=== PATIENT | female | born 1990 | race Caucasian/White ===

== ENCOUNTER 2020-04-03 12:56 | Inpatient (IN) | payer SELFPAY ==
[~2020-04-03] VITALS: Ht 162.6 cm; Wt 68.4 kg
[2020-04-03 14:52] LABS: BASO % 0 % (0-3); EOS % 0 % (0-3); HEMATOCRIT 25.7 % (36.0-47.0); HEMOGLOBIN 8.6 g/dL (12.0-15.5); LYMPH # 0.6 x10^3/uL (1.0-4.8); LYMPH % 5 % (24-48); MEAN CORPUSCULAR HEMOGLOBIN 32 pg (25-35); MEAN CORPUSCULAR HGB CONC 33 g/dL (31-37); MEAN CORPUSCULAR VOLUME 96 fL (79-100); MONO # 0.4 x10^3/uL (0.0-1.1); MONO % 4 % (0-9); NEUT # 10.7 x10^3/uL (1.8-7.7); NEUT % 91 % (31-73); PLATELET COUNT 130 x10^3/uL (140-400); RED BLOOD COUNT 2.69 x10^6/uL (3.50-5.40); RED CELL DISTRIBUTION WIDTH 15.6 % (11.5-14.5); WHITE BLOOD COUNT 11.8 x10^3/uL (4.0-11.0)
[2020-04-03 15:01] LABS: BARBITURATES NEG (NEG); BENZODIAZEPINES NEG (NEG); CANNABINOIDS POS (NEG); COCAINE NEG (NEG); METHADONE NEG (NEG); OPIATES POS (NEG); PHENCYCLIDINE NEG (NEG)
[2020-04-03 15:03] LABS: PROTHROMBIN TIME PATIENT 12.3 SEC (11.7-14.0)
[2020-04-03 15:04] LABS: AMPHETAMINE/METHAMPHETAMINE NEG (NEG)
--- NOTE | 2020-04-03 15:07 | EKG ---
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
[2020-04-03 15:11] LABS: % BANDS 6 % (0-9); % LYMPHS 4 % (24-48); % METAS 1 % (0-0); % MONOS 2 % (0-10); % SEGS 87 % (35-66); PLT ESTIMATE ADEQUATE (ADEQUATE); TOXIC GRANULATION SLIGHT; TOXIC VACUOLATION SLIGHT
[2020-04-03 15:12] LABS: CALCIUM 7.9 mg/dL (8.5-10.1); GFR 18.4; POTASSIUM 5.2 mmol/L (3.5-5.1)
[2020-04-03 15:16] LABS: ACETAMIN 14.8 mcg/ml (10-30); ETHANOL < 10 mg/dL (0-10); SALIC < 2.8 mg/dL (2.8-20.0)
[2020-04-03 15:19] LABS: ALBUMIN 0.8 g/dL (3.4-5.0); ALBUMIN/GLOBULIN RATIO 0.2 (1.0-1.7); TOTAL BILIRUBIN 0.2 mg/dL (0.2-1.0); TOTAL PROTEIN 5.4 g/dL (6.4-8.2)
--- NOTE | 2020-04-03 15:21 | RAD ---
CT HEAD WO CONTRAST History: Reason: AMS / Spl. Instructions: / History: Comparison: None. Technique: Noncontrast CT imaging was performed of the head. Exposure: One or more of the following individualized dose reduction techniques were utilized for this examination: 1. Automated exposure control 2. Adjustment of the mA and/or kV according to patient size 3. Use of iterative reconstruction technique. Findings: No intracranial hemorrhage. No mass effect. No hydrocephalus. Extra-axial spaces are unremarkable. Imaged orbits are unremarkable. Imaged paranasal sinuses and mastoid air cells are clear. No acute calvarial fracture. Impression: 1. No acute intracranial abnormality. Electronically signed by: Charles Ryan DO (04/03/2020 3:18 PM) [facility]
--- NOTE | 2020-04-03 15:23 | RAD ---
PORTABLE CHEST 1V Clinical indications: Reason: Altered mental status, NAUSEA, VOMITING / COMPARISON: None available. Findings: No acute lung infiltrate or pleural effusion or pulmonary edema or lung mass or pneumothorax is seen. The heart size, pulmonary vasculature, mediastinum and both anthony are unremarkable. Impression: No acute radiographic abnormality is seen. Electronically signed by: Robert Teran MD (04/03/2020 3:21 PM) [id number]
[2020-04-03 15:26] LABS: CREATINE KINASE 27 U/L (26-192)
[2020-04-03 15:58] LABS: BILIRUBIN,URINE SMALL (NEG); CLARITY,URINE CLOUDY; COLOR,URINE AMBER; NITRITE,URINE NEGATIVE (NEG); PROTEIN,URINE >=300 mg/dL (NEG-TRACE); UROBILINOGEN,URINE 0.2 mg/dL (0.2 mg/dL)
[2020-04-03 16:09] LABS: RBC,URINE TNTC /HPF (0-2)
[2020-04-03 16:10] LABS: AMORPHOUS SEDIMENT,UR PRESENT /HPF; BACTERIA,URINE 0 /HPF (0-FEW); SQUAMOUS EPITHELIAL CELL,UR OCC /LPF
--- NOTE | 2020-04-03 16:17 | EKG ---
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
--- NOTE | 2020-04-03 17:06 | PHYS DOC ---
Past Medical History Past Medical History: Unknown Past Surgical History: No Surgical History Smoking Status: Never Smoker Alcohol Use: None Social History Narrative: PERSCRIBED NAPROXEN AND HYDROCODONE General Adult EDM: Chief Complaint: NAUSEA/VOMITING/DIARRHA HPI: HPI: Patient is a 29 year old female with hx of Lupus who presents to the ED today from home to be evaluated for nausea and vomiting as well as altered mental status. Patient herself is a very poor historian. Information on getting from her male friend who brought patient to the ED, he states patient ran out of hydrocodone that she takes for lupus and has been vomiting since this morning. Patient at some point was able to communicate, she states she is overwhelmed by her lupus and feels she is deteriorating. She was very tearful. Review of Systems: Review of Systems: Constitutional: Denies fever or chills. [] Eyes: Denies change in visual acuity. [] HENT: Denies nasal congestion or sore throat. [] Respiratory: Denies cough or shortness of breath. [] Cardiovascular: Denies chest pain or edema. [] GI: Reports nausea and vomiting. Denies abdominal pain, bloody stools or diarrhea. [] : Denies dysuria. [] Musculoskeletal: Denies back pain or joint pain. [] Integument: Denies rash. [] Neurologic: AMS. Denies headache, focal weakness or sensory changes. [] ] Psychiatric: Denies depression or anxiety. [] Heart Score: Risk Factors: Risk Factors: DM, Current or recent (<one month) smoker, HTN, HLP, family history of CAD, obesity. Risk Scores: Score 0 - 3: 2.5% MACE over next 6 weeks - Discharge Home Score 4 - 6: 20.3% MACE over next 6 weeks - Admit for Clinical Observation Score 7 - 10: 72.7% MACE over next 6 weeks - Early Invasive Strategies Allergies: Allergies: Allergies Coded Allergies Type Severity Reaction Last Updated Verified No Known Drug Allergies 04/03/20 No Physical Exam: PE: Constitutional: Lethargic.Well developed, well nourished, no acute distress, non-toxic appearance. [] HENT: Normocephalic, atraumatic, bilateral external ears normal, oropharynx moist, no oral exudates, nose normal. [] Eyes: PERRLA, EOMI, conjunctiva normal, no discharge. [] Neck: Normal range of motion, no tenderness, supple, no stridor. [] Cardiovascular:Heart rate regular rhythm, no murmur [] Lungs & Thorax: Bilateral breath sounds clear to auscultation [] Abdomen: Vomiting bowel sounds normal, soft, no tenderness, no masses, no pulsatile masses. [] Skin: Warm, dry, no erythema, no rash. [] Back: No tenderness, no CVA tenderness. [] Extremities: No tenderness, no cyanosis, no clubbing, ROM intact, +3 edema from her toes to her thighs Neurologic: Alert and oriented X 2, normal motor function, normal sensory function, no focal deficits noted. Cranial nerves II through XII intact Psychologic: Flat affect. Tearful Current Patient Data: Labs: Laboratory Tests Test 04/03/20 14:30 04/03/20 14:35 04/03/20 14:38 04/03/20 14:47 Urine Opiates Screen Pos (NEG) Urine Methadone Screen Neg (NEG) Urine Barbiturates Neg (NEG) Urine Phencyclidine Screen Neg (NEG) Urine Amphetamine/Methamphetamine Neg (NEG) Urine Benzodiazepines Screen Neg (NEG) Urine Cocaine Screen Neg (NEG) Urine Cannabinoids Screen Pos (NEG) Urine Ethyl Alcohol Neg (NEG) White Blood Count 11.8 x10^3/uL (4.0-11.0) H Red Blood Count 2.69 x10^6/uL (3.50-5.40) L Hemoglobin 8.6 g/dL (12.0-15.5) L Hematocrit 25.7 % (36.0-47.0) L Mean Corpuscular Volume 96 fL (79-100) Mean Corpuscular Hemoglobin 32 pg (25-35) Mean Corpuscular Hemoglobin Concent 33 g/dL (31-37) Red Cell Distribution Width 15.6 % (11.5-14.5) H Platelet Count 130 x10^3/uL (140-400) L Neutrophils (%) (Auto) 91 % (31-73) H Lymphocytes (%) (Auto) 5 % (24-48) L Monocytes (%) (Auto) 4 % (0-9) Eosinophils (%) (Auto) 0 % (0-3) Basophils (%) (Auto) 0 % (0-3) Neutrophils # (Auto) 10.7 x10^3/uL (1.8-7.7) H Lymphocytes # (Auto) 0.6 x10^3/uL (1.0-4.8) L Monocytes # (Auto) 0.4 x10^3/uL (0.0-1.1) Eosinophils # (Auto) 0.0 x10^3/uL (0.0-0.7) Basophils # (Auto) 0.0 x10^3/uL (0.0-0.2) Segmented Neutrophils % 87 % (35-66) H Band Neutrophils % 6 % (0-9) Lymphocytes % 4 % (24-48) L Monocytes % 2 % (0-10) Metamyelocytes % 1 % (0-0) H Toxic Granulation Slight Toxic Vacuolation Slight Platelet Estimate Adequate (ADEQUATE) Prothrombin Time 12.3 SEC (11.7-14.0) Prothrombin Time INR 1.0 (0.8-1.1) Activated Partial Thromboplast Time 29 SEC (24-38) Sodium Level 132 mmol/L (136-145) L Potassium Level 5.2 mmol/L (3.5-5.1) H Chloride Level 104 mmol/L (98-107) Carbon Dioxide Level 20 mmol/L (21-32) L Anion Gap 8 (6-14) Blood Urea Nitrogen 55 mg/dL (7-20) H Creatinine 3.0 mg/dL (0.6-1.0) H Estimated GFR (Cockcroft-Gault) 18.4 BUN/Creatinine Ratio 18 (6-20) Glucose Level 144 mg/dL (70-99) H Lactic Acid Level 1.2 mmol/L (0.4-2.0) Calcium Level 7.9 mg/dL (8.5-10.1) L Total Bilirubin 0.2 mg/dL (0.2-1.0) Aspartate Amino Transferase (AST) 17 U/L (15-37) Alanine Aminotransferase (ALT) 14 U/L (14-59) Alkaline Phosphatase 104 U/L (46-116) Creatine Kinase 27 U/L (26-192) Creatine Kinase MB (Mass) < 0.5 ng/mL (0.0-3.6) Creatine Kinase MB Relative Index % (0-4) Total Protein 5.4 g/dL (6.4-8.2) L Albumin 0.8 g/dL (3.4-5.0) L Albumin/Globulin Ratio 0.2 (1.0-1.7) L Amylase Level 67 U/L (25-115) Lipase 296 U/L (73-393) Procalcitonin 16.38 ng/mL (0.00-0.10) H Salicylates Level < 2.8 mg/dL (2.8-20.0) L Salicylate Last Dose Date Unknown Salicylate Last Dose Time Unknown Acetaminophen Level 14.8 mcg/ml (10-30) Acetaminophen Last Dose Date Unknown Acetaminophen Last Dose Time Unknown Ethyl Alcohol Level < 10 mg/dL (0-10) Urine Collection Type U cath Urine Color Renata Urine Clarity Cloudy Urine pH 5.0 (<5.0-8.0) Urine Specific [place] 1.025 (1.000-1.030) Urine Protein >=300 mg/dL (NEG-TRACE) Urine Glucose (UA) Negative mg/dL (NEG) Urine Ketones (Stick) Trace mg/dL (NEG) Urine Blood Large (NEG) Urine Nitrite Negative (NEG) Urine Bilirubin Small (NEG) Urine Urobilinogen Dipstick 0.2 mg/dL (0.2 mg/dL) Urine Leukocyte Esterase Trace (NEG) Urine RBC Tntc /HPF (0-2) Urine WBC 1-4 /HPF (0-4) Urine Squamous Epithelial Cells Occ /LPF Urine Amorphous Sediment Present /HPF Urine Bacteria 0 /HPF (0-FEW) POC Urine HCG, Qualitative Hcg negative (Negative) Test 04/03/20 15:25 Ammonia < 10 mcmol/L (11-34) L Laboratory Tests 04/03/20 14:35 Laboratory Tests 04/03/20 14:35 Vital Signs: Vital Signs Date Time Temp Pulse Resp B/P (MAP) Pulse Ox O2 Delivery O2 Flow Rate FiO2 04/03/20 13:59 98.5 107 118/83 (95) 98 98.5 04/03/20 13:53 22 Room Air EKG: EKG: [] Radiology/Procedures: Radiology/Procedures: []PROCEDURE: PORTABLE CHEST 1V PORTABLE CHEST 1V Clinical indications: Reason: Altered mental status, NAUSEA, VOMITING / COMPARISON: None available. Findings: No acute lung infiltrate or pleural effusion or pulmonary edema or lung mass or pneumothorax is seen. The heart size, pulmonary vasculature, mediastinum and both anthony are unremarkable. Impression: No acute radiographic abnormality is seen. Electronically signed by: Leobardo Teran MD (04/03/2020 3:21 PM) [id number] DICTATED and SIGNED BY: LEOBARDO TERAN MD DATE: 04/03/20 1521 PROCEDURE: CT HEAD WO CONTRAST CT HEAD WO CONTRAST History: Reason: AMS / Spl. Instructions: / History: Comparison: None. Technique: Noncontrast CT imaging was performed of the head. Exposure: One or more of the following individualized dose reduction techniques were utilized for this examination: 1. Automated exposure control 2. Adjustment of the mA and/or kV according to patient size 3. Use of iterative reconstruction technique. Findings: No intracranial hemorrhage. No mass effect. No hydrocephalus. Extra-axial spaces are unremarkable. Imaged orbits are unremarkable. Imaged paranasal sinuses and mastoid air cells are clear. No acute calvarial fracture. Impression: 1. No acute intracranial abnormality. Electronically signed by: Charles Ryan DO (04/03/2020 3:18 PM) [facility] DICTATED and SIGNED BY: CHARLES RYAN DO DATE: 04/03/20 1518 Course & Med Decision Making: Course & Med Decision Making Pertinent Labs and Imaging studies reviewed. (See chart for details) This is a 29-year-old female patient presenting to the ED today to be evaluated for nausea and vomiting as well as altered mental status. Patient was lethargic on arrival to the ED but able to wake up and talk. She was vomiting on arrival to the ED. Vitals on arrival to the ED temperature 98.5 heart rate 107, respiration 22 on room air, blood pressure 118/83, O2 sats 98% on room air. Ct of the head and chest xray are negative. WBC 11.8, hemoglobin 8.6, hematocrit 25.7, platelet count 130. Potassium 5.2, creatinine 3.0, BUN 55, most likely CRF pro calcitonin 16.38 questionable if this is from Lupus/inflammation, lactic is 1.2. Patient has +3 edema from her toes all the way to her thighs. BNP is 4940 she is on furosemide. Will be given a dose in the Ed.I spoke to Dr. Peña who accepted patient for admission with request for routine consult for infectious disease, nephrology and give patient cefepime and vancomycin cautiously until we figure out if this is elevated procalcitonin is from lupus or not. Spoke with Oneyda from PAT team who will f/u with patient tomorrow. Gaviota Disclaimer: Gaviota Disclaimer: This electronic medical record was generated, in whole or in part, using a voice recognition dictation system. Departure Departure Impression: Primary Impression: Altered mental status Qualified Codes: R41.82 - Altered mental status, unspecified Additional Impressions: Acute renal failure Qualified Codes: N17.9 - Acute kidney failure, unspecified Anemia Qualified Codes: D64.9 - Anemia, unspecified Disposition: 09 ADMITTED INPATIENT Condition: STABLE Referrals: NO PCP (PCP) Justicifation of Admission Dx: Justifications for Admission: Justification of Admission Dx: Yes Chronic Renal Failure: Renail Failure FAUSTO RICHARD STUDENT SUCCESS ADVISOR Apr 03, 2020 17:06
[2020-04-03] MEDS ORDERED: CEFEPIME HCL IV Push 1 GM VIAL. IVP ONE (18:00)
[2020-04-03] MEDS ORDERED: ONDANSETRON PF 4 MG/2 ML VIAL. IV PRN (19:15)
[2020-04-03] MEDS ORDERED: ACETAMINOPHEN 325 MG TABLET. PO PRN (19:15)
[2020-04-03] MEDS ORDERED: FUROSEMIDE 40 MG TABLET. PO ONE (19:30)
[2020-04-03] MEDS ORDERED: VANCOMYCIN PER PHARMACY MC PRN (19:30)
[2020-04-03] MEDS ORDERED: VANCOMYCIN 1.5 GM in IV NORMAL SALINE 500ML BAG 500 ML IV ONE (19:45)
--- NOTE | 2020-04-03 20:39 | PDOC1 ---
History and Physical Date of Admission Date of Admission DATE: 04/03/20 TIME: 20:38 Identification/Chief Complaint Chief Complaint Intractable pain, elevated procalcitonin, leukocytosis Source Source: Caregiver, Patient History of Present Illness History of Present Illness Patient is a 29 yo female with history of lupus, who presents with complaint of "pain all over". She is tearful at the time of evaluation, and does not provide me with an exact duration of time or answers to straight forward questions. She is able to localize her pain to her lower extremities and joints. She does tell me that she has been taking her home hydrocodone medications without improvement in her pain. Patient's friend notes worsening anxiety about her seemingly d eteriorating medical condition over the past 2 months. He states over the past day of two she has become more unresponsive, withdrawn, and tearful. There is mention in the ER note about vomiting, but this was not conveyed to me by the patient or friend. Patient denies any fever, sore throat, cough, SOB, or history of IV drug use. Past Medical History Rheumatologic: Other (Lupus) Renal/: Chronic renal insuff Past Surgical History Past Surgical History: No pertinent history Family History Family History: Cancer Social History Smoke: No ALCOHOL: none Drugs: Marijuana Current Problem List Problem List Problems Medical Problems: (1) Acute renal failure Status: Acute (2) Altered mental status Status: Acute (3) Anemia Status: Acute Current Medications Current Medications Current Medications Cefepime HCl (Maxipime) 1 gm 1X ONCE IVP Last administered on 04/03/20at 18:00; Start 04/03/20 at 18:00; Stop 04/03/20 at 18:01; Status DC Ondansetron HCl (Zofran) 4 mg PRN Q8HRS PRN IV NAUSEA/VOMITING; Start 04/03/20 at 19:15; Stop 04/04/20 at 19:14 Acetaminophen (Tylenol) 650 mg PRN Q4HRS PRN PO FEVER > 100.3'F; Start 04/03/20 at 19:15; Stop 04/04/20 at 19:14 Furosemide (Lasix) 40 mg 1X ONCE PO Last administered on 04/03/20at 20:12; Start 04/03/20 at 19:30; Stop 04/03/20 at 19:35; Status DC Vancomycin HCl (Vanco Per Pharmacy) 1 each PRN DAILY PRN MC SEE COMMENTS; Start 04/03/20 at 19:30; Status UNV Vancomycin HCl 1.5 gm/Sodium Chloride 500 ml @ 250 mls/hr 1X ONCE IV Last administered on 04/03/20at 20:17; Start 04/03/20 at 19:45; Stop 04/03/20 at 21:44 Allergies Allergies: Coded Allergies: No Known Drug Allergies (Unverified , 04/03/20) ROS Review of System Complete review of systems could not be obtained due to uncooperative patient Musculoskeletal: Yes Joint Pain, Yes Joint Swelling, Yes Muscle Pain, Yes Pain In: (Legs), Yes Swelling In: (Legs) Physical Exam General: moderate distress, Other (Lethargic) HEENT: Atraumatic, PERRLA Lungs: Clear to auscultation, Normal air movement Heart: RRR, no murmurs Cardiovascular: S1, S2 Abdomen: Normal bowel sounds, Soft Extremities: No clubbing, No cyanosis, Other (3+ pitting edema bilateral legs to above the knees) Skin: No rashes, No significant lesion Neuro: Sensation intact Psych/Mental Status: Other (Tearful) Vitals Vitals Vital Signs Date Time Temp Pulse Resp B/P (MAP) Pulse Ox O2 Delivery O2 Flow Rate FiO2 04/03/20 19:11 84 16 106/80 (89) 99 Room Air 04/03/20 13:59 98.5 98.5 Labs Labs Laboratory Tests Test 04/03/20 14:30 04/03/20 14:35 04/03/20 14:38 04/03/20 14:47 Urine Opiates Screen Pos (NEG) Urine Methadone Screen Neg (NEG) Urine Barbiturates Neg (NEG) Urine Phencyclidine Screen Neg (NEG) Urine Amphetamine/Methamphetamine Neg (NEG) Urine Benzodiazepines Screen Neg (NEG) Urine Cocaine Screen Neg (NEG) Urine Cannabinoids Screen Pos (NEG) Urine Ethyl Alcohol Neg (NEG) White Blood Count 11.8 x10^3/uL (4.0-11.0) Red Blood Count 2.69 x10^6/uL (3.50-5.40) Hemoglobin 8.6 g/dL (12.0-15.5) Hematocrit 25.7 % (36.0-47.0) Mean Corpuscular Volume 96 fL (79-100) Mean Corpuscular Hemoglobin 32 pg (25-35) Mean Corpuscular Hemoglobin Concent 33 g/dL (31-37) Red Cell Distribution Width 15.6 % (11.5-14.5) Platelet Count 130 x10^3/uL (140-400) Neutrophils (%) (Auto) 91 % (31-73) Lymphocytes (%) (Auto) 5 % (24-48) Monocytes (%) (Auto) 4 % (0-9) Eosinophils (%) (Auto) 0 % (0-3) Basophils (%) (Auto) 0 % (0-3) Neutrophils # (Auto) 10.7 x10^3/uL (1.8-7.7) Lymphocytes # (Auto) 0.6 x10^3/uL (1.0-4.8) Monocytes # (Auto) 0.4 x10^3/uL (0.0-1.1) Eosinophils # (Auto) 0.0 x10^3/uL (0.0-0.7) Basophils # (Auto) 0.0 x10^3/uL (0.0-0.2) Segmented Neutrophils % 87 % (35-66) Band Neutrophils % 6 % (0-9) Lymphocytes % 4 % (24-48) Monocytes % 2 % (0-10) Metamyelocytes % 1 % (0-0) Toxic Granulation Slight Toxic Vacuolation Slight Platelet Estimate Adequate (ADEQUATE) Prothrombin Time 12.3 SEC (11.7-14.0) Prothromb Time International Ratio 1.0 (0.8-1.1) Activated Partial Thromboplast Time 29 SEC (24-38) Sodium Level 132 mmol/L (136-145) Potassium Level 5.2 mmol/L (3.5-5.1) Chloride Level 104 mmol/L (98-107) Carbon Dioxide Level 20 mmol/L (21-32) Anion Gap 8 (6-14) Blood Urea Nitrogen 55 mg/dL (7-20) Creatinine 3.0 mg/dL (0.6-1.0) Estimated GFR (Cockcroft-Gault) 18.4 BUN/Creatinine Ratio 18 (6-20) Glucose Level 144 mg/dL (70-99) Lactic Acid Level 1.2 mmol/L (0.4-2.0) Calcium Level 7.9 mg/dL (8.5-10.1) Total Bilirubin 0.2 mg/dL (0.2-1.0) Aspartate Amino Transf (AST/SGOT) 17 U/L (15-37) Alanine Aminotransferase (ALT/SGPT) 14 U/L (14-59) Alkaline Phosphatase 104 U/L (46-116) Creatine Kinase 27 U/L (26-192) Creatine Kinase MB (Mass) < 0.5 ng/mL (0.0-3.6) Creatine Kinase MB Relative Index % (0-4) EO-Qjt-T-Type Natriuretic Peptide 4940 pg/mL (0-124) Total Protein 5.4 g/dL (6.4-8.2) Albumin 0.8 g/dL (3.4-5.0) Albumin/Globulin Ratio 0.2 (1.0-1.7) Amylase Level 67 U/L (25-115) Lipase 296 U/L (73-393) Procalcitonin 16.38 ng/mL (0.00-0.10) Salicylates Level < 2.8 mg/dL (2.8-20.0) Salicylate Last Dose Date Unknown Salicylate Last Dose Time Unknown Acetaminophen Level 14.8 mcg/ml (10-30) Acetaminophen Last Dose Date Unknown Acetaminophen Last Dose Time Unknown Ethyl Alcohol Level < 10 mg/dL (0-10) Urine Collection Type U cath Urine Color Renata Urine Clarity Cloudy Urine pH 5.0 (<5.0-8.0) Urine Specific [place] 1.025 (1.000-1.030) Urine Protein >=300 mg/dL (NEG-TRACE) Urine Glucose (UA) Negative mg/dL (NEG) Urine Ketones (Stick) Trace mg/dL (NEG) Urine Blood Large (NEG) Urine Nitrite Negative (NEG) Urine Bilirubin Small (NEG) Urine Urobilinogen Dipstick 0.2 mg/dL (0.2 mg/dL) Urine Leukocyte Esterase Trace (NEG) Urine RBC Tntc /HPF (0-2) Urine WBC 1-4 /HPF (0-4) Urine Squamous Epithelial Cells Occ /LPF Urine Amorphous Sediment Present /HPF Urine Bacteria 0 /HPF (0-FEW) Bedside Urine HCG, Qualitative Hcg negative (Negative) Test 04/03/20 15:25 Ammonia < 10 mcmol/L (11-34) Laboratory Tests Test 04/03/20 14:30 04/03/20 14:35 04/03/20 14:38 04/03/20 14:47 Urine Opiates Screen Pos (NEG) Urine Methadone Screen Neg (NEG) Urine Barbiturates Neg (NEG) Urine Phencyclidine Screen Neg (NEG) Urine Amphetamine/Methamphetamine Neg (NEG) Urine Benzodiazepines Screen Neg (NEG) Urine Cocaine Screen Neg (NEG) Urine Cannabinoids Screen Pos (NEG) Urine Ethyl Alcohol Neg (NEG) White Blood Count 11.8 x10^3/uL (4.0-11.0) Red Blood Count 2.69 x10^6/uL (3.50-5.40) Hemoglobin 8.6 g/dL (12.0-15.5) Hematocrit 25.7 % (36.0-47.0) Mean Corpuscular Volume 96 fL (79-100) Mean Corpuscular Hemoglobin 32 pg (25-35) Mean Corpuscular Hemoglobin Concent 33 g/dL (31-37) Red Cell Distribution Width 15.6 % (11.5-14.5) Platelet Count 130 x10^3/uL (140-400) Neutrophils (%) (Auto) 91 % (31-73) Lymphocytes (%) (Auto) 5 % (24-48) Monocytes (%) (Auto) 4 % (0-9) Eosinophils (%) (Auto) 0 % (0-3) Basophils (%) (Auto) 0 % (0-3) Neutrophils # (Auto) 10.7 x10^3/uL (1.8-7.7) Lymphocytes # (Auto) 0.6 x10^3/uL (1.0-4.8) Monocytes # (Auto) 0.4 x10^3/uL (0.0-1.1) Eosinophils # (Auto) 0.0 x10^3/uL (0.0-0.7) Basophils # (Auto) 0.0 x10^3/uL (0.0-0.2) Segmented Neutrophils % 87 % (35-66) Band Neutrophils % 6 % (0-9) Lymphocytes % 4 % (24-48) Monocytes % 2 % (0-10) Metamyelocytes % 1 % (0-0) Toxic Granulation Slight Toxic Vacuolation Slight Platelet Estimate Adequate (ADEQUATE) Prothrombin Time 12.3 SEC (11.7-14.0) Prothromb Time International Ratio 1.0 (0.8-1.1) Activated Partial Thromboplast Time 29 SEC (24-38) Sodium Level 132 mmol/L (136-145) Potassium Level 5.2 mmol/L (3.5-5.1) Chloride Level 104 mmol/L (98-107) Carbon Dioxide Level 20 mmol/L (21-32) Anion Gap 8 (6-14) Blood Urea Nitrogen 55 mg/dL (7-20) Creatinine 3.0 mg/dL (0.6-1.0) Estimated GFR (Cockcroft-Gault) 18.4 BUN/Creatinine Ratio 18 (6-20) Glucose Level 144 mg/dL (70-99) Lactic Acid Level 1.2 mmol/L (0.4-2.0) Calcium Level 7.9 mg/dL (8.5-10.1) Total Bilirubin 0.2 mg/dL (0.2-1.0) Aspartate Amino Transf (AST/SGOT) 17 U/L (15-37) Alanine Aminotransferase (ALT/SGPT) 14 U/L (14-59) Alkaline Phosphatase 104 U/L (46-116) Creatine Kinase 27 U/L (26-192) Creatine Kinase MB (Mass) < 0.5 ng/mL (0.0-3.6) Creatine Kinase MB Relative Index % (0-4) NU-Fbr-L-Type Natriuretic Peptide 4940 pg/mL (0-124) Total Protein 5.4 g/dL (6.4-8.2) Albumin 0.8 g/dL (3.4-5.0) Albumin/Globulin Ratio 0.2 (1.0-1.7) Amylase Level 67 U/L (25-115) Lipase 296 U/L (73-393) Procalcitonin 16.38 ng/mL (0.00-0.10) Salicylates Level < 2.8 mg/dL (2.8-20.0) Salicylate Last Dose Date Unknown Salicylate Last Dose Time Unknown Acetaminophen Level 14.8 mcg/ml (10-30) Acetaminophen Last Dose Date Unknown Acetaminophen Last Dose Time Unknown Ethyl Alcohol Level < 10 mg/dL (0-10) Urine Collection Type U cath Urine Color Renata Urine Clarity Cloudy Urine pH 5.0 (<5.0-8.0) Urine Specific [place] 1.025 (1.000-1.030) Urine Protein >=300 mg/dL (NEG-TRACE) Urine Glucose (UA) Negative mg/dL (NEG) Urine Ketones (Stick) Trace mg/dL (NEG) Urine Blood Large (NEG) Urine Nitrite Negative (NEG) Urine Bilirubin Small (NEG) Urine Urobilinogen Dipstick 0.2 mg/dL (0.2 mg/dL) Urine Leukocyte Esterase Trace (NEG) Urine RBC Tntc /HPF (0-2) Urine WBC 1-4 /HPF (0-4) Urine Squamous Epithelial Cells Occ /LPF Urine Amorphous Sediment Present /HPF Urine Bacteria 0 /HPF (0-FEW) Bedside Urine HCG, Qualitative Hcg negative (Negative) Test 04/03/20 15:25 Ammonia < 10 mcmol/L (11-34) VTE Prophylaxis Ordered VTE Prophylaxis Devices: No VTE Pharmacological Prophylaxi: Yes Assessment/Plan Assessment/Plan Elevated Procalcitonin Leukocytosis Renal Failure Hyperkalemia Malnutrition Plan: Patient does not appear toxic, with normal vitals, but her labs are concerning for underlying infectious process. Procalcitonin 16.38, WBC 11.8. Consult to Nephrology and ID. As patient does not currently appear toxic, hold further antibiotics until input from ID, as this could be the result of systemic autoimmune disease. Elevated procalcitonin may be secondary to Lupus as underlying autoimmune disease. Consult to PAT. Even in the absence of underlying infectious process, patient lives alone and is currently not mentally stable enough to return home by herself. Blood cultures pending. Pain management. VTE prophylaxis. Full Code. Justifications for Admission Other Justification KYRA MALDONADO MD Apr 03, 2020 20:39
[2020-04-03] MEDS ORDERED: SODIUM POLYSTYRENE SULFON/SORB 15 GM/60 ML ORAL.SUSP. PO ONE (20:45)
[2020-04-03] MEDS ORDERED: HYDROcodone/APAP 5/325MG 1 TAB TABLET PO PRN (20:45)
[2020-04-03] MEDS ORDERED: BISACODYL 10 MG SUPP.RECT. PR PRN (20:45)
[2020-04-03 21:20] VITALS: BP 106/68
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
[2020-04-03] MEDS: DOCUSATE SODIUM 100 MG CAPSULE. PO SCH (22:23)
[2020-04-03] MEDS: HEPARIN for SUB-Q USE 5,000 UNIT/ML VIAL. SQ SCH (22:32)
[2020-04-03 23:00] VITALS: BP 116/73
[2020-04-04 03:00] VITALS: BP 98/64
[2020-04-04] MEDS: HEPARIN for SUB-Q USE 5,000 UNIT/ML VIAL. SQ SCH ×3 (06:43→20:57)
[2020-04-04 07:00] VITALS: BP 98/68
--- NOTE | 2020-04-04 07:48 | NUR ---
Consult called to Dr. Karley Copeland and spoke with Dr. Copeland. Consult called to Dr. Stokes's service and spoke with Surendra at [phone] and she stated she would notify Dr. Stokes with consult.
[2020-04-04 08:14] LABS: BASO % 0 % (0-3); EOS % 0 % (0-3); HEMATOCRIT 29.7 % (36.0-47.0); HEMOGLOBIN 9.6 g/dL (12.0-15.5); LYMPH # 1.6 x10^3/uL (1.0-4.8); LYMPH % 9 % (24-48); MEAN CORPUSCULAR HEMOGLOBIN 31 pg (25-35); MEAN CORPUSCULAR HGB CONC 32 g/dL (31-37); MEAN CORPUSCULAR VOLUME 95 fL (79-100); MONO # 0.9 x10^3/uL (0.0-1.1); MONO % 5 % (0-9); NEUT # 15.8 x10^3/uL (1.8-7.7); NEUT % 86 % (31-73); PLATELET COUNT 158 x10^3/uL (140-400); RED BLOOD COUNT 3.13 x10^6/uL (3.50-5.40); RED CELL DISTRIBUTION WIDTH 16.2 % (11.5-14.5); WHITE BLOOD COUNT 18.4 x10^3/uL (4.0-11.0)
[2020-04-04 08:40] LABS: ALBUMIN 0.6 g/dL (3.4-5.0); ALBUMIN/GLOBULIN RATIO 0.1 (1.0-1.7); CALCIUM 7.7 mg/dL (8.5-10.1); CREATININE 3.5 mg/dL (0.6-1.0); GFR 15.4; TOTAL BILIRUBIN 0.1 mg/dL (0.2-1.0); TOTAL PROTEIN 4.9 g/dL (6.4-8.2)
[2020-04-04] MEDS: DOCUSATE SODIUM 100 MG CAPSULE. PO SCH ×2 (08:53→20:56)
[2020-04-04 08:59] LABS: POTASSIUM 6.1 mmol/L (3.5-5.1)
--- NOTE | 2020-04-04 10:50 | PDOC ---
PROGRESS NOTES Date of Service: DATE: 04/04/20 TIME: 10:47 Chief Complaint Chief Complaint VTE Prophylaxis Ordered VTE Prophylaxis Devices: No VTE Pharmacological Prophylaxi: Yes Assessment/Plan Assessment/Plan Elevated Procalcitonin Leukocytosis Renal Failure Hyperkalemia Malnutrition metabolic encephalopathy sepsis Plan: does not appear toxic, with normal vitals, labs are concerning for underlying infectious process. Procalcitonin 16.38, WBC 11.8. Consult to Nephrology and ID., neurology further antibiotics until input from ID, as this could be the result of systemic autoimmune disease. Elevated procalcitonin may be secondary to Lupus as underlying autoimmune disease. Consult to PAT. Even in the absence of underlying infectious process, patient lives alone and is currently not mentally stable enough to return home by herself. Blood cultures POS G POS COCCI . 04/04 ct abd pelvis ADMIT CONSULT id Pain management. VTE prophylaxis. Full Code. KAYEXYLATE PO consult nephrology iv vancomycin cefepime iv bmp at 2300 tonight covid-19 ag lactic acid fibrinogen 38 min pt exam, chart review, > 50% of time spent with exam, chart review, pt care coordination History of Present Illness History of Present Illness History of Present Illness History of Present Illness Patient is a 29 yo female with history of lupus, who presents with complaint of "pain all over". She is tearful at the time of evaluation, and does not provide me with an exact duration of time or answers to straight forward questions. She is able to localize her pain to her lower extremities and joints. She does tell me that she has been taking her home hydrocodone medications without improvement in her pain. Patient's friend notes worsening anxiety about her seemingly deteriorating medical condition over the past 2 months. He states over the past day of two she has become more unresponsive, withdrawn, and tearful. mention in the ER note about vomiting, but this was not conveyed to me by the patient or friend. denies any fever, sore throat, cough, SOB, or history of IV drug use. Past Medical History Rheumatologic: Other (Lupus) Renal/: Chronic renal insuff Past Surgical History Past Surgical History: No pertinent history Family History Family History: Cancer Social History Smoke: No ALCOHOL: none Drugs: Marijuana Vitals Vitals Vital Signs Date Time Temp Pulse Resp B/P (MAP) Pulse Ox O2 Delivery O2 Flow Rate FiO2 04/04/20 08:55 100 Room Air 04/04/20 07:00 98.4 88 20 98/68 78) 98.4 Physical Exam General: Alert, Cooperative, No acute distress, Other (Lethargic) Heart: Regular rate, No murmurs Lungs: Clear Abdomen: Normal bowel sounds, Soft, No tenderness Extremities: No clubbing, No cyanosis, No edema, Other (3+ pitting edema bilateral legs to above the knees) Skin: No rashes, No significant lesion Labs LABS PORTABLE CHEST 1V Clinical indications: Reason: Altered mental status, NAUSEA, VOMITING / COMPARISON: None available. Findings: No acute lung infiltrate or pleural effusion or pulmonary edema or lung mass or pneumothorax is seen. The heart size, pulmonary vasculature, mediastinum and both anthony are unremarkable. Impression: No acute radiographic abnormality is seen. Electronically signed by: Leobardo Teran MD (04/03/2020 3:21 PM) [id number] DICTATED and SIGNED BY: LEOBARDO TERAN MD DATE: 04/03/[address] HEAD WO CONTRAST History: Reason: AMS / Spl. Instructions: / History: Comparison: None. Technique: Noncontrast CT imaging was performed of the head. Exposure: One or more of the following individualized dose reduction techniques were utilized for this examination: 1. Automated exposure control 2. Adjustment of the mA and/or kV according to patient size 3. Use of iterative reconstruction technique. Findings: No intracranial hemorrhage. No mass effect. No hydrocephalus. Extra-axial spaces are unremarkable. Imaged orbits are unremarkable. Imaged paranasal sinuses and mastoid air cells are clear. No acute calvarial fracture. Impression: 1. No acute intracranial abnormality. Electronically signed by: Charles Jones DO (04/03/2020 3:18 PM) [facility] DICTATED and SIGNED BY: CHARLES JONES DO DATE: 04/03/20 1518 Laboratory Tests Test 04/03/20 14:30 04/03/20 14:35 04/03/20 14:38 04/03/20 14:47 Urine Opiates Screen Pos (NEG) Urine Methadone Screen Neg (NEG) Urine Barbiturates Neg (NEG) Urine Phencyclidine Screen Neg (NEG) Urine Amphetamine/Methamphetamine Neg (NEG) Urine Benzodiazepines Screen Neg (NEG) Urine Cocaine Screen Neg (NEG) Urine Cannabinoids Screen Pos (NEG) Urine Ethyl Alcohol Neg (NEG) White Blood Count 11.8 x10^3/uL (4.0-11.0) Red Blood Count 2.69 x10^6/uL (3.50-5.40) Hemoglobin 8.6 g/dL (12.0-15.5) Hematocrit 25.7 % (36.0-47.0) Mean Corpuscular Volume 96 fL (79-100) Mean Corpuscular Hemoglobin 32 pg (25-35) Mean Corpuscular Hemoglobin Concent 33 g/dL (31-37) Red Cell Distribution Width 15.6 % (11.5-14.5) Platelet Count 130 x10^3/uL (140-400) Neutrophils (%) (Auto) 91 % (31-73) Lymphocytes (%) (Auto) 5 % (24-48) Monocytes (%) (Auto) 4 % (0-9) Eosinophils (%) (Auto) 0 % (0-3) Basophils (%) (Auto) 0 % (0-3) Neutrophils # (Auto) 10.7 x10^3/uL (1.8-7.7) Lymphocytes # (Auto) 0.6 x10^3/uL (1.0-4.8) Monocytes # (Auto) 0.4 x10^3/uL (0.0-1.1) Eosinophils # (Auto) 0.0 x10^3/uL (0.0-0.7) Basophils # (Auto) 0.0 x10^3/uL (0.0-0.2) Segmented Neutrophils % 87 % (35-66) Band Neutrophils % 6 % (0-9) Lymphocytes % 4 % (24-48) Monocytes % 2 % (0-10) Metamyelocytes % 1 % (0-0) Toxic Granulation Slight Toxic Vacuolation Slight Platelet Estimate Adequate (ADEQUATE) Prothrombin Time 12.3 SEC (11.7-14.0) Prothromb Time International Ratio 1.0 (0.8-1.1) Activated Partial Thromboplast Time 29 SEC (24-38) Sodium Level 132 mmol/L (136-145) Potassium Level 5.2 mmol/L (3.5-5.1) Chloride Level 104 mmol/L (98-107) Carbon Dioxide Level 20 mmol/L (21-32) Anion Gap 8 (6-14) Blood Urea Nitrogen 55 mg/dL (7-20) Creatinine 3.0 mg/dL (0.6-1.0) Estimated GFR (Cockcroft-Gault) 18.4 BUN/Creatinine Ratio 18 (6-20) Glucose Level 144 mg/dL (70-99) Lactic Acid Level 1.2 mmol/L (0.4-2.0) Calcium Level 7.9 mg/dL (8.5-10.1) Total Bilirubin 0.2 mg/dL (0.2-1.0) Aspartate Amino Transf (AST/SGOT) 17 U/L (15-37) Alanine Aminotransferase (ALT/SGPT) 14 U/L (14-59) Alkaline Phosphatase 104 U/L (46-116) Creatine Kinase 27 U/L (26-192) Creatine Kinase MB (Mass) < 0.5 ng/mL (0.0-3.6) Creatine Kinase MB Relative Index % (0-4) FO-Ydf-[id number]-Type Natriuretic Peptide 4940 pg/mL (0-124) Total Protein 5.4 g/dL (6.4-8.2) Albumin 0.8 g/dL (3.4-5.0) Albumin/Globulin Ratio 0.2 (1.0-1.7) Amylase Level 67 U/L (25-115) Lipase 296 U/L (73-393) Procalcitonin 16.38 ng/mL (0.00-0.10) Salicylates Level < 2.8 mg/dL (2.8-20.0) Salicylate Last Dose Date Unknown Salicylate Last Dose Time Unknown Acetaminophen Level 14.8 mcg/ml (10-30) Acetaminophen Last Dose Date Unknown Acetaminophen Last Dose Time Unknown Ethyl Alcohol Level < 10 mg/dL (0-10) Urine Collection Type U cath Urine Color Renata Urine Clarity Cloudy Urine pH 5.0 (<5.0-8.0) Urine Specific Serafina 1.025 (1.000-1.030) Urine Protein >=300 mg/dL (NEG-TRACE) Urine Glucose (UA) Negative mg/dL (NEG) Urine Ketones (Stick) Trace mg/dL (NEG) Urine Blood Large (NEG) Urine Nitrite Negative (NEG) Urine Bilirubin Small (NEG) Urine Urobilinogen Dipstick 0.2 mg/dL (0.2 mg/dL) Urine Leukocyte Esterase Trace (NEG) Urine RBC Tntc /HPF (0-2) Urine WBC 1-4 /HPF (0-4) Urine Squamous Epithelial Cells Occ /LPF Urine Amorphous Sediment Present /HPF Urine Bacteria 0 /HPF (0-FEW) Bedside Urine HCG, Qualitative Hcg negative (Negative) Test 04/03/20 15:25 04/04/20 07:25 Ammonia < 10 mcmol/L (11-34) White Blood Count 18.4 x10^3/uL (4.0-11.0) Red Blood Count 3.13 x10^6/uL (3.50-5.40) Hemoglobin 9.6 g/dL (12.0-15.5) Hematocrit 29.7 % (36.0-47.0) Mean Corpuscular Volume 95 fL (79-100) Mean Corpuscular Hemoglobin 31 pg (25-35) Mean Corpuscular Hemoglobin Concent 32 g/dL (31-37) Red Cell Distribution Width 16.2 % (11.5-14.5) Platelet Count 158 x10^3/uL (140-400) Neutrophils (%) (Auto) 86 % (31-73) Lymphocytes (%) (Auto) 9 % (24-48) Monocytes (%) (Auto) 5 % (0-9) Eosinophils (%) (Auto) 0 % (0-3) Basophils (%) (Auto) 0 % (0-3) Neutrophils # (Auto) 15.8 x10^3/uL (1.8-7.7) Lymphocytes # (Auto) 1.6 x10^3/uL (1.0-4.8) Monocytes # (Auto) 0.9 x10^3/uL (0.0-1.1) Eosinophils # (Auto) 0.0 x10^3/uL (0.0-0.7) Basophils # (Auto) 0.0 x10^3/uL (0.0-0.2) Sodium Level 133 mmol/L (136-145) Potassium Level 6.1 mmol/L (3.5-5.1) Chloride Level 104 mmol/L (98-107) Carbon Dioxide Level 19 mmol/L (21-32) Anion Gap 10 (6-14) Blood Urea Nitrogen 65 mg/dL (7-20) Creatinine 3.5 mg/dL (0.6-1.0) Estimated GFR (Cockcroft-Gault) 15.4 BUN/Creatinine Ratio 19 (6-20) Glucose Level 88 mg/dL (70-99) Calcium Level 7.7 mg/dL (8.5-10.1) Total Bilirubin 0.1 mg/dL (0.2-1.0) Aspartate Amino Transf (AST/SGOT) 12 U/L (15-37) Alanine Aminotransferase (ALT/SGPT) 8 U/L (14-59) Alkaline Phosphatase 85 U/L (46-116) C-Reactive Protein, Quantitative 171.4 mg/L (0-3.3) Total Protein 4.9 g/dL (6.4-8.2) Albumin 0.6 g/dL (3.4-5.0) Albumin/Globulin Ratio 0.1 (1.0-1.7) Procalcitonin 21.56 ng/mL (0.00-0.10) Assessment and Plan Assessmemt and Plan Problems Medical Problems: (1) Acute renal failure Status: Acute (2) Altered mental status Status: Acute (3) Anemia Status: Acute Comment Review of Relevant I have reviewed the following items jennifer (where applicable) has been applied. Labs Laboratory Tests Test 04/03/20 14:30 04/03/20 14:35 04/03/20 14:38 04/03/20 14:47 Urine Opiates Screen Pos (NEG) Urine Methadone Screen Neg (NEG) Urine Barbiturates Neg (NEG) Urine Phencyclidine Screen Neg (NEG) Urine Amphetamine/Methamphetamine Neg (NEG) Urine Benzodiazepines Screen Neg (NEG) Urine Cocaine Screen Neg (NEG) Urine Cannabinoids Screen Pos (NEG) Urine Ethyl Alcohol Neg (NEG) White Blood Count 11.8 x10^3/uL (4.0-11.0) Red Blood Count 2.69 x10^6/uL (3.50-5.40) Hemoglobin 8.6 g/dL (12.0-15.5) Hematocrit 25.7 % (36.0-47.0) Mean Corpuscular Volume 96 fL (79-100) Mean Corpuscular Hemoglobin 32 pg (25-35) Mean Corpuscular Hemoglobin Concent 33 g/dL (31-37) Red Cell Distribution Width 15.6 % (11.5-14.5) Platelet Count 130 x10^3/uL (140-400) Neutrophils (%) (Auto) 91 % (31-73) Lymphocytes (%) (Auto) 5 % (24-48) Monocytes (%) (Auto) 4 % (0-9) Eosinophils (%) (Auto) 0 % (0-3) Basophils (%) (Auto) 0 % (0-3) Neutrophils # (Auto) 10.7 x10^3/uL (1.8-7.7) Lymphocytes # (Auto) 0.6 x10^3/uL (1.0-4.8) Monocytes # (Auto) 0.4 x10^3/uL (0.0-1.1) Eosinophils # (Auto) 0.0 x10^3/uL (0.0-0.7) Basophils # (Auto) 0.0 x10^3/uL (0.0-0.2) Segmented Neutrophils % 87 % (35-66) Band Neutrophils % 6 % (0-9) Lymphocytes % 4 % (24-48) Monocytes % 2 % (0-10) Metamyelocytes % 1 % (0-0) Toxic Granulation Slight Toxic Vacuolation Slight Platelet Estimate Adequate (ADEQUATE) Prothrombin Time 12.3 SEC (11.7-14.0) Prothromb Time International Ratio 1.0 (0.8-1.1) Activated Partial Thromboplast Time 29 SEC (24-38) Sodium Level 132 mmol/L (136-145) Potassium Level 5.2 mmol/L (3.5-5.1) Chloride Level 104 mmol/L (98-107) Carbon Dioxide Level 20 mmol/L (21-32) Anion Gap 8 (6-14) Blood Urea Nitrogen 55 mg/dL (7-20) Creatinine 3.0 mg/dL (0.6-1.0) Estimated GFR (Cockcroft-Gault) 18.4 BUN/Creatinine Ratio 18 (6-20) Glucose Level 144 mg/dL (70-99) Lactic Acid Level 1.2 mmol/L (0.4-2.0) Calcium Level 7.9 mg/dL (8.5-10.1) Total Bilirubin 0.2 mg/dL (0.2-1.0) Aspartate Amino Transf (AST/SGOT) 17 U/L (15-37) Alanine Aminotransferase (ALT/SGPT) 14 U/L (14-59) Alkaline Phosphatase 104 U/L (46-116) Creatine Kinase 27 U/L (26-192) Creatine Kinase MB (Mass) < 0.5 ng/mL (0.0-3.6) Creatine Kinase MB Relative Index % (0-4) MR-Igc-Z-Type Natriuretic Peptide 4940 pg/mL (0-124) Total Protein 5.4 g/dL (6.4-8.2) Albumin 0.8 g/dL (3.4-5.0) Albumin/Globulin Ratio 0.2 (1.0-1.7) Amylase Level 67 U/L (25-115) Lipase 296 U/L (73-393) Procalcitonin 16.38 ng/mL (0.00-0.10) Salicylates Level < 2.8 mg/dL (2.8-20.0) Salicylate Last Dose Date Unknown Salicylate Last Dose Time Unknown Acetaminophen Level 14.8 mcg/ml (10-30) Acetaminophen Last Dose Date Unknown Acetaminophen Last Dose Time Unknown Ethyl Alcohol Level < 10 mg/dL (0-10) Urine Collection Type U cath Urine Color Renata Urine Clarity Cloudy Urine pH 5.0 (<5.0-8.0) Urine Specific Serafina 1.025 (1.000-1.030) Urine Protein >=300 mg/dL (NEG-TRACE) Urine Glucose (UA) Negative mg/dL (NEG) Urine Ketones (Stick) Trace mg/dL (NEG) Urine Blood Large (NEG) Urine Nitrite Negative (NEG) Urine Bilirubin Small (NEG) Urine Urobilinogen Dipstick 0.2 mg/dL (0.2 mg/dL) Urine Leukocyte Esterase Trace (NEG) Urine RBC Tntc /HPF (0-2) Urine WBC 1-4 /HPF (0-4) Urine Squamous Epithelial Cells Occ /LPF Urine Amorphous Sediment Present /HPF Urine Bacteria 0 /HPF (0-FEW) Bedside Urine HCG, Qualitative Hcg negative (Negative) Test 04/03/20 15:25 04/04/20 07:25 Ammonia < 10 mcmol/L (11-34) White Blood Count 18.4 x10^3/uL (4.0-11.0) Red Blood Count 3.13 x10^6/uL (3.50-5.40) Hemoglobin 9.6 g/dL (12.0-15.5) Hematocrit 29.7 % (36.0-47.0) Mean Corpuscular Volume 95 fL (79-100) Mean Corpuscular Hemoglobin 31 pg (25-35) Mean Corpuscular Hemoglobin Concent 32 g/dL (31-37) Red Cell Distribution Width 16.2 % (11.5-14.5) Platelet Count 158 x10^3/uL (140-400) Neutrophils (%) (Auto) 86 % (31-73) Lymphocytes (%) (Auto) 9 % (24-48) Monocytes (%) (Auto) 5 % (0-9) Eosinophils (%) (Auto) 0 % (0-3) Basophils (%) (Auto) 0 % (0-3) Neutrophils # (Auto) 15.8 x10^3/uL (1.8-7.7) Lymphocytes # (Auto) 1.6 x10^3/uL (1.0-4.8) Monocytes # (Auto) 0.9 x10^3/uL (0.0-1.1) Eosinophils # (Auto) 0.0 x10^3/uL (0.0-0.7) Basophils # (Auto) 0.0 x10^3/uL (0.0-0.2) Sodium Level 133 mmol/L (136-145) Potassium Level 6.1 mmol/L (3.5-5.1) Chloride Level 104 mmol/L (98-107) Carbon Dioxide Level 19 mmol/L (21-32) Anion Gap 10 (6-14) Blood Urea Nitrogen 65 mg/dL (7-20) Creatinine 3.5 mg/dL (0.6-1.0) Estimated GFR (Cockcroft-Gault) 15.4 BUN/Creatinine Ratio 19 (6-20) Glucose Level 88 mg/dL (70-99) Calcium Level 7.7 mg/dL (8.5-10.1) Total Bilirubin 0.1 mg/dL (0.2-1.0) Aspartate Amino Transf (AST/SGOT) 12 U/L (15-37) Alanine Aminotransferase (ALT/SGPT) 8 U/L (14-59) Alkaline Phosphatase 85 U/L (46-116) C-Reactive Protein, Quantitative 171.4 mg/L (0-3.3) Total Protein 4.9 g/dL (6.4-8.2) Albumin 0.6 g/dL (3.4-5.0) Albumin/Globulin Ratio 0.1 (1.0-1.7) Procalcitonin 21.56 ng/mL (0.00-0.10) Laboratory Tests Test 04/03/20 14:30 04/03/20 14:35 04/03/20 14:38 04/03/20 14:47 Urine Opiates Screen Pos (NEG) Urine Methadone Screen Neg (NEG) Urine Barbiturates Neg (NEG) Urine Phencyclidine Screen Neg (NEG) Urine Amphetamine/Methamphetamine Neg (NEG) Urine Benzodiazepines Screen Neg (NEG) Urine Cocaine Screen Neg (NEG) Urine Cannabinoids Screen Pos (NEG) Urine Ethyl Alcohol Neg (NEG) White Blood Count 11.8 x10^3/uL (4.0-11.0) Red Blood Count 2.69 x10^6/uL (3.50-5.40) Hemoglobin 8.6 g/dL (12.0-15.5) Hematocrit 25.7 % (36.0-47.0) Mean Corpuscular Volume 96 fL (79-100) Mean Corpuscular Hemoglobin 32 pg (25-35) Mean Corpuscular Hemoglobin Concent 33 g/dL (31-37) Red Cell Distribution Width 15.6 % (11.5-14.5) Platelet Count 130 x10^3/uL (140-400) Neutrophils (%) (Auto) 91 % (31-73) Lymphocytes (%) (Auto) 5 % (24-48) Monocytes (%) (Auto) 4 % (0-9) Eosinophils (%) (Auto) 0 % (0-3) Basophils (%) (Auto) 0 % (0-3) Neutrophils # (Auto) 10.7 x10^3/uL (1.8-7.7) Lymphocytes # (Auto) 0.6 x10^3/uL (1.0-4.8) Monocytes # (Auto) 0.4 x10^3/uL (0.0-1.1) Eosinophils # (Auto) 0.0 x10^3/uL (0.0-0.7) Basophils # (Auto) 0.0 x10^3/uL (0.0-0.2) Segmented Neutrophils % 87 % (35-66) Band Neutrophils % 6 % (0-9) Lymphocytes % 4 % (24-48) Monocytes % 2 % (0-10) Metamyelocytes % 1 % (0-0) Toxic Granulation Slight Toxic Vacuolation Slight Platelet Estimate Adequate (ADEQUATE) Prothrombin Time 12.3 SEC (11.7-14.0) Prothromb Time International Ratio 1.0 (0.8-1.1) Activated Partial Thromboplast Time 29 SEC (24-38) Sodium Level 132 mmol/L (136-145) Potassium Level 5.2 mmol/L (3.5-5.1) Chloride Level 104 mmol/L (98-107) Carbon Dioxide Level 20 mmol/L (21-32) Anion Gap 8 (6-14) Blood Urea Nitrogen 55 mg/dL (7-20) Creatinine 3.0 mg/dL (0.6-1.0) Estimated GFR (Cockcroft-Gault) 18.4 BUN/Creatinine Ratio 18 (6-20) Glucose Level 144 mg/dL (70-99) Lactic Acid Level 1.2 mmol/L (0.4-2.0) Calcium Level 7.9 mg/dL (8.5-10.1) Total Bilirubin 0.2 mg/dL (0.2-1.0) Aspartate Amino Transf (AST/SGOT) 17 U/L (15-37) Alanine Aminotransferase (ALT/SGPT) 14 U/L (14-59) Alkaline Phosphatase 104 U/L (46-116) Creatine Kinase 27 U/L (26-192) Creatine Kinase MB (Mass) < 0.5 ng/mL (0.0-3.6) Creatine Kinase MB Relative Index % (0-4) RD-Azn-E-Type Natriuretic Peptide 4940 pg/mL (0-124) Total Protein 5.4 g/dL (6.4-8.2) Albumin 0.8 g/dL (3.4-5.0) Albumin/Globulin Ratio 0.2 (1.0-1.7) Amylase Level 67 U/L (25-115) Lipase 296 U/L (73-393) Procalcitonin 16.38 ng/mL (0.00-0.10) Salicylates Level < 2.8 mg/dL (2.8-20.0) Salicylate Last Dose Date Unknown Salicylate Last Dose Time Unknown Acetaminophen Level 14.8 mcg/ml (10-30) Acetaminophen Last Dose Date Unknown Acetaminophen Last Dose Time Unknown Ethyl Alcohol Level < 10 mg/dL (0-10) Urine Collection Type U cath Urine Color Renata Urine Clarity Cloudy Urine pH 5.0 (<5.0-8.0) Urine Specific Serafina 1.025 (1.000-1.030) Urine Protein >=300 mg/dL (NEG-TRACE) Urine Glucose (UA) Negative mg/dL (NEG) Urine Ketones (Stick) Trace mg/dL (NEG) Urine Blood Large (NEG) Urine Nitrite Negative (NEG) Urine Bilirubin Small (NEG) Urine Urobilinogen Dipstick 0.2 mg/dL (0.2 mg/dL) Urine Leukocyte Esterase Trace (NEG) Urine RBC Tntc /HPF (0-2) Urine WBC 1-4 /HPF (0-4) Urine Squamous Epithelial Cells Occ /LPF Urine Amorphous Sediment Present /HPF Urine Bacteria 0 /HPF (0-FEW) Bedside Urine HCG, Qualitative Hcg negative (Negative) Test 04/03/20 15:25 04/04/20 07:25 Ammonia < 10 mcmol/L (11-34) White Blood Count 18.4 x10^3/uL (4.0-11.0) Red Blood Count 3.13 x10^6/uL (3.50-5.40) Hemoglobin 9.6 g/dL (12.0-15.5) Hematocrit 29.7 % (36.0-47.0) Mean Corpuscular Volume 95 fL (79-100) Mean Corpuscular Hemoglobin 31 pg (25-35) Mean Corpuscular Hemoglobin Concent 32 g/dL (31-37) Red Cell Distribution Width 16.2 % (11.5-14.5) Platelet Count 158 x10^3/uL (140-400) Neutrophils (%) (Auto) 86 % (31-73) Lymphocytes (%) (Auto) 9 % (24-48) Monocytes (%) (Auto) 5 % (0-9) Eosinophils (%) (Auto) 0 % (0-3) Basophils (%) (Auto) 0 % (0-3) Neutrophils # (Auto) 15.8 x10^3/uL (1.8-7.7) Lymphocytes # (Auto) 1.6 x10^3/uL (1.0-4.8) Monocytes # (Auto) 0.9 x10^3/uL (0.0-1.1) Eosinophils # (Auto) 0.0 x10^3/uL (0.0-0.7) Basophils # (Auto) 0.0 x10^3/uL (0.0-0.2) Sodium Level 133 mmol/L (136-145) Potassium Level 6.1 mmol/L (3.5-5.1) Chloride Level 104 mmol/L (98-107) Carbon Dioxide Level 19 mmol/L (21-32) Anion Gap 10 (6-14) Blood Urea Nitrogen 65 mg/dL (7-20) Creatinine 3.5 mg/dL (0.6-1.0) Estimated GFR (Cockcroft-Gault) 15.4 BUN/Creatinine Ratio 19 (6-20) Glucose Level 88 mg/dL (70-99) Calcium Level 7.7 mg/dL (8.5-10.1) Total Bilirubin 0.1 mg/dL (0.2-1.0) Aspartate Amino Transf (AST/SGOT) 12 U/L (15-37) Alanine Aminotransferase (ALT/SGPT) 8 U/L (14-59) Alkaline Phosphatase 85 U/L (46-116) C-Reactive Protein, Quantitative 171.4 mg/L (0-3.3) Total Protein 4.9 g/dL (6.4-8.2) Albumin 0.6 g/dL (3.4-5.0) Albumin/Globulin Ratio 0.1 (1.0-1.7) Procalcitonin 21.56 ng/mL (0.00-0.10) Microbiology 04/04/20 Blood Culture - Final, Complete Medications Current Medications Cefepime HCl (Maxipime) 1 gm 1X ONCE IVP Last administered on 04/03/20at 18:00; Start 04/03/20 at 18:00; Stop 04/03/20 at 18:01; Status DC Ondansetron HCl (Zofran) 4 mg PRN Q8HRS PRN IV NAUSEA/VOMITING; Start 04/03/20 at 19:15; Stop 04/04/20 at 19:14 Acetaminophen (Tylenol) 650 mg PRN Q4HRS PRN PO FEVER > 100.3'F; Start 04/03/20 at 19:15; Stop 04/04/20 at 19:14 Furosemide (Lasix) 40 mg 1X ONCE PO Last administered on 04/03/20at 20:12; Start 04/03/20 at 19:30; Stop 04/03/20 at 19:35; Status DC Vancomycin HCl (Vanco Per Pharmacy) 1 each PRN DAILY PRN MC SEE COMMENTS; Start 04/03/20 at 19:30; Stop 04/03/20 at 20:45; Status DC Vancomycin HCl 1.5 gm/Sodium Chloride 500 ml @ 250 mls/hr 1X ONCE IV Last administered on 04/03/20at 20:17; Start 04/03/20 at 19:45; Stop 04/03/20 at 21:44; Status DC Sodium Polystyrene Sulfonate (Kayexalate) 15 gm 1X ONCE PO Last administered on 04/03/20at 21:14; Start 04/03/20 at 20:45; Stop 04/03/20 at 20:46; Status DC Acetaminophen/ Hydrocodone Bitart (Lortab 5/325) 1 tab PRN Q4HRS PRN PO MILD PAIN, 2ND CHOICE Last administered on 04/04/20at 06:45; Start 04/03/20 at 20:45 Acetaminophen/ Hydrocodone Bitart (Lortab 5/325) 2 tab PRN Q4HRS PRN PO MODERATE PAIN, SEVERE PAIN; Start 04/03/20 at 20:45 Docusate Sodium (Colace) 100 mg BID PO Last administered on 04/04/20at 08:53; Start 04/03/20 at 21:00 Bisacodyl (Dulcolax Supp) 10 mg PRN DAILY PRN NM CONSTIPATION; Start 04/03/20 at 20:45 Heparin Sodium (Porcine) (Heparin Sodium) 5,000 unit Q8HRS SQ Last administered on 04/04/20at 06:43; Start 04/03/20 at 22:00 Vitals/I & O Vital Sign - Last 24 Hours 04/03/20 04/03/20 04/03/20 04/03/20 13:53 13:59 14:15 14:45 Temp 98.5 98.5 98.5 98.5 Pulse 107 107 90 79 Resp 22 22 22 B/P (MAP) 118/83 (95) 118/83 (95) 112/71 (85) 113/77 (89) Pulse Ox 98 98 99 99 O2 Delivery Room Air Room Air Room Air 04/03/20 04/03/20 04/03/20 04/03/20 15:11 15:41 16:11 16:41 Pulse 76 85 86 86 Resp 20 20 20 20 B/P (MAP) 125/79 (94) 121/86 (98) 116/86 (96) 110/84 (93) Pulse Ox 99 98 98 99 O2 Delivery Room Air Room Air Room Air Room Air 04/03/20 04/03/20 04/03/20 04/03/20 17:11 18:01 18:11 18:41 Pulse 83 86 84 88 Resp 20 16 15 16 B/P (MAP) 114/82 (93) 113/87 (96) 111/84 (93) 111/70 (84) Pulse Ox 99 96 100 100 O2 Delivery Room Air Room Air Room Air Room Air 04/03/20 04/03/20 04/03/20 04/03/20 19:11 19:41 20:11 20:41 Pulse 84 86 88 88 Resp 16 17 17 18 B/P (MAP) 106/80 (89) 113/73 (86) 112/81 (91) 112/92 (99) Pulse Ox 99 99 99 99 O2 Delivery Room Air Room Air Room Air Room Air 04/03/20 04/03/20 04/03/20 04/04/20 21:20 21:45 23:00 03:00 Temp 98.1 98.0 98.7 98.1 98.0 98.7 Pulse 79 80 92 Resp 16 16 18 B/P (MAP) 106/68 (81) 116/73 (87) 98/64 (75) Pulse Ox 95 100 100 O2 Delivery Room Air Room Air Room Air Room Air 04/04/20 04/04/20 04/04/20 06:45 07:00 08:55 Temp 98.4 98.4 Pulse 88 Resp 18 20 B/P (MAP) 98/68 (78) Pulse Ox 100 100 100 O2 Delivery Room Air Room Air Room Air Intake and Output 04/03/20 04/03/20 04/04/20 15:00 23:00 07:00 Intake Total 240 ml Balance 240 ml Justicifation of Admission Dx: Justifications for Admission: Justification of Admission Dx: Yes Chronic Renal Failure: Renail Failure MANISH LANZA MD Apr 04, 2020 10:50
[2020-04-04 11:00] VITALS: BP 98/66
[2020-04-04] MEDS ORDERED: SODIUM POLYSTYRENE SULFON/SORB 15 GM/60 ML ORAL.SUSP. PO ONE (11:00)
--- NOTE | 2020-04-04 11:51 | CONS ---
DATE OF CONSULTATION: 04/04/2020 REQUESTING PHYSICIAN: Dr. Peña. REASON FOR CONSULTATION: Leukocytosis and elevated procalcitonin. HISTORY OF PRESENT ILLNESS: This is a 29-year-old female with history of lupus, who was admitted with pain all over the body. The patient is not cooperative in communicating, had been tearful, withdrawn. The patient has also had some nausea, vomiting. The patient's workup showed she had leukocytosis, renal insufficiency, no fever, and the patient is admitted for further management. Her potassium is high. BUN and creatinine is abnormal, we do not know the baseline. Her urine showed actually more hematuria rather than infection only, 1-4 wbc's. Chest x-ray was unremarkable and CT of the head was unremarkable for any acute changes. The patient was given one dose of vancomycin, one dose of cefepime and now consult has been requested. Again, the patient is not cooperative to be able to communicate to provide any meaningful information. PAST MEDICAL HISTORY: Positive for lupus, positive for renal insufficiency. SOCIAL HISTORY: Negative for smoking. No alcohol use, occasional marijuana use. REVIEW OF SYSTEMS: As per HPI, all other systems reviewed and are negative through the patient's nurse and some to the patient, although again not cooperative. CURRENT MEDICATIONS: Reviewed. PHYSICAL EXAMINATION: GENERAL: Awake female who is tearful, annoyed with talking, not in distress. VITAL SIGNS: Stable, afebrile. HEENT: NAD. NECK: Supple, no JVP, no lymphadenopathy. LUNGS: Clear. HEART: S1, S2 regular. No gallop or murmur. ABDOMEN: Soft, nontender, no organomegaly. EXTREMITIES: No edema, cyanosis. SKIN: Unremarkable. NEUROLOGIC: The patient is alert, awake, noncooperative, but no focal deficit. LABORATORY DATA: White count is 18,000. BUN and creatinine is 65 and 3.5. Urinalysis showed more hematuria rather than infection and chest x-ray is unremarkable. Apparently, the blood culture is just turned positive. They have not done Gram stain yet. IMPRESSION: 1. Increased procalcitonin in a patient with renal insufficiency, has no diagnostic value. 2. Pain all over the body "lupus flare". 3. Systemic lupus erythematosus. 4. Leukocytosis. 5. Blood culture positive, it is unclear right now what is positive. They have not done Gram stain yet. 6. Personality disorder. RECOMMEND: We will wait for the Gram stain on the blood culture, possible, there is gram-positive cocci and may be contaminant, but we will check on that, protect her until more information is available, supportive care and we will continue to follow. Thank you very much, Dr. Peña for giving me the opportunity to participate in this patient's care. JASWANT TRIPLETT MD DR: DEREK/pushpa JOB#: [id number] / [id number]
[2020-04-04] MEDS ORDERED: FUROSEMIDE 40 MG/4 ML VIAL. IVP ONE ×2 (13:30→21:00)
[2020-04-04] MEDS: HYDROcodone/APAP 5/325MG 1 TAB TABLET PO PRN (14:06)
[2020-04-04 15:00] VITALS: BP 101/66
[2020-04-04] MEDS ORDERED: CEFEPIME HCL IV Push 1 GM VIAL. IVP SCH (18:00)
[2020-04-04] MEDS ORDERED: IV NORMAL SALINE 500ML BAG 500 ML IV PRN (18:15)
[2020-04-04] MEDS: IV NORMAL SALINE 1000ML BAG 1,000 ML IV SCH ×2 (18:39→20:54)
[2020-04-04 18:57] LABS: FIBRINOGEN 615 mg/dL (200-440); PROTHROMBIN TIME PATIENT 12.7 SEC (11.7-14.0)
[2020-04-04 18:58] LABS: CALCIUM 8.2 mg/dL (8.5-10.1); CREATININE 3.7 mg/dL (0.6-1.0); GFR 14.5
[2020-04-04 19:00] VITALS: BP 110/74
[2020-04-04 19:03] LABS: POTASSIUM 6.4 mmol/L (3.5-5.1)
[2020-04-04 19:35] LABS: D-DIMER > 20.00 ug/mlFEU (0.00-0.50)
--- NOTE | 2020-04-04 19:36 | NUR ---
Was notified by Lab at 1934 hours of critical D-Dimer greater than 20. Notified DANIEL Rodriguez who was assigned to patient. DANIEL Rodriguez was giving report to transfer nurse on the 6th floor, as patient was in progress to be transferred up to the 6th floor. DANIEL Rodriguez said she notified DANIEL Ashley during report and DANIEL Ashley would notify the doctor of the critical result. Nothing further at this time.
--- NOTE | 2020-04-04 19:40 | NUR ---
RN gave report to Gabi SANCHEZ and patient was then transported to room 675.
[2020-04-04] MEDS ORDERED: DEXTROSE 50% 25 GM / 50ML DISP.SYRIN. IV ONE (20:15)
[2020-04-04] MEDS: IV 1/2 NORMAL SALINE 1,000 ML IV SCH (20:55)
[2020-04-04] MEDS ORDERED: CALCIUM GLUCONATE 1,000 MG in IV NORMAL SALINE 100ML 100 ML IV ONE (21:00)
[2020-04-04] MEDS ORDERED: INSULIN REGULAR 100 UNIT/ML 3ML VIAL. IV ONE (21:00)
[2020-04-04 23:00] VITALS: BP 110/88
--- NOTE | 2020-04-04 23:57 | RAD ---
INDICATION: Reason: ARF, LUPUS / Spl. Instructions: / History: COMPARISON: None. TECHNIQUE: Grayscale and color ultrasound images obtained through the abdomen. FINDINGS: Aorta/IVC: Visualized portion unremarkable. Pancreas: Enlarged appearance. Hypoechoic. Liver: Echogenic Gallbladder: Distended at time of exam with wall measuring up to 4-5 mm. Common Bile Duct: Not dilated. Right Kidney: 92 mm without hydronephrosis. Small adjacent free fluid Left Kidney: 110 mm without hydronephrosis. Spleen: Unremarkable. IMPRESSION: * Distended gallbladder with prominent wall. The mild wall thickening is nonspecific in nature and can be from primary gallbladder inflammation, reactive to adjacent hepatic disease or a systemic process such as hypoproteinemia. * Hypoechoic pancreas which appears prominent in size. Would correlate with symptoms and lab markers to ensure this is not from pancreatitis. * Liver is echogenic. Nonspecific but can be seen with fatty infiltration. * Trace free fluid Electronically signed by: Kareem Ferguson MD (04/04/2020 11:54 PM) [id number]
[2020-04-05 00:25] LABS: CALCIUM 7.9 mg/dL (8.5-10.1); CREATININE 3.1 mg/dL (0.6-1.0); GFR 17.8; POTASSIUM 5.4 mmol/L (3.5-5.1)
[2020-04-05 03:00] VITALS: BP 123/84
[2020-04-05] MEDS: IV 1/2 NORMAL SALINE 1,000 ML IV SCH ×2 (04:15→14:15)
[2020-04-05] MEDS: HYDROcodone/APAP 5/325MG 1 TAB TABLET PO PRN (05:31)
[2020-04-05] MEDS: HEPARIN for SUB-Q USE 5,000 UNIT/ML VIAL. SQ SCH ×3 (05:32→21:22)
--- NOTE | 2020-04-05 06:30 | PDOC ---
Infectious Disease Note Subjective Subjective She is feeling little better ROS ROS No nausea vomiting diarrhea chest pain shortness of breath Vital Sign Vital Signs Vital Signs Date Time Temp Pulse Resp B/P (MAP) Pulse Ox O2 Delivery O2 Flow Rate FiO2 04/05/20 05:31 22 100 Room Air 04/05/20 03:00 100.2 96 123/84 (97) 100.2 Physical Exam PHYSICAL EXAM GENERAL: Awake female who is tearful, annoyed with talking, not in distress. VITAL SIGNS: Stable, afebrile. HEENT: NAD. NECK: Supple, no JVP, no lymphadenopathy. LUNGS: Clear. HEART: S1, S2 regular. No gallop or murmur. ABDOMEN: Soft, nontender, no organomegaly. EXTREMITIES: No edema, cyanosis. SKIN: Unremarkable. NEUROLOGIC: The patient is alert, awake, noncooperative, but no focal deficit. Labs Lab Laboratory Tests Test 04/04/20 07:25 04/04/20 18:20 04/05/20 00:01 White Blood Count 18.4 x10^3/uL (4.0-11.0) Red Blood Count 3.13 x10^6/uL (3.50-5.40) Hemoglobin 9.6 g/dL (12.0-15.5) Hematocrit 29.7 % (36.0-47.0) Mean Corpuscular Volume 95 fL (79-100) Mean Corpuscular Hemoglobin 31 pg (25-35) Mean Corpuscular Hemoglobin Concent 32 g/dL (31-37) Red Cell Distribution Width 16.2 % (11.5-14.5) Platelet Count 158 x10^3/uL (140-400) Neutrophils (%) (Auto) 86 % (31-73) Lymphocytes (%) (Auto) 9 % (24-48) Monocytes (%) (Auto) 5 % (0-9) Eosinophils (%) (Auto) 0 % (0-3) Basophils (%) (Auto) 0 % (0-3) Neutrophils # (Auto) 15.8 x10^3/uL (1.8-7.7) Lymphocytes # (Auto) 1.6 x10^3/uL (1.0-4.8) Monocytes # (Auto) 0.9 x10^3/uL (0.0-1.1) Eosinophils # (Auto) 0.0 x10^3/uL (0.0-0.7) Basophils # (Auto) 0.0 x10^3/uL (0.0-0.2) Sodium Level 133 mmol/L (136-145) 133 mmol/L (136-145) 132 mmol/L (136-145) Potassium Level 6.1 mmol/L (3.5-5.1) 6.4 mmol/L (3.5-5.1) 5.4 mmol/L (3.5-5.1) Chloride Level 104 mmol/L (98-107) 103 mmol/L (98-107) 105 mmol/L (98-107) Carbon Dioxide Level 19 mmol/L (21-32) 17 mmol/L (21-32) 18 mmol/L (21-32) Anion Gap 10 (6-14) 13 (6-14) 9 (6-14) Blood Urea Nitrogen 65 mg/dL (7-20) 71 mg/dL (7-20) 69 mg/dL (7-20) Creatinine 3.5 mg/dL (0.6-1.0) 3.7 mg/dL (0.6-1.0) 3.1 mg/dL (0.6-1.0) Estimated GFR (Cockcroft-Gault) 15.4 14.5 17.8 BUN/Creatinine Ratio 19 (6-20) Glucose Level 88 mg/dL (70-99) 77 mg/dL (70-99) 71 mg/dL (70-99) Calcium Level 7.7 mg/dL (8.5-10.1) 8.2 mg/dL (8.5-10.1) 7.9 mg/dL (8.5-10.1) Total Bilirubin 0.1 mg/dL (0.2-1.0) Aspartate Amino Transf (AST/SGOT) 12 U/L (15-37) Alanine Aminotransferase (ALT/SGPT) 8 U/L (14-59) Alkaline Phosphatase 85 U/L (46-116) C-Reactive Protein, Quantitative 171.4 mg/L (0-3.3) Total Protein 4.9 g/dL (6.4-8.2) Albumin 0.6 g/dL (3.4-5.0) Albumin/Globulin Ratio 0.1 (1.0-1.7) Procalcitonin 21.56 ng/mL (0.00-0.10) 19.08 ng/mL (0.00-0.10) Prothrombin Time 12.7 SEC (11.7-14.0) Prothromb Time International Ratio 1.0 (0.8-1.1) Activated Partial Thromboplast Time 28 SEC (24-38) Fibrinogen 615 mg/dL (200-440) D-Dimer (Smiley) > 20.00 ug/mlFEU Micro BLOOD CULTURE Final GRAM POSITIVE COCCI IN CHAINS 2 SETS DRAWN, 4 OF 4 POSITIVE CALLED TO MADDISON SANDERS RN IN 4N BY LLUVIA,04/04/20,10.30 SPECIMEN SENDING TO [facility] FOR FURTHER WORK UP Objective Assessment IMPRESSION: 1. Increased procalcitonin in a patient with renal insufficiency, has no diagnostic value. 2. Pain all over the body "lupus flare". 3. Systemic lupus erythematosus. 4. Leukocytosis. 5. Blood culture positive, strep or enterococcus 6. Personality disorder. Plan Plan of Care IV Zosyn Supportive care Follow the cultures and adjust JASWANT TRIPLETT MD Apr 05, 2020 06:30
[2020-04-05 07:27] LABS: BASO % 0 % (0-3); EOS % 0 % (0-3); HEMATOCRIT 27.4 % (36.0-47.0); HEMOGLOBIN 8.9 g/dL (12.0-15.5); LYMPH # 1.4 x10^3/uL (1.0-4.8); LYMPH % 8 % (24-48); MEAN CORPUSCULAR HEMOGLOBIN 31 pg (25-35); MEAN CORPUSCULAR HGB CONC 32 g/dL (31-37); MEAN CORPUSCULAR VOLUME 95 fL (79-100); MONO # 0.6 x10^3/uL (0.0-1.1); MONO % 4 % (0-9); NEUT # 14.7 x10^3/uL (1.8-7.7); NEUT % 88 % (31-73); PLATELET COUNT 212 x10^3/uL (140-400); RED BLOOD COUNT 2.88 x10^6/uL (3.50-5.40); RED CELL DISTRIBUTION WIDTH 15.8 % (11.5-14.5); WHITE BLOOD COUNT 16.8 x10^3/uL (4.0-11.0)
[2020-04-05 07:36] LABS: CALCIUM 7.7 mg/dL (8.5-10.1); CREATININE 2.6 mg/dL (0.6-1.0); GFR 21.8; MAGNESIUM 1.8 mg/dL (1.8-2.4); PHOSPHORUS 8.6 mg/dL (2.6-4.7); POTASSIUM 5.1 mmol/L (3.5-5.1)
[2020-04-05 07:58] VITALS: BP 107/74
[2020-04-05] MEDS: DOCUSATE SODIUM 100 MG CAPSULE. PO SCH ×2 (08:01→21:21)
[2020-04-05] MEDS: PIPERACILLIN/TAZOBACTAM 2.25 GM in IV NORMAL SALINE 50ML 50 ML IV SCH ×3 (08:01→18:37)
--- NOTE | 2020-04-05 08:22 | RAD ---
Examination: CT of the abdomen pelvis without contrast HISTORY: History of sepsis COMPARISON: None available Technique: Axial CT images of the abdomen pelvis were performed without contrast. Coronal and sagittal reformats are performed. Exposure: One or more of the following individualized dose reduction techniques were utilized for this examination: 1. Automated exposure control 2. Adjustment of the mA and/or kV according to patient size 3. Use of iterative reconstruction technique FINDINGS: Focal airspace opacity identified in the left lower lobe likely atelectasis or infiltrate. No evidence of free air identified in the abdomen. The evaluation of the solid organs is limited due to lack of IV contrast. The evaluation of bowel is limited due to lack of oral contrast. The visualized noncontrasted liver, spleen, adrenals grossly appears unremarkable. Examination limited due to motion artifact. The gallbladder is mildly distended. The stomach is mildly distended. The evaluation of pancreas is limited due to motion artifact. The small bowel is nondilated. Feces and gas noted in the colon. Horseshoe kidney identified. There is questionable mild fat stranding identified about the bilateral kidneys. The appendix is normal. Urinary bladder is mildly distended. Diffuse fat stranding identified in the soft tissue of the abdominal wall and the pelvis. Tiny focus of air identified in the right anterior abdominal wall. No evidence of lytic bony destructive lesion. Mild degenerative changes identified at L4-L5 vertebral level. IMPRESSION: 1. Very limited examination due to significant motion artifact. 2. Diffuse fat stranding identified in the soft tissue of the abdominal wall and the pelvis could be cellulitis or anasarca/edema. 3. 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 Correlate for urinary tract infection. 4. Focal airspace opacity identified left lower lobe lung likely pneumonia or atelectasis. Electronically signed by: Catalino Choudhury MD (04/05/2020 8:20 AM) [id number]
[2020-04-05 11:23] VITALS: BP 96/57
--- NOTE | 2020-04-05 14:26 | PDOC2 ---
CONSULT Date of Consult Date of Consult DATE: 04/05/20 TIME: 14:14 Reason for Consult Reason for Consult: RENAL FAILURE Referring Physician Referring Physician: JOEL Identification/Chief Complaint Chief Complaint SWELLING Source Source: Chart review, Patient History of Present Illness Reason for Visit: THIS IS A 29 YR OLD ADMITTED WITH PAIN ALL OVER HER BODY. ALSO SOME N/V AND SWELLING. SHE HAS LEUCOCYTOSIS AND UNDERGOING ID EVALUATION. CR OF 3.7 ON ADMIT. ALSO HAD HYPERKALEMIA. CR WNL LAST MONTH. HX NOTABLE FOR SLE AND RELATED LUPUS NEPHRITIS. HAS HX OF RENAL BX IN LATE DECEMBER AND FINDINGS WERE C.W STAGE IV NEPHRITIS AND SHE HAD IGG IGA IGM C1Q AND COMPLEMENT DEPOSITS ON IF. SHE WAS NOTED TO HAVE NEARLY 10 GM OF PROTEIN IN HER URINE AND NL CR. HER SEROLOGY WAS C.W ACUTE LUPUS IN JANUARY AND FEBRUARY. SHE WAS PLACED ON CELLCEPT AND STEROIDS BUT DOES NOT TOLERATE HIGH DOSE OF STEROIDS WELL. STATES SHE HAS BEEN TAKING HER CELLCEPT BUT NO PREDNISONE. CURRENT UA NOTABLE FOR HEMATURIA AND PROTEINURIA Past Medical History Past Medical History PROTEINURIA GI: Constipation, Other (NAUSEA) Rheumatologic: Other (Lupus) Renal/: Hematuria Past Surgical History Past Surgical History KIDNEY BX Family History Family History: Cancer Social History No ALCOHOL: none Drugs: Marijuana Lives: with Family Current Problem List Problem List Problems Medical Problems: (1) Acute renal failure Status: Acute (2) Altered mental status Status: Acute (3) Anemia Status: Acute Current Medications Current Medications Current Medications Cefepime HCl (Maxipime) 1 gm 1X ONCE IVP Last administered on 04/03/20at 18:00; Start 04/03/20 at 18:00; Stop 04/03/20 at 18:01; Status DC Ondansetron HCl (Zofran) 4 mg PRN Q8HRS PRN IV NAUSEA/VOMITING; Start 04/03/20 at 19:15; Stop 04/04/20 at 19:14; Status DC Acetaminophen (Tylenol) 650 mg PRN Q4HRS PRN PO FEVER > 100.3'F; Start 04/03/20 at 19:15; Stop 04/04/20 at 19:14; Status DC Furosemide (Lasix) 40 mg 1X ONCE PO Last administered on 04/03/20at 20:12; Start 04/03/20 at 19:30; Stop 04/03/20 at 19:35; Status DC Vancomycin HCl (Vanco Per Pharmacy) 1 each PRN DAILY PRN MC SEE COMMENTS; Start 04/03/20 at 19:30; Stop 04/03/20 at 20:45; Status DC Vancomycin HCl 1.5 gm/Sodium Chloride 500 ml @ 250 mls/hr 1X ONCE IV Last administered on 04/03/20at 20:17; Start 04/03/20 at 19:45; Stop 04/03/20 at 21:44; Status DC Sodium Polystyrene Sulfonate (Kayexalate) 15 gm 1X ONCE PO Last administered on 04/03/20at 21:14; Start 04/03/20 at 20:45; Stop 04/03/20 at 20:46; Status DC Acetaminophen/ Hydrocodone Bitart (Lortab 5/325) 1 tab PRN Q4HRS PRN PO MILD PAIN, 2ND CHOICE Last administered on 04/04/20at 06:45; Start 04/03/20 at 20:45 Acetaminophen/ Hydrocodone Bitart (Lortab 5/325) 2 tab PRN Q4HRS PRN PO MODERATE PAIN, SEVERE PAIN Last administered on 04/05/20at 05:31; Start 04/03/20 at 20:45 Docusate Sodium (Colace) 100 mg BID PO Last administered on 04/05/20at 08:01; Start 04/03/20 at 21:00 Bisacodyl (Dulcolax Supp) 10 mg PRN DAILY PRN [place] CONSTIPATION; Start 04/03/20 at 20:45 Heparin Sodium (Porcine) (Heparin Sodium) 5,000 unit Q8HRS SQ Last administered on 04/05/20at 05:32; Start 04/03/20 at 22:00 Sodium Polystyrene Sulfonate (Kayexalate) 30 gm 1X ONCE PO Last administered on 04/04/20at 12:12; Start 04/04/20 at 11:00; Stop 04/04/20 at 11:01; Status DC Furosemide (Lasix) 60 mg 1X ONCE IVP Last administered on 04/04/20at 13:47; Start 04/04/20 at 13:30; Stop 04/04/20 at 13:31; Status DC Cefepime HCl (Maxipime) 1 gm Q12HR IVP Last administered on 04/04/20at 20:58; Start 04/04/20 at 18:00; Stop 04/05/20 at 06:30; Status DC Sodium Chloride 1,000 ml @ 1,650 mls/hr Q37M IV Last administered on 04/04/20at 18:39; Start 04/04/20 at 18:02; Stop 04/04/20 at 19:02; Status DC Sodium Chloride 500 ml @ 1,000 mls/hr PRN Q30MIN PRN IV SEE COMMENTS; Start 04/04/20 at 18:15 Sodium Chloride 1,000 ml @ 100 mls/hr Q10H IV Last administered on 04/04/20at 20:55; Start 04/04/20 at 18:15 Calcium Gluconate 1000 mg/Sodium Chloride 110 ml @ 220 mls/hr 1X ONCE IV Last administered on 04/04/20at 20:56; Start 04/04/20 at 21:00; Stop 04/04/20 at 21:29; Status DC Dextrose (Dextrose 50%-Water Syringe) 25 gm 1X ONCE IV Last administered on 04/04/20at 20:56; Start 04/04/20 at 20:15; Stop 04/04/20 at 20:16; Status DC Furosemide (Lasix) 40 mg 1X ONCE IVP Last administered on 04/04/20at 20:57; Start 04/04/20 at 21:00; Stop 04/04/20 at 21:01; Status DC Insulin Human Regular (HumuLIN R VIAL) 10 unit 1X ONCE IV Last administered on 04/04/20at 20:55; Start 04/04/20 at 21:00; Stop 04/04/20 at 21:01; Status DC Piperacillin Sod/ Tazobactam Sod 2.25 gm/Sodium Chloride 50 ml @ 100 mls/hr Q6HRS IV Last administered on 04/05/20at 12:18; Start 04/05/20 at 07:00 Allergies Allergies: Coded Allergies: No Known Drug Allergies (Unverified , 04/03/20) ROS General: YES: Fatigue, Malaise, Appetite PSYCHOLOGICAL ROS: YES: Anxiety, Depression Eyes: Yes Decreased vision HEENT: YES: Heacaches Respiratory: YES: Cough Cardiovascular: yes Edema Gastrointestinal: Yes Nausea, Yes Constipation Genitourinary: YES Other (NOCTURIA) Musculoskeletal: Yes Joint Pain, Yes Joint Stiffness, Yes Muscular Weakness Neurological: Yes Weakness Skin: Yes Dry Skin Physical Exam General: Alert, Oriented X3, Cooperative, No acute distress HEENT: Atraumatic, PERRLA Lungs: Clear to auscultation Heart: Regular rate, Normal S1, Normal S2 Abdomen: Normal bowel sounds, Soft Extremities: No clubbing Skin: No rashes Neuro: Normal speech, Sensation intact Psych/Mental Status: Mental status NL, Mood NL MUSCULOSKELETAL: Other (3+ EDEMA) Vitals VITALS Vital Signs Date Time Temp Pulse Resp B/P (MAP) Pulse Ox O2 Delivery O2 Flow Rate FiO2 04/05/20 11:23 98.7 99 20 96/57 (70) 97 Room Air 98.7 Labs Labs Laboratory Tests Test 04/03/20 14:30 04/03/20 14:35 04/03/20 14:38 04/03/20 14:47 Urine Opiates Screen Pos (NEG) Urine Methadone Screen Neg (NEG) Urine Barbiturates Neg (NEG) Urine Phencyclidine Screen Neg (NEG) Urine Amphetamine/Methamphetamine Neg (NEG) Urine Benzodiazepines Screen Neg (NEG) Urine Cocaine Screen Neg (NEG) Urine Cannabinoids Screen Pos (NEG) Urine Ethyl Alcohol Neg (NEG) White Blood Count 11.8 x10^3/uL (4.0-11.0) Red Blood Count 2.69 x10^6/uL (3.50-5.40) Hemoglobin 8.6 g/dL (12.0-15.5) Hematocrit 25.7 % (36.0-47.0) Mean Corpuscular Volume 96 fL (79-100) Mean Corpuscular Hemoglobin 32 pg (25-35) Mean Corpuscular Hemoglobin Concent 33 g/dL (31-37) Red Cell Distribution Width 15.6 % (11.5-14.5) Platelet Count 130 x10^3/uL (140-400) Neutrophils (%) (Auto) 91 % (31-73) Lymphocytes (%) (Auto) 5 % (24-48) Monocytes (%) (Auto) 4 % (0-9) Eosinophils (%) (Auto) 0 % (0-3) Basophils (%) (Auto) 0 % (0-3) Neutrophils # (Auto) 10.7 x10^3/uL (1.8-7.7) Lymphocytes # (Auto) 0.6 x10^3/uL (1.0-4.8) Monocytes # (Auto) 0.4 x10^3/uL (0.0-1.1) Eosinophils # (Auto) 0.0 x10^3/uL (0.0-0.7) Basophils # (Auto) 0.0 x10^3/uL (0.0-0.2) Segmented Neutrophils % 87 % (35-66) Band Neutrophils % 6 % (0-9) Lymphocytes % 4 % (24-48) Monocytes % 2 % (0-10) Metamyelocytes % 1 % (0-0) Toxic Granulation Slight Toxic Vacuolation Slight Platelet Estimate Adequate (ADEQUATE) Prothrombin Time 12.3 SEC (11.7-14.0) Prothromb Time International Ratio 1.0 (0.8-1.1) Activated Partial Thromboplast Time 29 SEC (24-38) Sodium Level 132 mmol/L (136-145) Potassium Level 5.2 mmol/L (3.5-5.1) Chloride Level 104 mmol/L (98-107) Carbon Dioxide Level 20 mmol/L (21-32) Anion Gap 8 (6-14) Blood Urea Nitrogen 55 mg/dL (7-20) Creatinine 3.0 mg/dL (0.6-1.0) Estimated GFR (Cockcroft-Gault) 18.4 BUN/Creatinine Ratio 18 (6-20) Glucose Level 144 mg/dL (70-99) Lactic Acid Level 1.2 mmol/L (0.4-2.0) Calcium Level 7.9 mg/dL (8.5-10.1) Total Bilirubin 0.2 mg/dL (0.2-1.0) Aspartate Amino Transf (AST/SGOT) 17 U/L (15-37) Alanine Aminotransferase (ALT/SGPT) 14 U/L (14-59) Alkaline Phosphatase 104 U/L (46-116) Creatine Kinase 27 U/L (26-192) Creatine Kinase MB (Mass) < 0.5 ng/mL (0.0-3.6) Creatine Kinase MB Relative Index % (0-4) IU-[id number]-Type Natriuretic Peptide 4940 pg/mL (0-124) Total Protein 5.4 g/dL (6.4-8.2) Albumin 0.8 g/dL (3.4-5.0) Albumin/Globulin Ratio 0.2 (1.0-1.7) Amylase Level 67 U/L (25-115) Lipase 296 U/L (73-393) Procalcitonin 16.38 ng/mL (0.00-0.10) Salicylates Level < 2.8 mg/dL (2.8-20.0) Salicylate Last Dose Date Unknown Salicylate Last Dose Time Unknown Acetaminophen Level 14.8 mcg/ml (10-30) Acetaminophen Last Dose Date Unknown Acetaminophen Last Dose Time Unknown Ethyl Alcohol Level < 10 mg/dL (0-10) Urine Collection Type U cath Urine Color Renata Urine Clarity Cloudy Urine pH 5.0 (<5.0-8.0) Urine Specific [place] 1.025 (1.000-1.030) Urine Protein >=300 mg/dL (NEG-TRACE) Urine Glucose (UA) Negative mg/dL (NEG) Urine Ketones (Stick) Trace mg/dL (NEG) Urine Blood Large (NEG) Urine Nitrite Negative (NEG) Urine Bilirubin Small (NEG) Urine Urobilinogen Dipstick 0.2 mg/dL (0.2 mg/dL) Urine Leukocyte Esterase Trace (NEG) Urine RBC Tntc /HPF (0-2) Urine WBC 1-4 /HPF (0-4) Urine Squamous Epithelial Cells Occ /LPF Urine Amorphous Sediment Present /HPF Urine Bacteria 0 /HPF (0-FEW) Bedside Urine HCG, Qualitative Hcg negative (Negative) Test 04/03/20 15:25 04/04/20 07:25 04/04/20 18:20 04/05/20 00:01 Ammonia < 10 mcmol/L (11-34) White Blood Count 18.4 x10^3/uL (4.0-11.0) Red Blood Count 3.13 x10^6/uL (3.50-5.40) Hemoglobin 9.6 g/dL (12.0-15.5) Hematocrit 29.7 % (36.0-47.0) Mean Corpuscular Volume 95 fL (79-100) Mean Corpuscular Hemoglobin 31 pg (25-35) Mean Corpuscular Hemoglobin Concent 32 g/dL (31-37) Red Cell Distribution Width 16.2 % (11.5-14.5) Platelet Count 158 x10^3/uL (140-400) Neutrophils (%) (Auto) 86 % (31-73) Lymphocytes (%) (Auto) 9 % (24-48) Monocytes (%) (Auto) 5 % (0-9) Eosinophils (%) (Auto) 0 % (0-3) Basophils (%) (Auto) 0 % (0-3) Neutrophils # (Auto) 15.8 x10^3/uL (1.8-7.7) Lymphocytes # (Auto) 1.6 x10^3/uL (1.0-4.8) Monocytes # (Auto) 0.9 x10^3/uL (0.0-1.1) Eosinophils # (Auto) 0.0 x10^3/uL (0.0-0.7) Basophils # (Auto) 0.0 x10^3/uL (0.0-0.2) Sodium Level 133 mmol/L (136-145) 133 mmol/L (136-145) 132 mmol/L (136-145) Potassium Level 6.1 mmol/L (3.5-5.1) 6.4 mmol/L (3.5-5.1) 5.4 mmol/L (3.5-5.1) Chloride Level 104 mmol/L (98-107) 103 mmol/L (98-107) 105 mmol/L (98-107) Carbon Dioxide Level 19 mmol/L (21-32) 17 mmol/L (21-32) 18 mmol/L (21-32) Anion Gap 10 (6-14) 13 (6-14) 9 (6-14) Blood Urea Nitrogen 65 mg/dL (7-20) 71 mg/dL (7-20) 69 mg/dL (7-20) Creatinine 3.5 mg/dL (0.6-1.0) 3.7 mg/dL (0.6-1.0) 3.1 mg/dL (0.6-1.0) Estimated GFR (Cockcroft-Gault) 15.4 14.5 17.8 BUN/Creatinine Ratio 19 (6-20) Glucose Level 88 mg/dL (70-99) 77 mg/dL (70-99) 71 mg/dL (70-99) Calcium Level 7.7 mg/dL (8.5-10.1) 8.2 mg/dL (8.5-10.1) 7.9 mg/dL (8.5-10.1) Total Bilirubin 0.1 mg/dL (0.2-1.0) Aspartate Amino Transf (AST/SGOT) 12 U/L (15-37) Alanine Aminotransferase (ALT/SGPT) 8 U/L (14-59) Alkaline Phosphatase 85 U/L (46-116) C-Reactive Protein, Quantitative 171.4 mg/L (0-3.3) Total Protein 4.9 g/dL (6.4-8.2) Albumin 0.6 g/dL (3.4-5.0) Albumin/Globulin Ratio 0.1 (1.0-1.7) Procalcitonin 21.56 ng/mL (0.00-0.10) 19.08 ng/mL (0.00-0.10) Prothrombin Time 12.7 SEC (11.7-14.0) Prothromb Time International Ratio 1.0 (0.8-1.1) Activated Partial Thromboplast Time 28 SEC (24-38) Fibrinogen 615 mg/dL (200-440) D-Dimer (Smiley) > 20.00 ug/mlFEU Test 04/05/20 06:45 White Blood Count 16.8 x10^3/uL (4.0-11.0) Red Blood Count 2.88 x10^6/uL (3.50-5.40) Hemoglobin 8.9 g/dL (12.0-15.5) Hematocrit 27.4 % (36.0-47.0) Mean Corpuscular Volume 95 fL (79-100) Mean Corpuscular Hemoglobin 31 pg (25-35) Mean Corpuscular Hemoglobin Concent 32 g/dL (31-37) Red Cell Distribution Width 15.8 % (11.5-14.5) Platelet Count 212 x10^3/uL (140-400) Neutrophils (%) (Auto) 88 % (31-73) Lymphocytes (%) (Auto) 8 % (24-48) Monocytes (%) (Auto) 4 % (0-9) Eosinophils (%) (Auto) 0 % (0-3) Basophils (%) (Auto) 0 % (0-3) Neutrophils # (Auto) 14.7 x10^3/uL (1.8-7.7) Lymphocytes # (Auto) 1.4 x10^3/uL (1.0-4.8) Monocytes # (Auto) 0.6 x10^3/uL (0.0-1.1) Eosinophils # (Auto) 0.0 x10^3/uL (0.0-0.7) Basophils # (Auto) 0.0 x10^3/uL (0.0-0.2) Sodium Level 132 mmol/L (136-145) Potassium Level 5.1 mmol/L (3.5-5.1) Chloride Level 103 mmol/L (98-107) Carbon Dioxide Level 16 mmol/L (21-32) Anion Gap 13 (6-14) Blood Urea Nitrogen 67 mg/dL (7-20) Creatinine 2.6 mg/dL (0.6-1.0) Estimated GFR (Cockcroft-Gault) 21.8 Glucose Level 85 mg/dL (70-99) Calcium Level 7.7 mg/dL (8.5-10.1) Phosphorus Level 8.6 mg/dL (2.6-4.7) Magnesium Level 1.8 mg/dL (1.8-2.4) Laboratory Tests Test 04/04/20 18:20 04/05/20 00:01 04/05/20 06:45 Prothrombin Time 12.7 SEC (11.7-14.0) Prothromb Time International Ratio 1.0 (0.8-1.1) Activated Partial Thromboplast Time 28 SEC (24-38) Fibrinogen 615 mg/dL (200-440) D-Dimer (Smiley) > 20.00 ug/mlFEU Sodium Level 133 mmol/L (136-145) 132 mmol/L (136-145) 132 mmol/L (136-145) Potassium Level 6.4 mmol/L (3.5-5.1) 5.4 mmol/L (3.5-5.1) 5.1 mmol/L (3.5-5.1) Chloride Level 103 mmol/L (98-107) 105 mmol/L (98-107) 103 mmol/L (98-107) Carbon Dioxide Level 17 mmol/L (21-32) 18 mmol/L (21-32) 16 mmol/L (21-32) Anion Gap 13 (6-14) 9 (6-14) 13 (6-14) Blood Urea Nitrogen 71 mg/dL (7-20) 69 mg/dL (7-20) 67 mg/dL (7-20) Creatinine 3.7 mg/dL (0.6-1.0) 3.1 mg/dL (0.6-1.0) 2.6 mg/dL (0.6-1.0) Estimated GFR (Cockcroft-Gault) 14.5 17.8 21.8 Glucose Level 77 mg/dL (70-99) 71 mg/dL (70-99) 85 mg/dL (70-99) Calcium Level 8.2 mg/dL (8.5-10.1) 7.9 mg/dL (8.5-10.1) 7.7 mg/dL (8.5-10.1) Procalcitonin 19.08 ng/mL (0.00-0.10) White Blood Count 16.8 x10^3/uL (4.0-11.0) Red Blood Count 2.88 x10^6/uL (3.50-5.40) Hemoglobin 8.9 g/dL (12.0-15.5) Hematocrit 27.4 % (36.0-47.0) Mean Corpuscular Volume 95 fL (79-100) Mean Corpuscular Hemoglobin 31 pg (25-35) Mean Corpuscular Hemoglobin Concent 32 g/dL (31-37) Red Cell Distribution Width 15.8 % (11.5-14.5) Platelet Count 212 x10^3/uL (140-400) Neutrophils (%) (Auto) 88 % (31-73) Lymphocytes (%) (Auto) 8 % (24-48) Monocytes (%) (Auto) 4 % (0-9) Eosinophils (%) (Auto) 0 % (0-3) Basophils (%) (Auto) 0 % (0-3) Neutrophils # (Auto) 14.7 x10^3/uL (1.8-7.7) Lymphocytes # (Auto) 1.4 x10^3/uL (1.0-4.8) Monocytes # (Auto) 0.6 x10^3/uL (0.0-1.1) Eosinophils # (Auto) 0.0 x10^3/uL (0.0-0.7) Basophils # (Auto) 0.0 x10^3/uL (0.0-0.2) Phosphorus Level 8.6 mg/dL (2.6-4.7) Magnesium Level 1.8 mg/dL (1.8-2.4) Assessment/Plan Assessment/Plan 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
[2020-04-05 15:22] VITALS: BP 108/74
[2020-04-05] MEDS: predniSONE 20 MG TABLET PO SCH (16:14)
[2020-04-05] MEDS: FUROSEMIDE 40 MG TABLET. PO SCH (16:14)
[2020-04-05] MEDS: MYCOPHENOLATE MOFETIL 250 MG CAPSULE. PO SCH ×2 (16:14→21:21)
[2020-04-05] MEDS: LISINOPRIL 5 MG TABLET. PO SCH (16:15)
--- NOTE | 2020-04-05 16:35 | PDOC ---
[facility] PROGRESS NOTE Date of Service DOS: DATE: 04/05/20 TIME: 16:32 Chief Complaint Chief Complaint VTE Prophylaxis Ordered VTE Prophylaxis Devices: No VTE Pharmacological Prophylaxi: Yes Assessment/Plan Assessment/Plan Elevated Procalcitonin Leukocytosis Renal Failure Hyperkalemia Malnutrition metabolic encephalopathy sepsis Plan: labs are concerning for underlying infectious process. Procalcitonin 16.38, WBC 11.8. Consult to Nephrology and ID., neurology further antibiotics until input from ID, as this could be the result of systemic autoimmune disease. Elevated procalcitonin may be secondary to Lupus as underlying autoimmune disease. Consult to PAT. Even in the absence of underlying infectious process, patient lives alone and is currently not mentally stable enough to return home by herself. Blood cultures POS G POS COCCI . 04/04 ct abd pelvis Appreciate ID recommendations Pain management. VTE prophylaxis. Full Code. KAYEXYLATE PO consult nephrology iv vancomycin cefepime iv bmp at 2300 tonight covid-19 ag lactic acid fibrinogen Continue low-dose prednisone although she will need higher doses but she has not tolerated this time. Continue MMF Start lisinopril 2.5 mg daily Continue diuretics Once renal function is more stable consider Bactrim prophylaxis Appreciate nephrology recommendations History of Present Illness History of Present Illness 04/05/2020 No acute events overnight. Patient's potassium and creatinine has stabilized and improved. No changes in her pain at this time. Patient's chart, labs, images were reviewed and discussed with RN History of Present Illness History of Present Illness Patient is a 29 yo female with history of lupus, who presents with complaint of "pain all over". She is tearful at the time of evaluation, and does not provide me with an exact duration of time or answers to straight forward questions. She is able to localize her pain to her lower extremities and joints. She does tell me that she has been taking her home hydrocodone medications without improvement in her pain. Patient's friend notes worsening anxiety about her seemingly deteriorating medical condition over the past 2 months. He states over the past day of two she has become more unresponsive, withdrawn, and tearful. mention in the ER note about vomiting, but this was not conveyed to me by the patient or friend. denies any fever, sore throat, cough, SOB, or history of IV drug use. Past Medical History Rheumatologic: Other (Lupus) Renal/: Chronic renal insuff Past Surgical History Past Surgical History: No pertinent history Family History Family History: Cancer Social History Smoke: No ALCOHOL: none Drugs: Marijuana Vitals/I&O Vitals/I&O: Vital Signs Date Time Temp Pulse Resp B/P (MAP) Pulse Ox O2 Delivery O2 Flow Rate FiO2 04/05/20 16:15 98 108/74 04/05/20 15:22 98.4 18 98 Room Air 98.4 I & O 04/04/20 04/04/20 04/05/20 15:00 23:00 07:00 Intake Total 0 ml Balance 0 ml Physical Exam Physical Exam: GENERAL: Awake female who is tearful, annoyed with talking, not in distress. VITAL SIGNS: Stable, afebrile. HEENT: NAD. NECK: Supple, no JVP, no lymphadenopathy. LUNGS: Clear. HEART: S1, S2 regular. No gallop or murmur. ABDOMEN: Soft, nontender, no organomegaly. EXTREMITIES: No edema, cyanosis. SKIN: Unremarkable. NEUROLOGIC: The patient is alert, awake, noncooperative, but no focal deficit. General: Alert, Oriented X3, Cooperative, No acute distress Heart: Regular rate, Normal S1, Normal S2 Lungs: Clear Abdomen: Normal bowel sounds, Soft Extremities: No clubbing Skin: No rashes Labs Labs: Laboratory Tests Test 04/04/20 18:20 04/05/20 00:01 04/05/20 06:45 Prothrombin Time 12.7 SEC (11.7-14.0) Prothromb Time International Ratio 1.0 (0.8-1.1) Activated Partial Thromboplast Time 28 SEC (24-38) Fibrinogen 615 mg/dL (200-440) D-Dimer (Smiley) > 20.00 ug/mlFEU Sodium Level 133 mmol/L (136-145) 132 mmol/L (136-145) 132 mmol/L (136-145) Potassium Level 6.4 mmol/L (3.5-5.1) 5.4 mmol/L (3.5-5.1) 5.1 mmol/L (3.5-5.1) Chloride Level 103 mmol/L (98-107) 105 mmol/L (98-107) 103 mmol/L (98-107) Carbon Dioxide Level 17 mmol/L (21-32) 18 mmol/L (21-32) 16 mmol/L (21-32) Anion Gap 13 (6-14) 9 (6-14) 13 (6-14) Blood Urea Nitrogen 71 mg/dL (7-20) 69 mg/dL (7-20) 67 mg/dL (7-20) Creatinine 3.7 mg/dL (0.6-1.0) 3.1 mg/dL (0.6-1.0) 2.6 mg/dL (0.6-1.0) Estimated GFR (Cockcroft-Gault) 14.5 17.8 21.8 Glucose Level 77 mg/dL (70-99) 71 mg/dL (70-99) 85 mg/dL (70-99) Calcium Level 8.2 mg/dL (8.5-10.1) 7.9 mg/dL (8.5-10.1) 7.7 mg/dL (8.5-10.1) Procalcitonin 19.08 ng/mL (0.00-0.10) White Blood Count 16.8 x10^3/uL (4.0-11.0) Red Blood Count 2.88 x10^6/uL (3.50-5.40) Hemoglobin 8.9 g/dL (12.0-15.5) Hematocrit 27.4 % (36.0-47.0) Mean Corpuscular Volume 95 fL (79-100) Mean Corpuscular Hemoglobin 31 pg (25-35) Mean Corpuscular Hemoglobin Concent 32 g/dL (31-37) Red Cell Distribution Width 15.8 % (11.5-14.5) Platelet Count 212 x10^3/uL (140-400) Neutrophils (%) (Auto) 88 % (31-73) Lymphocytes (%) (Auto) 8 % (24-48) Monocytes (%) (Auto) 4 % (0-9) Eosinophils (%) (Auto) 0 % (0-3) Basophils (%) (Auto) 0 % (0-3) Neutrophils # (Auto) 14.7 x10^3/uL (1.8-7.7) Lymphocytes # (Auto) 1.4 x10^3/uL (1.0-4.8) Monocytes # (Auto) 0.6 x10^3/uL (0.0-1.1) Eosinophils # (Auto) 0.0 x10^3/uL (0.0-0.7) Basophils # (Auto) 0.0 x10^3/uL (0.0-0.2) Phosphorus Level 8.6 mg/dL (2.6-4.7) Magnesium Level 1.8 mg/dL (1.8-2.4) Assessment and Plan Assessmemt and Plan Problems Medical Problems: (1) Acute renal failure Status: Acute (2) Altered mental status Status: Acute (3) Anemia Status: Acute Comment Review of Relevant I have reviewed the following items jennifer (where applicable) has been applied. Medications: Current Medications Medications (Trade) Dose Ordered Sig/Kwesi Route PRN Reason Start Time Stop Time Status Last Admin Dose Admin Cefepime HCl (Maxipime) 1 gm Q12HR IVP 04/04/20 18:00 04/05/20 06:30 DC 04/04/20 20:58 Sodium Chloride 1,000 ml @ 1,650 mls/hr Q37M IV 04/04/20 18:02 04/04/20 19:02 DC 04/04/20 18:39 Sodium Chloride 1,000 ml @ 100 mls/hr Q10H IV 04/04/20 18:15 04/04/20 20:55 Calcium Gluconate 1000 mg/Sodium Chloride 110 ml @ 220 mls/hr 1X ONCE IV 04/04/20 21:00 04/04/20 21:29 DC 04/04/20 20:56 Dextrose (Dextrose 50%-Water Syringe) 25 gm 1X ONCE IV 04/04/20 20:15 04/04/20 20:16 DC 04/04/20 20:56 Furosemide (Lasix) 40 mg 1X ONCE IVP 04/04/20 21:00 04/04/20 21:01 DC 04/04/20 20:57 Insulin Human Regular (HumuLIN R VIAL) 10 unit 1X ONCE IV 04/04/20 21:00 04/04/20 21:01 DC 04/04/20 20:55 Piperacillin Sod/ Tazobactam Sod 2.25 gm/Sodium Chloride 50 ml @ 100 mls/hr Q6HRS IV 04/05/20 07:00 04/05/20 12:18 Prednisone (Prednisone) 40 mg DAILY PO 04/05/20 15:00 04/05/20 16:14 Mycophenolate Mofetil (Cellcept) 500 mg BID PO 04/05/20 15:00 04/05/20 16:14 Lisinopril (Prinivil) 2.5 mg DAILY PO 04/05/20 15:00 04/05/20 16:15 Furosemide (Lasix) 40 mg DAILY PO 04/05/20 15:00 04/05/20 16:14 Justifications for Admission Other Justification JOVANI DRUMMOND MD Apr 05, 2020 16:35
[2020-04-05 19:00] VITALS: BP 117/77
[2020-04-05 23:00] VITALS: BP 119/75
[2020-04-06] MEDS ORDERED: ACETAMINOPHEN 325 MG TABLET. PO PRN (00:30)
[2020-04-06] MEDS: PIPERACILLIN/TAZOBACTAM 2.25 GM in IV NORMAL SALINE 50ML 50 ML IV SCH ×3 (00:32→12:22)
[2020-04-06] MEDS: IV 1/2 NORMAL SALINE 1,000 ML IV SCH ×3 (00:33→20:04)
--- NOTE | 2020-04-06 00:52 | CONS ---
DATE OF CONSULTATION: 04/05/2020 REFERRING PHYSICIAN: Moy Peña MD or Efraín Martinez MD REASON FOR CONSULTATION: Encephalopathy. HISTORY OF PRESENT ILLNESS: The patient is a 29-year-old woman with a history of lupus and lupus nephritis. She presented in a tearful, withdrawn fashion. She had some nausea and vomiting. I was asked to evaluate because she has been somewhat lethargic. In the Emergency Room, she was noted to have leukocytosis and renal insufficiency and there was concern of underlying infection. PAST MEDICAL HISTORY: 1. Systemic lupus erythematosus. 2. 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 PAST SURGICAL HISTORY: No surgeries are noted other than renal biopsy. ALLERGIES: No known allergies to drugs. MEDICATIONS PRIOR TO ADMISSION: None are listed in the chart. 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 She did not tolerate steroids. FAMILY HISTORY: Cancer. SOCIAL HISTORY: She smokes marijuana. She does not drink alcohol or smoke tobacco. REVIEW OF SYSTEMS: She does not complain of any headache. She has been lethargic. She has not had a change of vision or hearing. She has been able to swallow, but her appetite is poor. She does not have shortness of breath. She has had a slight cough. There is no chest or abdominal pain. She does complain of diffuse bone, joint and muscle pain. She does not complain of numbness. She has chronic swelling of her right leg. She has diffuse edema. She has had some fever. She does have anxiety and depression. She has renal insufficiency. She does not have a history of diabetes. She does not complain of excessive bruising or bleeding. PHYSICAL EXAMINATION: VITAL SIGNS: The blood pressure was 108/74, pulse 98, respirations 18, temperature 98.4 degrees axillary. T-max was 100.2 at 3:00 a.m. Oximetry was 98% on room air. Her weight was 63.5 kilograms, height 64 inches with a calculated body mass index of 24. GENERAL: She was initially very sleepy and lethargic. As I continued to stimulate her, she did wake up enough to cooperate for the examination. Most action seem to cause her to yell out in pain and get weepy. She was oriented to place, month and year. She appeared to have a good fund of recent and remote knowledge. Attention and concentration were impaired. NEUROLOGIC: Examination of the cranial nerves revealed visual bruner were full to confrontation. Extraocular movements were intact. The eyes were conjugate. Pursuit movements were smooth and saccadic eye movements were without dysmetria. Pupils were 4 mm and reacted. Facial sensation was intact. The muscles of mastication and facial expression were powerful symmetrically. Hearing was intact to finger rub. The palate arched symmetrically and the tongue was midline with full motion. Sternocleidomastoid and trapezius were powerful. Muscle bulk and tone was normal. There was no arm or leg drift. She was reluctant to straighten out her right leg because it felt stiff to her. Power was fairly full in the upper extremities. She gave a very limited effort in the legs. Reflexes were 2/4 and symmetric in the upper and lower extremities. Toes were not upgoing. Coordination testing with [id number], fine motor and rapid alternating movements was only fair. She put out very little effort. She did try to do [id number] slightly, it was limited, but there was no obvious ataxia. Sensory exam was intact to pain, light touch, proprioception, graphesthesia, cold thermal and vibration. There was no distal sensory shading in the legs. Gait was not testable. NECK: Auscultation of the carotid arteries did not reveal a bruit. HEART: Rhythm was regular without a murmur. EXTREMITIES: Peripheral pulses were symmetric in the hands and feet. There was edema throughout in the arms as well as the legs, but much more so on the right leg. LABORATORY RESULTS: CBC was performed on 04/05/2020 revealing an elevated white blood cell count at 16.8, low hemoglobin of 8.9, hematocrit 27.4 and platelet count at 212. Chemistries were performed on 04/05/2020. Sodium was low at 132. Potassium is normalized to 5.1. CO2 was low at 16. Chloride was normal. BUN was elevated to 67 and creatinine was 2.6. These are trending downward. The GFR calculated at 21.8. Glucose was 85. Calcium was low at 7.7 and phosphorus elevated at 8.6. Magnesium was normal. Procalcitonin was measured on 04/04, on 2 occasions, initially 21.56 and followup at 19.08. Toxicology is performed on 04/03/2020 revealed a positive cannabinoids in the urine and positive for opiates, but was otherwise negative. Alcohol was not detected. Salicylate was not detected. Acetaminophen was 14.8. Urinalysis was performed on 04/03/2020. This revealed greater than 300 mg/dL of protein. There was trace ketones and a large amount of blood. Small amount of bilirubin and trace leukocyte esterase. There were too many to count red blood cells and 1-4 white cells. There was occasional squamous epithelial cells. Urine test is negative. Coagulation was performed on 04/04/2020 with PT/INR of 1 and PTT 28. Fibrinogen was elevated to 615 and D-dimer was elevated at greater than 20. DIAGNOSTIC RESULTS: CT scan of the brain was performed on 04/03/2020. This revealed no acute intracranial abnormality. Chest x-ray was performed on 04/03/2020 revealing no acute radiologic abnormality. Abdominal and pelvic CAT scan was performed on 04/05/2020 and revealed limited exam due to motion artifact. There was diffuse fat stranding in the soft tissues of the abdomen wall and pelvis, could be cellulitis or edema with anasarca. 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 There was focal airspace opacity identified in left lower lobe, likely pneumonia or atelectasis. Ultrasound was performed of the abdomen on 04/04/2020 revealing distended gallbladder with prominent wall. There was mild wall thickening, nonspecific. There was a hypoechoic pancreas, which was prominent in size. Liver was echogenic and there was trace free fluid. IMPRESSION: The patient is a 29-year-old woman who appears encephalopathic. She does not have any focal findings. She is generally weak and lethargic. The encephalopathy may be from underlying infection or process in her abdomen. She has acute renal failure. She has metabolic disturbances. She may have pulmonary infection. All of these likely contributes to the encephalopathic process. She is able to alert fully and answer questions appropriately. I do not think she has an encephalitis. I do not find anything focal that suggest stroke. RECOMMENDATIONS: I would continue treating underlying infectious process as well as renal failure. I would anticipate as she has improved so well her level of alertness. JUANA OWENS MD DR: ALEX/pushpa JOB#: [id number] / [id number]
[2020-04-06 03:00] VITALS: BP 128/82
[2020-04-06 05:36] LABS: CALCIUM 7.6 mg/dL (8.5-10.1); CREATININE 2.5 mg/dL (0.6-1.0); GFR 22.8; MAGNESIUM 1.9 mg/dL (1.8-2.4); PHOSPHORUS 8.6 mg/dL (2.6-4.7); POTASSIUM 5.2 mmol/L (3.5-5.1)
[2020-04-06] MEDS: HEPARIN for SUB-Q USE 5,000 UNIT/ML VIAL. SQ SCH ×3 (05:53→21:32)
[2020-04-06 07:00] VITALS: BP 119/77
[2020-04-06] MEDS: predniSONE 20 MG TABLET PO SCH (09:11)
[2020-04-06] MEDS: FUROSEMIDE 40 MG TABLET. PO SCH (09:11)
[2020-04-06] MEDS: DOCUSATE SODIUM 100 MG CAPSULE. PO SCH ×2 (09:11→20:04)
[2020-04-06] MEDS: MYCOPHENOLATE MOFETIL 250 MG CAPSULE. PO SCH ×2 (09:11→20:04)
[2020-04-06] MEDS: LISINOPRIL 5 MG TABLET. PO SCH (09:11)
--- NOTE | 2020-04-06 09:14 | PDOC ---
Infectious Disease Note Subjective: Subjective She is feeling better today Vital Signs: Vital Signs Vital Signs Date Time Temp Pulse Resp B/P (MAP) Pulse Ox O2 Delivery O2 Flow Rate FiO2 04/06/20 09:11 79 119/77 04/06/20 07:00 98.9 100 98.9 04/06/20 03:00 18 Room Air Physical Exam: PHYSICAL EXAM GENERAL: Awake female who is tearful, annoyed with talking, not in distress. VITAL SIGNS: Stable, afebrile. HEENT: NAD. NECK: Supple, no JVP, no lymphadenopathy. LUNGS: Clear. HEART: S1, S2 regular. No gallop or murmur. ABDOMEN: Soft, nontender, no organomegaly. EXTREMITIES: No edema, cyanosis. SKIN: Unremarkable. NEUROLOGIC: The patient is alert, awake, noncooperative, but no focal deficit. Medications: Inpatient Meds: Current Medications Medications (Trade) Dose Ordered Sig/Kwesi Start Time Stop Time Status Last Admin Dose Admin Acetaminophen (Tylenol) 650 mg PRN Q6HRS PRN 04/06/20 00:30 Acetaminophen/ Hydrocodone Bitart (Lortab 5/325) 2 tab PRN Q4HRS PRN 04/03/20 20:45 04/05/20 05:31 2 TAB Bisacodyl (Dulcolax Supp) 10 mg PRN DAILY PRN 04/03/20 20:45 Calcium Gluconate 1000 mg/Sodium Chloride 110 ml @ 220 mls/hr 1X ONCE 04/04/20 21:00 04/04/20 21:29 DC 04/04/20 20:56 220 MLS/HR Cefepime HCl (Maxipime) 1 gm Q12HR 04/04/20 18:00 04/05/20 06:30 DC 04/04/20 20:58 1 GM Dextrose (Dextrose 50%-Water Syringe) 25 gm 1X ONCE 04/04/20 20:15 04/04/20 20:16 DC 04/04/20 20:56 25 GM Docusate Sodium (Colace) 100 mg BID 04/03/20 21:00 04/06/20 09:11 100 MG Furosemide (Lasix) 40 mg DAILY 04/05/20 15:00 04/06/20 09:11 40 MG Heparin Sodium (Porcine) (Heparin Sodium) 5,000 unit Q8HRS 04/03/20 22:00 04/06/20 05:53 5,000 UNIT Insulin Human Regular (HumuLIN R VIAL) 10 unit 1X ONCE 04/04/20 21:00 04/04/20 21:01 DC 04/04/20 20:55 10 UNIT Lisinopril (Prinivil) 2.5 mg DAILY 04/05/20 15:00 04/06/20 09:11 2.5 MG Mycophenolate Mofetil (Cellcept) 500 mg BID 04/05/20 15:00 04/06/20 09:11 500 MG Ondansetron HCl (Zofran) 4 mg PRN Q8HRS PRN 04/03/20 19:15 04/04/20 19:14 DC Piperacillin Sod/ Tazobactam Sod 2.25 gm/Sodium Chloride 50 ml @ 100 mls/hr Q6HRS 04/05/20 07:00 04/06/20 05:52 100 MLS/HR Prednisone (Prednisone) 40 mg DAILY 04/05/20 15:00 04/06/20 09:11 40 MG Sodium Polystyrene Sulfonate (Kayexalate) 30 gm 1X ONCE 04/04/20 11:00 04/04/20 11:01 DC 04/04/20 12:12 30 GM Sodium Chloride 1,000 ml @ 100 mls/hr Q10H 04/04/20 18:15 04/06/20 00:33 100 MLS/HR Vancomycin HCl (Vanco Per Pharmacy) 1 each PRN DAILY PRN 04/03/20 19:30 04/03/20 20:45 DC Vancomycin HCl 1.5 gm/Sodium Chloride 500 ml @ 250 mls/hr 1X ONCE 04/03/20 19:45 04/03/20 21:44 DC 04/03/20 20:17 250 MLS/HR Labs: Lab Laboratory Tests Test 04/06/20 04:26 Sodium Level 130 mmol/L (136-145) Potassium Level 5.2 mmol/L (3.5-5.1) Chloride Level 102 mmol/L (98-107) Carbon Dioxide Level 17 mmol/L (21-32) Anion Gap 11 (6-14) Blood Urea Nitrogen 70 mg/dL (7-20) Creatinine 2.5 mg/dL (0.6-1.0) Estimated GFR (Cockcroft-Gault) 22.8 Glucose Level 100 mg/dL (70-99) Calcium Level 7.6 mg/dL (8.5-10.1) Phosphorus Level 8.6 mg/dL (2.6-4.7) Magnesium Level 1.9 mg/dL (1.8-2.4) Micro BLOOD CULTURE Final GRAM POSITIVE COCCI IN CHAINS 2 SETS DRAWN, 4 OF 4 POSITIVE CALLED TO MADDISON SANDERS RN IN 4N BY LLUVIA,04/04/20,10.[address] [facility] FOR FURTHER WORK UP Objective: Assessment: Group B strep bacteremia on admission Leukocytosis History of SLE Generalized pain Lupus nephritis with renal insufficiency Plan: Plan of Care Rocephin was on zosyn Repeat blood cultures Supportive care Follow the cultures RAJESH TRIPLETT MD Apr 06, 2020 09:14
--- NOTE | 2020-04-06 10:19 | PDOC ---
DATE OF SERVICE DATE: 04/06/20 TIME: 10:18 SUBJECTIVE ROS stable, More alert OBJECTIVE Vital Signs Vital Signs Date Time Temp Pulse Resp B/P (MAP) Pulse Ox O2 Delivery O2 Flow Rate FiO2 04/06/20 09:11 79 119/77 04/06/20 08:25 Room Air 04/06/20 07:00 98.9 100 98.9 04/06/20 03:00 18 I & 0 Intake and Output 04/06/20 06:59 Intake Total 680 ml Balance 680 ml Intake Oral 680 ml # Voids 3 PHYSICAL EXAM Physical Exam General: No acute distress HEENT: Atraumatic, PERRLA Lungs: Clear to auscultation Heart: Regular rate, Normal S1, Normal S2 Abdomen: Normal bowel sounds, Soft Extremities: edema ++ Skin: No rashes Neuro: Normal speech, Sensation intact DIAGNOSIS/ASSESSMENT Assessment & Plan LATONIA-LUPUS NEPHRITIS-ACTIVE FLARE-NO CKD CR PEAKED AT 3.7-->2.5 RENAL US UNREMARKABLE BX PROVEN STAGE IV LUPUS NEPHRITIS CONTINUE MYCOPHENALATE LOWER THAN IDEAL DOSE PREDNISONE SINCE SHE WONT TOLERATE HIGH DOSES ONCE RENAL FXN MORE STABLE CONSIDER BACTRIM PROPHYLAXIS SLE- MYALGIAS AND ARTHRALGIAS NEPHROTIC SYNDROME-ON LOW DOSE ISAI-I 10 GMS PRIOR TO BX HYPERKALEMIA- MILD HYPONATREMIA- MILD LEUCOCYTOSIS/ Group B strep bacteremia on admission COMMENT/RELEVANT DATA Meds Current Medications Medications (Trade) Dose Ordered Sig/Kwesi Start Time Stop Time Status Last Admin Dose Admin Acetaminophen (Tylenol) 650 mg PRN Q6HRS PRN 04/06/20 00:30 Acetaminophen/ Hydrocodone Bitart (Lortab 5/325) 2 tab PRN Q4HRS PRN 04/03/20 20:45 04/05/20 05:31 2 TAB Bisacodyl (Dulcolax Supp) 10 mg PRN DAILY PRN 04/03/20 20:45 Calcium Gluconate 1000 mg/Sodium Chloride 110 ml @ 220 mls/hr 1X ONCE 04/04/20 21:00 04/04/20 21:29 DC 04/04/20 20:56 220 MLS/HR Cefepime HCl (Maxipime) 1 gm Q12HR 04/04/20 18:00 04/05/20 06:30 DC 04/04/20 20:58 1 GM Dextrose (Dextrose 50%-Water Syringe) 25 gm 1X ONCE 04/04/20 20:15 04/04/20 20:16 DC 04/04/20 20:56 25 GM Docusate Sodium (Colace) 100 mg BID 04/03/20 21:00 04/06/20 09:11 100 MG Furosemide (Lasix) 40 mg DAILY 04/05/20 15:00 04/06/20 09:11 40 MG Heparin Sodium (Porcine) (Heparin Sodium) 5,000 unit Q8HRS 04/03/20 22:00 04/06/20 05:53 5,000 UNIT Insulin Human Regular (HumuLIN R VIAL) 10 unit 1X ONCE 04/04/20 21:00 04/04/20 21:01 DC 04/04/20 20:55 10 UNIT Lisinopril (Prinivil) 2.5 mg DAILY 04/05/20 15:00 04/06/20 09:11 2.5 MG Mycophenolate Mofetil (Cellcept) 500 mg BID 04/05/20 15:00 04/06/20 09:11 500 MG Ondansetron HCl (Zofran) 4 mg PRN Q8HRS PRN 04/03/20 19:15 04/04/20 19:14 DC Piperacillin Sod/ Tazobactam Sod 2.25 gm/Sodium Chloride 50 ml @ 100 mls/hr Q6HRS 04/05/20 07:00 04/06/20 05:52 100 MLS/HR Prednisone (Prednisone) 40 mg DAILY 04/05/20 15:00 04/06/20 09:11 40 MG Sodium Polystyrene Sulfonate (Kayexalate) 30 gm 1X ONCE 04/04/20 11:00 04/04/20 11:01 DC 04/04/20 12:12 30 GM Sodium Chloride 1,000 ml @ 100 mls/hr Q10H 04/04/20 18:15 04/06/20 00:33 100 MLS/HR Vancomycin HCl (Vanco Per Pharmacy) 1 each PRN DAILY PRN 04/03/20 19:30 04/03/20 20:45 DC Vancomycin HCl 1.5 gm/Sodium Chloride 500 ml @ 250 mls/hr 1X ONCE 04/03/20 19:45 04/03/20 21:44 DC 04/03/20 20:17 250 MLS/HR Lab Laboratory Tests Test 04/06/20 04:26 Sodium Level 130 mmol/L (136-145) Potassium Level 5.2 mmol/L (3.5-5.1) Chloride Level 102 mmol/L (98-107) Carbon Dioxide Level 17 mmol/L (21-32) Anion Gap 11 (6-14) Blood Urea Nitrogen 70 mg/dL (7-20) Creatinine 2.5 mg/dL (0.6-1.0) Estimated GFR (Cockcroft-Gault) 22.8 Glucose Level 100 mg/dL (70-99) Calcium Level 7.6 mg/dL (8.5-10.1) Phosphorus Level 8.6 mg/dL (2.6-4.7) Magnesium Level 1.9 mg/dL (1.8-2.4) Results All relevant outside records, renal labs, imaging studies, telemetry/EKG's were reviewed. Justicifation of Admission Dx: Justifications for Admission: Justification of Admission Dx: Yes Chronic Renal Failure: Renail Failure LIBBY HALL MD Apr 06, 2020 10:19
[2020-04-06 11:00] VITALS: BP 119/78
--- NOTE | 2020-04-06 11:43 | PDOC ---
PROGRESS NOTES Date of Service DATE: 04/06/20 TIME: 11:39 Assessment Problems Medical Problems: (1) Acute renal failure Status: Acute (2) Altered mental status Status: Acute (3) Anemia Status: Acute Encephalopathy, better Acute renal failure, possible pneumonia, under investigation for COVID, leukocytosis.on steroids, positive blood culture Lupus, whole body painupus erythematosus. Personality disorder. Plan Treat medical issues No additional neurological studies needed Subjective Complains of general malaise Objective Vital Signs Date Time Temp Pulse Resp B/P (MAP) Pulse Ox O2 Delivery O2 Flow Rate FiO2 04/06/20 09:11 79 119/77 04/06/20 08:25 Room Air 04/06/20 07:00 98.9 100 98.9 04/06/20 03:00 18 Intake and Output 04/06/20 06:59 Intake Total 680 ml Balance 680 ml Intake Oral 680 ml # Voids 3 PHYSICAL EXAM Alert. Oriented to time, place and person. PERRL. EOMI. CN: no focal findings. Muscle tone: normal. Muscle strength: 5/5 DTR: 2+ Plantar reflex: flexor Gait: not examined in bed. Sensory exam: no abnormal findings. No cerebellar signs elicited. Review of Relevant I have reviewed the following items jennifer (where applicable) has been applied. Labs Laboratory Tests Test 04/04/20 18:20 04/05/20 00:01 04/05/20 06:45 04/06/20 04:26 Prothrombin Time 12.7 SEC (11.7-14.0) Prothromb Time International Ratio 1.0 (0.8-1.1) Activated Partial Thromboplast Time 28 SEC (24-38) Fibrinogen 615 mg/dL (200-440) D-Dimer (Smiley) > 20.00 ug/mlFEU Sodium Level 133 mmol/L (136-145) 132 mmol/L (136-145) 132 mmol/L (136-145) 130 mmol/L (136-145) Potassium Level 6.4 mmol/L (3.5-5.1) 5.4 mmol/L (3.5-5.1) 5.1 mmol/L (3.5-5.1) 5.2 mmol/L (3.5-5.1) Chloride Level 103 mmol/L (98-107) 105 mmol/L (98-107) 103 mmol/L (98-107) 102 mmol/L (98-107) Carbon Dioxide Level 17 mmol/L (21-32) 18 mmol/L (21-32) 16 mmol/L (21-32) 17 mmol/L (21-32) Anion Gap 13 (6-14) 9 (6-14) 13 (6-14) 11 (6-14) Blood Urea Nitrogen 71 mg/dL (7-20) 69 mg/dL (7-20) 67 mg/dL (7-20) 70 mg/dL (7-20) Creatinine 3.7 mg/dL (0.6-1.0) 3.1 mg/dL (0.6-1.0) 2.6 mg/dL (0.6-1.0) 2.5 mg/dL (0.6-1.0) Estimated GFR (Cockcroft-Gault) 14.5 17.8 21.8 22.8 Glucose Level 77 mg/dL (70-99) 71 mg/dL (70-99) 85 mg/dL (70-99) 100 mg/dL (70-99) Calcium Level 8.2 mg/dL (8.5-10.1) 7.9 mg/dL (8.5-10.1) 7.7 mg/dL (8.5-10.1) 7.6 mg/dL (8.5-10.1) Procalcitonin 19.08 ng/mL (0.00-0.10) White Blood Count 16.8 x10^3/uL (4.0-11.0) Red Blood Count 2.88 x10^6/uL (3.50-5.40) Hemoglobin 8.9 g/dL (12.0-15.5) Hematocrit 27.4 % (36.0-47.0) Mean Corpuscular Volume 95 fL (79-100) Mean Corpuscular Hemoglobin 31 pg (25-35) Mean Corpuscular Hemoglobin Concent 32 g/dL (31-37) Red Cell Distribution Width 15.8 % (11.5-14.5) Platelet Count 212 x10^3/uL (140-400) Neutrophils (%) (Auto) 88 % (31-73) Lymphocytes (%) (Auto) 8 % (24-48) Monocytes (%) (Auto) 4 % (0-9) Eosinophils (%) (Auto) 0 % (0-3) Basophils (%) (Auto) 0 % (0-3) Neutrophils # (Auto) 14.7 x10^3/uL (1.8-7.7) Lymphocytes # (Auto) 1.4 x10^3/uL (1.0-4.8) Monocytes # (Auto) 0.6 x10^3/uL (0.0-1.1) Eosinophils # (Auto) 0.0 x10^3/uL (0.0-0.7) Basophils # (Auto) 0.0 x10^3/uL (0.0-0.2) Phosphorus Level 8.6 mg/dL (2.6-4.7) 8.6 mg/dL (2.6-4.7) Magnesium Level 1.8 mg/dL (1.8-2.4) 1.9 mg/dL (1.8-2.4) Laboratory Tests Test 04/06/20 04:26 Sodium Level 130 mmol/L (136-145) Potassium Level 5.2 mmol/L (3.5-5.1) Chloride Level 102 mmol/L (98-107) Carbon Dioxide Level 17 mmol/L (21-32) Anion Gap 11 (6-14) Blood Urea Nitrogen 70 mg/dL (7-20) Creatinine 2.5 mg/dL (0.6-1.0) Estimated GFR (Cockcroft-Gault) 22.8 Glucose Level 100 mg/dL (70-99) Calcium Level 7.6 mg/dL (8.5-10.1) Phosphorus Level 8.6 mg/dL (2.6-4.7) Magnesium Level 1.9 mg/dL (1.8-2.4) Microbiology 04/04/20 Blood Culture - Preliminary, Resulted Medications Current Medications Cefepime HCl (Maxipime) 1 gm 1X ONCE IVP Last administered on 04/03/20at 18:00; Start 04/03/20 at 18:00; Stop 04/03/20 at 18:01; Status DC Ondansetron HCl (Zofran) 4 mg PRN Q8HRS PRN IV NAUSEA/VOMITING; Start 04/03/20 at 19:15; Stop 04/04/20 at 19:14; Status DC Acetaminophen (Tylenol) 650 mg PRN Q4HRS PRN PO FEVER > 100.3'F; Start 04/03/20 at 19:15; Stop 04/04/20 at 19:14; Status DC Furosemide (Lasix) 40 mg 1X ONCE PO Last administered on 04/03/20at 20:12; Start 04/03/20 at 19:30; Stop 04/03/20 at 19:35; Status DC Vancomycin HCl (Vanco Per Pharmacy) 1 each PRN DAILY PRN MC SEE COMMENTS; Start 04/03/20 at 19:30; Stop 04/03/20 at 20:45; Status DC Vancomycin HCl 1.5 gm/Sodium Chloride 500 ml @ 250 mls/hr 1X ONCE IV Last administered on 04/03/20at 20:17; Start 04/03/20 at 19:45; Stop 04/03/20 at 21:44; Status DC Sodium Polystyrene Sulfonate (Kayexalate) 15 gm 1X ONCE PO Last administered on 04/03/20at 21:14; Start 04/03/20 at 20:45; Stop 04/03/20 at 20:46; Status DC Acetaminophen/ Hydrocodone Bitart (Lortab 5/325) 1 tab PRN Q4HRS PRN PO MILD PAIN, 2ND CHOICE Last administered on 04/04/20at 06:45; Start 04/03/20 at 20:45 Acetaminophen/ Hydrocodone Bitart (Lortab 5/325) 2 tab PRN Q4HRS PRN PO MODERATE PAIN, SEVERE PAIN Last administered on 04/05/20at 05:31; Start 04/03/20 at 20:45 Docusate Sodium (Colace) 100 mg BID PO Last administered on 04/06/20at 09:11; Start 04/03/20 at 21:00 Bisacodyl (Dulcolax Supp) 10 mg PRN DAILY PRN [place] CONSTIPATION; Start 04/03/20 at 20:45 Heparin Sodium (Porcine) (Heparin Sodium) 5,000 unit Q8HRS SQ Last administered on 04/06/20at 05:53; Start 04/03/20 at 22:00 Sodium Polystyrene Sulfonate (Kayexalate) 30 gm 1X ONCE PO Last administered on 04/04/20at 12:12; Start 04/04/20 at 11:00; Stop 04/04/20 at 11:01; Status DC Furosemide (Lasix) 60 mg 1X ONCE IVP Last administered on 04/04/20at 13:47; Start 04/04/20 at 13:30; Stop 04/04/20 at 13:31; Status DC Cefepime HCl (Maxipime) 1 gm Q12HR IVP Last administered on 04/04/20at 20:58; Start 04/04/20 at 18:00; Stop 04/05/20 at 06:30; Status DC Sodium Chloride 1,000 ml @ 1,650 mls/hr Q37M IV Last administered on 04/04/20at 18:39; Start 04/04/20 at 18:02; Stop 04/04/20 at 19:02; Status DC Sodium Chloride 500 ml @ 1,000 mls/hr PRN Q30MIN PRN IV SEE COMMENTS; Start 04/04/20 at 18:15 Sodium Chloride 1,000 ml @ 100 mls/hr Q10H IV Last administered on 04/06/20at 11:17; Start 04/04/20 at 18:15 Calcium Gluconate 1000 mg/Sodium Chloride 110 ml @ 220 mls/hr 1X ONCE IV Last administered on 04/04/20at 20:56; Start 04/04/20 at 21:00; Stop 04/04/20 at 21:29; Status DC Dextrose (Dextrose 50%-Water Syringe) 25 gm 1X ONCE IV Last administered on 04/04/20at 20:56; Start 04/04/20 at 20:15; Stop 04/04/20 at 20:16; Status DC Furosemide (Lasix) 40 mg 1X ONCE IVP Last administered on 04/04/20at 20:57; Start 04/04/20 at 21:00; Stop 04/04/20 at 21:01; Status DC Insulin Human Regular (HumuLIN R VIAL) 10 unit 1X ONCE IV Last administered on 04/04/20at 20:55; Start 04/04/20 at 21:00; Stop 04/04/20 at 21:01; Status DC Piperacillin Sod/ Tazobactam Sod 2.25 gm/Sodium Chloride 50 ml @ 100 mls/hr Q6HRS IV Last administered on 04/06/20at 05:52; Start 04/05/20 at 07:00 Prednisone (Prednisone) 40 mg DAILY PO Last administered on 04/06/20at 09:11; Start 04/05/20 at 15:00 Mycophenolate Mofetil (Cellcept) 500 mg BID PO Last administered on 04/06/20at 09:11; Start 04/05/20 at 15:00 Lisinopril (Prinivil) 2.5 mg DAILY PO Last administered on 04/06/20at 09:11; Start 04/05/20 at 15:00 Furosemide (Lasix) 40 mg DAILY PO Last administered on 04/06/20at 09:11; Start 04/05/20 at 15:00 Acetaminophen (Tylenol) 650 mg PRN Q6HRS PRN PO FEVER > 101.5'F; Start 04/06/20 at 00:30 Vitals/I & O Vital Sign - Last 24 Hours 04/05/20 04/05/20 04/05/20 04/05/20 15:22 16:15 19:00 20:00 Temp 98.4 98.6 98.4 98.6 Pulse 98 98 92 Resp 18 18 B/P (MAP) 108/74 (85) 108/74 117/77 (90) Pulse Ox 98 98 O2 Delivery Room Air Room Air Room Air 04/05/20 04/06/20 04/06/20 04/06/20 23:00 03:00 07:00 08:25 Temp 100.5 99.4 98.9 100.5 99.4 98.9 Pulse 88 99 79 Resp 19 18 B/P (MAP) 119/75 (90) 128/82 (97) 119/77 (91) Pulse Ox 96 96 100 O2 Delivery Room Air Room Air Room Air 04/06/20 09:11 Pulse 79 B/P (MAP) 119/77 Intake and Output 04/05/20 04/05/20 04/06/20 14:59 22:59 06:59 Intake Total 380 ml 300 ml 0 ml Balance 380 ml 300 ml 0 ml Justicifation of Admission Dx: Justifications for Admission: Justification of Admission Dx: Yes Chronic Renal Failure: Renail Failure HOLLIE SNOW MD Apr 06, 2020 11:43
--- NOTE | 2020-04-06 13:21 | PDOC ---
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 Procalcitonin 16.38, WBC 11.8. Consult to Nephrology and ID., neurology further antibiotics until input from ID, as this could be the result of systemic autoimmune disease. Elevated procalcitonin may be secondary to Lupus as underlying autoimmune disease. Consult to PAT. Even in the absence of underlying infectious process, patient lives alone and is currently not mentally stable enough to return home by herself. Blood cultures POS G POS COCCI . 04/04 ct abd pelvis Appreciate ID recommendations Pain management. VTE prophylaxis. Full Code. KAYEXYLATE PO consult nephrology iv vancomycin cefepime iv bmp at 2300 tonight covid-19 ag lactic acid fibrinogen Continue low-dose prednisone although she will need higher doses but she has not tolerated this time. Continue MMF Start lisinopril 2.5 mg daily Continue diuretics Once renal function is more stable consider Bactrim prophylaxis Appreciate nephrology recommendations History of Present Illness History of Present Illness Ms Lopez is a 29 yo female with history of lupus on treatment for lupus nephritis, who presents with complaint of "pain all over". She is tearful at the time of evaluation, and does not provide me with an exact duration of time or answers to straight forward questions. She is able to localize her pain to her lower extremities and joints. She does tell me that she has been taking her home hydrocodone medications without improvement in her pain. Patient's friend notes worsening anxiety about her seemingly deteriorating medical condition over the past 2 months. He states over the past day of two she has become more unresponsive, withdrawn, and tearful. mention in the ER note about vomiting, but this was not conveyed to me by the patient or friend. denies any fever, sore throat, cough, SOB, or history of IV drug use. 04/05: No acute events overnight. Patient's potassium and creatinine has stabilized and improved. No changes in her pain at this time. Patient's chart, labs, images were reviewed and discussed with RN Febrile to 100.5 F overnight. Blood cultures are to be positive for group B strep. She has lost IV access. Overall she feels improved especially with her mental status. Vitals/I&O Vitals/I&O: Vital Signs Date Time Temp Pulse Resp B/P (MAP) Pulse Ox O2 Delivery O2 Flow Rate FiO2 04/06/20 11:00 98.1 76 18 119/78 (92) 98 Room Air 98.1 I & O 04/05/20 04/05/20 04/06/20 15:00 23:00 07:00 Intake Total 380 ml 300 ml 0 ml Balance 380 ml 300 ml 0 ml Physical Exam Physical Exam: GENERAL: Awake female who is tearful, annoyed with talking, not in distress. VITAL SIGNS: Stable, afebrile. HEENT: NAD. NECK: Supple, no JVP, no lymphadenopathy. LUNGS: Clear. HEART: S1, S2 regular. No gallop or murmur. ABDOMEN: Soft, nontender, no organomegaly. EXTREMITIES: No edema, cyanosis. SKIN: Unremarkable. NEUROLOGIC: The patient is alert, awake, noncooperative, but no focal deficit. General: Alert, Oriented X3, Cooperative, No acute distress Heart: Regular rate, Normal S1, Normal S2 Lungs: Clear Abdomen: Normal bowel sounds, Soft Extremities: No clubbing Skin: No rashes Labs Labs: Laboratory Tests Test 04/06/20 04:26 Sodium Level 130 mmol/L (136-145) Potassium Level 5.2 mmol/L (3.5-5.1) Chloride Level 102 mmol/L (98-107) Carbon Dioxide Level 17 mmol/L (21-32) Anion Gap 11 (6-14) Blood Urea Nitrogen 70 mg/dL (7-20) Creatinine 2.5 mg/dL (0.6-1.0) Estimated GFR (Cockcroft-Gault) 22.8 Glucose Level 100 mg/dL (70-99) Calcium Level 7.6 mg/dL (8.5-10.1) Phosphorus Level 8.6 mg/dL (2.6-4.7) Magnesium Level 1.9 mg/dL (1.8-2.4) Assessment and Plan Assessmemt and Plan Problems Medical Problems: (1) Acute renal failure Status: Acute (2) Altered mental status Status: Acute (3) Anemia Status: Acute Comment Review of Relevant I have reviewed the following items jennifer (where applicable) has been applied. Medications: Current Medications Medications (Trade) Dose Ordered Sig/Kwesi Route PRN Reason Start Time Stop Time Status Last Admin Dose Admin Prednisone (Prednisone) 40 mg DAILY PO 04/05/20 15:00 04/06/20 09:11 Mycophenolate Mofetil (Cellcept) 500 mg BID PO 04/05/20 15:00 04/06/20 09:11 Lisinopril (Prinivil) 2.5 mg DAILY PO 04/05/20 15:00 04/06/20 09:11 Furosemide (Lasix) 40 mg DAILY PO 04/05/20 15:00 04/06/20 09:11 Justifications for Admission Other Justification RUBY CAT MD Apr 06, 2020 13:21
[2020-04-06] MEDS: cefTRIAXone IV Push 2 GM VIAL. IVP SCH (14:55)
[2020-04-06 15:00] VITALS: BP 117/83
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
--- NOTE | 2020-04-06 17:49 | RAD ---
EXAM: CHEST AP ONLY INDICATION: Reason: post central line placement rule out pneumothorax. / Spl. Instructions: / History: . TECHNIQUE: Single view COMPARISON: Chest x-ray 04/03/2020 FINDINGS: Right jugular approach central venous catheter has since been placed, tip near the distal SVC. The heart size is normal. The great vessels appear unremarkable. There is no hilar or mediastinal mass. The lungs are clear. There is no pleural effusion or pneumothorax. There are no significant osseous abnormalities. IMPRESSION: Uncomplicated interval placement of a right jugular approach central venous catheter with the tip near the distal SVC. No superimposed active cardiopulmonary disease. In particular, no evidence of a pneumothorax. Electronically signed by: Warner Rivera MD (04/06/2020 5:46 PM) [id number]
--- NOTE | 2020-04-06 18:24 | PDOC ---
Provider Note Date of Service: DATE: 04/06/20 TIME: 18:19 Provider Note Anesthesiology Asked to place a Central Line in pt. requiring IV access. R/B/O discussed and consent obtained. RIJ TLC placed in usual sterile fashion with US Guidance. Cath sutured in place and sterile dressing applied. Pt. elena. well. VSS. CXR pending. Broderick Armstrong MD Justifications for Admission Other Justification LOREN ARMSTRONG MD Apr 06, 2020 18:23
[2020-04-06 19:00] VITALS: BP 130/95
[2020-04-06] MEDS: LACTOBACILLUS RHAMNOSUS GG 1 CAPSULE. PO SCH (20:04)
[2020-04-06 23:00] VITALS: BP 137/93
[2020-04-07 03:00] VITALS: BP 112/79
[2020-04-07 04:43] LABS: CALCIUM 7.5 mg/dL (8.5-10.1); CREATININE 1.9 mg/dL (0.6-1.0); GFR 31.3; POTASSIUM 4.8 mmol/L (3.5-5.1)
[2020-04-07] MEDS: HEPARIN for SUB-Q USE 5,000 UNIT/ML VIAL. SQ SCH ×3 (05:52→22:00)
[2020-04-07] MEDS: IV 1/2 NORMAL SALINE 1,000 ML IV SCH (05:53)
[2020-04-07 07:00] VITALS: BP 108/75
--- NOTE | 2020-04-07 08:13 | PDOC ---
[facility] PROGRESS NOTE Date of Service DOS: DATE: 04/07/20 TIME: 08:12 Chief Complaint Chief Complaint A/P: Gram positive bacteremia Elevated Procalcitonin Sepsis - 2/2 bacteremia SLE Renal Failure - 2/2 lupus nephritis Hyperkalemia Malnutrition metabolic encephalopathy Plan: labs are concerning for underlying infectious process. Procalcitonin 16.38, WBC 11.8. Consult to Nephrology and ID., neurology further antibiotics until input from ID, as this could be the result of systemic autoimmune disease. Elevated procalcitonin may be secondary to Lupus as underlying autoimmune disease. Consult to PAT. Even in the absence of underlying infectious process, patient lives alone and is currently not mentally stable enough to return home by herself. Blood cultures POS G POS COCCI . 04/04 ct abd pelvis Appreciate ID recommendations Pain management. VTE prophylaxis. Full Code. KAYEXYLATE PO consult nephrology iv vancomycin cefepime iv bmp at 2300 tonight covid-19 ag lactic acid fibrinogen Continue low-dose prednisone although she will need higher doses but she has not tolerated this time. Continue MMF Start lisinopril 2.5 mg daily Continue diuretics Once renal function is more stable consider Bactrim prophylaxis Appreciate nephrology recommendations History of Present Illness History of Present Illness Ms Lopez is a 29 yo female with history of lupus on treatment for lupus nephritis, who presents with complaint of "pain all over". She is tearful at the time of evaluation, and does not provide me with an exact duration of time or answers to straight forward questions. She is able to localize her pain to her lower extremities and joints. She does tell me that she has been taking her home hydrocodone medications without improvement in her pain. Patient's friend notes worsening anxiety about her seemingly deteriorating medical condition over the past 2 months. He states over the past day of two she has become more unresponsive, withdrawn, and tearful. mention in the ER note about vomiting, but this was not conveyed to me by the patient or friend. denies any fever, sore throat, cough, SOB, or history of IV drug use. 04/05: No acute events overnight. Patient's potassium and creatinine has stabilized and improved. No changes in her pain at this time. Patient's chart, labs, images were reviewed and discussed with RN 04/06: Febrile to 100.5 F. Blood cultures are to be positive for group B strep. She has lost IV access - RIJ placed. Overall she feels improved especially with her mental status. Afebrile. WBC 16.9, Hb 8.9, platelets 212, NA 129, BUN 74, CR 1.9. COVID 19 negative. Still with lower extremity edema. Sensitivities to group B strep available, changed to Rocephin. She is asking to speak with psychiatrist today some depression. Vitals/I&O Vitals/I&O: Vital Signs Date Time Temp Pulse Resp B/P (MAP) Pulse Ox O2 Delivery O2 Flow Rate FiO2 04/07/20 03:00 98.8 66 18 112/79 (90) 98 Room Air 98.8 I & O 04/06/20 04/06/20 04/07/20 15:00 23:00 07:00 Intake Total 1170 ml Balance 1170 ml Physical Exam Physical Exam: GENERAL: Awake female who is tearful, annoyed with talking, not in distress. VITAL SIGNS: Stable, afebrile. HEENT: NAD. NECK: Supple, no JVP, no lymphadenopathy. LUNGS: Clear. HEART: S1, S2 regular. No gallop or murmur. ABDOMEN: Soft, nontender, no organomegaly. EXTREMITIES: No edema, cyanosis. SKIN: Unremarkable. NEUROLOGIC: The patient is alert, awake, noncooperative, but no focal deficit. General: Alert, Oriented X3, Cooperative, No acute distress Heart: Regular rate, Normal S1, Normal S2 Lungs: Clear Abdomen: Normal bowel sounds, Soft Extremities: No clubbing Skin: No rashes Labs Labs: Laboratory Tests Test 04/07/20 03:45 Sodium Level 129 mmol/L (136-145) Potassium Level 4.8 mmol/L (3.5-5.1) Chloride Level 102 mmol/L (98-107) Carbon Dioxide Level 17 mmol/L (21-32) Anion Gap 10 (6-14) Blood Urea Nitrogen 74 mg/dL (7-20) Creatinine 1.9 mg/dL (0.6-1.0) Estimated GFR (Cockcroft-Gault) 31.3 Glucose Level 113 mg/dL (70-99) Calcium Level 7.5 mg/dL (8.5-10.1) Assessment and Plan Assessmemt and Plan Problems Medical Problems: (1) Acute renal failure Status: Acute (2) Altered mental status Status: Acute (3) Anemia Status: Acute Comment Review of Relevant I have reviewed the following items jennifer (where applicable) has been applied. Medications: Current Medications Medications (Trade) Dose Ordered Sig/Kwesi Route PRN Reason Start Time Stop Time Status Last Admin Dose Admin Ceftriaxone Sodium (Rocephin) 2 gm Q24H IVP 04/06/20 14:00 04/06/20 14:55 Lactobacillus Rhamnosus (Culturelle) 1 cap BID PO 04/06/20 21:00 04/06/20 20:04 Justifications for Admission Other Justification RUBY CAT MD Apr 07, 2020 08:13
[2020-04-07] MEDS: MYCOPHENOLATE MOFETIL 250 MG CAPSULE. PO SCH ×2 (08:44→20:59)
[2020-04-07] MEDS: LACTOBACILLUS RHAMNOSUS GG 1 CAPSULE. PO SCH ×2 (08:44→20:59)
[2020-04-07] MEDS: LISINOPRIL 5 MG TABLET. PO SCH (08:44)
[2020-04-07] MEDS: FUROSEMIDE 40 MG TABLET. PO SCH (08:44)
[2020-04-07] MEDS: predniSONE 20 MG TABLET PO SCH (08:44)
[2020-04-07] MEDS: DOCUSATE SODIUM 100 MG CAPSULE. PO SCH ×2 (08:44→20:59)
--- NOTE | 2020-04-07 09:35 | PDOC ---
DATE OF SERVICE DATE: 04/07/20 TIME: 09:35 SUBJECTIVE ROS States she is feeling much better today Finished her breakfast and drinking coffee OBJECTIVE Vital Signs Vital Signs Date Time Temp Pulse Resp B/P (MAP) Pulse Ox O2 Delivery O2 Flow Rate FiO2 04/07/20 08:44 64 108/75 04/07/20 07:00 98.1 18 100 Room Air 98.1 I & 0 Intake and Output 04/07/20 07:00 Intake Total 1170 ml Balance 1170 ml Intake Oral 120 ml IV Total 1050 ml # Voids 4 # Bowel Movements 1 PHYSICAL EXAM Physical Exam General: No acute distress HEENT: Atraumatic, PERRLA Lungs: Clear to auscultation Heart: Regular rate, Normal S1, Normal S2 Abdomen: Normal bowel sounds, Soft Extremities: edema ++ Skin: No rashes Neuro: Normal speech, Sensation intact DIAGNOSIS/ASSESSMENT Assessment & Plan [place]ONIA- ATN/ ?Acute flare Cr peaked at 3.7--> improved to 1.9 today, BUN elevated- likely 2/2 steroids Baseline eGFR per Pt was cw stage 1 /2 Renal US unremarkable , supportive care, close monitoring 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 Bowens Continue Mycophenolate and is also on lower than ideal dose of Prednisone as she disnt tolerate High doses Consider bactrim Prophylaxis once renal function Improves SLE- Myalgias and arthrlagias Recommend Rheumatology follow up (Pt is not sure if she has a Socket Puller Nephrotic Syndrome On Low dose ISAI-I , titrate up once Kidney Function improves and BP stable 10 gms at initial presentation leading to Renal Bx Severe HypoAlbuminemia- 2/2 Proteinuria + Malnutrition LE edema- 2/2 severe Hypoalbuminemia/Nephrotic syndrome Hyperkalemia - Normal K today HypoNatremia - will add NaHoc3 as Bicarb Low as well, Close Monitoring for any worsening LE edema and daily standing weight Group B strep bacteremia - source Unclear . ID following Pt requesting Psych consult- states she feels she needs antidepressant Cautious with meds 2/2 Hyponatremia , Dw RN COMMENT/RELEVANT DATA Meds Current Medications Medications (Trade) Dose Ordered Sig/Kwesi Start Time Stop Time Status Last Admin Dose Admin Acetaminophen (Tylenol) 650 mg PRN Q6HRS PRN 04/06/20 00:30 Acetaminophen/ Hydrocodone Bitart (Lortab 5/325) 2 tab PRN Q4HRS PRN 04/03/20 20:45 04/05/20 05:31 2 TAB Bisacodyl (Dulcolax Supp) 10 mg PRN DAILY PRN 04/03/20 20:45 Calcium Gluconate 1000 mg/Sodium Chloride 110 ml @ 220 mls/hr 1X ONCE 04/04/20 21:00 04/04/20 21:29 DC 04/04/20 20:56 220 MLS/HR Cefepime HCl (Maxipime) 1 gm Q12HR 04/04/20 18:00 04/05/20 06:30 DC 04/04/20 20:58 1 GM Ceftriaxone Sodium (Rocephin) 2 gm Q24H 04/06/20 14:00 04/06/20 14:55 2 GM Dextrose (Dextrose 50%-Water Syringe) 25 gm 1X ONCE 04/04/20 20:15 04/04/20 20:16 DC 04/04/20 20:56 25 GM Docusate Sodium (Colace) 100 mg BID 04/03/20 21:00 04/07/20 08:44 100 MG Furosemide (Lasix) 40 mg DAILY 04/05/20 15:00 04/07/20 08:44 40 MG Heparin Sodium (Porcine) (Heparin Sodium) 5,000 unit Q8HRS 04/03/20 22:00 04/07/20 05:52 5,000 UNIT Insulin Human Regular (HumuLIN R VIAL) 10 unit 1X ONCE 04/04/20 21:00 04/04/20 21:01 DC 04/04/20 20:55 10 UNIT Lactobacillus Rhamnosus (Culturelle) 1 cap BID 04/06/20 21:00 04/07/20 08:44 1 CAP Lisinopril (Prinivil) 2.5 mg DAILY 04/05/20 15:00 04/07/20 08:44 2.5 MG Mycophenolate Mofetil (Cellcept) 500 mg BID 04/05/20 15:00 04/07/20 08:44 500 MG Ondansetron HCl (Zofran) 4 mg PRN Q8HRS PRN 04/03/20 19:15 04/04/20 19:14 DC Piperacillin Sod/ Tazobactam Sod 2.25 gm/Sodium Chloride 50 ml @ 100 mls/hr Q6HRS 04/05/20 07:00 04/06/20 13:14 DC 04/06/20 12:22 100 MLS/HR Prednisone (Prednisone) 40 mg DAILY 04/05/20 15:00 04/07/20 08:44 40 MG Sodium Polystyrene Sulfonate (Kayexalate) 30 gm 1X ONCE 04/04/20 11:00 04/04/20 11:01 DC 04/04/20 12:12 30 GM Sodium Chloride 1,000 ml @ 100 mls/hr Q10H 04/04/20 18:15 04/06/20 20:04 100 MLS/HR Vancomycin HCl (Vanco Per Pharmacy) 1 each PRN DAILY PRN 04/03/20 19:30 04/03/20 20:45 DC Vancomycin HCl 1.5 gm/Sodium Chloride 500 ml @ 250 mls/hr 1X ONCE 04/03/20 19:45 04/03/20 21:44 DC 04/03/20 20:17 250 MLS/HR Lab Laboratory Tests Test 04/07/20 03:45 Sodium Level 129 mmol/L (136-145) Potassium Level 4.8 mmol/L (3.5-5.1) Chloride Level 102 mmol/L (98-107) Carbon Dioxide Level 17 mmol/L (21-32) Anion Gap 10 (6-14) Blood Urea Nitrogen 74 mg/dL (7-20) Creatinine 1.9 mg/dL (0.6-1.0) Estimated GFR (Cockcroft-Gault) 31.3 Glucose Level 113 mg/dL (70-99) Calcium Level 7.5 mg/dL (8.5-10.1) Results All relevant outside records, renal labs, imaging studies, telemetry/EKG's were reviewed. Justicifation of Admission Dx: Justifications for Admission: Justification of Admission Dx: Yes Chronic Renal Failure: Renail Failure LIBBY HALL MD Apr 07, 2020 09:35
--- NOTE | 2020-04-07 10:34 | PDOC ---
Infectious Disease Note Subjective: Subjective She is feeling better today Denies fever, nausea, vomiting, shortness of breath, diarrhea, abdominal pain, rash or symptoms Otherwise as above Vital Signs: Vital Signs Vital Signs Date Time Temp Pulse Resp B/P (MAP) Pulse Ox O2 Delivery O2 Flow Rate FiO2 04/07/20 08:44 64 108/75 04/07/20 07:00 98.1 18 100 Room Air 98.1 Physical Exam: PHYSICAL EXAM GENERAL: Alert oriented x3 female sitting upright in chair in no acute distress looks better today HEENT: Anicteric no thrush, malar rash NECK: Supple, no JVP, no lymphadenopathy. Right IJ in place LUNGS: Clear. HEART: S1, S2 regular. No gallop or murmur. ABDOMEN: Soft, nontender, no organomegaly. No rebound or guarding EXTREMITIES: No edema, cyanosis. SKIN: No generalized rash multiple tattoos MSK no joint effusion or decrease in range of motion noted NEUROLOGIC: alert, awake, noncooperative, grossly nonfocal Medications: Inpatient Meds: Current Medications Medications (Trade) Dose Ordered Sig/Kwesi Start Time Stop Time Status Last Admin Dose Admin Acetaminophen (Tylenol) 650 mg PRN Q6HRS PRN 04/06/20 00:30 Acetaminophen/ Hydrocodone Bitart (Lortab 5/325) 2 tab PRN Q4HRS PRN 04/03/20 20:45 04/05/20 05:31 2 TAB Bisacodyl (Dulcolax Supp) 10 mg PRN DAILY PRN 04/03/20 20:45 Calcium Gluconate 1000 mg/Sodium Chloride 110 ml @ 220 mls/hr 1X ONCE 04/04/20 21:00 04/04/20 21:29 DC 04/04/20 20:56 220 MLS/HR Cefepime HCl (Maxipime) 1 gm Q12HR 04/04/20 18:00 04/05/20 06:30 DC 04/04/20 20:58 1 GM Ceftriaxone Sodium (Rocephin) 2 gm Q24H 04/06/20 14:00 04/06/20 14:55 2 GM Dextrose (Dextrose 50%-Water Syringe) 25 gm 1X ONCE 04/04/20 20:15 04/04/20 20:16 DC 04/04/20 20:56 25 GM Docusate Sodium (Colace) 100 mg BID 04/03/20 21:00 04/07/20 08:44 100 MG Furosemide (Lasix) 40 mg DAILY 04/05/20 15:00 04/07/20 08:44 40 MG Heparin Sodium (Porcine) (Heparin Sodium) 5,000 unit Q8HRS 04/03/20 22:00 04/07/20 05:52 5,000 UNIT Insulin Human Regular (HumuLIN R VIAL) 10 unit 1X ONCE 04/04/20 21:00 04/04/20 21:01 DC 04/04/20 20:55 10 UNIT Lactobacillus Rhamnosus (Culturelle) 1 cap BID 04/06/20 21:00 04/07/20 08:44 1 CAP Lisinopril (Prinivil) 2.5 mg DAILY 04/05/20 15:00 04/07/20 08:44 2.5 MG Mycophenolate Mofetil (Cellcept) 500 mg BID 04/05/20 15:00 04/07/20 08:44 500 MG Ondansetron HCl (Zofran) 4 mg PRN Q8HRS PRN 04/03/20 19:15 04/04/20 19:14 DC Piperacillin Sod/ Tazobactam Sod 2.25 gm/Sodium Chloride 50 ml @ 100 mls/hr Q6HRS 04/05/20 07:00 04/06/20 13:14 DC 04/06/20 12:22 100 MLS/HR Prednisone (Prednisone) 40 mg DAILY 04/05/20 15:00 04/07/20 08:44 40 MG Sodium Polystyrene Sulfonate (Kayexalate) 30 gm 1X ONCE 04/04/20 11:00 04/04/20 11:01 DC 04/04/20 12:12 30 GM Sodium Chloride 1,000 ml @ 100 mls/hr Q10H 04/04/20 18:15 04/06/20 20:04 100 MLS/HR Vancomycin HCl (Vanco Per Pharmacy) 1 each PRN DAILY PRN 04/03/20 19:30 04/03/20 20:45 DC Vancomycin HCl 1.5 gm/Sodium Chloride 500 ml @ 250 mls/hr 1X ONCE 04/03/20 19:45 04/03/20 21:44 DC 04/03/20 20:17 250 MLS/HR Labs: Lab Laboratory Tests Test 04/07/20 03:45 Sodium Level 129 mmol/L (136-145) Potassium Level 4.8 mmol/L (3.5-5.1) Chloride Level 102 mmol/L (98-107) Carbon Dioxide Level 17 mmol/L (21-32) Anion Gap 10 (6-14) Blood Urea Nitrogen 74 mg/dL (7-20) Creatinine 1.9 mg/dL (0.6-1.0) Estimated GFR (Cockcroft-Gault) 31.3 Glucose Level 113 mg/dL (70-99) Calcium Level 7.5 mg/dL (8.5-10.1) Micro CT abdomen and pelvis IMPRESSION: 1. Very limited examination due to significant motion artifact. 2. Diffuse fat stranding identified in the soft tissue of the abdominal wall and the pelvis could be cellulitis or anasarca/edema. 3. 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 Correlate for urinary tract infection. 4. Focal airspace opacity identified left lower lobe lung likely pneumonia or atelectasis. Objective: Assessment: Group B Streptococcus bacteremia present on admission source unclear Could be cellulitis anterior abdomen, though no clinical findings Leukocytosis Systemic lupus erythematosus Personality disorder Lupus nephritis with renal insufficiency Plan: Plan of Care Continue Rocephin was on zosyn Follow-up repeat blood cultures Supportive care Patient is requesting psychiatry evaluation Discussed with nursing staff RAJESH TRIPLETT MD Apr 07, 2020 10:34
[2020-04-07 11:00] VITALS: BP 116/79
--- NOTE | 2020-04-07 12:29 | PDOC ---
PROGRESS NOTES Date of Service DATE: 04/07/20 TIME: 12:26 Assessment Problems Medical Problems: (1) Acute renal failure Status: Acute (2) Altered mental status Status: Acute (3) Anemia Status: Acute Encephalopathy, better Acute renal failure, possible pneumonia, COVID negative, leukocytosis on steroids, positive blood culture, Systemic lupus erythematosus, nephritis and renal insufficiency Personality disorder Whole body pain Plan Treat medical issues No additional neurological studies needed Neurology signs off Subjective Feels much better, wants to go home Objective Vital Signs Date Time Temp Pulse Resp B/P (MAP) Pulse Ox O2 Delivery O2 Flow Rate FiO2 04/07/20 11:00 98.3 80 18 116/79 (91) 100 Room Air 98.3 Intake and Output 04/07/20 07:00 Intake Total 1170 ml Balance 1170 ml Intake Oral 120 ml IV Total 1050 ml # Voids 4 # Bowel Movements 1 PHYSICAL EXAM Alert. Oriented to time, place and person. PERRL. EOMI. CN: no focal findings. Muscle tone: normal. Muscle strength: 5/5 DTR: 2+ Plantar reflex: flexor Gait: not examined in bed. Sensory exam: no abnormal findings. No cerebellar signs elicited. Review of Relevant I have reviewed the following items jennifer (where applicable) has been applied. Labs Laboratory Tests Test 04/06/20 04:26 04/07/20 03:45 Sodium Level 130 mmol/L (136-145) 129 mmol/L (136-145) Potassium Level 5.2 mmol/L (3.5-5.1) 4.8 mmol/L (3.5-5.1) Chloride Level 102 mmol/L (98-107) 102 mmol/L (98-107) Carbon Dioxide Level 17 mmol/L (21-32) 17 mmol/L (21-32) Anion Gap 11 (6-14) 10 (6-14) Blood Urea Nitrogen 70 mg/dL (7-20) 74 mg/dL (7-20) Creatinine 2.5 mg/dL (0.6-1.0) 1.9 mg/dL (0.6-1.0) Estimated GFR (Cockcroft-Gault) 22.8 31.3 Glucose Level 100 mg/dL (70-99) 113 mg/dL (70-99) Calcium Level 7.6 mg/dL (8.5-10.1) 7.5 mg/dL (8.5-10.1) Phosphorus Level 8.6 mg/dL (2.6-4.7) Magnesium Level 1.9 mg/dL (1.8-2.4) Laboratory Tests Test 04/07/20 03:45 Sodium Level 129 mmol/L (136-145) Potassium Level 4.8 mmol/L (3.5-5.1) Chloride Level 102 mmol/L (98-107) Carbon Dioxide Level 17 mmol/L (21-32) Anion Gap 10 (6-14) Blood Urea Nitrogen 74 mg/dL (7-20) Creatinine 1.9 mg/dL (0.6-1.0) Estimated GFR (Cockcroft-Gault) 31.3 Glucose Level 113 mg/dL (70-99) Calcium Level 7.5 mg/dL (8.5-10.1) Microbiology 04/06/20 Blood Culture - Preliminary, Resulted NO GROWTH AFTER 1 DAY Medications Current Medications Cefepime HCl (Maxipime) 1 gm 1X ONCE IVP Last administered on 04/03/20at 18:00; Start 04/03/20 at 18:00; Stop 04/03/20 at 18:01; Status DC Ondansetron HCl (Zofran) 4 mg PRN Q8HRS PRN IV NAUSEA/VOMITING; Start 04/03/20 at 19:15; Stop 04/04/20 at 19:14; Status DC Acetaminophen (Tylenol) 650 mg PRN Q4HRS PRN PO FEVER > 100.3'F; Start 04/03/20 at 19:15; Stop 04/04/20 at 19:14; Status DC Furosemide (Lasix) 40 mg 1X ONCE PO Last administered on 04/03/20at 20:12; Start 04/03/20 at 19:30; Stop 04/03/20 at 19:35; Status DC Vancomycin HCl (Vanco Per Pharmacy) 1 each PRN DAILY PRN MC SEE COMMENTS; Start 04/03/20 at 19:30; Stop 04/03/20 at 20:45; Status DC Vancomycin HCl 1.5 gm/Sodium Chloride 500 ml @ 250 mls/hr 1X ONCE IV Last administered on 04/03/20at 20:17; Start 04/03/20 at 19:45; Stop 04/03/20 at 21:44; Status DC Sodium Polystyrene Sulfonate (Kayexalate) 15 gm 1X ONCE PO Last administered on 04/03/20at 21:14; Start 04/03/20 at 20:45; Stop 04/03/20 at 20:46; Status DC Acetaminophen/ Hydrocodone Bitart (Lortab 5/325) 1 tab PRN Q4HRS PRN PO MILD PAIN, 2ND CHOICE Last administered on 04/04/20at 06:45; Start 04/03/20 at 20:45 Acetaminophen/ Hydrocodone Bitart (Lortab 5/325) 2 tab PRN Q4HRS PRN PO MODERATE PAIN, SEVERE PAIN Last administered on 04/05/20at 05:31; Start 04/03/20 at 20:45 Docusate Sodium (Colace) 100 mg BID PO Last administered on 04/07/20at 08:44; Start 04/03/20 at 21:00 Bisacodyl (Dulcolax Supp) 10 mg PRN DAILY PRN [place] CONSTIPATION; Start 04/03/20 at 20:45 Heparin Sodium (Porcine) (Heparin Sodium) 5,000 unit Q8HRS SQ Last administered on 04/07/20at 05:52; Start 04/03/20 at 22:00 Sodium Polystyrene Sulfonate (Kayexalate) 30 gm 1X ONCE PO Last administered on 04/04/20at 12:12; Start 04/04/20 at 11:00; Stop 04/04/20 at 11:01; Status DC Furosemide (Lasix) 60 mg 1X ONCE IVP Last administered on 04/04/20at 13:47; Start 04/04/20 at 13:30; Stop 04/04/20 at 13:31; Status DC Cefepime HCl (Maxipime) 1 gm Q12HR IVP Last administered on 04/04/20at 20:58; Start 04/04/20 at 18:00; Stop 04/05/20 at 06:30; Status DC Sodium Chloride 1,000 ml @ 1,650 mls/hr Q37M IV Last administered on 04/04/20at 18:39; Start 04/04/20 at 18:02; Stop 04/04/20 at 19:02; Status DC Sodium Chloride 500 ml @ 1,000 mls/hr PRN Q30MIN PRN IV SEE COMMENTS; Start 04/04/20 at 18:15 Sodium Chloride 1,000 ml @ 100 mls/hr Q10H IV Last administered on 04/06/20at 20:04; Start 04/04/20 at 18:15; Stop 04/07/20 at 12:23; Status DC Calcium Gluconate 1000 mg/Sodium Chloride 110 ml @ 220 mls/hr 1X ONCE IV Last administered on 04/04/20at 20:56; Start 04/04/20 at 21:00; Stop 04/04/20 at 21:29; Status DC Dextrose (Dextrose 50%-Water Syringe) 25 gm 1X ONCE IV Last administered on 04/04/20at 20:56; Start 04/04/20 at 20:15; Stop 04/04/20 at 20:16; Status DC Furosemide (Lasix) 40 mg 1X ONCE IVP Last administered on 04/04/20at 20:57; Start 04/04/20 at 21:00; Stop 04/04/20 at 21:01; Status DC Insulin Human Regular (HumuLIN R VIAL) 10 unit 1X ONCE IV Last administered on 04/04/20at 20:55; Start 04/04/20 at 21:00; Stop 04/04/20 at 21:01; Status DC Piperacillin Sod/ Tazobactam Sod 2.25 gm/Sodium Chloride 50 ml @ 100 mls/hr Q6HRS IV Last administered on 04/06/20at 12:22; Start 04/05/20 at 07:00; Stop 04/06/20 at 13:14; Status DC Prednisone (Prednisone) 40 mg DAILY PO Last administered on 04/07/20at 08:44; Start 04/05/20 at 15:00 Mycophenolate Mofetil (Cellcept) 500 mg BID PO Last administered on 04/07/20at 08:44; Start 04/05/20 at 15:00 Lisinopril (Prinivil) 2.5 mg DAILY PO Last administered on 04/07/20at 08:44; Start 04/05/20 at 15:00 Furosemide (Lasix) 40 mg DAILY PO Last administered on 04/07/20at 08:44; Start 04/05/20 at 15:00 Acetaminophen (Tylenol) 650 mg PRN Q6HRS PRN PO FEVER > 101.5'F; Start 04/06/20 at 00:30 Ceftriaxone Sodium (Rocephin) 2 gm Q24H IVP Last administered on 04/06/20at 14:55; Start 04/06/20 at 14:00 Lactobacillus Rhamnosus (Culturelle) 1 cap BID PO Last administered on 04/07/20at 08:44; Start 04/06/20 at 21:00 Albumin Human 500 ml @ 125 mls/hr 1X ONCE IV ; Start 04/07/20 at 12:30; Stop 04/07/20 at 16:29 Vitals/I & O Vital Sign - Last 24 Hours 04/06/20 04/06/20 04/06/20 04/06/20 15:00 19:00 20:00 23:00 Temp 97.9 98.1 98.3 97.9 98.1 98.3 Pulse 64 64 65 Resp 18 20 18 B/P (MAP) 117/83 (94) 130/95 (107) 137/93 (108) Pulse Ox 100 100 100 O2 Delivery Room Air Room Air Room Air Room Air 04/07/20 04/07/20 04/07/20 04/07/20 03:00 07:00 08:00 08:44 Temp 98.8 98.1 98.8 98.1 Pulse 66 64 64 Resp 18 18 B/P (MAP) 112/79 (90) 108/75 (86) 108/75 Pulse Ox 98 100 O2 Delivery Room Air Room Air Room Air 04/07/20 11:00 Temp 98.3 98.3 Pulse 80 Resp 18 B/P (MAP) 116/79 (91) Pulse Ox 100 O2 Delivery Room Air Intake and Output 04/06/20 04/06/20 04/07/20 15:00 23:00 07:00 Intake Total 1170 ml Balance 1170 ml Justicifation of Admission Dx: Justifications for Admission: Justification of Admission Dx: Yes Chronic Renal Failure: Renail Failure HOLLIE SNOW MD Apr 07, 2020 12:29
[2020-04-07] MEDS ORDERED: ALBUMIN HUMAN 5% 500 ML IV ONE (12:30)
[2020-04-07] MEDS: cefTRIAXone IV Push 2 GM VIAL. IVP SCH (14:49)
[2020-04-07 15:00] VITALS: BP 119/89
[2020-04-07 16:53] LABS: CREATININE,RANDOM URINE 37.1 mg/dL (Not Establ.)
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
[2020-04-07 18:52] VITALS: BP 136/96
--- NOTE | 2020-04-07 19:21 | PDOC1 ---
History & Psych Evaluation Date of Service: DOS: DATE: 04/07/20 TIME: 19:05 Source: Source: Caregiver, Chart review, Patient Identification: Identification She is a 29-year-old female with history of systemic lupus erythematosus with lupus nephritis. Chief Complaint: Chief Complaint Depression and anxiety History of Present Illness: HPI: She is a 29-year-old female with history of SLE and lupus nephritis seen for initial psychiatric assessment. Upon interview she appears cooperative and interactive. At times she appears miserable and tearful. States, few mon ths ago she was diagnosed with SLE and going through the treatment of lupus nephritis. States, this came all of a sudden and in addition to that her left her in the hospital. She is reporting depression due to ongoing medical issues and psychosocial circumstances. At that point when she was diagnosed, reporting suicidal ideation. However presently she is denying suicidal ideation. Depression is characterized as hopelessness, decreased motivation, psychomotor retardation, concentration deficit, and previously suicidal ideation. Anxiety is reportedly high with panic attacks. States, anxiety is related to her medical condition and the prognosis. Panic attacks are with typical symptomatology and at least once a week. Aside from that, she denies any history of bipolar mood disorder, psychotic break, auditory or visual hallucinations. She denies history of PTSD. Except for marijuana, she denies history of illicit substance use. Ms Lopez is a 29 yo female with history of lupus on treatment for lupus nephritis, who presents with complaint of "pain all over". She is tearful at the time of evaluation, and does not provide me with an exact duration of time or answers to straight forward questions. She is able to localize her pain to her lower extremities and joints. She does tell me that she has been taking her home hydrocodone medications without improvement in her pain. Patient's friend notes worsening anxiety about her seemingly deteriorating medical condition over the past 2 months. He states over the past day of two she has become more unresponsive, withdrawn, and tearful. mention in the ER note about vomiting, but this was not conveyed to me by the patient or friend. denies any fever, sore throat, cough, SOB, or history of IV drug use. 04/05: No acute events overnight. Patient's potassium and creatinine has stabilized and improved. No changes in her pain at this time. Patient's chart, labs, images were reviewed and discussed with RN 04/06: Febrile to 100.5 F. Blood cultures are to be positive for group B strep. She has lost IV access - RIJ placed. Overall she feels improved especially with her mental status. Past Psychiatric History: She has previous history of suicidal thoughts but never been treated for any depression and anxiety. She denies history of psychiatric hospital admissions. She denies history of suicidal attempt Past Medical History: Please see medical chart for details. Family History: Family history is positive for psychiatric illness on mother's side of the family. Mother has schizophrenia. Social History: Social History: She lives by herself, on disability income. She has 3 children. She is smokes marijuana. Denies other illicit substance use or alcohol abuse. Current Medications: Current Medications Current Medications Medications (Trade) Dose Ordered Sig/Kwesi Start Time Stop Time Status Last Admin Dose Admin Acetaminophen (Tylenol) 650 mg PRN Q6HRS PRN 04/06/20 00:30 Acetaminophen/ Hydrocodone Bitart (Lortab 5/325) 2 tab PRN Q4HRS PRN 04/03/20 20:45 04/05/20 05:31 2 TAB Albumin Human 500 ml @ 125 mls/hr 1X ONCE 04/07/20 12:30 04/07/20 16:29 DC 04/07/20 12:48 125 MLS/HR Bisacodyl (Dulcolax Supp) 10 mg PRN DAILY PRN 04/03/20 20:45 Calcium Gluconate 1000 mg/Sodium Chloride 110 ml @ 220 mls/hr 1X ONCE 04/04/20 21:00 04/04/20 21:29 DC 04/04/20 20:56 220 MLS/HR Cefepime HCl (Maxipime) 1 gm Q12HR 04/04/20 18:00 04/05/20 06:30 DC 04/04/20 20:58 1 GM Ceftriaxone Sodium (Rocephin) 2 gm Q24H 04/06/20 14:00 04/07/20 14:49 2 GM Dextrose (Dextrose 50%-Water Syringe) 25 gm 1X ONCE 04/04/20 20:15 04/04/20 20:16 DC 04/04/20 20:56 25 GM Docusate Sodium (Colace) 100 mg BID 04/03/20 21:00 04/07/20 08:44 100 MG Furosemide (Lasix) 40 mg DAILY 04/05/20 15:00 04/07/20 08:44 40 MG Heparin Sodium (Porcine) (Heparin Sodium) 5,000 unit Q8HRS 04/03/20 22:00 04/07/20 15:30 5,000 UNIT Insulin Human Regular (HumuLIN R VIAL) 10 unit 1X ONCE 04/04/20 21:00 04/04/20 21:01 DC 04/04/20 20:55 10 UNIT Lactobacillus Rhamnosus (Culturelle) 1 cap BID 04/06/20 21:00 04/07/20 08:44 1 CAP Lisinopril (Prinivil) 2.5 mg DAILY 04/05/20 15:00 04/07/20 08:44 2.5 MG Mycophenolate Mofetil (Cellcept) 500 mg BID 04/05/20 15:00 04/07/20 08:44 500 MG Ondansetron HCl (Zofran) 4 mg PRN Q8HRS PRN 04/03/20 19:15 04/04/20 19:14 DC Piperacillin Sod/ Tazobactam Sod 2.25 gm/Sodium Chloride 50 ml @ 100 mls/hr Q6HRS 04/05/20 07:00 04/06/20 13:14 DC 04/06/20 12:22 100 MLS/HR Prednisone (Prednisone) 40 mg DAILY 04/05/20 15:00 04/07/20 08:44 40 MG Sodium Polystyrene Sulfonate (Kayexalate) 30 gm 1X ONCE 04/04/20 11:00 04/04/20 11:01 DC 04/04/20 12:12 30 GM Sodium Chloride 1,000 ml @ 100 mls/hr Q10H 04/04/20 18:15 04/07/20 12:23 DC 04/06/20 20:04 100 MLS/HR Vancomycin HCl (Vanco Per Pharmacy) 1 each PRN DAILY PRN 04/03/20 19:30 04/03/20 20:45 DC Vancomycin HCl 1.5 gm/Sodium Chloride 500 ml @ 250 mls/hr 1X ONCE 04/03/20 19:45 04/03/20 21:44 DC 04/03/20 20:17 250 MLS/HR Allergies: Allergies: Coded Allergies: No Known Drug Allergies (Unverified , 04/03/20) Mental Status Examination: Mental Status Examination Young female, appears her stated age Cooperative and interactive Fully alert and oriented Thought processes goal-directed Denies suicidal or homicidal thoughts. Denies auditory or visual hallucinations. No abnormal perception noted. Mood is depressed Affect is dysthymic Insight is fair Impulse control is fair Judgment is fair Recent and remote memory intact Attention span and concentration fair ROS: 14 point review of system is otherwise negative except for as stated above. Physical Exam: Refer to Physician's note. PHOTOGRAPHIC PLATEMAKER: No focal deficit MSK: No EPS, TDK, or abnormal involuntary movements Vitals: Vitals Vital Signs Date Time Temp Pulse Resp B/P (MAP) Pulse Ox O2 Delivery O2 Flow Rate FiO2 04/07/20 18:52 98.4 60 18 136/96 (109) 99 Room Air 98.4 Labs: Labs Laboratory Tests Test 04/06/20 04:26 04/07/20 03:45 04/07/20 16:30 Sodium Level 130 mmol/L (136-145) 129 mmol/L (136-145) Potassium Level 5.2 mmol/L (3.5-5.1) 4.8 mmol/L (3.5-5.1) Chloride Level 102 mmol/L (98-107) 102 mmol/L (98-107) Carbon Dioxide Level 17 mmol/L (21-32) 17 mmol/L (21-32) Anion Gap 11 (6-14) 10 (6-14) Blood Urea Nitrogen 70 mg/dL (7-20) 74 mg/dL (7-20) Creatinine 2.5 mg/dL (0.6-1.0) 1.9 mg/dL (0.6-1.0) Estimated GFR (Cockcroft-Gault) 22.8 31.3 Glucose Level 100 mg/dL (70-99) 113 mg/dL (70-99) Calcium Level 7.6 mg/dL (8.5-10.1) 7.5 mg/dL (8.5-10.1) Phosphorus Level 8.6 mg/dL (2.6-4.7) Magnesium Level 1.9 mg/dL (1.8-2.4) Urine Random Creatinine 37.1 mg/dL (Not Establ.) Urine Random Total Protein 411.7 mg/dL (Not Establ.) Urine Protein/Creatinine Ratio 45109 mg/g (0-200) Laboratory Tests Test 04/07/20 03:45 04/07/20 16:30 Sodium Level 129 mmol/L (136-145) Potassium Level 4.8 mmol/L (3.5-5.1) Chloride Level 102 mmol/L (98-107) Carbon Dioxide Level 17 mmol/L (21-32) Anion Gap 10 (6-14) Blood Urea Nitrogen 74 mg/dL (7-20) Creatinine 1.9 mg/dL (0.6-1.0) Estimated GFR (Cockcroft-Gault) 31.3 Glucose Level 113 mg/dL (70-99) Calcium Level 7.5 mg/dL (8.5-10.1) Urine Random Creatinine 37.1 mg/dL (Not Establ.) Urine Random Total Protein 411.7 mg/dL (Not Establ.) Urine Protein/Creatinine Ratio 76767 mg/g (0-200) Diagnosis: Diagnosis: Major depressive disorder, first episode, moderate Rule out depression due to general medical condition. Generalized anxiety disorder Rule out generalized anxiety disorder due to general medical condition Assessment: She is a young female with SLE and lupus nephritis struggling with depression in context of major depressive disorder. This episode appears to be her first major depressive episode requiring treatment. She is in agreement to start SSRI likely Zoloft for depression and anxiety. Given history of SLE, depression could be the part of her lupus syndrome. She is not at risk of imminent harm to self or others. Plan: Start Zoloft 50 mg once daily for depression and anxiety. Risk, benefits, alternatives of the treatment are discussed. She is in agreement with plan and voiced understanding. Adverse drug reaction of the medications are also discussed including black box warning. Monitor for symptomatology, safety, and adverse drug reaction. Will adjust medications accordingly. Psychoeducation provided. Supportive psychotherapy provided. Thank you for involving inpatient care. THOM BETANCOURT MD Apr 07, 2020 19:21
[2020-04-08 00:34] VITALS: BP 129/91
--- NOTE | 2020-04-08 01:00 | NUR ---
Patient incontinent of urine, bedding and clothing changed, patient cleaned her rocky area with wipes.
[2020-04-08 03:50] VITALS: BP 113/81
[2020-04-08 06:04] LABS: ALBUMIN 0.9 g/dL (3.4-5.0); ALBUMIN/GLOBULIN RATIO 0.3 (1.0-1.7); CALCIUM 7.2 mg/dL (8.5-10.1); CREATININE 1.4 mg/dL (0.6-1.0); GFR 44.5; POTASSIUM 3.9 mmol/L (3.5-5.1); TOTAL BILIRUBIN 0.1 mg/dL (0.2-1.0); TOTAL PROTEIN 4.3 g/dL (6.4-8.2)
[2020-04-08 06:05] LABS: BASO % 0 % (0-3); EOS % 0 % (0-3); HEMATOCRIT 23.3 % (36.0-47.0); HEMOGLOBIN 7.7 g/dL (12.0-15.5); LYMPH # 2.1 x10^3/uL (1.0-4.8); LYMPH % 20 % (24-48); MEAN CORPUSCULAR HEMOGLOBIN 31 pg (25-35); MEAN CORPUSCULAR HGB CONC 33 g/dL (31-37); MEAN CORPUSCULAR VOLUME 94 fL (79-100); MONO # 0.5 x10^3/uL (0.0-1.1); MONO % 5 % (0-9); NEUT # 7.7 x10^3/uL (1.8-7.7); NEUT % 74 % (31-73); PLATELET COUNT 252 x10^3/uL (140-400); RED BLOOD COUNT 2.47 x10^6/uL (3.50-5.40); RED CELL DISTRIBUTION WIDTH 15.5 % (11.5-14.5); WHITE BLOOD COUNT 10.4 x10^3/uL (4.0-11.0)
[2020-04-08] MEDS: HEPARIN for SUB-Q USE 5,000 UNIT/ML VIAL. SQ SCH ×2 (06:15→14:00)
[2020-04-08 07:00] VITALS: BP 110/69
[2020-04-08] MEDS: predniSONE 20 MG TABLET PO SCH (08:52)
[2020-04-08] MEDS: MYCOPHENOLATE MOFETIL 250 MG CAPSULE. PO SCH (08:52)
[2020-04-08] MEDS: DOCUSATE SODIUM 100 MG CAPSULE. PO SCH (08:52)
[2020-04-08] MEDS: LACTOBACILLUS RHAMNOSUS GG 1 CAPSULE. PO SCH (08:52)
[2020-04-08] MEDS: FUROSEMIDE 40 MG TABLET. PO SCH (08:53)
[2020-04-08] MEDS: LISINOPRIL 5 MG TABLET. PO SCH (08:53)
[2020-04-08] MEDS ORDERED: SERTRALINE 25 MG TABLET. PO SCH (09:00)
--- NOTE | 2020-04-08 09:16 | PDOC ---
DATE OF SERVICE DATE: 04/08/20 TIME: 09:16 SUBJECTIVE ROS States she is feeling much better today She has been started on Zoloft by Psychiatry OBJECTIVE Vital Signs Vital Signs Date Time Temp Pulse Resp B/P (MAP) Pulse Ox O2 Delivery O2 Flow Rate FiO2 04/08/20 08:53 78 110/69 04/08/20 07:00 98.5 100 Room Air 98.5 04/08/20 03:50 18 I & 0 Intake and Output 04/08/20 06:59 Intake Total 740 ml Balance 740 ml Intake Oral 740 ml # Voids 4 # Bowel Movements 1 PHYSICAL EXAM Physical Exam General: No acute distress HEENT: Atraumatic, PERRLA Lungs: Clear to auscultation Heart: Regular rate, Normal S1, Normal S2 Abdomen: Normal bowel sounds, Soft Extremities: edema ++ Skin: No rashes Neuro: Normal speech, Sensation intact DIAGNOSIS/ASSESSMENT Assessment & Plan LATONIA- ATN/ ?Acute flare Cr peaked at 3.7--> improved to 1.4 today, I reviewed her records from our office - baseline Cr 0.6, follows with Dr. 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 Bowens Continue Mycophenolate and is also on lower than ideal dose of Prednisone - she developed steroid Psychosis in the past Consider bactrim Prophylaxis once renal function Improves SLE- Myalgias and arthrlagias She was seen by Dr. Sal Salas as inpatient per her records - She reports she has not been able to make OP appt, Encouraged her to make appt after dc Nephrotic Syndrome On Low dose ISAI-I , titrate up once Kidney Function improves and BP stable 10 gms at initial presentation leading to Renal Bx Severe HypoAlbuminemia- 2/2 Proteinuria + Malnutrition LE edema- 2/2 severe Hypoalbuminemia/Nephrotic syndrome Hyperkalemia - Normal K today HypoNatremia - Resolved Group B strep bacteremia - source Unclear . ID following Major depressive disorder- On Zoloft per Psychiatry Monitor for Hyponatremia COMMENT/RELEVANT DATA Meds Current Medications Medications (Trade) Dose Ordered Sig/Kwesi Start Time Stop Time Status Last Admin Dose Admin Acetaminophen (Tylenol) 650 mg PRN Q6HRS PRN 04/06/20 00:30 Acetaminophen/ Hydrocodone Bitart (Lortab 5/325) 2 tab PRN Q4HRS PRN 04/03/20 20:45 04/05/20 05:31 2 TAB Albumin Human 500 ml @ 125 mls/hr 1X ONCE 04/07/20 12:30 04/07/20 16:29 DC 04/07/20 12:48 125 MLS/HR Bisacodyl (Dulcolax Supp) 10 mg PRN DAILY PRN 04/03/20 20:45 Calcium Gluconate 1000 mg/Sodium Chloride 110 ml @ 220 mls/hr 1X ONCE 04/04/20 21:00 04/04/20 21:29 DC 04/04/20 20:56 220 MLS/HR Cefepime HCl (Maxipime) 1 gm Q12HR 04/04/20 18:00 04/05/20 06:30 DC 04/04/20 20:58 1 GM Ceftriaxone Sodium (Rocephin) 2 gm Q24H 04/06/20 14:00 04/07/20 14:49 2 GM Dextrose (Dextrose 50%-Water Syringe) 25 gm 1X ONCE 04/04/20 20:15 04/04/20 20:16 DC 04/04/20 20:56 25 GM Docusate Sodium (Colace) 100 mg BID 04/03/20 21:00 04/08/20 08:52 100 MG Furosemide (Lasix) 40 mg DAILY 04/05/20 15:00 04/08/20 08:53 40 MG Heparin Sodium (Porcine) (Heparin Sodium) 5,000 unit Q8HRS 04/03/20 22:00 04/08/20 06:15 5,000 UNIT Insulin Human Regular (HumuLIN R VIAL) 10 unit 1X ONCE 04/04/20 21:00 04/04/20 21:01 DC 04/04/20 20:55 10 UNIT Lactobacillus Rhamnosus (Culturelle) 1 cap BID 04/06/20 21:00 04/08/20 08:52 1 CAP Lisinopril (Prinivil) 2.5 mg DAILY 04/05/20 15:00 04/08/20 08:53 2.5 MG Mycophenolate Mofetil (Cellcept) 500 mg BID 04/05/20 15:00 04/08/20 08:52 500 MG Ondansetron HCl (Zofran) 4 mg PRN Q8HRS PRN 04/03/20 19:15 04/04/20 19:14 DC Piperacillin Sod/ Tazobactam Sod 2.25 gm/Sodium Chloride 50 ml @ 100 mls/hr Q6HRS 04/05/20 07:00 04/06/20 13:14 DC 04/06/20 12:22 100 MLS/HR Prednisone (Prednisone) 40 mg DAILY 04/05/20 15:00 04/08/20 08:52 40 MG Sertraline HCl (Zoloft) 50 mg DAILY 04/08/20 09:00 04/08/20 08:52 50 MG Sodium Polystyrene Sulfonate (Kayexalate) 30 gm 1X ONCE 04/04/20 11:00 04/04/20 11:01 DC 04/04/20 12:12 30 GM Sodium Chloride 1,000 ml @ 100 mls/hr Q10H 04/04/20 18:15 04/07/20 12:23 DC 04/06/20 20:04 100 MLS/HR Vancomycin HCl (Vanco Per Pharmacy) 1 each PRN DAILY PRN 04/03/20 19:30 04/03/20 20:45 DC Vancomycin HCl 1.5 gm/Sodium Chloride 500 ml @ 250 mls/hr 1X ONCE 04/03/20 19:45 04/03/20 21:44 DC 04/03/20 20:17 250 MLS/HR Lab Laboratory Tests Test 04/07/20 16:30 04/08/20 04:25 Urine Random Creatinine 37.1 mg/dL (Not Establ.) Urine Random Total Protein 411.7 mg/dL (Not Establ.) Urine Protein/Creatinine Ratio 27385 mg/g (0-200) White Blood Count 10.4 x10^3/uL (4.0-11.0) Red Blood Count 2.47 x10^6/uL (3.50-5.40) Hemoglobin 7.7 g/dL (12.0-15.5) Hematocrit 23.3 % (36.0-47.0) Mean Corpuscular Volume 94 fL (79-100) Mean Corpuscular Hemoglobin 31 pg (25-35) Mean Corpuscular Hemoglobin Concent 33 g/dL (31-37) Red Cell Distribution Width 15.5 % (11.5-14.5) Platelet Count 252 x10^3/uL (140-400) Neutrophils (%) (Auto) 74 % (31-73) Lymphocytes (%) (Auto) 20 % (24-48) Monocytes (%) (Auto) 5 % (0-9) Eosinophils (%) (Auto) 0 % (0-3) Basophils (%) (Auto) 0 % (0-3) Neutrophils # (Auto) 7.7 x10^3/uL (1.8-7.7) Lymphocytes # (Auto) 2.1 x10^3/uL (1.0-4.8) Monocytes # (Auto) 0.5 x10^3/uL (0.0-1.1) Eosinophils # (Auto) 0.0 x10^3/uL (0.0-0.7) Basophils # (Auto) 0.0 x10^3/uL (0.0-0.2) Sodium Level 135 mmol/L (136-145) Potassium Level 3.9 mmol/L (3.5-5.1) Chloride Level 105 mmol/L (98-107) Carbon Dioxide Level 17 mmol/L (21-32) Anion Gap 13 (6-14) Blood Urea Nitrogen 66 mg/dL (7-20) Creatinine 1.4 mg/dL (0.6-1.0) Estimated GFR (Cockcroft-Gault) 44.5 BUN/Creatinine Ratio 47 (6-20) Glucose Level 104 mg/dL (70-99) Calcium Level 7.2 mg/dL (8.5-10.1) Total Bilirubin 0.1 mg/dL (0.2-1.0) Aspartate Amino Transf (AST/SGOT) 9 U/L (15-37) Alanine Aminotransferase (ALT/SGPT) 6 U/L (14-59) Alkaline Phosphatase 69 U/L (46-116) Total Protein 4.3 g/dL (6.4-8.2) Albumin 0.9 g/dL (3.4-5.0) Albumin/Globulin Ratio 0.3 (1.0-1.7) Results All relevant outside records, renal labs, imaging studies, telemetry/EKG's were reviewed. Justicifation of Admission Dx: Justifications for Admission: Justification of Admission Dx: Yes Chronic Renal Failure: Renail Failure LIBBY HALL MD Apr 08, 2020 09:16
--- NOTE | 2020-04-08 10:14 | PDOC ---
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 Procalcitonin 16.38, WBC 11.8. Consult to Nephrology and ID., neurology further antibiotics until input from ID, as this could be the result of systemic autoimmune disease. Elevated procalcitonin may be secondary to Lupus as underlying autoimmune disease. Consult to PAT. Even in the absence of underlying infectious process, patient lives alone and is currently not mentally stable enough to return home by herself. Blood cultures POS G POS COCCI . 04/04 ct abd pelvis Appreciate ID recommendations Pain management. VTE prophylaxis. Full Code. KAYEXYLATE PO consult nephrology iv vancomycin cefepime iv bmp at 2300 tonight covid-19 ag lactic acid fibrinogen Continue low-dose prednisone although she will need higher doses but she has not tolerated this time. Continue MMF Start lisinopril 2.5 mg daily Continue diuretics Once renal function is more stable consider Bactrim prophylaxis Appreciate nephrology recommendations History of Present Illness History of Present Illness Ms Lopez is a 29 yo female with history of lupus on treatment for lupus nephritis, who presents with complaint of "pain all over". She is tearful at the time of evaluation, and does not provide me with an exact duration of time or answers to straight forward questions. She is able to localize her pain to her lower extremities and joints. She does tell me that she has been taking her home hydrocodone medications without improvement in her pain. Patient's friend notes worsening anxiety about her seemingly deteriorating medical condition over the past 2 months. He states over the past day of two she has become more unresponsive, withdrawn, and tearful. mention in the ER note about vomiting, but this was not conveyed to me by the patient or friend. denies any fever, sore throat, cough, SOB, or history of IV drug use. 04/05: No acute events overnight. Patient's potassium and creatinine has stabilized and improved. No changes in her pain at this time. Patient's chart, labs, images were reviewed and discussed with RN 04/06: Febrile to 100.5 F. Blood cultures are to be positive for group B strep. She has lost IV access - RIJ placed. Overall she feels improved especially with her mental status. 04/07: Afebrile. WBC 16.9, Hb 8.9, platelets 212, NA 129, BUN 74, CR 1.9. COVID 19 negative. Still with lower extremity edema. Sensitivities to group B strep available, changed to Rocephin. She is asking to speak with psychiatrist today some depression. Febrile. In better spirits. WBC 10.4, Hb 7.7, platelets 252 NA 135, K3.9, BUN 16, CR 1.4, albumin 0.9. Planning on discharge to [facility] for safety. Vitals/I&O Vitals/I&O: Vital Signs Date Time Temp Pulse Resp B/P (MAP) Pulse Ox O2 Delivery O2 Flow Rate FiO2 04/08/20 08:53 78 110/69 04/08/20 07:00 98.5 100 Room Air 98.5 04/08/20 03:50 18 I & O 04/07/20 04/07/20 04/08/20 15:00 23:00 07:00 Intake Total 150 ml 490 ml 100 ml Balance 150 ml 490 ml 100 ml Physical Exam Physical Exam: GENERAL: Alert oriented x3 female sitting upright in chair in no acute distress looks better today HEENT: Anicteric no thrush, malar rash NECK: Supple, no JVP, no lymphadenopathy. Right IJ in place LUNGS: Clear. HEART: S1, S2 regular. No gallop or murmur. ABDOMEN: Soft, nontender, no organomegaly. No rebound or guarding EXTREMITIES: No edema, cyanosis. SKIN: No generalized rash multiple tattoos MSK no joint effusion or decrease in range of motion noted NEUROLOGIC: alert, awake, noncooperative, grossly nonfocal General: Alert, Oriented X3, Cooperative, No acute distress Heart: Regular rate, Normal S1, Normal S2 Lungs: Clear Abdomen: Normal bowel sounds, Soft Extremities: No clubbing Skin: No rashes Labs Labs: Laboratory Tests Test 04/07/20 16:30 04/08/20 04:25 Urine Random Creatinine 37.1 mg/dL (Not Establ.) Urine Random Total Protein 411.7 mg/dL (Not Establ.) Urine Protein/Creatinine Ratio 71634 mg/g (0-200) White Blood Count 10.4 x10^3/uL (4.0-11.0) Red Blood Count 2.47 x10^6/uL (3.50-5.40) Hemoglobin 7.7 g/dL (12.0-15.5) Hematocrit 23.3 % (36.0-47.0) Mean Corpuscular Volume 94 fL (79-100) Mean Corpuscular Hemoglobin 31 pg (25-35) Mean Corpuscular Hemoglobin Concent 33 g/dL (31-37) Red Cell Distribution Width 15.5 % (11.5-14.5) Platelet Count 252 x10^3/uL (140-400) Neutrophils (%) (Auto) 74 % (31-73) Lymphocytes (%) (Auto) 20 % (24-48) Monocytes (%) (Auto) 5 % (0-9) Eosinophils (%) (Auto) 0 % (0-3) Basophils (%) (Auto) 0 % (0-3) Neutrophils # (Auto) 7.7 x10^3/uL (1.8-7.7) Lymphocytes # (Auto) 2.1 x10^3/uL (1.0-4.8) Monocytes # (Auto) 0.5 x10^3/uL (0.0-1.1) Eosinophils # (Auto) 0.0 x10^3/uL (0.0-0.7) Basophils # (Auto) 0.0 x10^3/uL (0.0-0.2) Sodium Level 135 mmol/L (136-145) Potassium Level 3.9 mmol/L (3.5-5.1) Chloride Level 105 mmol/L (98-107) Carbon Dioxide Level 17 mmol/L (21-32) Anion Gap 13 (6-14) Blood Urea Nitrogen 66 mg/dL (7-20) Creatinine 1.4 mg/dL (0.6-1.0) Estimated GFR (Cockcroft-Gault) 44.5 BUN/Creatinine Ratio 47 (6-20) Glucose Level 104 mg/dL (70-99) Calcium Level 7.2 mg/dL (8.5-10.1) Total Bilirubin 0.1 mg/dL (0.2-1.0) Aspartate Amino Transf (AST/SGOT) 9 U/L (15-37) Alanine Aminotransferase (ALT/SGPT) 6 U/L (14-59) Alkaline Phosphatase 69 U/L (46-116) Total Protein 4.3 g/dL (6.4-8.2) Albumin 0.9 g/dL (3.4-5.0) Albumin/Globulin Ratio 0.3 (1.0-1.7) Assessment and Plan Assessmemt and Plan Problems Medical Problems: (1) Acute renal failure Status: Acute (2) Altered mental status Status: Acute (3) Anemia Status: Acute Comment Review of Relevant I have reviewed the following items jennifer (where applicable) has been applied. Medications: Current Medications Medications (Trade) Dose Ordered Sig/Kwesi Route PRN Reason Start Time Stop Time Status Last Admin Dose Admin Albumin Human 500 ml @ 125 mls/hr 1X ONCE IV 04/07/20 12:30 04/07/20 16:29 DC 04/07/20 12:48 Sertraline HCl (Zoloft) 50 mg DAILY PO 04/08/20 09:00 04/08/20 08:52 Justifications for Admission Other Justification RUBY CAT MD Apr 08, 2020 10:14
--- NOTE | 2020-04-08 10:29 | PDOC ---
Infectious Disease Note Subjective: Subjective Patient has no complaints Denies fever, nausea, vomiting, shortness of breath, diarrhea, abdominal pain, rash or symptoms Otherwise as above Eager for discharge home today Vital Signs: Vital Signs Vital Signs Date Time Temp Pulse Resp B/P (MAP) Pulse Ox O2 Delivery O2 Flow Rate FiO2 04/08/20 08:53 78 110/69 04/08/20 08:00 Room Air 04/08/20 07:00 98.5 100 98.5 04/08/20 03:50 18 Physical Exam: PHYSICAL EXAM GENERAL: Alert oriented x3 female sitting upright in chair in no acute distress looks better today HEENT: Anicteric no thrush, malar rash NECK: Supple, no JVP, no lymphadenopathy. Right IJ in place LUNGS: Clear. HEART: S1, S2 regular. No gallop or murmur. ABDOMEN: Soft, nontender, no organomegaly. No rebound or guarding EXTREMITIES: No edema, cyanosis. SKIN: No generalized rash multiple tattoos MSK no joint effusion or decrease in range of motion noted NEUROLOGIC: alert, awake, noncooperative, grossly nonfocal Medications: Inpatient Meds: Current Medications Medications (Trade) Dose Ordered Sig/Kwesi Start Time Stop Time Status Last Admin Dose Admin Acetaminophen (Tylenol) 650 mg PRN Q6HRS PRN 04/06/20 00:30 Acetaminophen/ Hydrocodone Bitart (Lortab 5/325) 2 tab PRN Q4HRS PRN 04/03/20 20:45 04/05/20 05:31 2 TAB Albumin Human 500 ml @ 125 mls/hr 1X ONCE 04/07/20 12:30 04/07/20 16:29 DC 04/07/20 12:48 125 MLS/HR Bisacodyl (Dulcolax Supp) 10 mg PRN DAILY PRN 04/03/20 20:45 Calcium Gluconate 1000 mg/Sodium Chloride 110 ml @ 220 mls/hr 1X ONCE 04/04/20 21:00 04/04/20 21:29 DC 04/04/20 20:56 220 MLS/HR Cefepime HCl (Maxipime) 1 gm Q12HR 04/04/20 18:00 04/05/20 06:30 DC 04/04/20 20:58 1 GM Ceftriaxone Sodium (Rocephin) 2 gm Q24H 04/06/20 14:00 04/07/20 14:49 2 GM Dextrose (Dextrose 50%-Water Syringe) 25 gm 1X ONCE 04/04/20 20:15 04/04/20 20:16 DC 04/04/20 20:56 25 GM Docusate Sodium (Colace) 100 mg BID 04/03/20 21:00 04/08/20 08:52 100 MG Furosemide (Lasix) 40 mg DAILY 04/05/20 15:00 04/08/20 08:53 40 MG Heparin Sodium (Porcine) (Heparin Sodium) 5,000 unit Q8HRS 04/03/20 22:00 04/08/20 06:15 5,000 UNIT Insulin Human Regular (HumuLIN R VIAL) 10 unit 1X ONCE 04/04/20 21:00 04/04/20 21:01 DC 04/04/20 20:55 10 UNIT Lactobacillus Rhamnosus (Culturelle) 1 cap BID 04/06/20 21:00 04/08/20 08:52 1 CAP Lisinopril (Prinivil) 2.5 mg DAILY 04/05/20 15:00 04/08/20 08:53 2.5 MG Mycophenolate Mofetil (Cellcept) 500 mg BID 04/05/20 15:00 04/08/20 08:52 500 MG Ondansetron HCl (Zofran) 4 mg PRN Q8HRS PRN 04/03/20 19:15 04/04/20 19:14 DC Piperacillin Sod/ Tazobactam Sod 2.25 gm/Sodium Chloride 50 ml @ 100 mls/hr Q6HRS 04/05/20 07:00 04/06/20 13:14 DC 04/06/20 12:22 100 MLS/HR Prednisone (Prednisone) 40 mg DAILY 04/05/20 15:00 04/08/20 08:52 40 MG Sertraline HCl (Zoloft) 50 mg DAILY 04/08/20 09:00 04/08/20 08:52 50 MG Sodium Polystyrene Sulfonate (Kayexalate) 30 gm 1X ONCE 04/04/20 11:00 04/04/20 11:01 DC 04/04/20 12:12 30 GM Sodium Chloride 1,000 ml @ 100 mls/hr Q10H 04/04/20 18:15 04/07/20 12:23 DC 04/06/20 20:04 100 MLS/HR Vancomycin HCl (Vanco Per Pharmacy) 1 each PRN DAILY PRN 04/03/20 19:30 04/03/20 20:45 DC Vancomycin HCl 1.5 gm/Sodium Chloride 500 ml @ 250 mls/hr 1X ONCE 04/03/20 19:45 04/03/20 21:44 DC 04/03/20 20:17 250 MLS/HR Labs: Lab Laboratory Tests Test 04/07/20 16:30 04/08/20 04:25 Urine Random Creatinine 37.1 mg/dL (Not Establ.) Urine Random Total Protein 411.7 mg/dL (Not Establ.) Urine Protein/Creatinine Ratio 46254 mg/g (0-200) White Blood Count 10.4 x10^3/uL (4.0-11.0) Red Blood Count 2.47 x10^6/uL (3.50-5.40) Hemoglobin 7.7 g/dL (12.0-15.5) Hematocrit 23.3 % (36.0-47.0) Mean Corpuscular Volume 94 fL (79-100) Mean Corpuscular Hemoglobin 31 pg (25-35) Mean Corpuscular Hemoglobin Concent 33 g/dL (31-37) Red Cell Distribution Width 15.5 % (11.5-14.5) Platelet Count 252 x10^3/uL (140-400) Neutrophils (%) (Auto) 74 % (31-73) Lymphocytes (%) (Auto) 20 % (24-48) Monocytes (%) (Auto) 5 % (0-9) Eosinophils (%) (Auto) 0 % (0-3) Basophils (%) (Auto) 0 % (0-3) Neutrophils # (Auto) 7.7 x10^3/uL (1.8-7.7) Lymphocytes # (Auto) 2.1 x10^3/uL (1.0-4.8) Monocytes # (Auto) 0.5 x10^3/uL (0.0-1.1) Eosinophils # (Auto) 0.0 x10^3/uL (0.0-0.7) Basophils # (Auto) 0.0 x10^3/uL (0.0-0.2) Sodium Level 135 mmol/L (136-145) Potassium Level 3.9 mmol/L (3.5-5.1) Chloride Level 105 mmol/L (98-107) Carbon Dioxide Level 17 mmol/L (21-32) Anion Gap 13 (6-14) Blood Urea Nitrogen 66 mg/dL (7-20) Creatinine 1.4 mg/dL (0.6-1.0) Estimated GFR (Cockcroft-Gault) 44.5 BUN/Creatinine Ratio 47 (6-20) Glucose Level 104 mg/dL (70-99) Calcium Level 7.2 mg/dL (8.5-10.1) Total Bilirubin 0.1 mg/dL (0.2-1.0) Aspartate Amino Transf (AST/SGOT) 9 U/L (15-37) Alanine Aminotransferase (ALT/SGPT) 6 U/L (14-59) Alkaline Phosphatase 69 U/L (46-116) Total Protein 4.3 g/dL (6.4-8.2) Albumin 0.9 g/dL (3.4-5.0) Albumin/Globulin Ratio 0.3 (1.0-1.7) Micro CT abdomen and pelvis IMPRESSION: 1. Very limited examination due to significant motion artifact. 2. Diffuse fat stranding identified in the soft tissue of the abdominal wall and the pelvis could be cellulitis or anasarca/edema. 3. 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 Correlate for urinary tract infection. 4. Focal airspace opacity identified left lower lobe lung likely pneumonia or atelectasis. Objective: Assessment: Group B Streptococcus bacteremia present on admission source unclears Leukocytosis resolving Systemic lupus erythematosus Personality disorder Lupus nephritis with renal insufficiency Immunosuppression on mycophenolate and steroids Nephrotic syndrome Plan: Plan of Care Dose Rocephin today before discharge Keflex 500 mg po QID for 10 days starting tomorrow Follow-up with primary and nephrology Discussed with Dr. Gonzales Discussed with nursing staff RAJESH TRIPLETT MD Apr 08, 2020 10:29
[2020-04-08 11:00] VITALS: BP 154/76
--- NOTE | 2020-04-08 11:54 | NUR ---
JOLEEN following. Spoke with RN and reviewed chart. Pt ready for discharge today to [facility]. JOLEEN notified Nargis with PAT who will work on transfer today. RN notified. JOLEEN following. Addendum: 04/08/20 at 1401 by CAROLYN GOODRICH Pt discharging to [facility] per Nargis with PAT. No further SW needs.
[2020-04-08] MEDS ORDERED: LISI-338 PO (13:19)
[2020-04-08] MEDS ORDERED: SERT25TA4 PO (13:19)
[2020-04-08] MEDS ORDERED: FURO40TA4 PO (13:19)
[2020-04-08] MEDS ORDERED: MYCO250C PO (13:19)
[2020-04-08] MEDS ORDERED: CEPH-264 PO (13:19)
[2020-04-08] MEDS ORDERED: PRED20TA PO (13:19)
--- NOTE | 2020-04-08 13:27 | PDOC3 ---
Discharge Summary Visit Information Date of Admission: Apr 03, 2020 Date of Discharge: Apr 08, 2020 Admitting Diagnosis: Altered mental status Final Diagnosis Problems Medical Problems: (1) Acute renal failure Status: Acute (2) Altered mental status Status: Acute (3) Anemia Status: Acute Brief Hospital Course Allergies Allergies Coded Allergies Type Severity Reaction Last Updated Verified No Known Drug Allergies 04/03/20 No Vital Signs Vital Signs Date Time Temp Pulse Resp B/P (MAP) Pulse Ox O2 Delivery O2 Flow Rate FiO2 04/08/20 11:00 98.0 79 154/76 (102) 100 Room Air 98.0 04/08/20 03:50 18 Lab Results Laboratory Tests Test 04/07/20 03:45 04/07/20 16:30 04/08/20 04:25 Sodium Level 129 mmol/L (136-145) 135 mmol/L (136-145) Potassium Level 4.8 mmol/L (3.5-5.1) 3.9 mmol/L (3.5-5.1) Chloride Level 102 mmol/L (98-107) 105 mmol/L (98-107) Carbon Dioxide Level 17 mmol/L (21-32) 17 mmol/L (21-32) Anion Gap 10 (6-14) 13 (6-14) Blood Urea Nitrogen 74 mg/dL (7-20) 66 mg/dL (7-20) Creatinine 1.9 mg/dL (0.6-1.0) 1.4 mg/dL (0.6-1.0) Estimated GFR (Cockcroft-Gault) 31.3 44.5 Glucose Level 113 mg/dL (70-99) 104 mg/dL (70-99) Calcium Level 7.5 mg/dL (8.5-10.1) 7.2 mg/dL (8.5-10.1) Urine Random Creatinine 37.1 mg/dL (Not Establ.) Urine Random Total Protein 411.7 mg/dL (Not Establ.) Urine Protein/Creatinine Ratio 82000 mg/g (0-200) White Blood Count 10.4 x10^3/uL (4.0-11.0) Red Blood Count 2.47 x10^6/uL (3.50-5.40) Hemoglobin 7.7 g/dL (12.0-15.5) Hematocrit 23.3 % (36.0-47.0) Mean Corpuscular Volume 94 fL (79-100) Mean Corpuscular Hemoglobin 31 pg (25-35) Mean Corpuscular Hemoglobin Concent 33 g/dL (31-37) Red Cell Distribution Width 15.5 % (11.5-14.5) Platelet Count 252 x10^3/uL (140-400) Neutrophils (%) (Auto) 74 % (31-73) Lymphocytes (%) (Auto) 20 % (24-48) Monocytes (%) (Auto) 5 % (0-9) Eosinophils (%) (Auto) 0 % (0-3) Basophils (%) (Auto) 0 % (0-3) Neutrophils # (Auto) 7.7 x10^3/uL (1.8-7.7) Lymphocytes # (Auto) 2.1 x10^3/uL (1.0-4.8) Monocytes # (Auto) 0.5 x10^3/uL (0.0-1.1) Eosinophils # (Auto) 0.0 x10^3/uL (0.0-0.7) Basophils # (Auto) 0.0 x10^3/uL (0.0-0.2) BUN/Creatinine Ratio 47 (6-20) Total Bilirubin 0.1 mg/dL (0.2-1.0) Aspartate Amino Transf (AST/SGOT) 9 U/L (15-37) Alanine Aminotransferase (ALT/SGPT) 6 U/L (14-59) Alkaline Phosphatase 69 U/L (46-116) Total Protein 4.3 g/dL (6.4-8.2) Albumin 0.9 g/dL (3.4-5.0) Albumin/Globulin Ratio 0.3 (1.0-1.7) Laboratory Tests Test 04/07/20 16:30 04/08/20 04:25 Urine Random Creatinine 37.1 mg/dL (Not Establ.) Urine Random Total Protein 411.7 mg/dL (Not Establ.) Urine Protein/Creatinine Ratio 08844 mg/g (0-200) White Blood Count 10.4 x10^3/uL (4.0-11.0) Red Blood Count 2.47 x10^6/uL (3.50-5.40) Hemoglobin 7.7 g/dL (12.0-15.5) Hematocrit 23.3 % (36.0-47.0) Mean Corpuscular Volume 94 fL (79-100) Mean Corpuscular Hemoglobin 31 pg (25-35) Mean Corpuscular Hemoglobin Concent 33 g/dL (31-37) Red Cell Distribution Width 15.5 % (11.5-14.5) Platelet Count 252 x10^3/uL (140-400) Neutrophils (%) (Auto) 74 % (31-73) Lymphocytes (%) (Auto) 20 % (24-48) Monocytes (%) (Auto) 5 % (0-9) Eosinophils (%) (Auto) 0 % (0-3) Basophils (%) (Auto) 0 % (0-3) Neutrophils # (Auto) 7.7 x10^3/uL (1.8-7.7) Lymphocytes # (Auto) 2.1 x10^3/uL (1.0-4.8) Monocytes # (Auto) 0.5 x10^3/uL (0.0-1.1) Eosinophils # (Auto) 0.0 x10^3/uL (0.0-0.7) Basophils # (Auto) 0.0 x10^3/uL (0.0-0.2) Sodium Level 135 mmol/L (136-145) Potassium Level 3.9 mmol/L (3.5-5.1) Chloride Level 105 mmol/L (98-107) Carbon Dioxide Level 17 mmol/L (21-32) Anion Gap 13 (6-14) Blood Urea Nitrogen 66 mg/dL (7-20) Creatinine 1.4 mg/dL (0.6-1.0) Estimated GFR (Cockcroft-Gault) 44.5 BUN/Creatinine Ratio 47 (6-20) Glucose Level 104 mg/dL (70-99) Calcium Level 7.2 mg/dL (8.5-10.1) Total Bilirubin 0.1 mg/dL (0.2-1.0) Aspartate Amino Transf (AST/SGOT) 9 U/L (15-37) Alanine Aminotransferase (ALT/SGPT) 6 U/L (14-59) Alkaline Phosphatase 69 U/L (46-116) Total Protein 4.3 g/dL (6.4-8.2) Albumin 0.9 g/dL (3.4-5.0) Albumin/Globulin Ratio 0.3 (1.0-1.7) Brief Hospital Course Ms Lopez is a 29 yo female with history of lupus on treatment for lupus nephritis, who presents with complaint of "pain all over". She is tearful at the time of evaluation, and does not provide me with an exact duration of time or answers to straight forward questions. She is able to localize her pain to her lower extremities and joints. She does tell me that she has been taking her home hydrocodone medications without improvement in her pain. Patient's friend notes worsening anxiety about her seemingly deteriorating medical condition over the past 2 months. He states over the past day of two she has become more unresp onsive, withdrawn, and tearful. mention in the ER note about vomiting, but this was not conveyed to me by the patient or friend. denies any fever, sore throat, cough, SOB, or history of IV drug use. 04/05: No acute events overnight. Patient's potassium and creatinine has stabilized and improved. No changes in her pain at this time. Patient's chart, labs, images were reviewed and discussed with RN 04/06: Febrile to 100.5 F. Blood cultures are to be positive for group B strep. She has lost IV access - RIJ placed. Overall she feels improved especially with her mental status. 04/07: Afebrile. WBC 16.9, Hb 8.9, platelets 212, NA 129, BUN 74, CR 1.9. COVID 19 negative. Still with lower extremity edema. Sensitivities to group B strep available, changed to Rocephin. She is asking to speak with psychiatrist today some depression. Febrile. In better spirits. WBC 10.4, Hb 7.7, platelets 252 NA 135, K3.9, BUN 16, CR 1.4, albumin 0.9. Planning on discharge to [facility] for safety. Back in December she was diagnosed with stage IV lupus nephritis and started on mycophenolate mofetil, prednisone, but cannot tolerate high doses, Lasix as well and lisinopril. 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 She will have 10 days of 500 mg 4 times daily Keflex for her group B strep bacteremia. A/P: Gram positive bacteremia - group b strep Elevated Procalcitonin Sepsis - 2/2 bacteremia SLE Renal Failure - 2/2 lupus nephritis Hyperkalemia Malnutrition metabolic encephalopathy Reactive depression Greater than 30 minutes spent on d/c Discharge Information Condition at Discharge: Improved Follow Up: Weeks (1) Disposition/Orders: D/C to a Group Home Scheduled Cephalexin (Keflex) 500 Mg Capsule, 500 MG PO QID for Group B Strep Bacteremia for 10 Days, #40 Prescribed by: RUBY CAT MD on 04/08/20 1319 Furosemide (Furosemide) 40 Mg Tablet, 40 MG PO DAILY for Lupus nephritis for 30 Days, #30 Prescribed by: RUBY CAT MD on 04/08/20 1319 Lisinopril (Lisinopril) 5 Mg Tablet, 2.5 MG PO DAILY for Lupus for 30 Days, #15 Prescribed by: RUBY CAT MD on 04/08/20 1319 Mycophenolate Mofetil (Cellcept) 250 Mg Capsule, 500 MG PO BID for Lupus for 30 Days, #120 Prescribed by: RUBY CAT MD on 04/08/20 1319 Prednisone (Prednisone) 20 Mg Tablet, 40 MG PO DAILY for Lupus for 30 Days, #60 Prescribed by: RUBY CAT MD on 04/08/20 1319 Sertraline Hcl (Sertraline Hcl) 25 Mg Tablet, 50 MG PO DAILY for Mood for 30 Days, #60 Prescribed by: RUBY CAT MD on 04/08/20 1319 Justicifation of Admission Dx: Justifications for Admission: Justification of Admission Dx: Yes Chronic Renal Failure: Renail Failure RUBY CAT MD Apr 08, 2020 13:27
[2020-04-08] MEDS: cefTRIAXone IV Push 2 GM VIAL. IVP SCH (14:08)
[2020-04-08 15:00] VITALS: BP 136/44
--- NOTE | 2020-04-08 16:00 | NUR ---
Discharge Note: MICHELLE ROJO Discharge instructions and discharge home medications reviewed with Patient and a copy given. All questions have been answered and understanding verbalized. The following instructions and handouts were given: f/u with pcp within one week. f/u with Sheet Metal Production Worker within one month. Discontinued lines and drains: Peripheral IV intact. Patient discharged to Home or Self Care with friend via wheelchair.
== END 2020-04-08 16:00 | disposition home or self-care (01) | DRG 871 ==
LOC: ER 12:56 → ED HOLD 17:59 → 6 SOUTH 19:16 → 4 NORTH 21:39 → 6 SOUTH 04-04 19:40
PROVIDERS: ADMIT Family Medicine; ATTEND Family Medicine
PROC: 02HV33Z Insertion of Infusion Device into Superior Vena Cava, Percutaneous Approach (ICD-10-PCS; principal; 2020-04-06)
PROC: B548ZZA Ultrasonography of Superior Vena Cava, Guidance (ICD-10-PCS; 2020-04-06)
DX: A41.89 Other specified sepsis (principal); G93.41 Metabolic encephalopathy; E46 Unspecified protein-calorie malnutrition; N04.9 Nephrotic syndrome with unspecified morphologic changes; N17.9 Acute kidney failure, unspecified; B95.1 Streptococcus, group B, as the cause of diseases classified elsewhere; B96.89 Other specified bacterial agents as the cause of diseases classified elsewhere; D64.9 Anemia, unspecified; E87.5 Hyperkalemia; R41.843 Psychomotor deficit; F12.90 Cannabis use, unspecified, uncomplicated; F32.9 Major depressive disorder, single episode, unspecified; F41.0 Panic disorder [episodic paroxysmal anxiety]; F60.9 Personality disorder, unspecified; K81.9 Cholecystitis, unspecified; K82.8 Other specified diseases of gallbladder; M32.14 Glomerular disease in systemic lupus erythematosus; N18.9 Chronic kidney disease, unspecified; Z20.828 Contact with and (suspected) exposure to other viral communicable diseases; Z81.8 Family history of other mental and behavioral disorders; Z60.2 Problems related to living alone
CPT/HCPCS: 36415; 70450; 71045; 74176; 76700; 80048; 80053; 80307; 80329; 81001; 81025; 82140; 82150; 82553; 82570; 83605; 83690; 83735; 83880; 84100; 84145; 84156; 85007; 85025; 85379; 85384; 85610; 85730; 86140; 87040; 87077; 87186; 87205; 93005; 96365; 96375; 99285; G0480; J0610; J0692; J0696; J1644; J1815; J1940; J2543; J3370; J3490; J7030; J7040; J7512; J7517; P9045; 97110-GP; 97116-GP; 97530-GO; 97530-GP; 97535-GO; G0378; U0003-CS

== ENCOUNTER 2020-09-06 15:51 | Inpatient (IN) | payer SELFPAY ==
[~2020-09-06] VITALS: Ht 162.6 cm; Wt 74.9 kg
[~2020-09-06 15:51] MED LIST: CEPH-264 PO; FURO40TA4 PO; LISI-517 PO; MORPHINE SULFATE 4 MG/ML VIAL. IV PRN; MYCO250C PO; PRED20TA PO; SERT-266 PO
[2020-09-06] MEDS ORDERED: ONDANSETRON PF 4 MG/2 ML VIAL. IVP ONE (16:15)
[2020-09-06] MEDS ORDERED: fentaNYL PF VIAL 100 MCG/2 ML VIAL IVP ONE (16:15)
--- NOTE | 2020-09-06 16:29 | PHYS DOC ---
Past Medical History Past Medical History: Unknown Past Surgical History: No Surgical History Smoking Status: Never Smoker Alcohol Use: None General Adult EDM: Chief Complaint: ABDOMINAL PAIN HPI: HPI: Patient is a 30 year old female who presents with who states that she has as of today increased abdominal bloating, tightness and pain causing her to have shortness of breath. She rates her pain. Patient states she is spitting up blood clots and that has been going on for a while. Patient denies nausea, vomiting, diarrhea, fever, constipation, diarrhea, dizziness, headache, vision changes, numbness or tingling, chest pain. Patient states that she thought maybe she was constipated and took some laxatives. She states she had a bowel movement. She states she is been taking all of her medications as she is supposed to. Patient has a history of lupus, hypertension, hyperkalemia, lupus nephritis, anemia, acute renal failure. Review of Systems: Review of Systems: Constitutional: Denies fever or chills. [] Eyes: Denies change in visual acuity. [] HENT: Denies nasal congestion or sore throat. [] Respiratory: Denies cough. +shortness of breath. [] Cardiovascular: Denies chest pain or edema. [] GI: + Abdominal bloating and + abdominal pain, +, normal tightness, denies nausea, vomiting, bloody stools or diarrhea. [] : Denies dysuria. [] Musculoskeletal: Denies back pain or joint pain. [] Integument: Denies rash. [] Neurologic: Denies headache, focal weakness or sensory changes. [] Endocrine: Denies polyuria or polydipsia. [] Lymphatic: Denies swollen glands. [] Psychiatric: Denies depression or anxiety. [] Heart Score: Risk Factors: Risk Factors: DM, Current or recent (<one month) smoker, HTN, HLP, family history of CAD, obesity. Risk Scores: Score 0 - 3: 2.5% MACE over next 6 weeks - Discharge Home Score 4 - 6: 20.3% MACE over next 6 weeks - Admit for Clinical Observation Score 7 - 10: 72.7% MACE over next 6 weeks - Early Invasive Strategies Current Medications: Current Medications Medications (Trade) Dose Ordered Sig/Kwesi Start Time Stop Time Status Last Admin Dose Admin Fentanyl Citrate (Fentanyl 2ml Vial) 50 mcg 1X ONCE 09/06/20 16:15 09/06/20 16:22 DC Ondansetron HCl (Zofran) 4 mg 1X ONCE 09/06/20 16:15 09/06/20 16:22 DC Allergies: Allergies: Allergies Coded Allergies Type Severity Reaction Last Updated Verified No Known Drug Allergies 04/03/20 No Physical Exam: PE: Constitutional: Well developed, well nourished, no acute distress, non-toxic appearance. [] HENT: Normocephalic, atraumatic, bilateral external ears normal, oropharynx moist, no oral exudates, nose normal. [] Eyes: PERRLA, EOMI, conjunctiva normal, no discharge. [] Neck: Normal range of motion, no tenderness, supple, no stridor. [] Cardiovascular:Heart rate regular rhythm, no murmur [] Lungs & Thorax: Bilateral upper breath sounds clear lower diminished to auscultation [] Abdomen: Bowel sounds normal, tight, distended, no tenderness, no masses, no pulsatile masses. [] Skin: Warm, dry, no erythema, no rash. [] Back: No tenderness, no CVA tenderness. [] Extremities: No tenderness, no cyanosis, no clubbing, ROM intact, no edema. [] Neurologic: Alert and oriented X 3, normal motor function, normal sensory function, no focal deficits noted. [] Psychologic: Affect normal, judgement normal, mood normal. [] Current Patient Data: Labs: Laboratory Tests Test 09/06/20 16:17 POC Urine HCG, Qualitative Hcg negative (Negative) EKG: EK and read by Dr. Stern as sinus rhythm and no STEMI [] Radiology/Procedures: Radiology/Procedures: [] Impression: [facility] [address] [place] [address] IMAGING REPORT Signed PATIENT: MENDY ROJO ACCOUNT: [id number] : 1990 LOCATION: ER AGE: 30 SEX: F EXAM STATUS: PRE ER ORD. PHYSICIAN: MARTHA SHARP APRN REASON: spitting up blood clots PROCEDURE: PORTABLE CHEST 1V EXAM: Chest, single view. HISTORY: Hemoptysis. COMPARISON: 04/06/2020 FINDINGS: A frontal view of the chest is obtained. There are small right and m oderate left pleural effusions. There is left lower lobe infiltrate or atelectasis. The heart is prominent in size. There is no pneumothorax. IMPRESSION: 1. Small right and moderate left pleural effusions and left lower lobe atelectasis or infiltrate. 2. Prominent cardiac silhouette. Electronically signed by: Radha Burnette MD (09/06/2020 4:45 PM) [facility] DICTATED and SIGNED BY: RADHA BURNETTE MD DATE: 09/06/20 [id number] [facility] [address] [place] [address] IMAGING REPORT Signed PATIENT: MENDY ROJO ACCOUNT: [id number] : 1990 LOCATION: ER AGE: 30 SEX: F EXAM STATUS: REG ER ORD. PHYSICIAN: MARTHA SHARP APRN REASON: spitting up blood clots, pain, distention PROCEDURE: CT ABDOMEN PELVIS WO CONTRAST EXAM: Abdomen and pelvis CT without intravenous contrast. HISTORY: Hemoptysis. Distention. TECHNIQUE: Computed tomographic images of the abdomen and pelvis were obtained without contrast. Multiplanar reformatting was performed. *One or more of the following individualized dose reduction techniques were utilized for this examination: 1. Automated exposure control. 2. Adjustment of the mA and/or kV according to patient size. 3. Use of iterative reconstruction technique. COMPARISON: 04/04/2020. FINDINGS: Evaluation of the lower thorax demonstrates a large pericardial effusion. There are small bilateral pleural effusions. There is left lower lobe infiltrate. There is right basilar atelectasis. No convincing hepatic lesion is seen on this noncontrast exam. The gallbladder is unremarkable. The pancreas is prominent in size. No convincing pancreatic lesion is seen on this noncontrast exam. The spleen is normal in size. The adrenal glands and stomach are unremarkable. There is a horseshoe. There is no evidence of nephrolithiasis or hydronephrosis. There is no appendicitis. There is no bowel obstruction. There is a large amount of abdominal ascites. This is associated stranding within the root of mesentery. The bladder, uterus and adnexal regions are unremarkable. There is diffuse body wall edema. There is degenerative change at the lumbosacral junction. IMPRESSION: 1. Large abdominal ascites. This is significantly increased compared to the prior study. 2. Large pericardial effusion. There is significantly increased compared to the prior study. 3. Small bilateral pleural effusions and left lower lobe infiltrate. 4. Horseshoe kidney. 5. Body wall edema. Electronically signed by: Radha Burnette MD (09/06/2020 5:45 PM) [facility] DICTATED and SIGNED BY: RADHA BURNETTE MD DATE: 09/06/20 [id number] Course & Med Decision Making: Course & Med Decision Making Pertinent Labs and Imaging studies reviewed. (See chart for details) See HPI. Abdomen is distended and tight. There is no tenderness. Speaks in full clear sentences. Alert and oriented x4. Ambulatory with a steady gait. Patient appears very malnourished. Skin is pale warm and dry. No extremity edema. Blood work shows acute renal failure. Elevated liver enzymes. Hemoglobin of 7.8. Patient admitted to Dr. Martinez. I spoke with cardiology and starting the patient findings. He states they will see her in the morning. I have spoken to Dr. Stokes concerning this patient he states to go ahead and give her 60mg of Lasix IV x1. He states that they will see her in the morning. X-ray shows: IMPRESSION: 1. Small right and moderate left pleural effusions and left lower lobe atelectasis or infiltrate. 2. Prominent cardiac silhouette. CT ABD PELV: IMPRESSION: 1. Large abdominal ascites. This is significantly increased compared to the prior study. 2. Large pericardial effusion. There is significantly increased compared to the prior study. 3. Small bilateral pleural effusions and left lower lobe infiltrate. 4. Horseshoe kidney. 5. Body wall edema. [] Dragon Disclaimer: [place]aviota Disclaimer: This electronic medical record was generated, in whole or in part, using a voice recognition dictation system. Departure Departure Impression: Primary Impression: Acute renal failure Qualified Codes: N17.9 - Acute kidney failure, unspecified Additional Impressions: Pericardial effusion Pleural effusion Ascites Qualified Codes: R18.8 - Other ascites Disposition: 09 ADMITTED INPT THIS HOSP Admitting Physician: HIMS Condition: STABLE Referrals: NO PCP (PCP) MARTHA SHARP [employer] Sep 06, 2020 16:29
[2020-09-06 16:32] LABS: BILIRUBIN,URINE NEGATIVE (NEG); CLARITY,URINE CLEAR; COLOR,URINE YELLOW; NITRITE,URINE NEGATIVE (NEG); PROTEIN,URINE >=300 mg/dL (NEG-TRACE); UROBILINOGEN,URINE 0.2 mg/dL (0.2 mg/dL)
[2020-09-06 16:37] LABS: BARBITURATES NEG (NEG); BENZODIAZEPINES NEG (NEG); CANNABINOIDS NEG (NEG); COCAINE NEG (NEG); METHADONE NEG (NEG); OPIATES NEG (NEG); PHENCYCLIDINE NEG (NEG)
[2020-09-06 16:43] LABS: AMPHETAMINE/METHAMPHETAMINE NEG (NEG)
[2020-09-06] MEDS ORDERED: CONTRAST GIVEN. MC PRN (16:45)
[2020-09-06] MEDS ORDERED: IOHEXOL 300 MG/ML 100ML VIAL. IV ONE (16:45)
--- NOTE | 2020-09-06 16:48 | RAD ---
EXAM: Chest, single view. HISTORY: Hemoptysis. COMPARISON: 04/06/2020 FINDINGS: A frontal view of the chest is obtained. There are small right and moderate left pleural ef fusions. There is left lower lobe infiltrate or atelectasis. The heart is prominent in size. There is no pneumothorax. IMPRESSION: 1. Small right and moderate left pleural effusions and left lower lobe atelectasis or infiltrate. 2. Prominent cardiac silhouette. Electronically signed by: Radha Sullivan MD (09/06/2020 4:45 PM) [facility]
[2020-09-06 16:49] LABS: GRANULAR CASTS,URINE OCCASIONAL /HPF; HYALINE CASTS, URINE MANY /HPF; WAXY CASTS,URINE FEW /HPF
[2020-09-06 16:51] LABS: BACTERIA,URINE 0 /HPF (0-FEW); RBC,URINE 20-40 /HPF (0-2); WBC,URINE >40 /HPF (0-4)
[2020-09-06 16:52] LABS: BASO # 0.1 x10^3/uL (0.0-0.2); BASO % 1 % (0-3); EOS # 0.3 x10^3/uL (0.0-0.7); EOS % 4 % (0-3); HEMATOCRIT 23.1 % (36.0-47.0); HEMOGLOBIN 7.8 g/dL (12.0-15.5); LYMPH # 1.6 x10^3/uL (1.0-4.8); LYMPH % 21 % (24-48); MEAN CORPUSCULAR HEMOGLOBIN 32 pg (25-35); MEAN CORPUSCULAR HGB CONC 34 g/dL (31-37); MEAN CORPUSCULAR VOLUME 96 fL (79-100); MONO # 0.5 x10^3/uL (0.0-1.1); MONO % 6 % (0-9); NEUT # 5.1 x10^3/uL (1.8-7.7); NEUT % 68 % (31-73); PLATELET COUNT 201 x10^3/uL (140-400); RED BLOOD COUNT 2.42 x10^6/uL (3.50-5.40); RED CELL DISTRIBUTION WIDTH 15.2 % (11.5-14.5); WHITE BLOOD COUNT 7.5 x10^3/uL (4.0-11.0)
[2020-09-06 17:02] LABS: CALCIUM 7.7 mg/dL (8.5-10.1); CREATININE 3.6 mg/dL (0.6-1.0); GFR 14.8; POTASSIUM 5.1 mmol/L (3.5-5.1)
[2020-09-06 17:03] LABS: PROTHROMBIN TIME PATIENT 11.9 SEC (11.7-14.0)
[2020-09-06 17:10] LABS: ALBUMIN/GLOBULIN RATIO 0.3 (1.0-1.7); TOTAL BILIRUBIN 0.2 mg/dL (0.2-1.0); TOTAL PROTEIN 4.4 g/dL (6.4-8.2)
--- NOTE | 2020-09-06 17:52 | RAD ---
EXAM: Abdomen and pelvis CT without intravenous contrast. HISTORY: Hemoptysis. Distention. TECHNIQUE: Computed tomographic images of the abdomen and pelvis were obtained without contrast. Mult iplanar reformatting was performed. *One or more of the following individualized dose reduction techniques were utilized for this examina tion: 1. Automated exposure control. 2. Adjustment of the mA and/or kV according to patient size. 3. Use of iterative reconstruction technique. COMPARISON: 04/04/2020. FINDINGS: Evaluation of the lower thorax demonstrates a large pericardial effusion. There are small b ilateral pleural effusions. There is left lower lobe infiltrate. There is right basilar atelectasis. No convincing hepatic lesion is seen on this noncontrast exam. The gallbladder is unremarkable. The p ancreas is prominent in size. No convincing pancreatic lesion is seen on this noncontrast exam. The s pleen is normal in size. The adrenal glands and stomach are unremarkable. There is a horseshoe. There is no evidence of nephrolithiasis or hydronephrosis. There is no appendicitis. There is no bowel obstruction. There is a large amount of abdominal ascites . This is associated stranding within the root of mesentery. The bladder, uterus and adnexal regions are unremarkable. There is diffuse body wall edema. There is degenerative change at the lumbosacral j unction. IMPRESSION: 1. Large abdominal ascites. This is significantly increased compared to the prior study. 2. Large pericardial effusion. There is significantly increased compared to the prior study. 3. Small bilateral pleural effusions and left lower lobe infiltrate. 4. Horseshoe kidney. 5. Body wall edema. Electronically signed by: Radha Sullivan MD (09/06/2020 5:45 PM) [facility]
[2020-09-06] MEDS ORDERED: FUROSEMIDE 40 MG/4 ML VIAL. IVP ONE (19:00)
[2020-09-06 21:00] VITALS: BP 131/104
[2020-09-06] MEDS ORDERED: SENNOSIDES 8.6 MG TABLET PO PRN (21:30)
[2020-09-06] MEDS ORDERED: DOCUSATE SODIUM 100 MG CAPSULE. PO PRN (21:30)
[2020-09-06] MEDS ORDERED: DEXTROSE 50% 25 GM / 50ML DISP.SYRIN. IV PRN (21:30)
--- NOTE | 2020-09-06 21:59 | PDOC1 ---
History and Physical Date of Service: DOS: DATE: 09/06/20 TIME: 21:18 Chief Complaint: Chief Complain: Abdominal distention History of Present Illness: HPI: Patient is a 30-year-old female with history of lupus that was diagnosed 1 year ago, hypertension, depression who presents today with increased abdominal bloating tightness and pain which also contributes to her shortness of breath. Also endorses some hemoptysis as well. Patient that she was constipated so she took some laxatives. Patient was also placed on Lasix 40 mg twice daily, however she does not feel this is helping her. This originally was to help her lower extremity edema which originally was doing okay but has gotten worse in the past few weeks. Patient is currently not taking any steroids. She states she is only taking Plaquenil. Denies fevers, rashes, hematuria, diarrhea, nausea vomiting, headaches or vision changes, chest pain. Past Medical/Surgical History: PMH/PSH: Past Medical History: History of lupus diagnosed December 2019 Past Surgical History: No Surgical History Allergies: Allergies: Coded Allergies: No Known Drug Allergies (Unverified , 04/03/20) Family History: Family History: Reviewed with no relevant findings Social History: Social History: Smoking Status: Never Smoker Alcohol Use: None Current Medications: Current Medications Current Medications Fentanyl Citrate (Fentanyl 2ml Vial) 50 mcg 1X ONCE IVP Last administered on 09/06/20at 16:59; Start 09/06/20 at 16:15; Stop 09/06/20 at 16:22; Status DC Ondansetron HCl (Zofran) 4 mg 1X ONCE IVP Last administered on 09/06/20at 16:59; Start 09/06/20 at 16:15; Stop 09/06/20 at 16:22; Status DC Iohexol (Omnipaque 300 Mg/ml) 75 ml 1X ONCE IV ; Start 09/06/20 at 16:45; Stop 09/06/20 at 16:46; Status DC Info (CONTRAST GIVEN -- Rx MONITORING) 1 each PRN DAILY PRN MC SEE COMMENTS; Start 09/06/20 at 16:45; Stop 09/08/20 at 16:44 Furosemide (Lasix) 60 mg 1X ONCE IVP Last administered on 09/06/20at 20:30; Start 09/06/20 at 19:00; Stop 09/06/20 at 19:01; Status DC Active Scripts Active Keflex (Cephalexin) 500 Mg Capsule 500 Mg PO QID 10 Days Lisinopril 5 Mg Tablet 2.5 Mg PO DAILY 30 Days Sertraline Hcl 25 Mg Tablet 50 Mg PO DAILY 30 Days Furosemide 40 Mg Tablet 40 Mg PO DAILY 30 Days Cellcept (Mycophenolate Mofetil) 250 Mg Capsule 500 Mg PO BID 30 Days Prednisone 20 Mg Tablet 40 Mg PO DAILY 30 Days ROS: Review of Systems Review of System REVIEW OF SYSTEMS: GENERAL: Denies weakness SKIN: No bruising, hair changes or rashes. EYES: No blurred, double or loss of vision. NOSE AND THROAT: No history of nosebleeds, hoarseness or sore throat. HEART: No history of palpitations, chest pain or shortness of breath on exertion. LUNGS: Denies cough, hemoptysis, wheezing or shortness of breath. GASTROINTESTINAL: Denies changes in appetite, nausea, vomiting, diarrhea or constipation. GENITOURINARY: No history of frequency, urgency, hesitancy or nocturia. NEUROLOGIC: Denies history of numbness, tingling, or tremor. PSYCHIATRIC: No history of panic, anxiety or depression. ENDOCRINE: No history of heat or cold intolerance, polyuria or polydipsia. EXTREMITIES: Denies joint pain, pain on walking or stiffness. Physical Exam: Vital Signs: Vital Signs Date Time Temp Pulse Resp B/P (MAP) Pulse Ox O2 Delivery O2 Flow Rate FiO2 09/06/20 18:41 99 15 146/107 (120) 96 Room Air 09/06/20 16:20 98.9 98.9 Physcial Exam: GEN: No apparent distress. Alert and oriented HEENT: Normal cephalic, atraumatic, external auditory canals are patent EYES: Extraocular muscles are intact, pupil are equally round and reactive to light and accommodation MUSCULOSKELETAL: Well developed , well nourished, good range of motion ENDOCRINE: No thyromegaly was palpated LYMPHATICS: No cervical chain or axillary nodes were noted HEMATOPOIETIC: No bruising NECK: Supple, no JVD, no thyromegaly was noted LUNGS: Clear to auscultation in all lung bruner without rhonchi or wheezing HEART: RRR, S!, S2 present. Peripheral pulses intact, no obvious murmurs noted ABDOMEN: Soft, nontender. Positive bowel sounds, no organomegaly, normal bowel sounds EXTREMITIES: Without clubbing, cyanosis, or edema. Pedal pulses intact. Negative Homans sign NEUROLOGIC: Normal speech and tone. A&O x 3, moves all extremities, no obvious focal deficits PSYCHIATRIC: Normal affect, normal mood. Stable SKIN: No ulcerations or rashes, good skin turgor, no jaundice VASCULAR: Good capillary refill, neurovascular bundle appears to be intact Labs: Labs: Laboratory Tests Test 09/06/20 16:10 09/06/20 16:17 09/06/20 16:40 Urine Collection Type Unknown Urine Color Yellow Urine Clarity Clear Urine pH 6.0 (<5.0-8.0) Urine Specific [place] 1.020 (1.000-1.030) Urine Protein >=300 mg/dL (NEG-TRACE) Urine Glucose (UA) Negative mg/dL (NEG) Urine Ketones (Stick) Negative mg/dL (NEG) Urine Blood Moderate (NEG) Urine Nitrite Negative (NEG) Urine Bilirubin Negative (NEG) Urine Urobilinogen Dipstick 0.2 mg/dL (0.2 mg/dL) Urine Leukocyte Esterase Small (NEG) Urine RBC 20-40 /HPF (0-2) Urine WBC >40 /HPF (0-4) Urine Bacteria 0 /HPF (0-FEW) Urine Hyaline Casts Many /HPF Urine Granular Casts Occasional /HPF Urine Waxy Casts Few /HPF Urine Mucus Slight /LPF Urine Opiates Screen Neg (NEG) Urine Methadone Screen Neg (NEG) Urine Barbiturates Neg (NEG) Urine Phencyclidine Screen Neg (NEG) Urine Amphetamine/Methamphetamine Neg (NEG) Urine Benzodiazepines Screen Neg (NEG) Urine Cocaine Screen Neg (NEG) Urine Cannabinoids Screen Neg (NEG) Urine Ethyl Alcohol Neg (NEG) Bedside Urine HCG, Qualitative Hcg negative (Negative) White Blood Count 7.5 x10^3/uL (4.0-11.0) Red Blood Count 2.42 x10^6/uL (3.50-5.40) Hemoglobin 7.8 g/dL (12.0-15.5) Hematocrit 23.1 % (36.0-47.0) Mean Corpuscular Volume 96 fL (79-100) Mean Corpuscular Hemoglobin 32 pg (25-35) Mean Corpuscular Hemoglobin Concent 34 g/dL (31-37) Red Cell Distribution Width 15.2 % (11.5-14.5) Platelet Count 201 x10^3/uL (140-400) Neutrophils (%) (Auto) 68 % (31-73) Lymphocytes (%) (Auto) 21 % (24-48) Monocytes (%) (Auto) 6 % (0-9) Eosinophils (%) (Auto) 4 % (0-3) Basophils (%) (Auto) 1 % (0-3) Neutrophils # (Auto) 5.1 x10^3/uL (1.8-7.7) Lymphocytes # (Auto) 1.6 x10^3/uL (1.0-4.8) Monocytes # (Auto) 0.5 x10^3/uL (0.0-1.1) Eosinophils # (Auto) 0.3 x10^3/uL (0.0-0.7) Basophils # (Auto) 0.1 x10^3/uL (0.0-0.2) Prothrombin Time 11.9 SEC (11.7-14.0) Prothromb Time International Ratio 0.9 (0.8-1.1) Sodium Level 143 mmol/L (136-145) Potassium Level 5.1 mmol/L (3.5-5.1) Chloride Level 113 mmol/L (98-107) Carbon Dioxide Level 17 mmol/L (21-32) Anion Gap 13 (6-14) Blood Urea Nitrogen 83 mg/dL (7-20) Creatinine 3.6 mg/dL (0.6-1.0) Estimated GFR (Cockcroft-Gault) 14.8 BUN/Creatinine Ratio 23 (6-20) Glucose Level 88 mg/dL (70-99) Calcium Level 7.7 mg/dL (8.5-10.1) Total Bilirubin 0.2 mg/dL (0.2-1.0) Aspartate Amino Transf (AST/SGOT) 37 U/L (15-37) Alanine Aminotransferase (ALT/SGPT) 34 U/L (14-59) Alkaline Phosphatase 136 U/L (46-116) Troponin I Quantitative < 0.017 ng/mL (0.000-0.055) Total Protein 4.4 g/dL (6.4-8.2) Albumin 1.0 g/dL (3.4-5.0) Albumin/Globulin Ratio 0.3 (1.0-1.7) Lipase 485 U/L (73-393) Laboratory Tests Test 09/06/20 16:10 09/06/20 16:17 09/06/20 16:40 Urine Collection Type Unknown Urine Color Yellow Urine Clarity Clear Urine pH 6.0 (<5.0-8.0) Urine Specific [place] 1.020 (1.000-1.030) Urine Protein >=300 mg/dL (NEG-TRACE) Urine Glucose (UA) Negative mg/dL (NEG) Urine Ketones (Stick) Negative mg/dL (NEG) Urine Blood Moderate (NEG) Urine Nitrite Negative (NEG) Urine Bilirubin Negative (NEG) Urine Urobilinogen Dipstick 0.2 mg/dL (0.2 mg/dL) Urine Leukocyte Esterase Small (NEG) Urine RBC 20-40 /HPF (0-2) Urine WBC >40 /HPF (0-4) Urine Bacteria 0 /HPF (0-FEW) Urine Hyaline Casts Many /HPF Urine Granular Casts Occasional /HPF Urine Waxy Casts Few /HPF Urine Mucus Slight /LPF Urine Opiates Screen Neg (NEG) Urine Methadone Screen Neg (NEG) Urine Barbiturates Neg (NEG) Urine Phencyclidine Screen Neg (NEG) Urine Amphetamine/Methamphetamine Neg (NEG) Urine Benzodiazepines Screen Neg (NEG) Urine Cocaine Screen Neg (NEG) Urine Cannabinoids Screen Neg (NEG) Urine Ethyl Alcohol Neg (NEG) Bedside Urine HCG, Qualitative Hcg negative (Negative) White Blood Count 7.5 x10^3/uL (4.0-11.0) Red Blood Count 2.42 x10^6/uL (3.50-5.40) Hemoglobin 7.8 g/dL (12.0-15.5) Hematocrit 23.1 % (36.0-47.0) Mean Corpuscular Volume 96 fL (79-100) Mean Corpuscular Hemoglobin 32 pg (25-35) Mean Corpuscular Hemoglobin Concent 34 g/dL (31-37) Red Cell Distribution Width 15.2 % (11.5-14.5) Platelet Count 201 x10^3/uL (140-400) Neutrophils (%) (Auto) 68 % (31-73) Lymphocytes (%) (Auto) 21 % (24-48) Monocytes (%) (Auto) 6 % (0-9) Eosinophils (%) (Auto) 4 % (0-3) Basophils (%) (Auto) 1 % (0-3) Neutrophils # (Auto) 5.1 x10^3/uL (1.8-7.7) Lymphocytes # (Auto) 1.6 x10^3/uL (1.0-4.8) Monocytes # (Auto) 0.5 x10^3/uL (0.0-1.1) Eosinophils # (Auto) 0.3 x10^3/uL (0.0-0.7) Basophils # (Auto) 0.1 x10^3/uL (0.0-0.2) Prothrombin Time 11.9 SEC (11.7-14.0) Prothromb Time International Ratio 0.9 (0.8-1.1) Sodium Level 143 mmol/L (136-145) Potassium Level 5.1 mmol/L (3.5-5.1) Chloride Level 113 mmol/L (98-107) Carbon Dioxide Level 17 mmol/L (21-32) Anion Gap 13 (6-14) Blood Urea Nitrogen 83 mg/dL (7-20) Creatinine 3.6 mg/dL (0.6-1.0) Estimated GFR (Cockcroft-Gault) 14.8 BUN/Creatinine Ratio 23 (6-20) Glucose Level 88 mg/dL (70-99) Calcium Level 7.7 mg/dL (8.5-10.1) Total Bilirubin 0.2 mg/dL (0.2-1.0) Aspartate Amino Transf (AST/SGOT) 37 U/L (15-37) Alanine Aminotransferase (ALT/SGPT) 34 U/L (14-59) Alkaline Phosphatase 136 U/L (46-116) Troponin I Quantitative < 0.017 ng/mL (0.000-0.055) Total Protein 4.4 g/dL (6.4-8.2) Albumin 1.0 g/dL (3.4-5.0) Albumin/Globulin Ratio 0.3 (1.0-1.7) Lipase 485 U/L (73-393) Images: Images CT ABD/PELVIS IMPRESSION: 1. Large abdominal ascites. This is significantly increased compared to the prior study. 2. Large pericardial effusion. There is significantly increased compared to the prior study. 3. Small bilateral pleural effusions and left lower lobe infiltrate. 4. Horseshoe kidney. 5. Body wall edema. Assessment/Plan Assessment/Plan Acute abdominal distention Large pericardial effusion likely chronic Large volume abdominal ascites Anasarca Bilateral pleural effusions Acute on chronic kidney injury concerning for lupus nephritis Severe protein malnutrition Normocytic anemia due to chronic disease Admit to medicine for further management, concerning for lupus flare We will start high-dose IV steroids for 3 days then transition to p.o. prednisone Continue Plaquenil Nephrology consult for concern for lupus nephritis Cardiology consult for pericardial effusion Pending TTE Interventional radiology for possible pericardiocentesis and paracentesis Pending CRP, protein/creatinine urine ratio, antidsDNA, C3 and C4 levels Heparin for DVT prophylaxis Protonix GI prophylaxis Clear liquid diet Full code Discussed with RN and SW Disposition pending cardiology, nephrology, interventional radiology evaluation Surrogate decision maker is Yehuda Gomez Justifications for Admission Other Justification JOVANI DRUMMOND MD Sep 06, 2020 21:59
[2020-09-06 23:00] VITALS: BP 125/96
[2020-09-06] MEDS: methylPREDNISolone SOD SUCC PF 125 MG/2 ML VIAL. IV SCH (23:37)
[2020-09-07] VITALS (14 sets, daily range): BP systolic 109–152; BP diastolic 85–102
[2020-09-07] MEDS: methylPREDNISolone SOD SUCC PF 125 MG/2 ML VIAL. IV SCH ×4 (05:50→23:07)
[2020-09-07 06:35] LABS: CALCIUM 7.9 mg/dL (8.5-10.1); CREATININE 3.7 mg/dL (0.6-1.0); GFR 14.4; MAGNESIUM 2.4 mg/dL (1.8-2.4); PHOSPHORUS 8.3 mg/dL (2.6-4.7); POTASSIUM 5.5 mmol/L (3.5-5.1)
[2020-09-07 06:58] LABS: BASO % 0 % (0-3); EOS % 0 % (0-3); HEMATOCRIT 24.1 % (36.0-47.0); HEMOGLOBIN 7.9 g/dL (12.0-15.5); LYMPH # 0.7 x10^3/uL (1.0-4.8); LYMPH % 9 % (24-48); MEAN CORPUSCULAR HEMOGLOBIN 32 pg (25-35); MEAN CORPUSCULAR HGB CONC 33 g/dL (31-37); MEAN CORPUSCULAR VOLUME 97 fL (79-100); MONO # 0.1 x10^3/uL (0.0-1.1); MONO % 2 % (0-9); NEUT # 7.9 x10^3/uL (1.8-7.7); NEUT % 90 % (31-73); PLATELET COUNT 204 x10^3/uL (140-400); RED CELL DISTRIBUTION WIDTH 15.4 % (11.5-14.5); WHITE BLOOD COUNT 8.8 x10^3/uL (4.0-11.0)
--- NOTE | 2020-09-07 07:29 | PDOC ---
[employer] PROGRESS NOTE Date of Service DOS: DATE: 09/07/20 TIME: 07:18 Chief Complaint Chief Complaint Assessment/Plan Acute abdominal distention Large pericardial effusion likely chronic Large volume abdominal ascites Anasarca Bilateral pleural effusions Acute on chronic kidney injury concerning for lupus nephritis Severe protein malnutrition Normocytic anemia due to chronic disease Admit to medicine for further management, concerning for lupus flare We will start high-dose IV steroids for 3 days then transition to p.o. prednisone Continue Plaquenil Nephrology consult for concern for lupus nephritis Cardiology consult for pericardial effusion Pending TTE Interventional radiology for possible pericardiocentesis and paracentesis Pending CRP, protein/creatinine urine ratio, antidsDNA, C3 and C4 levels Heparin for DVT prophylaxis Protonix GI prophylaxis Clear liquid diet Full code Discussed with RN and SW Disposition pending cardiology, nephrology, interventional radiology evaluation Surrogate decision maker is Yehuda Gomez History of Present Illness History of Present Illness Patient is a 30-year-old female with history of lupus that was diagnosed 1 year ago, hypertension, depression who presents today with increased abdominal bloating tightness and pain which also contributes to her shortness of breath. Also endorses some hemoptysis as well. Patient that she was constipated so she took some laxatives. Patient was also placed on Lasix 40 mg twice daily, however she does not feel this is helping her. This originally was to help her lower extremity edema which originally was doing okay but has gotten worse in the past few weeks. Patient is currently not taking any steroids. She states she is only taking Plaquenil. Denies fevers, rashes, hematuria, diarrhea, nausea vomiting, headaches or vision changes, chest pain. 09/07: Patient seen and evaluated. Slightly tachycardic, afebrile. Patient's breathing on room air, still with some complaints of shortness of breath. Echocardiogram pending. Plan for paracentesis today and possible pericardiocentesis following. Chart and labs reviewed. Vitals/I&O Vitals/I&O: Vital Signs Date Time Temp Pulse Resp B/P (MAP) Pulse Ox O2 Delivery O2 Flow Rate FiO2 09/07/20 03:08 98.1 109 18 152/102 (119) 99 Room Air 98.1 Physical Exam General: Alert, No acute distress Heart: Other (Tachycardic) Lungs: Crackles Abdomen: Soft, No tenderness Extremities: No clubbing, No cyanosis, Other (3+ pitting edema bilateral) Skin: No rashes, No breakdown Labs Labs: Laboratory Tests Test 09/06/20 16:10 09/06/20 16:17 09/06/20 16:40 09/07/20 05:09 Urine Collection Type Unknown Urine Color Yellow Urine Clarity Clear Urine pH 6.0 (<5.0-8.0) Urine Specific [place] 1.020 (1.000-1.030) Urine Protein >=300 mg/dL (NEG-TRACE) Urine Glucose (UA) Negative mg/dL (NEG) Urine Ketones (Stick) Negative mg/dL (NEG) Urine Blood Moderate (NEG) Urine Nitrite Negative (NEG) Urine Bilirubin Negative (NEG) Urine Urobilinogen Dipstick 0.2 mg/dL (0.2 mg/dL) Urine Leukocyte Esterase Small (NEG) Urine RBC 20-40 /HPF (0-2) Urine WBC >40 /HPF (0-4) Urine Bacteria 0 /HPF (0-FEW) Urine Hyaline Casts Many /HPF Urine Granular Casts Occasional /HPF Urine Waxy Casts Few /HPF Urine Mucus Slight /LPF Urine Opiates Screen Neg (NEG) Urine Methadone Screen Neg (NEG) Urine Barbiturates Neg (NEG) Urine Phencyclidine Screen Neg (NEG) Urine Amphetamine/Methamphetamine Neg (NEG) Urine Benzodiazepines Screen Neg (NEG) Urine Cocaine Screen Neg (NEG) Urine Cannabinoids Screen Neg (NEG) Urine Ethyl Alcohol Neg (NEG) Bedside Urine HCG, Qualitative Hcg negative (Negative) White Blood Count 7.5 x10^3/uL (4.0-11.0) 8.8 x10^3/uL (4.0-11.0) Red Blood Count 2.42 x10^6/uL (3.50-5.40) 2.50 x10^6/uL (3.50-5.40) Hemoglobin 7.8 g/dL (12.0-15.5) 7.9 g/dL (12.0-15.5) Hematocrit 23.1 % (36.0-47.0) 24.1 % (36.0-47.0) Mean Corpuscular Volume 96 fL (79-100) 97 fL (79-100) Mean Corpuscular Hemoglobin 32 pg (25-35) 32 pg (25-35) Mean Corpuscular Hemoglobin Concent 34 g/dL (31-37) 33 g/dL (31-37) Red Cell Distribution Width 15.2 % (11.5-14.5) 15.4 % (11.5-14.5) Platelet Count 201 x10^3/uL (140-400) 204 x10^3/uL (140-400) Neutrophils (%) (Auto) 68 % (31-73) 90 % (31-73) Lymphocytes (%) (Auto) 21 % (24-48) 9 % (24-48) Monocytes (%) (Auto) 6 % (0-9) 2 % (0-9) Eosinophils (%) (Auto) 4 % (0-3) 0 % (0-3) Basophils (%) (Auto) 1 % (0-3) 0 % (0-3) Neutrophils # (Auto) 5.1 x10^3/uL (1.8-7.7) 7.9 x10^3/uL (1.8-7.7) Lymphocytes # (Auto) 1.6 x10^3/uL (1.0-4.8) 0.7 x10^3/uL (1.0-4.8) Monocytes # (Auto) 0.5 x10^3/uL (0.0-1.1) 0.1 x10^3/uL (0.0-1.1) Eosinophils # (Auto) 0.3 x10^3/uL (0.0-0.7) 0.0 x10^3/uL (0.0-0.7) Basophils # (Auto) 0.1 x10^3/uL (0.0-0.2) 0.0 x10^3/uL (0.0-0.2) Prothrombin Time 11.9 SEC (11.7-14.0) Prothromb Time International Ratio 0.9 (0.8-1.1) Sodium Level 143 mmol/L (136-145) 140 mmol/L (136-145) Potassium Level 5.1 mmol/L (3.5-5.1) 5.5 mmol/L (3.5-5.1) Chloride Level 113 mmol/L (98-107) 111 mmol/L (98-107) Carbon Dioxide Level 17 mmol/L (21-32) 17 mmol/L (21-32) Anion Gap 13 (6-14) 12 (6-14) Blood Urea Nitrogen 83 mg/dL (7-20) 85 mg/dL (7-20) Creatinine 3.6 mg/dL (0.6-1.0) 3.7 mg/dL (0.6-1.0) Estimated GFR (Cockcroft-Gault) 14.8 14.4 BUN/Creatinine Ratio 23 (6-20) Glucose Level 88 mg/dL (70-99) 122 mg/dL (70-99) Calcium Level 7.7 mg/dL (8.5-10.1) 7.9 mg/dL (8.5-10.1) Total Bilirubin 0.2 mg/dL (0.2-1.0) Aspartate Amino Transf (AST/SGOT) 37 U/L (15-37) Alanine Aminotransferase (ALT/SGPT) 34 U/L (14-59) Alkaline Phosphatase 136 U/L (46-116) Troponin I Quantitative < 0.017 ng/mL (0.000-0.055) C-Reactive Protein, Quantitative 20.9 mg/L (0-3.3) Total Protein 4.4 g/dL (6.4-8.2) Albumin 1.0 g/dL (3.4-5.0) Albumin/Globulin Ratio 0.3 (1.0-1.7) Lipase 485 U/L (73-393) Phosphorus Level 8.3 mg/dL (2.6-4.7) Magnesium Level 2.4 mg/dL (1.8-2.4) Assessment and Plan Assessmemt and Plan Problems Medical Problems: (1) Acute renal failure Status: Acute (2) Ascites Status: Acute (3) Pericardial effusion Status: Acute (4) Pleural effusion Status: Acute Comment Review of Relevant I have reviewed the following items jennifer (where applicable) has been applied. Medications: Current Medications Medications (Trade) Dose Ordered Sig/Kwesi Route PRN Reason Start Time Stop Time Status Last Admin Dose Admin Fentanyl Citrate (Fentanyl 2ml Vial) 50 mcg 1X ONCE IVP 09/06/20 16:15 09/06/20 16:22 DC 09/06/20 16:59 Ondansetron HCl (Zofran) 4 mg 1X ONCE IVP 09/06/20 16:15 09/06/20 16:22 DC 09/06/20 16:59 Furosemide (Lasix) 60 mg 1X ONCE IVP 09/06/20 19:00 09/06/20 19:01 DC 09/06/20 20:30 Methylprednisolone Sodium Succinate (SOLU-Medrol 125MG VIAL) 100 mg Q6HRS IV 09/07/20 00:00 09/07/20 05:50 Justifications for Admission Abdominal Pain Indications Is NPO status required?: Yes Justification for admission: Patient may require to be NPO for greater 24hours making it medically necessary to manage patient as inpatient. Other Justification KYRA MALDONADO MD Sep 07, 2020 07:29
[2020-09-07] MEDS ORDERED: HYDR200T71 PO (07:35)
[2020-09-07] MEDS ORDERED: MYCO250C PO (07:35)
[2020-09-07] MEDS: FAMOTIDINE 20 MG TABLET. PO SCH (08:29)
--- NOTE | 2020-09-07 08:56 | PDOC2 ---
JERRY OVIEDO ATHLETIC COACH 09/07/20 0856: CARDIAC CONSULT DATE OF CONSULT Date of Consult DATE: 09/07/20 TIME: 08:44 REASON FOR CONSULT Reason for Consult: pericardial effusion REFERRING PHYSICIAN Referring Physician: Dr. Martinez SOURCE Source: Chart review, Patient HISTORY OF PRESENT ILLNESS HISTORY OF PRESENT ILLNESS This is a 30 yo female, with a history of Lupus and renal disease, who presented secondary to abdominal bloating and shortness of breath. Also reports she has been spitting up blood clots for while. CT abdomen/pelvis noted with large amount of abdominal ascites, small bilateral pleural effusion, and large pericardial effusion, which prompted this consult. She is mildly tachycardiac, but hemodynamically stable. She denies any chest pain, dizziness, diaphoresis, or nausea/vomiting. PAST MEDICAL HISTORY Past Medical History SLE Cardiovascular: HTN Heme/Onc: Anemia NOS Psych: Depression Renal/: Chronic renal insuff PAST SURGICAL HISTORY Past Surgical History: No pertinent history FAMILY HISTORY Family History: Other (noncontributory to CV) SOCIAL HISTORY Smoke: No ALCOHOL: none Drugs: None Lives: with Family CURRENT MEDICATIONS CURRENT MEDICATIONS Current Medications Medications (Trade) Dose Ordered Sig/Kwesi Route PRN Reason Start Time Stop Time Status Last Admin Dose Admin Fentanyl Citrate (Fentanyl 2ml Vial) 50 mcg 1X ONCE IVP 09/06/20 16:15 09/06/20 16:22 DC 09/06/20 16:59 Ondansetron HCl (Zofran) 4 mg 1X ONCE IVP 09/06/20 16:15 09/06/20 16:22 DC 09/06/20 16:59 Furosemide (Lasix) 60 mg 1X ONCE IVP 09/06/20 19:00 09/06/20 19:01 DC 09/06/20 20:30 Methylprednisolone Sodium Succinate (SOLU-Medrol 125MG VIAL) 100 mg Q6HRS IV 09/07/20 00:00 09/07/20 05:50 Famotidine (Pepcid) 20 mg DAILY PO 09/07/20 09:00 09/07/20 08:29 ALLERGIES ALLERGIES: Coded Allergies: No Known Drug Allergies (Unverified , 04/03/20) ROS Review of System 14 point ROS conducted with pertinent positives noted above in HPI PHYSICAL EXAM General: Alert, Oriented X3, Cooperative, No acute distress HEENT: Atraumatic, Mucous membr. moist/pink Lungs: Other (diminished ) Heart: Regular rate (SR/ST), Other (+ JVD) Abdomen: Soft, Other (ascites) Extremities: Other (trace LE edea ) Skin: No significant lesion Neuro: Sensation intact Psych/Mental Status: Mental status NL, Mood NL MUSCULOSKELETAL: No deformity VITALS/I&O VITALS/I&O: Vital Signs Date Time Temp Pulse Resp B/P (MAP) Pulse Ox O2 Delivery O2 Flow Rate FiO2 09/07/20 03:08 98.1 109 18 152/102 (119) 99 Room Air 98.1 LABS Lab: Laboratory Tests Test 09/06/20 16:10 09/06/20 16:17 09/06/20 16:40 09/07/20 05:09 Urine Collection Type Unknown Urine Color Yellow Urine Clarity Clear Urine pH 6.0 (<5.0-8.0) Urine Specific [place] 1.020 (1.000-1.030) Urine Protein >=300 mg/dL (NEG-TRACE) Urine Glucose (UA) Negative mg/dL (NEG) Urine Ketones (Stick) Negative mg/dL (NEG) Urine Blood Moderate (NEG) Urine Nitrite Negative (NEG) Urine Bilirubin Negative (NEG) Urine Urobilinogen Dipstick 0.2 mg/dL (0.2 mg/dL) Urine Leukocyte Esterase Small (NEG) Urine RBC 20-40 /HPF (0-2) Urine WBC >40 /HPF (0-4) Urine Bacteria 0 /HPF (0-FEW) Urine Hyaline Casts Many /HPF Urine Granular Casts Occasional /HPF Urine Waxy Casts Few /HPF Urine Mucus Slight /LPF Urine Opiates Screen Neg (NEG) Urine Methadone Screen Neg (NEG) Urine Barbiturates Neg (NEG) Urine Phencyclidine Screen Neg (NEG) Urine Amphetamine/Methamphetamine Neg (NEG) Urine Benzodiazepines Screen Neg (NEG) Urine Cocaine Screen Neg (NEG) Urine Cannabinoids Screen Neg (NEG) Urine Ethyl Alcohol Neg (NEG) POC Urine HCG, Qualitative Hcg negative (Negative) White Blood Count 7.5 x10^3/uL (4.0-11.0) 8.8 x10^3/uL (4.0-11.0) Red Blood Count 2.42 x10^6/uL (3.50-5.40) L 2.50 x10^6/uL (3.50-5.40) L Hemoglobin 7.8 g/dL (12.0-15.5) L 7.9 g/dL (12.0-15.5) L Hematocrit 23.1 % (36.0-47.0) L 24.1 % (36.0-47.0) L Mean Corpuscular Volume 96 fL (79-100) 97 fL (79-100) Mean Corpuscular Hemoglobin 32 pg (25-35) 32 pg (25-35) Mean Corpuscular Hemoglobin Concent 34 g/dL (31-37) 33 g/dL (31-37) Red Cell Distribution Width 15.2 % (11.5-14.5) H 15.4 % (11.5-14.5) H Platelet Count 201 x10^3/uL (140-400) 204 x10^3/uL (140-400) Neutrophils (%) (Auto) 68 % (31-73) 90 % (31-73) H Lymphocytes (%) (Auto) 21 % (24-48) L 9 % (24-48) L Monocytes (%) (Auto) 6 % (0-9) 2 % (0-9) Eosinophils (%) (Auto) 4 % (0-3) H 0 % (0-3) Basophils (%) (Auto) 1 % (0-3) 0 % (0-3) Neutrophils # (Auto) 5.1 x10^3/uL (1.8-7.7) 7.9 x10^3/uL (1.8-7.7) H Lymphocytes # (Auto) 1.6 x10^3/uL (1.0-4.8) 0.7 x10^3/uL (1.0-4.8) L Monocytes # (Auto) 0.5 x10^3/uL (0.0-1.1) 0.1 x10^3/uL (0.0-1.1) Eosinophils # (Auto) 0.3 x10^3/uL (0.0-0.7) 0.0 x10^3/uL (0.0-0.7) Basophils # (Auto) 0.1 x10^3/uL (0.0-0.2) 0.0 x10^3/uL (0.0-0.2) Prothrombin Time 11.9 SEC (11.7-14.0) Prothrombin Time INR 0.9 (0.8-1.1) Sodium Level 143 mmol/L (136-145) 140 mmol/L (136-145) Potassium Level 5.1 mmol/L (3.5-5.1) 5.5 mmol/L (3.5-5.1) H Chloride Level 113 mmol/L (98-107) H 111 mmol/L (98-107) H Carbon Dioxide Level 17 mmol/L (21-32) L 17 mmol/L (21-32) L Anion Gap 13 (6-14) 12 (6-14) Blood Urea Nitrogen 83 mg/dL (7-20) H 85 mg/dL (7-20) H Creatinine 3.6 mg/dL (0.6-1.0) H 3.7 mg/dL (0.6-1.0) H Estimated GFR (Cockcroft-Gault) 14.8 14.4 BUN/Creatinine Ratio 23 (6-20) H Glucose Level 88 mg/dL (70-99) 122 mg/dL (70-99) H Calcium Level 7.7 mg/dL (8.5-10.1) L 7.9 mg/dL (8.5-10.1) L Total Bilirubin 0.2 mg/dL (0.2-1.0) Aspartate Amino Transferase (AST) 37 U/L (15-37) Alanine Aminotransferase (ALT) 34 U/L (14-59) Alkaline Phosphatase 136 U/L (46-116) H Troponin I Quantitative < 0.017 ng/mL (0.000-0.055) C-Reactive Protein, Quantitative 20.9 mg/L (0-3.3) H Total Protein 4.4 g/dL (6.4-8.2) L Albumin 1.0 g/dL (3.4-5.0) L Albumin/Globulin Ratio 0.3 (1.0-1.7) L Lipase 485 U/L (73-393) H Platelet Estimate Pending Phosphorus Level 8.3 mg/dL (2.6-4.7) H Magnesium Level 2.4 mg/dL (1.8-2.4) Laboratory Tests 09/06/20 16:40 09/07/20 05:09 Laboratory Tests 09/06/20 16:40 09/07/20 05:09 ASSESSMENT/PLAN ASSESSMENT/PLAN 1. Dyspnea, abdominal distention with large volume ascites and pleural effusion. paracentesis planned 2. Pericardial effusion; large per CT abdomen/pelvis. + pulsus paradoxus. Prel iminary echo with evidence of tamponade. 3. SLE; on Cellcept and Plaquenil 4. [place] on CKD, nephritis 5. Hyperkalemia 6. Anemia of chronic disease 7. Protein calorie malnutrition, anasarca Recommendations Stat echocardiogram complete. Keep NPO Will need pericardiocentesis. Risks and benefits were discussed and she is agreeable to proceed Transfer to ICU for monitoring post Hold Lasix, avoid nephrotoxins Follow renal recs Supportive care JUANJO DE SANTIAGO MD 09/07/20 1417: CARDIAC CONSULT ASSESSMENT/PLAN ASSESSMENT/PLAN Patient seen and examined. Agree with STOPPERER ASSEMBLER's assessment and plan. Edema, pericardial effusion, pleural effusion and ascites consistent with third spacing secondary to hypoalbuminemia. Stat echocardiogram showed large pericardial effusion with tamponade physiology. We will proceed with emergent pericardiocentesis. Risks and benefits were explained and she is agreeable. Nephrology consulted for acute on chronic renal insufficiency. Continue current treatment for SLE. Thanks for your consultation JERRY OVIEDO APRN Sep 07, 2020 08:56 JUANJO DE SANTIAGO MD Sep 07, 2020 14:17
[2020-09-07] MEDS ORDERED: HEPARIN for SUB-Q USE 5,000 UNIT/ML VIAL. SQ SCH (09:00)
--- NOTE | 2020-09-07 09:40 | PDOC2 ---
CONSULT Date of Consult Date of Consult DATE: 09/07/20 TIME: 09:32 Reason for Consult Reason for Consult: ALI/Dx of SLE and Lupus Nephritis Source Source: Chart review, Patient History of Present Illness Reason for Visit: Patient is a 30-year-old female with history of HTN, SLE , underwent renal Bx in December 2019 who presented with increased abdominal bloating tightness and pain with shortness of breath. She also reports some hemoptysis as well. She reports she was constipated so took some laxatives. She was also placed on Lasix 40 mg twice daily as OP to help her lower extremity edema , however she did not feel this is helping her. Denies rashes. No blurred, double or loss of vision. Renal Bx in December 2019 - findings cw Stage 4 Nephritis and IGG IGA IGM C1Q and complement deposits on IF . Serologies were CW Active Lupus in February 2020 , she was started on Cellcept and Steroids . She did not tolerate high doses of steroids She was admitted in Mar 2020 with LATONIA - Cr 3.7 Patient is currently not taking any steroids at home, only on Plaquenil. Per RN she is say self pay , not sure if she has been following with Rheumatology . She was seen in our office in January [address] Bowens with recommendations to follow in 3 months - she did not keep the appt . She states she has not followed up with Rheum as well Past Medical History Cardiovascular: HTN GI: Constipation, Other Heme/Onc: Anemia NOS Psych: Depression Rheumatologic: Other Renal/: Chronic renal insuff Past Surgical History Past Surgical History: No pertinent history Family History Family History: Other (noncontributory to CV) Social History No ALCOHOL: none Drugs: None Lives: with Family Current Problem List Problem List Problems Medical Problems: (1) Acute renal failure Status: Acute (2) Ascites Status: Acute (3) Pericardial effusion Status: Acute (4) Pleural effusion Status: Acute Current Medications Current Medications Current Medications Fentanyl Citrate (Fentanyl 2ml Vial) 50 mcg 1X ONCE IVP Last administered on 09/06/20at 16:59; Start 09/06/20 at 16:15; Stop 09/06/20 at 16:22; Status DC Ondansetron HCl (Zofran) 4 mg 1X ONCE IVP Last administered on 09/06/20at 16:59; Start 09/06/20 at 16:15; Stop 09/06/20 at 16:22; Status DC Iohexol (Omnipaque 300 Mg/ml) 75 ml 1X ONCE IV ; Start 09/06/20 at 16:45; Stop 09/06/20 at 16:46; Status DC Info (CONTRAST GIVEN -- Rx MONITORING) 1 each PRN DAILY PRN MC SEE COMMENTS; Start 09/06/20 at 16:45; Stop 09/08/20 at 16:44 Furosemide (Lasix) 60 mg 1X ONCE IVP Last administered on 09/06/20at 20:30; Start 09/06/20 at 19:00; Stop 09/06/20 at 19:01; Status DC Sennosides (Senna) 17.2 mg PRN BID PRN PO CONSTIPATION 1ST CHOICE; Start 09/06/20 at 21:30 Docusate Sodium (Colace) 100 mg PRN DAILY PRN PO HARD STOOLS; Start 09/06/20 at 21:30 Ondansetron HCl (Zofran) 4 mg PRN Q6HRS PRN IVP NAUSEA/VOMITING 1ST CHOICE; Start 09/06/20 at 21:30 Methylprednisolone Sodium Succinate (SOLU-Medrol 125MG VIAL) 100 mg Q6HRS IV Last administered on 09/07/20at 05:50; Start 09/07/20 at 00:00 Dextrose (Dextrose 50%-Water Syringe) 12.5 gm PRN Q15MIN PRN IV SEE COMMENTS; Start 09/06/20 at 21:30 Acetaminophen (Tylenol) 650 mg PRN Q4HRS PRN PO TEMP OVER 100.4F OR MILD PAIN; Start 09/06/20 at 21:30 Heparin Sodium (Porcine) (Heparin Sodium) 5,000 unit Q12HR SQ ; Start 09/07/20 at 09:00 Famotidine (Pepcid) 20 mg DAILY PO Last administered on 09/07/20at 08:29; Start 09/07/20 at 09:00 Morphine Sulfate (Morphine Sulfate) 1 mg PRN Q1HR PRN IV MODERATE PAIN 4-6; Start 09/06/20 at 21:30 Morphine Sulfate (Morphine Sulfate) 2 mg PRN Q2HR PRN IV SEVERE PAIN 7-10; Start 09/06/20 at 04:00; Stop 09/07/20 at 03:59; Status DC Active Scripts Active Furosemide 40 Mg Tablet 40 Mg PO DAILY 30 Days Reported Cellcept (Mycophenolate Mofetil) 250 Mg Capsule 2 Cap PO BID Plaquenil (Hydroxychloroquine Sulfate) 200 Mg Tablet 200 Mg PO DAILY Allergies Allergies: Coded Allergies: No Known Drug Allergies (Unverified , 04/03/20) ROS Review of System As per HPI, rest of the ROS is negative Physical Exam Physical Exam GEN: Mild distress HEENT: OM moist NECK: Supple LUNGS: HEART: ABDOMEN: Soft, Positive bowel sounds, EXTREMITIES:No clubbing, cyanosis, or edema. NEUROLOGIC: Grossly normal PSYCHIATRIC: Normal affect, SKIN: No ulcerations or rashes, No Florez, No CVA or SP tenderness Vital Signs Vital Signs Date Time Temp Pulse Resp B/P (MAP) Pulse Ox O2 Delivery O2 Flow Rate FiO2 09/07/20 07:00 98.2 116 18 151/92 (111) 99 Room Air 98.2 Assessment & Plan LATONIA- ATN vs ?Acute flare Hold Lasix , On Mycophenolate 500 BID per Home med list , Increase to 1000 mg BID , close monitoring of CBC continue Loading dose of IV steroids Strict I/O, Place florez , avoid nephrotoxins HyperKalemia- monitor Hx of LATONIA Was hospitalized with LATONIA in Mar 2020 with Cr peaked at 3.7 , down to 1.4 at dc Stage IV Lupus Nephritis - Bx Proven in december [address] Bowens , last seen in January 2020 with Cr 0.6 with fu recommnedations in 3 months. Pt was hospitalized , jerri not keep fu appt Post dc Acute abdominal distention- Large volume abdominal ascites- scheduled for Paracentesis Large pericardial effusion- getting Pericardiocentesis SLE-She was seen by Dr. Sal Salas in the past Nephrotic Syndrome 10 gms in the past, leading to Renal bx Anasarca Bilateral pleural effusions Severe protein malnutrition Normocytic anemia due to chronic disease Labs Labs Laboratory Tests Test 09/06/20 16:10 09/06/20 16:17 09/06/20 16:40 09/07/20 05:09 Urine Collection Type Unknown Urine Color Yellow Urine Clarity Clear Urine pH 6.0 (<5.0-8.0) Urine Specific [place] 1.020 (1.000-1.030) Urine Protein >=300 mg/dL (NEG-TRACE) Urine Glucose (UA) Negative mg/dL (NEG) Urine Ketones (Stick) Negative mg/dL (NEG) Urine Blood Moderate (NEG) Urine Nitrite Negative (NEG) Urine Bilirubin Negative (NEG) Urine Urobilinogen Dipstick 0.2 mg/dL (0.2 mg/dL) Urine Leukocyte Esterase Small (NEG) Urine RBC 20-40 /HPF (0-2) Urine WBC >40 /HPF (0-4) Urine Bacteria 0 /HPF (0-FEW) Urine Hyaline Casts Many /HPF Urine Granular Casts Occasional /HPF Urine Waxy Casts Few /HPF Urine Mucus Slight /LPF Urine Opiates Screen Neg (NEG) Urine Methadone Screen Neg (NEG) Urine Barbiturates Neg (NEG) Urine Phencyclidine Screen Neg (NEG) Urine Amphetamine/Methamphetamine Neg (NEG) Urine Benzodiazepines Screen Neg (NEG) Urine Cocaine Screen Neg (NEG) Urine Cannabinoids Screen Neg (NEG) Urine Ethyl Alcohol Neg (NEG) Bedside Urine HCG, Qualitative Hcg negative (Negative) White Blood Count 7.5 x10^3/uL (4.0-11.0) 8.8 x10^3/uL (4.0-11.0) Red Blood Count 2.42 x10^6/uL (3.50-5.40) 2.50 x10^6/uL (3.50-5.40) Hemoglobin 7.8 g/dL (12.0-15.5) 7.9 g/dL (12.0-15.5) Hematocrit 23.1 % (36.0-47.0) 24.1 % (36.0-47.0) Mean Corpuscular Volume 96 fL (79-100) 97 fL (79-100) Mean Corpuscular Hemoglobin 32 pg (25-35) 32 pg (25-35) Mean Corpuscular Hemoglobin Concent 34 g/dL (31-37) 33 g/dL (31-37) Red Cell Distribution Width 15.2 % (11.5-14.5) 15.4 % (11.5-14.5) Platelet Count 201 x10^3/uL (140-400) 204 x10^3/uL (140-400) Neutrophils (%) (Auto) 68 % (31-73) 90 % (31-73) Lymphocytes (%) (Auto) 21 % (24-48) 9 % (24-48) Monocytes (%) (Auto) 6 % (0-9) 2 % (0-9) Eosinophils (%) (Auto) 4 % (0-3) 0 % (0-3) Basophils (%) (Auto) 1 % (0-3) 0 % (0-3) Neutrophils # (Auto) 5.1 x10^3/uL (1.8-7.7) 7.9 x10^3/uL (1.8-7.7) Lymphocytes # (Auto) 1.6 x10^3/uL (1.0-4.8) 0.7 x10^3/uL (1.0-4.8) Monocytes # (Auto) 0.5 x10^3/uL (0.0-1.1) 0.1 x10^3/uL (0.0-1.1) Eosinophils # (Auto) 0.3 x10^3/uL (0.0-0.7) 0.0 x10^3/uL (0.0-0.7) Basophils # (Auto) 0.1 x10^3/uL (0.0-0.2) 0.0 x10^3/uL (0.0-0.2) Prothrombin Time 11.9 SEC (11.7-14.0) Prothromb Time International Ratio 0.9 (0.8-1.1) Sodium Level 143 mmol/L (136-145) 140 mmol/L (136-145) Potassium Level 5.1 mmol/L (3.5-5.1) 5.5 mmol/L (3.5-5.1) Chloride Level 113 mmol/L (98-107) 111 mmol/L (98-107) Carbon Dioxide Level 17 mmol/L (21-32) 17 mmol/L (21-32) Anion Gap 13 (6-14) 12 (6-14) Blood Urea Nitrogen 83 mg/dL (7-20) 85 mg/dL (7-20) Creatinine 3.6 mg/dL (0.6-1.0) 3.7 mg/dL (0.6-1.0) Estimated GFR (Cockcroft-Gault) 14.8 14.4 BUN/Creatinine Ratio 23 (6-20) Glucose Level 88 mg/dL (70-99) 122 mg/dL (70-99) Calcium Level 7.7 mg/dL (8.5-10.1) 7.9 mg/dL (8.5-10.1) Total Bilirubin 0.2 mg/dL (0.2-1.0) Aspartate Amino Transf (AST/SGOT) 37 U/L (15-37) Alanine Aminotransferase (ALT/SGPT) 34 U/L (14-59) Alkaline Phosphatase 136 U/L (46-116) Troponin I Quantitative < 0.017 ng/mL (0.000-0.055) C-Reactive Protein, Quantitative 20.9 mg/L (0-3.3) Total Protein 4.4 g/dL (6.4-8.2) Albumin 1.0 g/dL (3.4-5.0) Albumin/Globulin Ratio 0.3 (1.0-1.7) Lipase 485 U/L (73-393) Phosphorus Level 8.3 mg/dL (2.6-4.7) Magnesium Level 2.4 mg/dL (1.8-2.4) Test 09/07/20 08:20 SARS-CoV-2 Antigen (Rapid) Negative (NEGATIVE) Laboratory Tests Test 09/06/20 16:10 09/06/20 16:17 09/06/20 16:40 09/07/20 05:09 Urine Collection Type Unknown Urine Color Yellow Urine Clarity Clear Urine pH 6.0 (<5.0-8.0) Urine Specific [place] 1.020 (1.000-1.030) Urine Protein >=300 mg/dL (NEG-TRACE) Urine Glucose (UA) Negative mg/dL (NEG) Urine Ketones (Stick) Negative mg/dL (NEG) Urine Blood Moderate (NEG) Urine Nitrite Negative (NEG) Urine Bilirubin Negative (NEG) Urine Urobilinogen Dipstick 0.2 mg/dL (0.2 mg/dL) Urine Leukocyte Esterase Small (NEG) Urine RBC 20-40 /HPF (0-2) Urine WBC >40 /HPF (0-4) Urine Bacteria 0 /HPF (0-FEW) Urine Hyaline Casts Many /HPF Urine Granular Casts Occasional /HPF Urine Waxy Casts Few /HPF Urine Mucus Slight /LPF Urine Opiates Screen Neg (NEG) Urine Methadone Screen Neg (NEG) Urine Barbiturates Neg (NEG) Urine Phencyclidine Screen Neg (NEG) Urine Amphetamine/Methamphetamine Neg (NEG) Urine Benzodiazepines Screen Neg (NEG) Urine Cocaine Screen Neg (NEG) Urine Cannabinoids Screen Neg (NEG) Urine Ethyl Alcohol Neg (NEG) Bedside Urine HCG, Qualitative Hcg negative (Negative) White Blood Count 7.5 x10^3/uL (4.0-11.0) 8.8 x10^3/uL (4.0-11.0) Red Blood Count 2.42 x10^6/uL (3.50-5.40) 2.50 x10^6/uL (3.50-5.40) Hemoglobin 7.8 g/dL (12.0-15.5) 7.9 g/dL (12.0-15.5) Hematocrit 23.1 % (36.0-47.0) 24.1 % (36.0-47.0) Mean Corpuscular Volume 96 fL (79-100) 97 fL (79-100) Mean Corpuscular Hemoglobin 32 pg (25-35) 32 pg (25-35) Mean Corpuscular Hemoglobin Concent 34 g/dL (31-37) 33 g/dL (31-37) Red Cell Distribution Width 15.2 % (11.5-14.5) 15.4 % (11.5-14.5) Platelet Count 201 x10^3/uL (140-400) 204 x10^3/uL (140-400) Neutrophils (%) (Auto) 68 % (31-73) 90 % (31-73) Lymphocytes (%) (Auto) 21 % (24-48) 9 % (24-48) Monocytes (%) (Auto) 6 % (0-9) 2 % (0-9) Eosinophils (%) (Auto) 4 % (0-3) 0 % (0-3) Basophils (%) (Auto) 1 % (0-3) 0 % (0-3) Neutrophils # (Auto) 5.1 x10^3/uL (1.8-7.7) 7.9 x10^3/uL (1.8-7.7) Lymphocytes # (Auto) 1.6 x10^3/uL (1.0-4.8) 0.7 x10^3/uL (1.0-4.8) Monocytes # (Auto) 0.5 x10^3/uL (0.0-1.1) 0.1 x10^3/uL (0.0-1.1) Eosinophils # (Auto) 0.3 x10^3/uL (0.0-0.7) 0.0 x10^3/uL (0.0-0.7) Basophils # (Auto) 0.1 x10^3/uL (0.0-0.2) 0.0 x10^3/uL (0.0-0.2) Prothrombin Time 11.9 SEC (11.7-14.0) Prothromb Time International Ratio 0.9 (0.8-1.1) Sodium Level 143 mmol/L (136-145) 140 mmol/L (136-145) Potassium Level 5.1 mmol/L (3.5-5.1) 5.5 mmol/L (3.5-5.1) Chloride Level 113 mmol/L (98-107) 111 mmol/L (98-107) Carbon Dioxide Level 17 mmol/L (21-32) 17 mmol/L (21-32) Anion Gap 13 (6-14) 12 (6-14) Blood Urea Nitrogen 83 mg/dL (7-20) 85 mg/dL (7-20) Creatinine 3.6 mg/dL (0.6-1.0) 3.7 mg/dL (0.6-1.0) Estimated GFR (Cockcroft-Gault) 14.8 14.4 BUN/Creatinine Ratio 23 (6-20) Glucose Level 88 mg/dL (70-99) 122 mg/dL (70-99) Calcium Level 7.7 mg/dL (8.5-10.1) 7.9 mg/dL (8.5-10.1) Total Bilirubin 0.2 mg/dL (0.2-1.0) Aspartate Amino Transf (AST/SGOT) 37 U/L (15-37) Alanine Aminotransferase (ALT/SGPT) 34 U/L (14-59) Alkaline Phosphatase 136 U/L (46-116) Troponin I Quantitative < 0.017 ng/mL (0.000-0.055) C-Reactive Protein, Quantitative 20.9 mg/L (0-3.3) Total Protein 4.4 g/dL (6.4-8.2) Albumin 1.0 g/dL (3.4-5.0) Albumin/Globulin Ratio 0.3 (1.0-1.7) Lipase 485 U/L (73-393) Phosphorus Level 8.3 mg/dL (2.6-4.7) Magnesium Level 2.4 mg/dL (1.8-2.4) Test 09/07/20 08:20 SARS-CoV-2 Antigen (Rapid) Negative (NEGATIVE) Review All relevant outside records, renal labs, imaging studies, telemetry/EKG's were reviewed. Images Images CT scan abdomen No convincing hepatic lesion is seen on this noncontrast exam. The gallbladder is unremarkable. The pancreas is prominent in size. No convincing pancreatic lesion is seen on this noncontrast exam. The spleen is normal in size. The adrenal glands and stomach are unremarkable. There is a horseshoe. There is no evidence of nephrolithiasis or hydronephrosis. There is no appendicitis. There is no bowel obstruction. There is a large amount of abdominal ascites. This is associated stranding within the root of mesentery. The bladder, uterus and adnexal regions are unremarkable. There is diffuse body wall edema. There is degenerative change at the lumbosacral junction. IMPRESSION: 1. Large abdominal ascites. This is significantly increased compared to the prio r study. 2. Large pericardial effusion. There is significantly increased compared to the prior study. 3. Small bilateral pleural effusions and left lower lobe infiltrate. 4. Horseshoe kidney. 5. Body wall edema. US * Distended gallbladder with prominent wall. The mild wall thickening is nonspecific in nature and can be from primary gallbladder inflammation, reactive to adjacent hepatic disease or a systemic process such as hypoproteinemia. * Hypoechoic pancreas which appears prominent in size. Would correlate with symptoms and lab markers to ensure this is not from pancreatitis. * Liver is echogenic. Nonspecific but can be seen with fatty infiltration. * Trace free fluid LIBBY HALL MD Sep 07, 2020 09:40
[2020-09-07] MEDS ORDERED: LIDOCAINE 2%/EPI 1:100,000 20 ML VIAL. ONE ×2 (09:43→11:36)
[2020-09-07] MEDS ORDERED: fentaNYL PF VIAL 100 MCG/2 ML VIAL ONE (10:23)
[2020-09-07] MEDS ORDERED: MIDAZOLAM HCL/PF 2 MG/2 ML VIAL. ONE (10:23)
[2020-09-07] MEDS ORDERED: diphenhydrAMINE 50 MG/ML VIAL ONE (11:05)
[2020-09-07] MEDS ORDERED: fentaNYL PF VIAL 100 MCG/2 ML VIAL IV ONE (11:15)
[2020-09-07] MEDS ORDERED: LIDOCAINE 2%/EPI 1:100,000 20 ML VIAL. IJ ONE (11:15)
[2020-09-07] MEDS ORDERED: MIDAZOLAM HCL/PF 2 MG/2 ML VIAL. IV ONE (11:15)
[2020-09-07] MEDS ORDERED: diphenhydrAMINE 50 MG/ML VIAL IVP ONE (11:15)
--- NOTE | 2020-09-07 11:32 | NUR ---
Pericardial drain placed; L lateral chest. Order received from Dr. Guzman to drain Q4 and to irrigate if drain becomes clogged. Report given to Mitul RN in ICU. VS stable at time of transfer. No bleeding.
[2020-09-07 12:14] LABS: % BANDS 5 % (0-9); % LYMPHS 5 % (24-48); % MONOS 1 % (0-10); % SEGS 89 % (35-66); PLT ESTIMATE ADEQUATE (ADEQUATE)
--- NOTE | 2020-09-07 12:29 | CARD ---
MR#: [id number] Date of Study: 09/07/2020 Ordering Physician: EMIGDIO DE SANTIAGO, Referring Physician: EMIGDIO DE SANTIAGO Tech: Vero Harp APPROVED REPORT Technologist: Vero Harp Nurse: Akilah Stephenson Procedure(s) performed: Successful echo guided pericardiocentesis fl time: 0.9 mins dose: 4 gycm2 Pericardial fluid removed: 1650 ml moderate sedation: 50 min Estimated blood loss: less than 5 ml INDICATION The indication(s) include : Large pericardial effusion with tamponade. PROCEDURE NARRATIVE After explaining the risk, benefits and alternative options, informed consent was obtained from patie nt. Patient was brought to the cardiac [facility] [employer] and 2D echo was performed to identify the optimal pa ra apical site for pericardiocentesis. Patient's left chest was prepped and draped in the usual [facility] ion. 10 cc of 2% lidocaine was infiltrated into the skin and subcutaneous tissues for local anesthes ia. Under echo guidance, the pericardiocentesis needle was advanced into the pericardial space. The intrapericardial location confirmed with agitated saline injection under echo and also by maneuverin g a 0.035 inch guidewire under fluoroscopy. The tract was then dilated with a dilator and a pigtail catheter was then advanced under fluoroscopy and echo guidance into the pericardial space. 100 mL of fluid was aspirated and sent for analysis including cytology. Subsequently, a total of approximatel y 1650 mL was removed from the pericardial sac. Completion echocardiogram showed very trivial amount of residual effusion. The pigtail catheter will be left in place with periodic aspirations in ICU. We will repeat 2D echo tomorrow and if there is no reaccumulation, we will remove the pigtail cathet er. Patient tolerated the procedure well. There were no immediate complications. Conclusion Successful echo guided pericardiocentesis with removal of 1650 mL of fluid that appeared to be transu dative visually. Signed by : Emigdio De Santiago, Electronically Approved : 09/07/2020 12:28:51
[2020-09-07] MEDS: MYCOPHENOLATE MOFETIL 250 MG CAPSULE. PO SCH ×2 (12:53→21:08)
[2020-09-07] MEDS ORDERED: LIDOCAINE WITH 8.4% SOD BICARB 3 ML DISP.SYRIN. ONE (13:19)
--- NOTE | 2020-09-07 13:38 | NUR ---
SS following for discharge planning. SS reviewed pt chart and discussed with pt RN. Pt is from home and is currently requiring oxygen. COVID19 negative on rapid test. Pt had Pericardiocentesis then transferred to ICU room 110. Pt having Paracentesis as well. Self pay. Pt has minor children. Med Assist to meet with pt. SS will continue to follow for discharge planning.
--- NOTE | 2020-09-07 13:44 | CONS ---
DATE OF CONSULTATION: 09/07/2020 ATTENDING PHYSICIAN: Efraín Martinez MD REASON FOR CONSULTATION: The patient is seen in pulmonary consultation at the request of Dr. Martinez for abnormal chest x-ray revealing left-sided effusion. HISTORY OF PRESENT ILLNESS: The patient is a 30-year-old unfortunate individual with a recent diagnosis of lupus approximately a year ago. She has been on some Plaquenil. She presented because she was having some increasing difficulty with lower extremity edema, feeling just bloated all over. She had abdominal tightness, pain contributing to some shortness of breath. The patient was being treated as an outpatient with Lasix at 40 mg a day with no significant improvement. She denied fever or chills. No nausea, vomiting. No COVID-19 exposures. She was admitted. I was asked to see her in consultation. Since admission, the patient has been evaluated by Cardiology. She underwent drainage of pericardial effusion. She now has a drain in place. She is off of oxygen. PAST MEDICAL HISTORY: Recent diagnosis of lupus back in 12/2019 on Plaquenil. No other past medical history. ALLERGIES: No known drug allergies. FAMILY HISTORY: Noncontributory. SOCIAL HISTORY: She does not smoke tobacco. REVIEW OF SYSTEMS: As indicated above, otherwise, a 10-point system was reviewed and negative. PHYSICAL EXAMINATION: VITAL SIGNS: Stable. O2 saturation was greater than 92%. LUNGS: Clear. No wheezes. CARDIOVASCULAR: Regular rate and rhythm with S1, S2, no S3. ABDOMEN: Soft, nontender, nondistended. EXTREMITIES: No clubbing, cyanosis or edema. LABORATORY DATA: Rapid test for COVID was negative. UA was negative. Toxicology screen was negative. Electrolytes were noted. BUN is elevated, creatinine was elevated. White count was normal. IMAGING: Chest x-ray as indicated above. CT abdomen and pelvis revealed a large abdominal ascites, large pericardial effusion, small bilateral effusions, left lower lobe infiltrate, horseshoe kidney. IMPRESSION: 1. Abnormal x-ray revealing pleural effusion, suspect secondary to lupus. 2. Status post pericardial window for pericardial effusion. 3. Cardiomyopathy, ejection fraction 35%. 4. Jyfmv-ax-radwxpn kidney failure. 5. Hyperkalemia. 6. Stage 4 lupus nephritis, status post biopsy in 12/2019. 7. Anasarca. 8. Bilateral pleural effusions. 9. Severe protein malnutrition. PLAN: 1. Respiratory status appears to be compensated, we will proceed with repeating chest x-ray. At this juncture, the patient does not require thoracentesis. 2. Continue current support. 3. The patient has been seen by Nephrology, they recommended steroids. I do appreciate the privilege in sharing in this patient's care. NIDIA TUCKER MD DR: KARL/pushpa JOB#: [id number] / [id number]
[2020-09-07 13:48] LABS: BF CLARITY CLEAR; BF COLOR STRAW; BF RBC COUNT 18 /cmm (Not Established); BF SOURCE PERICARDIAL; BF WBC COUNT 40 /cmm (Not Established)
[2020-09-07 13:49] LABS: BF MON % 18 %; BF PMN % 76 %
[2020-09-07 13:50] LABS: BF OTHER % 6 %
[2020-09-07] MEDS ORDERED: LIDOCAINE WITH 8.4% SOD BICARB 3 ML DISP.SYRIN. INJ ONE (14:00)
--- NOTE | 2020-09-07 14:44 | EKG ---
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
[2020-09-07] MEDS: MORPHINE SULFATE 2 MG/ML VIAL. IV PRN ×3 (14:54→23:07)
--- NOTE | 2020-09-07 15:27 | CARD ---
MR#: [id number] Date of Study: 09/07/2020 Ordering Physician: JUANJO DE SANTIAGO, Referring Physician: JUANJO DE SANTIAGO, Tech: Claudia Moore [facility]/Rebeca Tsang [facility] APPROVED REPORT EXAM: Two-dimensional and M-mode echocardiogram with Doppler and color Doppler. Other Information Quality : GoodHR: 124bpm Rhythm : Tachycardia INDICATION LEFT VENTRICLE Normal LV systolic function. EF 55% PERICARDIAL EFFUSION Large pericardial effusion pre pericardiocentesis. No pericardial effusion post procedure. Large pleu ral effusion present Critical Notification Critical Value: No <Conclusion> Normal LV systolic function. EF 55% Large pericardial effusion pre pericardiocentesis. No pericardial effusion post procedure. Large pleural effusion present Signed by : Delfino Melgoza, Electronically Approved : 09/07/2020 15:27:09
--- NOTE | 2020-09-07 16:10 | RAD ---
Ultrasound-guided paracentesis 09/07/2020 2:07 PM Procedure: The risks and benefits of the procedure were discussed the patient. Informed consent was obtained. A timeout procedure was performed. Sonographic evaluation of the abdomen was performed demonstrating ascites . The right lower quadrant was prepped and draped using maximum sterile barrier technique. 1% lidocaine without epinephrine was administered for local anesthesia. Real-time ultrasonographic guidance was used in passing a 5 [place] Yueh catheter into the fluid collection. 3.6 L of serous ascites was removed. The catheter was removed and pressure held to achieve hemostasis. A sterile dressing was applied. Impression: Successful ultrasound-guided paracentesis
[2020-09-07] MEDS ORDERED: KETOROLAC 15 MG/ML VIAL. IM ONE (16:30)
[2020-09-07] MEDS ORDERED: KETOROLAC 15 MG/ML VIAL. IV ONE (17:00)
[2020-09-07 17:01] LABS: BF SOURCE ASCITES
[2020-09-07 17:02] LABS: BF CLARITY HAZY; BF COLOR STRAW; BF MON % 84 %; BF PMN % 16 %; BF RBC COUNT 126 /cmm (Not Established); BF WBC COUNT 53 /cmm (Not Established)
[2020-09-08] VITALS (24 sets, daily range): BP systolic 78–146; BP diastolic 60–102
[2020-09-08] MEDS: methylPREDNISolone SOD SUCC PF 125 MG/2 ML VIAL. IV SCH ×4 (05:58→23:43)
--- NOTE | 2020-09-08 08:00 | NUR ---
Right abdomen paracentesis site dressing dry and intact. Hardened area laterally from site, no redness, no tenderness. Left lateral chest pericardial drain with dressing dry and intact; swelling around insertion site, no redness or tenderness.
[2020-09-08 08:01] LABS: ALBUMIN 0.9 g/dL (3.4-5.0); CALCIUM 8.2 mg/dL (8.5-10.1); GFR 13.1; PHOSPHORUS 8.9 mg/dL (2.6-4.7); POTASSIUM 5.7 mmol/L (3.5-5.1)
--- NOTE | 2020-09-08 08:34 | PDOC ---
DATE OF SERVICE DATE: 09/08/20 TIME: 08:24 SUBJECTIVE ROS States feeling better but having a lot of neck pain, requesting prn scheduled Morphine OBJECTIVE Vital Signs Vital Signs Date Time Temp Pulse Resp B/P (MAP) Pulse Ox O2 Delivery O2 Flow Rate FiO2 09/08/20 06:00 103 16 132/90 (104) 97 Room Air 09/08/20 04:00 97.8 97.8 09/07/20 11:23 2.0 I & 0 Intake and Output 09/08/20 07:00 Intake Total 1030 ml Output Total 2550 ml Balance -1520 ml Intake Oral 1030 ml Output Urine Total 550 ml Drainage Total 2000 ml PHYSICAL EXAM Physical Exam GEN: NAD HEENT: OM moist NECK: Supple LUNGS: Diminished at bases HEART: RRR ABDOMEN: Soft, Positive bowel sounds, EXTREMITIES:No clubbing, cyanosis, or edema. NEUROLOGIC: Grossly normal PSYCHIATRIC: Normal affect, SKIN: No ulcerations or rashes, No CVA or SP tenderness DIAGNOSIS/ASSESSMENT Assessment & Plan LATONIA- Worsening renal function Continue Myfortic and IV steroids x 3 days than switch to PO , monitor CBC , Strict I/O avoid nephrotoxins Will dialyze today , temp HDC . 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 Bowens, seen in January 2020 with Cr 0.6 with fu recommnedations in 3 months. Pt was hospitalized , did not keep fu appt Post dc 09/08 lack of insurance coverage/Financial issues Acute abdominal distention- Large volume abdominal ascites- s/p Paracentesis 09/06 with 3.6 lts fluid drained Large pericardial effusion-post Pericardiocentesis 09/07- 1650 ml SLE-She was seen by Dr. Sal Salas in the past . No follow up appt made by patient Nephrotic Syndrome 10 gms in the past, leading to Renal bx Anasarca Bilateral pleural effusions Severe protein malnutrition Normocytic anemia due to chronic disease COMMENT/RELEVANT DATA Meds Current Medications Medications (Trade) Dose Ordered Sig/Kwesi Start Time Stop Time Status Last Admin Dose Admin Acetaminophen (Tylenol) 650 mg PRN Q4HRS PRN 09/06/20 21:30 Dextrose (Dextrose 50%-Water Syringe) 12.5 gm PRN Q15MIN PRN 09/06/20 21:30 Diphenhydramine HCl (Benadryl) 50 mg 1X ONCE 09/07/20 11:15 09/07/20 11:20 DC 09/07/20 11:15 50 MG Docusate Sodium (Colace) 100 mg PRN DAILY PRN 09/06/20 21:30 Famotidine (Pepcid) 20 mg DAILY 09/07/20 09:00 09/07/20 08:29 20 MG Fentanyl Citrate (Fentanyl 2ml Vial) 100 mcg 1X ONCE 09/07/20 11:15 09/07/20 11:20 DC 09/07/20 10:44 100 MCG Furosemide (Lasix) 60 mg 1X ONCE 09/06/20 19:00 09/06/20 19:01 DC 09/06/20 20:30 60 MG Heparin Sodium (Porcine) (Heparin Sodium) 5,000 unit Q12HR 09/08/20 09:00 Heparin Sodium/ Sodium Chloride (HEPARIN for ARTERIAL LINE FLUSH) 1,000 unit 1X ONCE 09/07/20 11:15 09/07/20 11:20 DC 09/07/20 11:15 1,000 UNIT Info (CONTRAST GIVEN -- Rx MONITORING) 1 each PRN DAILY PRN 09/06/20 16:45 09/08/20 16:44 Iohexol (Omnipaque 300 Mg/ml) 75 ml 1X ONCE 09/06/20 16:45 09/06/20 16:46 DC Ketorolac Tromethamine (Toradol 15mg Vial) 15 mg 1X ONCE 09/07/20 17:00 09/07/20 17:01 DC 09/07/20 16:50 15 MG Lidocaine HCl (Buffered Lidocaine 1%) 6 ml 1X ONCE 09/07/20 14:00 09/07/20 14:01 DC 09/07/20 13:55 6 ML Lidocaine/ Epinephrine (LIDOCAINE 2%-EPI 1:100,000 multi-dose) 20 ml STK-MED ONCE 09/07/20 11:36 09/07/20 11:36 DC Methylprednisolone Sodium Succinate (SOLU-Medrol 125MG VIAL) 100 mg Q6HRS 09/07/20 00:00 09/08/20 05:58 100 MG Midazolam HCl (Versed) 2 mg 1X ONCE 09/07/20 11:15 09/07/20 11:20 DC 09/07/20 10:44 2 MG Morphine Sulfate (Morphine Sulfate) 2 mg PRN Q2HR PRN 09/06/20 04:00 09/07/20 03:59 DC Mycophenolate Mofetil (Cellcept) 1,000 mg BID 09/07/20 12:00 09/07/20 21:08 1,000 MG Ondansetron HCl (Zofran) 4 mg PRN Q6HRS PRN 09/06/20 21:30 Sennosides (Senna) 17.2 mg PRN BID PRN 09/06/20 21:30 Lab Laboratory Tests Test 09/07/20 11:00 09/07/20 14:00 09/07/20 23:00 09/08/20 07:25 Body Fluid Source Pericardial Ascites Body Fluid Color Straw Straw Body Fluid Clarity Clear Hazy Body Fluid Nucleated Cells 40 /cmm (Not Established) 53 /cmm (Not Established) Body Fluid Mononuclear WBCs (%) 18 % 84 % Body Fluid Polymorphonuclear Cells 76 % 16 % Body Fluid Total RBCs Counted 18 /cmm (Not Established) 126 /cmm (Not Established) Body Fluid Other Cells (%) 6 % Urine Random Creatinine 112.0 mg/dL (Not Establ.) Urine Random Total Protein 684.8 mg/dL (Not Establ.) Urine Protein/Creatinine Ratio 6114 mg/g (0-200) Sodium Level 139 mmol/L (136-145) Potassium Level 5.7 mmol/L (3.5-5.1) Chloride Level 109 mmol/L (98-107) Carbon Dioxide Level 16 mmol/L (21-32) Anion Gap 14 (6-14) Blood Urea Nitrogen 97 mg/dL (7-20) Creatinine 4.0 mg/dL (0.6-1.0) Estimated GFR (Cockcroft-Gault) 13.1 Glucose Level 147 mg/dL (70-99) Calcium Level 8.2 mg/dL (8.5-10.1) Phosphorus Level 8.9 mg/dL (2.6-4.7) Albumin 0.9 g/dL (3.4-5.0) Results All relevant outside records, renal labs, imaging studies, telemetry/EKG's were reviewed. Justicifation of Admission Dx: Justifications for Admission: Justification of Admission Dx: Yes Chronic Renal Failure: Renail Failure LIBBY HALL MD Sep 08, 2020 08:34
[2020-09-08] MEDS ORDERED: LIDOCAINE WITH 8.4% SOD BICARB 3 ML DISP.SYRIN. ONE (08:37)
--- NOTE | 2020-09-08 08:43 | PDOC ---
[employer] PROGRESS NOTE Date of Service DOS: DATE: 09/08/20 TIME: 08:34 Chief Complaint Chief Complaint Assessment/Plan Acute abdominal distention Large pericardial effusion likely chronic Large volume abdominal ascites Anasarca Bilateral pleural effusions Acute on chronic kidney injury concerning for lupus nephritis Severe protein malnutrition Normocytic anemia due to chronic disease Admit to medicine for further management, concerning for lupus flare We will start high-dose IV steroids for 3 days then transition to p.o. prednisone Continue Plaquenil Nephrology consult for concern for lupus nephritis Cardiology consult for pericardial effusion Pending TTE Interventional radiology for possible pericardiocentesis and paracentesis Pending CRP, protein/creatinine urine ratio, antidsDNA, C3 and C4 levels Heparin for DVT prophylaxis Protonix GI prophylaxis Clear liquid diet Full code Discussed with RN and SW Disposition pending cardiology, nephrology, interventional radiology evaluation Surrogate decision maker is Yehuda Gomez History of Present Illness History of Present Illness Ms Lopez is a 30-year-old female with history of lupus that was diagnosed 1 year ago, hypertension, depression who presents today with increased abdominal bloating tightness and pain which also contributes to her shortness of breath. Also endorses some hemoptysis as well. Patient that she was constipated so she took some laxatives. Patient was also placed on Lasix 40 mg twice daily, however she does not feel this is helping her. This originally was to help her lower extremity edema which originally was doing okay but has gotten worse in the past few weeks. Patient is currently not taking any steroids. She states she is only taking Plaquenil. Denies fevers, rashes, hematuria, diarrhea, nausea vomiting, headaches or vision changes, chest pain. 09/07: Patient seen and evaluated. Slightly tachycardic, afebrile. Patient's br eathing on room air, still with some complaints of shortness of breath. Echocardiogram with pericardial effusion with tamponade physiology. Status post pericardiocentesis 1650 cc. Paracentesis 3.6 L. Afebrile. Seen in ICU post pericardiocentesis. Labs reviewed K5.7 BUN 97, CR 4. Plan for dialysis catheter today. Her shortness of breath has improved. No telemetry events. Some fluctuant swelling at both pericardiocentesis and paracentesis sites. No bleeding. Vitals/I&O Vitals/I&O: Vital Signs Date Time Temp Pulse Resp B/P (MAP) Pulse Ox O2 Delivery O2 Flow Rate FiO2 09/08/20 06:00 103 16 132/90 (104) 97 Room Air 09/08/20 04:00 97.8 97.8 09/07/20 11:23 2.0 I & O 09/07/20 09/07/20 09/08/20 15:00 23:00 07:00 Intake Total 240 ml 240 ml 550 ml Output Total 1650 ml 200 ml 700 ml Balance -1410 ml 40 ml -150 ml Physical Exam General: Alert, Oriented X3, Cooperative, No acute distress Heart: Regular rate (SR/ST), Other (+ JVD) Lungs: Crackles Abdomen: Soft, Other (ascites) Extremities: Other (trace LE edea ) Skin: No significant lesion Labs Labs: Laboratory Tests Test 09/07/20 11:00 09/07/20 14:00 09/07/20 23:00 09/08/20 07:25 Body Fluid Source Pericardial Ascites Body Fluid Color Straw Straw Body Fluid Clarity Clear Hazy Body Fluid Nucleated Cells 40 /cmm (Not Established) 53 /cmm (Not Established) Body Fluid Mononuclear WBCs (%) 18 % 84 % Body Fluid Polymorphonuclear Cells 76 % 16 % Body Fluid Total RBCs Counted 18 /cmm (Not Established) 126 /cmm (Not Established) Body Fluid Other Cells (%) 6 % Urine Random Creatinine 112.0 mg/dL (Not Establ.) Urine Random Total Protein 684.8 mg/dL (Not Establ.) Urine Protein/Creatinine Ratio 6114 mg/g (0-200) Sodium Level 139 mmol/L (136-145) Potassium Level 5.7 mmol/L (3.5-5.1) Chloride Level 109 mmol/L (98-107) Carbon Dioxide Level 16 mmol/L (21-32) Anion Gap 14 (6-14) Blood Urea Nitrogen 97 mg/dL (7-20) Creatinine 4.0 mg/dL (0.6-1.0) Estimated GFR (Cockcroft-Gault) 13.1 Glucose Level 147 mg/dL (70-99) Calcium Level 8.2 mg/dL (8.5-10.1) Phosphorus Level 8.9 mg/dL (2.6-4.7) Albumin 0.9 g/dL (3.4-5.0) Assessment and Plan Assessmemt and Plan Problems Medical Problems: (1) Acute renal failure Status: Acute (2) Ascites Status: Acute (3) Pericardial effusion Status: Acute (4) Pleural effusion Status: Acute Comment Review of Relevant I have reviewed the following items jennifer (where applicable) has been applied. Medications: Current Medications Medications (Trade) Dose Ordered Sig/Kwesi Route PRN Reason Start Time Stop Time Status Last Admin Dose Admin Famotidine (Pepcid) 20 mg DAILY PO 09/07/20 09:00 09/07/20 08:29 Heparin Sodium/ Sodium Chloride (HEPARIN for ARTERIAL LINE FLUSH) 1,000 unit 1X ONCE IART 09/07/20 11:15 09/07/20 11:20 DC 09/07/20 11:15 Midazolam HCl (Versed) 2 mg 1X ONCE IV 09/07/20 11:15 09/07/20 11:20 DC 09/07/20 10:44 Fentanyl Citrate (Fentanyl 2ml Vial) 100 mcg 1X ONCE IV 09/07/20 11:15 09/07/20 11:20 DC 09/07/20 10:44 Lidocaine/ Epinephrine (LIDOCAINE 2%-EPI 1:100,000 multi-dose) 20 ml 1X ONCE IJ 09/07/20 11:15 09/07/20 11:20 DC 09/07/20 11:15 Diphenhydramine HCl (Benadryl) 50 mg 1X ONCE IVP 09/07/20 11:15 09/07/20 11:20 DC 09/07/20 11:15 Mycophenolate Mofetil (Cellcept) 1,000 mg BID PO 09/07/20 12:00 09/07/20 21:08 Lidocaine HCl (Buffered Lidocaine 1%) 6 ml 1X ONCE INJ 09/07/20 14:00 09/07/20 14:01 DC 09/07/20 13:55 Ketorolac Tromethamine (Toradol 15mg Vial) 15 mg 1X ONCE IV 09/07/20 17:00 09/07/20 17:01 DC 09/07/20 16:50 Justifications for Admission Abdominal Pain Indications Is NPO status required?: Yes Justification for admission: Patient may require to be NPO for greater 24hours making it medically necessary to manage patient as inpatient. Other Justification RUBY CAT MD Sep 08, 2020 08:43
--- NOTE | 2020-09-08 08:44 | PDOC ---
PULMONARY PROGRESS NOTES DATE: 09/08/20 TIME: 08:39 Subjective S/P Pericardiocentesis with placement of pericardial drain Remains on R/A, denies SOB, Cough or Chest pain afebrile planned for Temp HD cath today Vitals Vital Signs Date Time Temp Pulse Resp B/P (MAP) Pulse Ox O2 Delivery O2 Flow Rate FiO2 09/08/20 06:00 103 16 132/90 (104) 97 Room Air 09/08/20 04:00 97.8 97.8 09/07/20 11:23 2.0 ROS: No Nausea, No Chest Pain, No Abdominal Pain, No Increase Cough General: Alert, Oriented X4 Lungs: Clear Cardiovascular: S1, S2 Abdomen: Soft, Non-tender Neuro Exam: Alert, Oriented Extremities: No Edema Skin: Warm, Dry Labs Laboratory Tests Test 09/06/20 16:10 09/06/20 16:17 09/06/20 16:40 09/06/20 18:00 Urine Collection Type Unknown Urine Color Yellow Urine Clarity Clear Urine pH 6.0 (<5.0-8.0) Urine Specific Blackey 1.020 (1.000-1.030) Urine Protein >=300 mg/dL (NEG-TRACE) Urine Glucose (UA) Negative mg/dL (NEG) Urine Ketones (Stick) Negative mg/dL (NEG) Urine Blood Moderate (NEG) Urine Nitrite Negative (NEG) Urine Bilirubin Negative (NEG) Urine Urobilinogen Dipstick 0.2 mg/dL (0.2 mg/dL) Urine Leukocyte Esterase Small (NEG) Urine RBC 20-40 /HPF (0-2) Urine WBC >40 /HPF (0-4) Urine Bacteria 0 /HPF (0-FEW) Urine Hyaline Casts Many /HPF Urine Granular Casts Occasional /HPF Urine Waxy Casts Few /HPF Urine Mucus Slight /LPF Urine Opiates Screen Neg (NEG) Urine Methadone Screen Neg (NEG) Urine Barbiturates Neg (NEG) Urine Phencyclidine Screen Neg (NEG) Urine Amphetamine/Methamphetamine Neg (NEG) Urine Benzodiazepines Screen Neg (NEG) Urine Cocaine Screen Neg (NEG) Urine Cannabinoids Screen Neg (NEG) Urine Ethyl Alcohol Neg (NEG) Bedside Urine HCG, Qualitative Hcg negative (Negative) White Blood Count 7.5 x10^3/uL (4.0-11.0) Red Blood Count 2.42 x10^6/uL (3.50-5.40) Hemoglobin 7.8 g/dL (12.0-15.5) Hematocrit 23.1 % (36.0-47.0) Mean Corpuscular Volume 96 fL (79-100) Mean Corpuscular Hemoglobin 32 pg (25-35) Mean Corpuscular Hemoglobin Concent 34 g/dL (31-37) Red Cell Distribution Width 15.2 % (11.5-14.5) Platelet Count 201 x10^3/uL (140-400) Neutrophils (%) (Auto) 68 % (31-73) Lymphocytes (%) (Auto) 21 % (24-48) Monocytes (%) (Auto) 6 % (0-9) Eosinophils (%) (Auto) 4 % (0-3) Basophils (%) (Auto) 1 % (0-3) Neutrophils # (Auto) 5.1 x10^3/uL (1.8-7.7) Lymphocytes # (Auto) 1.6 x10^3/uL (1.0-4.8) Monocytes # (Auto) 0.5 x10^3/uL (0.0-1.1) Eosinophils # (Auto) 0.3 x10^3/uL (0.0-0.7) Basophils # (Auto) 0.1 x10^3/uL (0.0-0.2) Prothrombin Time 11.9 SEC (11.7-14.0) Prothromb Time International Ratio 0.9 (0.8-1.1) Sodium Level 143 mmol/L (136-145) Potassium Level 5.1 mmol/L (3.5-5.1) Chloride Level 113 mmol/L (98-107) Carbon Dioxide Level 17 mmol/L (21-32) Anion Gap 13 (6-14) Blood Urea Nitrogen 83 mg/dL (7-20) Creatinine 3.6 mg/dL (0.6-1.0) Estimated GFR (Cockcroft-Gault) 14.8 BUN/Creatinine Ratio 23 (6-20) Glucose Level 88 mg/dL (70-99) Calcium Level 7.7 mg/dL (8.5-10.1) Total Bilirubin 0.2 mg/dL (0.2-1.0) Aspartate Amino Transf (AST/SGOT) 37 U/L (15-37) Alanine Aminotransferase (ALT/SGPT) 34 U/L (14-59) Alkaline Phosphatase 136 U/L (46-116) Troponin I Quantitative < 0.017 ng/mL (0.000-0.055) C-Reactive Protein, Quantitative 20.9 mg/L (0-3.3) Total Protein 4.4 g/dL (6.4-8.2) Albumin 1.0 g/dL (3.4-5.0) Albumin/Globulin Ratio 0.3 (1.0-1.7) Lipase 485 U/L (73-393) Coronavirus (PCR) Not detected (Not Detected) Test 09/07/20 05:09 09/07/20 08:20 09/07/20 11:00 09/07/20 14:00 White Blood Count 8.8 x10^3/uL (4.0-11.0) Red Blood Count 2.50 x10^6/uL (3.50-5.40) Hemoglobin 7.9 g/dL (12.0-15.5) Hematocrit 24.1 % (36.0-47.0) Mean Corpuscular Volume 97 fL (79-100) Mean Corpuscular Hemoglobin 32 pg (25-35) Mean Corpuscular Hemoglobin Concent 33 g/dL (31-37) Red Cell Distribution Width 15.4 % (11.5-14.5) Platelet Count 204 x10^3/uL (140-400) Neutrophils (%) (Auto) 90 % (31-73) Lymphocytes (%) (Auto) 9 % (24-48) Monocytes (%) (Auto) 2 % (0-9) Eosinophils (%) (Auto) 0 % (0-3) Basophils (%) (Auto) 0 % (0-3) Neutrophils # (Auto) 7.9 x10^3/uL (1.8-7.7) Lymphocytes # (Auto) 0.7 x10^3/uL (1.0-4.8) Monocytes # (Auto) 0.1 x10^3/uL (0.0-1.1) Eosinophils # (Auto) 0.0 x10^3/uL (0.0-0.7) Basophils # (Auto) 0.0 x10^3/uL (0.0-0.2) Segmented Neutrophils % 89 % (35-66) Band Neutrophils % 5 % (0-9) Lymphocytes % 5 % (24-48) Monocytes % 1 % (0-10) Platelet Estimate Adequate (ADEQUATE) Sodium Level 140 mmol/L (136-145) Potassium Level 5.5 mmol/L (3.5-5.1) Chloride Level 111 mmol/L (98-107) Carbon Dioxide Level 17 mmol/L (21-32) Anion Gap 12 (6-14) Blood Urea Nitrogen 85 mg/dL (7-20) Creatinine 3.7 mg/dL (0.6-1.0) Estimated GFR (Cockcroft-Gault) 14.4 Glucose Level 122 mg/dL (70-99) Calcium Level 7.9 mg/dL (8.5-10.1) Phosphorus Level 8.3 mg/dL (2.6-4.7) Magnesium Level 2.4 mg/dL (1.8-2.4) SARS-CoV-2 Antigen (Rapid) Negative (NEGATIVE) Body Fluid Source Pericardial Ascites Body Fluid Color Straw Straw Body Fluid Clarity Clear Hazy Body Fluid Nucleated Cells 40 /cmm (Not Established) 53 /cmm (Not Established) Body Fluid Mononuclear WBCs (%) 18 % 84 % Body Fluid Polymorphonuclear Cells 76 % 16 % Body Fluid Total RBCs Counted 18 /cmm (Not Established) 126 /cmm (Not Established) Body Fluid Other Cells (%) 6 % Test 09/07/20 23:00 09/08/20 07:25 Urine Random Creatinine 112.0 mg/dL (Not Establ.) Urine Random Total Protein 684.8 mg/dL (Not Establ.) Urine Protein/Creatinine Ratio 6114 mg/g (0-200) Sodium Level 139 mmol/L (136-145) Potassium Level 5.7 mmol/L (3.5-5.1) Chloride Level 109 mmol/L (98-107) Carbon Dioxide Level 16 mmol/L (21-32) Anion Gap 14 (6-14) Blood Urea Nitrogen 97 mg/dL (7-20) Creatinine 4.0 mg/dL (0.6-1.0) Estimated GFR (Cockcroft-Gault) 13.1 Glucose Level 147 mg/dL (70-99) Calcium Level 8.2 mg/dL (8.5-10.1) Phosphorus Level 8.9 mg/dL (2.6-4.7) Albumin 0.9 g/dL (3.4-5.0) Laboratory Tests Test 09/07/20 11:00 09/07/20 14:00 09/07/20 23:00 09/08/20 07:25 Body Fluid Source Pericardial Ascites Body Fluid Color Straw Straw Body Fluid Clarity Clear Hazy Body Fluid Nucleated Cells 40 /cmm (Not Established) 53 /cmm (Not Established) Body Fluid Mononuclear WBCs (%) 18 % 84 % Body Fluid Polymorphonuclear Cells 76 % 16 % Body Fluid Total RBCs Counted 18 /cmm (Not Established) 126 /cmm (Not Established) Body Fluid Other Cells (%) 6 % Urine Random Creatinine 112.0 mg/dL (Not Establ.) Urine Random Total Protein 684.8 mg/dL (Not Establ.) Urine Protein/Creatinine Ratio 6114 mg/g (0-200) Sodium Level 139 mmol/L (136-145) Potassium Level 5.7 mmol/L (3.5-5.1) Chloride Level 109 mmol/L (98-107) Carbon Dioxide Level 16 mmol/L (21-32) Anion Gap 14 (6-14) Blood Urea Nitrogen 97 mg/dL (7-20) Creatinine 4.0 mg/dL (0.6-1.0) Estimated GFR (Cockcroft-Gault) 13.1 Glucose Level 147 mg/dL (70-99) Calcium Level 8.2 mg/dL (8.5-10.1) Phosphorus Level 8.9 mg/dL (2.6-4.7) Albumin 0.9 g/dL (3.4-5.0) Medications Active Scripts Medications Dose Route/Sig Max Daily Dose Days Date Category Cellcept (Mycophenolate Mofetil) 250 Mg Capsule 2 Cap PO BID 09/07/20 Reported Plaquenil (Hydroxychloroquine Sulfate) 200 Mg Tablet 200 Mg PO DAILY 09/07/20 Reported Furosemide 40 Mg Tablet 40 Mg PO DAILY 30 04/08/20 Rx Comments CXR IMPRESSION: 1. Small right and moderate left pleural effusions and left lower lobe atelectasis or infiltrate. 2. Prominent cardiac silhouette. Impression . IMPRESSION: 1. Abnormal x-ray revealing pleural effusion, suspect secondary to lupus. 2. Status post pericardial window for pericardial effusion. 3. Cardiomyopathy, ejection fraction 35% repeat EF 55% 4. [id number] kidney failure 2/2 Stage IV Lupus Nephritis 5. Hyperkalemia. 6. Stage 4 lupus nephritis, status post biopsy in 12/2019. 7. Anasarca. 8. Bilateral pleural effusions. 9. Severe protein malnutrition. Plan . PLAN: Stable from respiratory standpoint, remains on room air Follow cardiology recs-- S/P Pericardiocentesis with pericardial drain Follow nephrology recs-- planned for temp HD cath today Patient does not require thoracentesis Continue steroids with slow taper DVT/GI PPX D/W RN NIDIA TUCKER MD Sep 08, 2020 08:44
[2020-09-08] MEDS ORDERED: LIDOCAINE WITH 8.4% SOD BICARB 3 ML DISP.SYRIN. INJ ONE ×2 (08:45→09:00)
[2020-09-08] MEDS: MYCOPHENOLATE MOFETIL 250 MG CAPSULE. PO SCH ×2 (09:36→21:04)
[2020-09-08] MEDS: FAMOTIDINE 20 MG TABLET. PO SCH (09:36)
[2020-09-08] MEDS: HEPARIN for SUB-Q USE 5,000 UNIT/ML VIAL. SQ SCH ×2 (09:37→21:04)
--- NOTE | 2020-09-08 09:52 | RAD ---
XR CHEST 1V 09/08/2020 9:08 AM INDICATION: Dialysis catheter placement COMPARISON: 09/06/2020 TECHNIQUE: Portable frontal view of the chest is provided. FINDINGS: The cardiomediastinal silhouette is enlarged, improved since the prior examination. Decrease in now s mall left pleural effusion with adjacent aggressive atelectasis. Trace right pleural effusion. Mild p ulmonary vascular congestion appears similar. No pneumothorax. Right IJ dialysis catheter is identified with the distal tip projecting over the deep right atrium. No suspicious osseous abnormality. IMPRESSION: Right IJ dialysis catheter is identified with the distal tip projecting over the deep right atrium. N o pneumothorax. There is improving cardiomegaly with residual small left pleural effusion with adjacent breast atelec tasis versus infiltrate. Electronically signed by: Gloria Yang MD (09/08/2020 9:50 AM) [id number]
[2020-09-08] MEDS: MORPHINE SULFATE 2 MG/ML VIAL. IV PRN (10:20)
[2020-09-08] MEDS ORDERED: ALBUMIN HUMAN 25% 200 ML IV PRN (11:00)
[2020-09-08] MEDS ORDERED: DIALYSIS PATIENT. MC PRN (11:00)
[2020-09-08] MEDS ORDERED: IV NORMAL SALINE 1000ML BAG 1,000 ML IV PRN ×2 (11:00)
[2020-09-08] MEDS ORDERED: 0.9 % SODIUM CHLORIDE 10 ML DISP.SYRIN. IV PRN ×2 (11:00)
[2020-09-08] MEDS ORDERED: diphenhydrAMINE 50 MG/ML VIAL IV PRN ×2 (11:00)
--- NOTE | 2020-09-08 12:32 | PDOC ---
JERRY OVIEDO BICYCLE MESSENGER 09/08/20 1232: CARDIO Progress Notes Date and Time Date of Service 09/08/20 Time of Evaluation 1230 Subjective Subjective: No Chest Pain, Other (SOA improved ) Vitals Vitals Vital Signs Date Time Temp Pulse Resp B/P (MAP) Pulse Ox O2 Delivery O2 Flow Rate FiO2 09/08/20 11:00 102 20 146/102 (117) 98 Room Air 09/08/20 07:00 98.1 98.1 09/07/20 11:23 2.0 Weight Weight [ ] Input and Output Intake and Output Intake and Output 09/08/20 07:00 Intake Total 1030 ml Output Total 2550 ml Balance -1520 ml Intake Oral 1030 ml Output Urine Total 550 ml Drainage Total 2000 ml Laboratory Labs Laboratory Tests Test 09/07/20 14:00 09/07/20 23:00 09/08/20 07:25 Body Fluid Source Ascites Body Fluid Color Straw Body Fluid Clarity Hazy Body Fluid Nucleated Cells 53 /cmm (Not Established) Body Fluid Mononuclear WBCs (%) 84 % Body Fluid Polymorphonuclear Cells 16 % Body Fluid Total RBCs Counted 126 /cmm (Not Established) Urine Random Creatinine 112.0 mg/dL (Not Establ.) Urine Random Total Protein 684.8 mg/dL (Not Establ.) Urine Protein/Creatinine Ratio 6114 mg/g (0-200) Sodium Level 139 mmol/L (136-145) Potassium Level 5.7 mmol/L (3.5-5.1) Chloride Level 109 mmol/L (98-107) Carbon Dioxide Level 16 mmol/L (21-32) Anion Gap 14 (6-14) Blood Urea Nitrogen 97 mg/dL (7-20) Creatinine 4.0 mg/dL (0.6-1.0) Estimated GFR (Cockcroft-Gault) 13.1 Glucose Level 147 mg/dL (70-99) Calcium Level 8.2 mg/dL (8.5-10.1) Phosphorus Level 8.9 mg/dL (2.6-4.7) Albumin 0.9 g/dL (3.4-5.0) Hepatitis B Surface Antigen Nonreactive (Nonreactive) Microbiology Micro Microbiology 09/07/20 Gram Stain - Final, Resulted 09/07/20 Aerobic and Anaerobic Culture - Preliminary, Resulted 09/06/20 Urine Culture - Final, Complete Physical Exam HEENT: Neck Supple W Full Motion Chest: Symmetric, Other (pericardial drain intact ) LUNGS: Other (diminished bases) Heart: RRR (SR/ST) Abdomen: Other (ascites, anasarca ) Extremities: Other (1-2+ bilateral LE edema ) Neurology: alert, oriented, follow commands Assessment Assessment 1. Dyspnea, abdominal distention with large volume ascites and pleural effusion. s/p paracentesis with 3.6L removed 2. Pericardial effusion; s/p pericardiocentesis with 1650cc out. Has has approximately 90cc out since this morning at 0600 3. SLE; on Cellcept and Plaquenil 4. LATONIA on CKD, nephritis; HD initiated 5. Hyperkalemia 6. Anemia of chronic disease 7. Protein calorie malnutrition, hypoalbuminemia, anasarca Recommendations Will remain with pericardial drain clamped overnight and reassess pericardial effusion in am with limited echo Consider IV albumin. Will defer to renal Supportive care Justicifation of Admission Dx: Justifications for Admission: Justification of Admission Dx: Yes Chronic Renal Failure: Renail Failure JUANJO DE SANTIAGO MD 09/08/20 1439: CARDIO Progress Notes Assessment Assessment Patient seen and examined. Agree with FIELD TECHNICAL ASSISTANT's assessment and plan. s/p pericardiocentesis and paracentesis yesterday with significant improvement in symptoms. Plan for clamping pigtail catheter and repeat 2D echo in the morning. If there is no significant pericardial fluid accumulation, we will remove the pigtail catheter. Continue management of lupus nephritis/nephrotic syndrome and hypoalbuminemia per nephrology team. Patient initiated on hemodialysis. 2D echo showed normal LV systolic function. JERRY OVIEDO APRN Sep 08, 2020 12:32 JUANJO DE SANTIAGO MD Sep 08, 2020 14:39
--- NOTE | 2020-09-08 12:42 | NUR ---
Methylprednisilone not given while patient on dialysis.
--- NOTE | 2020-09-08 14:16 | RAD ---
Procedure: Ultrasound-guided placement of right internal jugular temporary dialysis catheter 09/08/2020 12:12 PM Clinical Indication: Renal failure LATONIA , Lupus Peric effusion Discussion: The risks and benefits of the procedure were discussed the patient and/or their union representative. Informed consent was obtained. A timeout procedure was performed. All elements of maximal sterile barrier technique including the use of a cap, mask, sterile gown, sterile gloves, large sterile sheet, appropriate hand hygiene, and 2% chlorhexidine for cutaneous antisepsis (or acceptable alternative antiseptic per current guidelines) were followed for this procedure. The patient was prepped and draped in the usual sterile fashion. Ultrasound interrogation of the right neck revealed patency and compressibility of the right internal jugular vein. A 21-gauge micropuncture was then used to gain access to this vein under ultrasound guidance. A hard copy ultrasound image was recorded. A guidewire was advanced centrally. 5 Emir[place] sheath was placed. Over a wire following dilatation, a temporary dialysis catheter was advanced centrally. Catheter was found to flush and aspirate normally. Follow-up chest radiograph demonstrates tip in acceptable position. The catheter was secured in place and a sterile dressing was applied. No immediate complications were identified. Impression: Successful ultrasound-guided placement of right internal jugular temporary dialysis catheter
--- NOTE | 2020-09-08 15:14 | NUR ---
SS following up with discharge planning. SS reviewed pt chart and discussed with pt RN. Pt is currently on room air. COVID19 negative. Pt has temporary dialysis cath and pericardial drain. Self pay. Med Assist following. SS will continue to follow for discharge planning.
--- NOTE | 2020-09-08 17:06 | PATHOLOGY ---
Note [facility] Accession Number: [id number] TESTS RESULT FLAG UNITS REF RANGE LAB Clinician Provided Cytology Information No. of containers..01 Other (Miscellaneous) Source: 01 PERICARDIAL FLUID DIAGNOSIS: 02 PERICARDIAL FLUID NEGATIVE FOR MALIGNANT CELLS. REACTIVE MESOTHELIAL CELLS AND FEW NEUTROPHILS AND LYMPHOCYTES PRESENT. THIS INTERPRETATION INCLUDES EVALUATION OF A CELL BLOCK. Signed out by: 02 Wilfrido Arthur MD, Pathologist NPI- [id number] Performed by: Barb Felix, Bottle Washer ([facility]) Gross description: 01 30ML, YELLOW, 1TP 1CB /LCS 09/08/2020 0639 Local FLAG LEGEND: L-Low Normal,H-High Normal,LL-Alert Low,HH-Alert High <-Panic Low,>-Panic High,A-Abnormal,AA-Critical Abnormal Performed at: [address] [place] [address] Shaggy Salazar MD, 02 [facility] [address] [place] [address] Wilfrido Arthur MD, Specimen Comment: A courtesy copy of this report has been sent to [phone] Specimen Comment: Report sent to DR DE SANTIAGO Specimen Comment: A duplicate report has been generated due to demographic updates. Performed at: [address], [place], [place] [address] MD Shaggy Salazar MD Phone: [phone]
--- NOTE | 2020-09-08 17:13 | PATHOLOGY ---
Note [facility] Accession Number: [id number] TESTS RESULT FLAG UNITS REF RANGE LAB Clinician Provided Cytology Information No. of containers..01 Other (Miscellaneous) Source: 01 ASCITES DIAGNOSIS: 02 ASCITES NEGATIVE FOR MALIGNANT CELLS. REACTIVE MESOTHELIAL CELLS, LYMPHOCYTES, AND FEW NEUTROPHILS. THIS INTERPRETATION INCLUDES EVALUATION OF A CELL BLOCK. Signed out by: Wilfrido Arthur MD, Pathologist NPI- [id number] Performed by: Barb Felix, Plastic Dolls Mold Filler ([facility]) Gross description: 01 35ML, YELLOW, 1TP 1CB /LCS 09/08/2020 0641 Local FLAG LEGEND: L-Low Normal,H-High Normal,LL-Alert Low,HH-Alert High <-Panic Low,>-Panic High,A-Abnormal,AA-Critical Abnormal Performed at: [facility] [address] [place] [address] Shaggy Salazar MD, 02 [facility] [address] [place] [address] Wilfrido Arthur MD, Specimen Comment: A courtesy copy of this report has been sent to [phone], [phone] Specimen Comment: [id number] Specimen Comment: Report sent to DR SILVA / DR HALL Specimen Comment: A duplicate report has been generated due to demographic updates. Performed at: [address] [place] [address] [place] [address], [place], [place] [address] MD Shaggy Salazar MD Phone: [phone]
[2020-09-09] VITALS (21 sets, daily range): BP systolic 95–152; BP diastolic 63–109
[2020-09-09] MEDS: methylPREDNISolone SOD SUCC PF 125 MG/2 ML VIAL. IV SCH ×3 (05:30→21:53)
[2020-09-09] MEDS ORDERED: ALBUMIN HUMAN 25% 200 ML IV PRN (07:30)
[2020-09-09] MEDS ORDERED: 0.9 % SODIUM CHLORIDE 10 ML DISP.SYRIN. IV PRN ×2 (07:30)
[2020-09-09] MEDS ORDERED: DIALYSIS PATIENT. MC PRN ×2 (07:30)
[2020-09-09] MEDS ORDERED: IV NORMAL SALINE 1000ML BAG 1,000 ML IV PRN ×2 (07:30)
[2020-09-09 08:10] LABS: RED BLOOD COUNT 2.13 x10^6/uL (3.50-5.40); RED CELL DISTRIBUTION WIDTH 14.5 % (11.5-14.5); WHITE BLOOD COUNT 13.5 x10^3/uL (4.0-11.0)
[2020-09-09 08:16] LABS: ALBUMIN 1.1 g/dL (3.4-5.0); CALCIUM 7.8 mg/dL (8.5-10.1); CREATININE 3.5 mg/dL (0.6-1.0); GFR 15.3; PHOSPHORUS 7.8 mg/dL (2.6-4.7); POTASSIUM 4.5 mmol/L (3.5-5.1)
[2020-09-09] MEDS: MYCOPHENOLATE MOFETIL 250 MG CAPSULE. PO SCH ×2 (08:27→21:54)
[2020-09-09] MEDS: HEPARIN for SUB-Q USE 5,000 UNIT/ML VIAL. SQ SCH ×2 (08:28→22:10)
[2020-09-09 08:55] LABS: HEMOGLOBIN 6.8 g/dL (12.0-15.5)
[2020-09-09 08:56] LABS: HEMATOCRIT 20.3 % (36.0-47.0)
--- NOTE | 2020-09-09 09:43 | PDOC ---
JERRY OVIEDO RESTAURANT EXPEDITOR 09/09/20 0943: CARDIO Progress Notes Date and Time Date of Service 09/09/20 Time of Evaluation 0970 Subjective Subjective: No Chest Pain, Other (SOA improved ) Vitals Vitals Vital Signs Date Time Temp Pulse Resp B/P (MAP) Pulse Ox O2 Delivery O2 Flow Rate FiO2 09/09/20 08:00 Room Air 09/09/20 08:00 97.6 92 20 143/100 (114) 100 97.6 Weight Weight [ ] Input and Output Intake and Output Intake and Output 09/09/20 07:00 Intake Total 920 ml Output Total 590 ml Balance 330 ml Intake Oral 920 ml Output Urine Total 500 ml Drainage Total 90 ml Laboratory Labs Laboratory Tests Test 09/09/20 07:30 09/09/20 07:38 Sodium Level 138 mmol/L (136-145) Potassium Level 4.5 mmol/L (3.5-5.1) Chloride Level 105 mmol/L (98-107) Carbon Dioxide Level 21 mmol/L (21-32) Anion Gap 12 (6-14) Blood Urea Nitrogen 74 mg/dL (7-20) Creatinine 3.5 mg/dL (0.6-1.0) Estimated GFR (Cockcroft-Gault) 15.3 Glucose Level 159 mg/dL (70-99) Calcium Level 7.8 mg/dL (8.5-10.1) Phosphorus Level 7.8 mg/dL (2.6-4.7) Albumin 1.1 g/dL (3.4-5.0) White Blood Count 13.5 x10^3/uL (4.0-11.0) Red Blood Count 2.13 x10^6/uL (3.50-5.40) Hemoglobin 6.8 g/dL (12.0-15.5) Hematocrit 20.3 % (36.0-47.0) Mean Corpuscular Volume 95 fL (79-100) Mean Corpuscular Hemoglobin 32 pg (25-35) Mean Corpuscular Hemoglobin Concent 33 g/dL (31-37) Red Cell Distribution Width 14.5 % (11.5-14.5) Platelet Count 217 x10^3/uL (140-400) Microbiology Micro Microbiology 09/07/20 Gram Stain - Final, Resulted 09/07/20 Aerobic and Anaerobic Culture - Preliminary, Resulted 09/06/20 Urine Culture - Final, Complete Physical Exam HEENT: Neck Supple W Full Motion Chest: Symmetric, Other (pericardial drain intact ) LUNGS: Other (diminished bases) Heart: RRR (SR/ST) Abdomen: Other (ascites, anasarca ) Extremities: Other (1-2+ bilateral LE edema ) Neurology: alert, oriented, follow commands Assessment Assessment 1. Dyspnea, abdominal distention with large volume ascites and pleural effusion. s/p paracentesis with 3.6L removed 2. Pericardial effusion; s/p pericardiocentesis with 1650cc out. Echo with preserved LV systolic function 3. SLE; on Cellcept and Plaquenil 4. LATONIA on CKD, nephritis; HD initiated. 700cc off this am 5. Hyperkalemia 6. Anemia of chronic disease; hgb drift to 6.8. transfuse as warranted 7. Protein calorie malnutrition, hypoalbuminemia, anasarca. as per renal Recommendations Limited echo this morning to evaluate pericardial effusion If there is no significant pericardial fluid accumulation, we will remove the pigtail catheter today. Supportive care Justicifation of Admission Dx: Justifications for Admission: Justification of Admission Dx: Yes Chronic Renal Failure: Renail Failure JUANJO DE SANTIAGO MD 09/09/20 1547: CARDIO Progress Notes Assessment Assessment Patient seen and examined. Agree with SUPERVISOR [employer]AF[employer]POSIT's assessment and plan. Repeat 2D echo showed trivial effusion. Pigtail catheter successfully removed. Continue hemodialysis per nephrology team. Plan for repeat 2D echocardiogram in 1 month to rule out reaccumulation of pericardial effusion. JERRY OVIEDO APRN Sep 09, 2020 09:43 JUANJO DE SANTIAGO MD Sep 09, 2020 15:47
--- NOTE | 2020-09-09 10:11 | PDOC ---
DATE OF SERVICE DATE: 09/09/20 TIME: 10:07 SUBJECTIVE ROS States feeling better since dialysis yesterday. Currently getting 2 nd treatment , No complaints OBJECTIVE Vital Signs Vital Signs Date Time Temp Pulse Resp B/P (MAP) Pulse Ox O2 Delivery O2 Flow Rate FiO2 09/09/20 08:00 Room Air 09/09/20 08:00 97.6 92 20 143/100 (114) 100 97.6 I & 0 Intake and Output 09/09/20 07:00 Intake Total 920 ml Output Total 590 ml Balance 330 ml Intake Oral 920 ml Output Urine Total 500 ml Drainage Total 90 ml PHYSICAL EXAM Physical Exam GEN: NAD HEENT: OM moist NECK: Supple LUNGS: Diminished at bases HEART: RRR ABDOMEN: Soft, Positive bowel sounds, EXTREMITIES:No clubbing, cyanosis, or edema. NEUROLOGIC: Grossly normal PSYCHIATRIC: Normal affect, SKIN: No ulcerations or rashes, No CVA or SP tenderness DIAGNOSIS/ASSESSMENT Assessment & Plan LATONIA- Worsening renal function , initiated on HD on 09/07, 2 treatment today Seen on dialysis , tolerating well, continue as ordered, Discussed with competitive intelligence manager On Myfortic and IV steroids x 3 days than switch to PO , monitor CBC , Strict I/O (Pt has refused Cochran ) avoid nephrotoxins Anemia drop in Hgb -Hgb dropped ? Bleed (no obvious) vs Myfortic. Hold off on Transfusion , monitor CBC HyperKalemia- K normal , post HD 2/ Hx of LATONIA Was hospitalized with LATONIA in Mar 2020 with Cr peaked at 3.7 , down to 1.4 at dc Stage IV Lupus Nephritis - Bx Proven in december [address] Bowens, seen in January 2020 with Cr 0.6 with fu recommnedations in 3 months. Pt was hospitalized , did not keep fu appt Post dc / lack of insurance coverage/Financial issues Acute abdominal distention- Large volume abdominal ascites- s/p Paracentesis 09/06 with 3.6 lts fluid drained Large pericardial effusion-post Pericardiocentesis 09/07- 1650 ml SLE-She was seen by Dr. Sal Salas in the past . No follow up appt made by patient Nephrotic Syndrome 10 gms in the past, leading to Renal bx Anasarca Bilateral pleural effusions Severe protein malnutrition Normocytic anemia due to chronic disease COMMENT/RELEVANT DATA Meds Current Medications Medications (Trade) Dose Ordered Sig/Kwesi Start Time Stop Time Status Last Admin Dose Admin Acetaminophen (Tylenol) 650 mg PRN Q4HRS PRN 09/06/20 21:30 Albumin Human 200 ml @ 200 mls/hr 1X PRN PRN 09/09/20 07:30 09/09/20 13:29 Dextrose (Dextrose 50%-Water Syringe) 12.5 gm PRN Q15MIN PRN 09/06/20 21:30 Diphenhydramine HCl (Benadryl) 25 mg 1X PRN PRN 09/08/20 11:00 09/09/20 10:59 Docusate Sodium (Colace) 100 mg PRN DAILY PRN 09/06/20 21:30 Famotidine (Pepcid) 20 mg Q48H 09/10/20 09:00 Fentanyl Citrate (Fentanyl 2ml Vial) 100 mcg 1X ONCE 09/07/20 11:15 09/07/20 11:20 DC 09/07/20 10:44 100 MCG Furosemide (Lasix) 60 mg 1X ONCE 09/06/20 19:00 09/06/20 19:01 DC 09/06/20 20:30 60 MG Heparin Sodium (Porcine) (Heparin Sodium) 5,000 unit Q12HR 09/08/20 09:00 09/09/20 08:28 5,000 UNIT Heparin Sodium/ Sodium Chloride (HEPARIN for ARTERIAL LINE FLUSH) 1,000 unit 1X ONCE 09/07/20 11:15 09/07/20 11:20 DC 09/07/20 11:15 1,000 UNIT Info (CONTRAST GIVEN -- Rx MONITORING) 1 each PRN DAILY PRN 09/06/20 16:45 09/08/20 16:44 DC Info (PHARMACY MONITORING -- do not chart) 1 each PRN DAILY PRN 09/09/20 07:30 Iohexol (Omnipaque 300 Mg/ml) 75 ml 1X ONCE 09/06/20 16:45 09/06/20 16:46 DC Ketorolac Tromethamine (Toradol 15mg Vial) 15 mg 1X ONCE 09/07/20 17:00 09/07/20 17:01 DC 09/07/20 16:50 15 MG Lidocaine HCl (Buffered Lidocaine 1%) 3 ml 1X ONCE 09/08/20 09:00 09/08/20 09:01 DC 09/08/20 09:00 3 ML Lidocaine/ Epinephrine (LIDOCAINE 2%-EPI 1:100,000 multi-dose) 20 ml STK-MED ONCE 09/07/20 11:36 09/07/20 11:36 DC Methylprednisolone Sodium Succinate (SOLU-Medrol 125MG VIAL) 100 mg Q6HRS 09/07/20 00:00 09/09/20 05:30 100 MG Midazolam HCl (Versed) 2 mg 1X ONCE 09/07/20 11:15 09/07/20 11:20 DC 09/07/20 10:44 2 MG Morphine Sulfate (Morphine Sulfate) 2 mg PRN Q2HR PRN 09/06/20 04:00 09/07/20 03:59 DC Mycophenolate Mofetil (Cellcept) 1,000 mg BID 09/07/20 12:00 09/09/20 08:27 1,000 MG Ondansetron HCl (Zofran) 4 mg PRN Q6HRS PRN 09/06/20 21:30 Sennosides (Senna) 17.2 mg PRN BID PRN 09/06/20 21:30 Sodium Chloride 1,000 ml @ 400 mls/hr Q2H30M PRN 09/09/20 07:30 09/09/20 19:29 Sodium Chloride (Normal Saline Flush) 10 ml 1X PRN PRN 09/09/20 07:30 09/10/20 07:29 Lab Laboratory Tests Test 09/09/20 07:30 09/09/20 07:38 Sodium Level 138 mmol/L (136-145) Potassium Level 4.5 mmol/L (3.5-5.1) Chloride Level 105 mmol/L (98-107) Carbon Dioxide Level 21 mmol/L (21-32) Anion Gap 12 (6-14) Blood Urea Nitrogen 74 mg/dL (7-20) Creatinine 3.5 mg/dL (0.6-1.0) Estimated GFR (Cockcroft-Gault) 15.3 Glucose Level 159 mg/dL (70-99) Calcium Level 7.8 mg/dL (8.5-10.1) Phosphorus Level 7.8 mg/dL (2.6-4.7) Albumin 1.1 g/dL (3.4-5.0) White Blood Count 13.5 x10^3/uL (4.0-11.0) Red Blood Count 2.13 x10^6/uL (3.50-5.40) Hemoglobin 6.8 g/dL (12.0-15.5) Hematocrit 20.3 % (36.0-47.0) Mean Corpuscular Volume 95 fL (79-100) Mean Corpuscular Hemoglobin 32 pg (25-35) Mean Corpuscular Hemoglobin Concent 33 g/dL (31-37) Red Cell Distribution Width 14.5 % (11.5-14.5) Platelet Count 217 x10^3/uL (140-400) Results All relevant outside records, renal labs, imaging studies, telemetry/EKG's were reviewed. Justicifation of Admission Dx: Justifications for Admission: Justification of Admission Dx: Yes Chronic Renal Failure: Renail Failure LIBBY HALL MD Sep 09, 2020 10:11
--- NOTE | 2020-09-09 11:49 | PDOC ---
PULMONARY PROGRESS NOTES DATE: 09/09/20 TIME: 11:46 Subjective S/P Pericardiocentesis with placement of pericardial drain on 09/08-- planned to remove today anemia on am labs Remains on R/A, denies SOB, Cough or Chest pain afebrile seen while on 2nd tx of HD, having some hypotension Vitals Vital Signs Date Time Temp Pulse Resp B/P (MAP) Pulse Ox O2 Delivery O2 Flow Rate FiO2 09/09/20 11:00 95 18 118/85 (96) 95 Room Air 09/09/20 08:00 97.6 97.6 ROS: No Nausea, No Chest Pain, No Abdominal Pain, No Increase Cough General: Alert, Oriented X4 Lungs: Clear Cardiovascular: S1, S2 Abdomen: Soft, Non-tender Neuro Exam: Alert, Oriented Extremities: No Edema Skin: Warm, Dry Labs Laboratory Tests Test 09/07/20 14:00 09/07/20 23:00 09/08/20 07:25 09/09/20 07:30 Body Fluid Source Ascites Body Fluid Color Straw Body Fluid Clarity Hazy Body Fluid Nucleated Cells 53 /cmm (Not Established) Body Fluid Mononuclear WBCs (%) 84 % Body Fluid Polymorphonuclear Cells 16 % Body Fluid Total RBCs Counted 126 /cmm (Not Established) Body Fluid Total Protein 2.0 g/dL (.) Body Fluid Lactate Dehydrogenase 86 IU/L (.) Urine Random Creatinine 112.0 mg/dL (Not Establ.) Urine Random Total Protein 684.8 mg/dL (Not Establ.) Urine Protein/Creatinine Ratio 6114 mg/g (0-200) Sodium Level 139 mmol/L (136-145) 138 mmol/L (136-145) Potassium Level 5.7 mmol/L (3.5-5.1) 4.5 mmol/L (3.5-5.1) Chloride Level 109 mmol/L (98-107) 105 mmol/L (98-107) Carbon Dioxide Level 16 mmol/L (21-32) 21 mmol/L (21-32) Anion Gap 14 (6-14) 12 (6-14) Blood Urea Nitrogen 97 mg/dL (7-20) 74 mg/dL (7-20) Creatinine 4.0 mg/dL (0.6-1.0) 3.5 mg/dL (0.6-1.0) Estimated GFR (Cockcroft-Gault) 13.1 15.3 Glucose Level 147 mg/dL (70-99) 159 mg/dL (70-99) Calcium Level 8.2 mg/dL (8.5-10.1) 7.8 mg/dL (8.5-10.1) Phosphorus Level 8.9 mg/dL (2.6-4.7) 7.8 mg/dL (2.6-4.7) Albumin 0.9 g/dL (3.4-5.0) 1.1 g/dL (3.4-5.0) Hepatitis B Surface Antigen Nonreactive (Nonreactive) Hepatitis B Surface Antibody, Quant <3.1 mIU/mL (Immunity>9.9) Test 09/09/20 07:38 White Blood Count 13.5 x10^3/uL (4.0-11.0) Red Blood Count 2.13 x10^6/uL (3.50-5.40) Hemoglobin 6.8 g/dL (12.0-15.5) Hematocrit 20.3 % (36.0-47.0) Mean Corpuscular Volume 95 fL (79-100) Mean Corpuscular Hemoglobin 32 pg (25-35) Mean Corpuscular Hemoglobin Concent 33 g/dL (31-37) Red Cell Distribution Width 14.5 % (11.5-14.5) Platelet Count 217 x10^3/uL (140-400) Laboratory Tests Test 09/09/20 07:30 09/09/20 07:38 Sodium Level 138 mmol/L (136-145) Potassium Level 4.5 mmol/L (3.5-5.1) Chloride Level 105 mmol/L (98-107) Carbon Dioxide Level 21 mmol/L (21-32) Anion Gap 12 (6-14) Blood Urea Nitrogen 74 mg/dL (7-20) Creatinine 3.5 mg/dL (0.6-1.0) Estimated GFR (Cockcroft-Gault) 15.3 Glucose Level 159 mg/dL (70-99) Calcium Level 7.8 mg/dL (8.5-10.1) Phosphorus Level 7.8 mg/dL (2.6-4.7) Albumin 1.1 g/dL (3.4-5.0) White Blood Count 13.5 x10^3/uL (4.0-11.0) Red Blood Count 2.13 x10^6/uL (3.50-5.40) Hemoglobin 6.8 g/dL (12.0-15.5) Hematocrit 20.3 % (36.0-47.0) Mean Corpuscular Volume 95 fL (79-100) Mean Corpuscular Hemoglobin 32 pg (25-35) Mean Corpuscular Hemoglobin Concent 33 g/dL (31-37) Red Cell Distribution Width 14.5 % (11.5-14.5) Platelet Count 217 x10^3/uL (140-400) Medications Active Scripts Medications Dose Route/Sig Max Daily Dose Days Date Category Cellcept (Mycophenolate Mofetil) 250 Mg Capsule 2 Cap PO BID 09/07/20 Reported Plaquenil (Hydroxychloroquine Sulfate) 200 Mg Tablet 200 Mg PO DAILY 09/07/20 Reported Furosemide 40 Mg Tablet 40 Mg PO DAILY 30 04/08/20 Rx Comments CXR IMPRESSION: 1. Small right and moderate left pleural effusions and left lower lobe atelectasis or infiltrate. 2. Prominent cardiac silhouette. Impression . IMPRESSION: 1. Abnormal x-ray revealing pleural effusion, suspect secondary to lupus. 2. Status post pericardial window for pericardial effusion. 3. Cardiomyopathy, ejection fraction 35% repeat EF 55% 4. Mzryl-lu-csjdpol kidney failure 2/2 Stage IV Lupus Nephritis 5. Hyperkalemia. 6. Stage 4 lupus nephritis, status post biopsy in 12/2019. 7. Anasarca. 8. Bilateral pleural effusions. 9. Severe protein malnutrition. Plan . PLAN: Stable from respiratory standpoint, remains on room air Monitor HGB, transfuse less than 7.0 -- hold Sub q heparin Follow cardiology recs-- S/P Pericardiocentesis with pericardial drain-- planned to removed today Follow nephrology recs-- HD, complicated by hypotension Patient does not require thoracentesis at this time Continue steroids with slow taper DVT/GI PPX D/W NIDIA GALO MD Sep 09, 2020 11:49
[2020-09-09] MEDS: MORPHINE SULFATE 2 MG/ML VIAL. IV PRN (12:05)
--- NOTE | 2020-09-09 13:08 | PDOC ---
[employer] PROGRESS NOTE Date of Service DOS: DATE: 09/09/20 TIME: 13:10 Chief Complaint Chief Complaint Assessment/Plan Acute abdominal distention Large pericardial effusion likely chronic Large volume abdominal ascites Anasarca Bilateral pleural effusions Acute on chronic kidney injury concerning for lupus nephritis Severe protein malnutrition Normocytic anemia due to chronic disease SLE - concerning for lupus flare. We will start high-dose IV steroids for 3 days then transition to p.o. prednisone. Continue Plaquenil and cellcept Nephrology consult for concern for lupus nephritis Cardiology consult for pericardial effusion Interventional radiology for pericardiocentesis and paracentesis Heparin for DVT prophylaxis Protonix GI prophylaxis Clear liquid diet Full code Discussed with RN and SW Disposition pending cardiology, nephrology, interventional radiology evaluation Surrogate decision maker is Yehuda Gomez History of Present Illness History of Present Illness Ms Lopez is a 30-year-old female with history of lupus that was diagnosed 1 year ago, hypertension, depression who presents today with increased abdominal bloating tightness and pain which also contributes to her shortness of breath. Also endorses some hemoptysis as well. Patient that she was constipated so she took some laxatives. Patient was also placed on Lasix 40 mg twice daily, however she does not feel this is helping her. This originally was to help her lower extremity edema which originally was doing okay but has gotten worse in the past few weeks. Patient is currently not taking any steroids. She states she is only taking Plaquenil. Denies fevers, rashes, hematuria, diarrhea, nausea vomiting, headaches or vision changes, chest pain. 09/07: Patient seen and evaluated. Slightly tachycardic, afebrile. Patient's breathing on room air, still with some complaints of shortness of breath. Echocardiogram with pericardial effusion with tamponade physiology. Status post pericardiocentesis 1650 cc. Paracentesis 3.6 L. 2/: Afebrile. Seen in ICU post pericardiocentesis. Labs reviewed K5.7 BUN 97, CR 4. Plan for dialysis catheter today. Her shortness of breath has improved. No telemetry events. Some fluctuant swelling at both pericardiocentesis and paracentesis sites. No bleeding. Afebrile seen in ICU after pericardial drain removed per cardiology. Tolerated dialysis well. Hb down to 6.8. She is much less short of breath. Overall does not feel great. Vitals/I&O Vitals/I&O: Vital Signs Date Time Temp Pulse Resp B/P (MAP) Pulse Ox O2 Delivery O2 Flow Rate FiO2 09/09/20 13:00 92 19 139/101 (114) 95 Room Air 09/09/20 12:00 97.8 97.8 I & O 09/08/20 09/08/20 09/09/20 14:55 22:55 06:55 Intake Total 360 ml 360 ml 200 ml Output Total 90 ml 500 ml Balance 270 ml -140 ml 200 ml Physical Exam General: Alert, Oriented X3, Cooperative, No acute distress Heart: Regular rate (SR/ST), Other (+ JVD) Lungs: Clear Abdomen: Soft, Other (ascites) Extremities: Other (trace LE edea ) Skin: No significant lesion Labs Labs: Laboratory Tests Test 09/09/20 07:30 09/09/20 07:38 Sodium Level 138 mmol/L (136-145) Potassium Level 4.5 mmol/L (3.5-5.1) Chloride Level 105 mmol/L (98-107) Carbon Dioxide Level 21 mmol/L (21-32) Anion Gap 12 (6-14) Blood Urea Nitrogen 74 mg/dL (7-20) Creatinine 3.5 mg/dL (0.6-1.0) Estimated GFR (Cockcroft-Gault) 15.3 Glucose Level 159 mg/dL (70-99) Calcium Level 7.8 mg/dL (8.5-10.1) Phosphorus Level 7.8 mg/dL (2.6-4.7) Albumin 1.1 g/dL (3.4-5.0) White Blood Count 13.5 x10^3/uL (4.0-11.0) Red Blood Count 2.13 x10^6/uL (3.50-5.40) Hemoglobin 6.8 g/dL (12.0-15.5) Hematocrit 20.3 % (36.0-47.0) Mean Corpuscular Volume 95 fL (79-100) Mean Corpuscular Hemoglobin 32 pg (25-35) Mean Corpuscular Hemoglobin Concent 33 g/dL (31-37) Red Cell Distribution Width 14.5 % (11.5-14.5) Platelet Count 217 x10^3/uL (140-400) Assessment and Plan Assessmemt and Plan Problems Medical Problems: (1) Acute renal failure Status: Acute (2) Ascites Status: Acute (3) Pericardial effusion Status: Acute (4) Pleural effusion Status: Acute Comment Review of Relevant I have reviewed the following items jennifer (where applicable) has been applied. Justifications for Admission Abdominal Pain Indications Is NPO status required?: Yes Justification for admission: Patient may require to be NPO for greater 24hours making it medically necessary to manage patient as inpatient. Other Justification RUBY CAT MD Sep 09, 2020 13:08
--- NOTE | 2020-09-09 13:51 | CARD ---
MR#: [id number] Date of Study: 09/09/2020 Ordering Physician: JERRY OVIEDO, Referring Physician: JERRY OVIEDO, Tech: Claudia Moore, [facility] APPROVED REPORT EXAM: Two-dimensional and M-mode echocardiogram with Doppler and color Doppler. Other Information Quality : GoodHR: 82bpm INDICATION Pericardial Effusion 2D DIMENSIONS RVDd2.5 (2.9-3.5cm)IVSd1.6 (0.7-1.1cm) Aortic Root(2D)2.6 (2.0-3.7cm)LVDd3.7 (3.9-5.9cm) LVOT Diameter2.0 (1.8-2.4cm)PWd1.0 (0.7-1.1cm) LVDs3.7 (2.5-4.0cm)FS (%) 0.7 % SV1.0 mlLVEF(%)1.7 (>50%) LEFT VENTRICLE The left ventricle is normal size. There is normal left ventricular wall thickness. The systolic func tion is severely impaired. The Ejection Fraction is 35%. There is severe global hypokinesis of the l eft ventricle. RIGHT VENTRICLE The right ventricle is normal size. There is normal right ventricular wall thickness. The right ventr icular systolic function is normal. AORTIC VALVE The aortic valve is normal in structure and function. Doppler and color-flow analysis was not perform ed. There is no significant aortic valvular stenosis. MITRAL VALVE The mitral valve is normal in structure and function. There is no evidence of mitral valve prolapse. There is no mitral valve stenosis. Doppler and color-flow analysis was not performed. TRICUSPID VALVE The tricuspid valve is normal in structure and function. Doppler and color-flow analysis was not perf ormed. There is no tricuspid valve stenosis. GREAT VESSELS The aortic root is normal in size. The IVC is normal in size and collapses >50% with inspiration. PERICARDIAL EFFUSION Large pleural effusion noted. There is no evidence of significant pericardial effusion. Critical Notification Critical Value: No <Conclusion> The systolic function is severely impaired. The Ejection Fraction is 35%. There is severe global hypokinesis of the left ventricle. There is no evidence of significant pericardial effusion. Large PLEURAL effusion noted. Signed by : Delfino Melgoza, Electronically Approved : 09/09/2020 13:50:41
--- NOTE | 2020-09-09 14:20 | CARD ---
MR#: [id number] Date of Study: 09/07/2020 Ordering Physician: JOVANI DRUMMOND, Referring Physician: JOVANI DRUMMOND, Tech: Ana Escoto RDCS APPROVED REPORT EXAM: LIMITED Two-dimensional echocardiogram Other Information Quality : Good INDICATION Pericardial Effusion Dyspnea R/O Tamponade, History of Lupus LEFT VENTRICLE The systolic function is moderately impaired. EF 35% There is moderate global hypokinesis. RIGHT VENTRICLE The right ventricle is normal size. The right ventricular systolic function is normal. There is RV di astolic collapse. ATRIA There is right atrial diastolic collapse. AORTIC VALVE Grossly normal. GREAT VESSELS The aortic root is normal in size. PERICARDIAL EFFUSION There is a large circumferential pericardial effusion. There is evidence of diastolic collapse of the right ventricle and right atrium. Critical Notification Date: 09/07/2020 Time: 09:37 Physician Name:EBENEZER De Oliveira Critical Value: Yes <Conclusion> The systolic function is moderately impaired. EF 35% There is moderate global hypokinesis. There is a large circumferential pericardial effusion. There is evidence of diastolic collapse of the right ventricle and right atrium. Signed by : Delfino Melgoza, Electronically Approved : 09/07/2020 10:58:22
--- NOTE | 2020-09-09 14:40 | NUR ---
SS following up with discharge planning. SS reviewed pt chart and discussed with pt RN. Pt is currently on room air. COVID19 negative. Pericardial drain was pulled today. Temporary HD cath still in place. Pt had dialysis today. BUN and Creat high. Not stable. SS will continue to follow for discharge planning.
[2020-09-09 23:08] LABS: C4 COMPLEMENT <2 mg/dL (12-38)
[2020-09-09 23:27] LABS: BILIRUBIN,URINE NEGATIVE (NEG); CLARITY,URINE CLEAR; COLOR,URINE YELLOW; NITRITE,URINE NEGATIVE (NEG); PROTEIN,URINE >=300 mg/dL (NEG-TRACE); UROBILINOGEN,URINE 0.2 mg/dL (0.2 mg/dL)
[2020-09-09 23:34] LABS: RBC,URINE >40 /HPF (0-2)
[2020-09-09 23:35] LABS: BACTERIA,URINE FEW /HPF (0-FEW); HYALINE CASTS, URINE FEW /HPF; WBC,URINE TNTC /HPF (0-4)
[2020-09-10] MEDS: methylPREDNISolone SOD SUCC PF 125 MG/2 ML VIAL. IV SCH ×4 (00:58→20:45)
[2020-09-10 03:21] VITALS: BP 138/103
[2020-09-10 07:00] VITALS: BP 145/106
[2020-09-10 08:13] LABS: RED BLOOD COUNT 2.1 x10^6/uL (3.50-5.40); WHITE BLOOD COUNT 13.5 x10^3/uL (4.0-11.0)
[2020-09-10 08:19] LABS: HEMATOCRIT 19.7 % (36.0-47.0); HEMOGLOBIN 6.4 g/dL (12.0-15.5)
[2020-09-10] MEDS: FAMOTIDINE 20 MG TABLET. PO SCH (08:24)
[2020-09-10] MEDS: MYCOPHENOLATE MOFETIL 250 MG CAPSULE. PO SCH ×2 (08:24→20:47)
[2020-09-10] MEDS: fentaNYL PF VIAL 100 MCG/2 ML VIAL IVP PRN ×2 (08:24→20:46)
[2020-09-10 08:49] LABS: ALBUMIN 1.1 g/dL (3.4-5.0); CALCIUM 7.8 mg/dL (8.5-10.1); GFR 18.3; PHOSPHORUS 6.7 mg/dL (2.6-4.7); POTASSIUM 4.1 mmol/L (3.5-5.1)
--- NOTE | 2020-09-10 09:08 | PDOC ---
DATE OF SERVICE DATE: 09/10/20 TIME: 09:07 SUBJECTIVE ROS States feeling much better OBJECTIVE Vital Signs Vital Signs Date Time Temp Pulse Resp B/P (MAP) Pulse Ox O2 Delivery O2 Flow Rate FiO2 09/10/20 08:24 100 Room Air 2.0 09/10/20 07:00 97.8 102 19 145/106 (119) 97.8 I & 0 Intake and Output 09/10/20 07:00 Intake Total 1220 ml Output Total 150 ml Balance 1070 ml Intake Oral 1220 ml Output Urine Total 150 ml # Bowel Movements 2 PHYSICAL EXAM Physical Exam GEN: NAD HEENT: OM moist NECK: Supple LUNGS: Diminished at bases HEART: RRR ABDOMEN: Soft, Positive bowel sounds, EXTREMITIES:No clubbing, cyanosis, or edema. NEUROLOGIC: Grossly normal PSYCHIATRIC: Normal affect, SKIN: No ulcerations or rashes, No CVA or SP tenderness DIAGNOSIS/ASSESSMENT Assessment & Plan LATONIA- Worsening renal function , initiated on HD on 09/07, 2 nd treatment 09/09 Currently stable, no indication for HD today, Re-bill in am, monitor for renal recovery On Myfortic and IV steroids , switch to PO in am after evaluating labs , monitor CBC , Strict I/O (Pt has refused Cochran ) avoid nephrotoxins Anemia drop in Hgb -Hgb dropped ? Bleed (no obvious) vs Myfortic. Hold off on Transfusion , monitor CBC . Check Fe studies, Start SHELLY- 1 st dose today HyperKalemia- K normal , post HD 2/2 HyperPhos- Improving , if pesrsistent will add Phos binders Hx of LATONIA Was hospitalized with LATONIA in Mar 2020 with Cr peaked at 3.7 , down to 1.4 at dc Stage IV Lupus Nephritis - Bx Proven in december [address] Bowens, seen in January 2020 with Cr 0.6 with fu recommnedations in 3 months. Pt was hospitalized , did not keep fu appt Post dc / lack of insurance coverage/Financial issues Acute abdominal distention- Large volume abdominal ascites- s/p Paracentesis 09/06 with 3.6 lts fluid drained Large pericardial effusion-post Pericardiocentesis 09/07- 1650 ml SLE-She was seen by Dr. Sal Salas in the past . No follow up appt made by patient Nephrotic Syndrome 10 gms in the past, leading to Renal bx Anasarca Bilateral pleural effusions Severe protein malnutrition Normocytic anemia due to chronic disease COMMENT/RELEVANT DATA Meds Current Medications Medications (Trade) Dose Ordered Sig/Kwesi Start Time Stop Time Status Last Admin Dose Admin Acetaminophen (Tylenol) 650 mg PRN Q4HRS PRN 09/06/20 21:30 Albumin Human 200 ml @ 200 mls/hr 1X PRN PRN 09/09/20 07:30 09/09/20 13:29 DC Dextrose (Dextrose 50%-Water Syringe) 12.5 gm PRN Q15MIN PRN 09/06/20 21:30 Diphenhydramine HCl (Benadryl) 25 mg 1X PRN PRN 09/08/20 11:00 09/09/20 10:59 DC Docusate Sodium (Colace) 100 mg PRN DAILY PRN 09/06/20 21:30 Famotidine (Pepcid) 20 mg Q48H 09/10/20 09:00 09/10/20 08:24 20 MG Fentanyl Citrate (Fentanyl 2ml Vial) 50 mcg PRN Q2HR PRN 09/09/20 21:30 09/10/20 08:24 50 MCG Furosemide (Lasix) 60 mg 1X ONCE 09/06/20 19:00 09/06/20 19:01 DC 09/06/20 20:30 60 MG Heparin Sodium (Porcine) (Heparin Sodium) 5,000 unit Q12HR 09/08/20 09:00 09/09/20 22:10 5,000 UNIT Heparin Sodium/ Sodium Chloride (HEPARIN for ARTERIAL LINE FLUSH) 1,000 unit 1X ONCE 09/07/20 11:15 09/07/20 11:20 DC 09/07/20 11:15 1,000 UNIT Info (CONTRAST GIVEN -- Rx MONITORING) 1 each PRN DAILY PRN 09/06/20 16:45 09/08/20 16:44 DC Info (PHARMACY MONITORING -- do not chart) 1 each PRN DAILY PRN 09/09/20 07:30 Iohexol (Omnipaque 300 Mg/ml) 75 ml 1X ONCE 09/06/20 16:45 09/06/20 16:46 DC Ketorolac Tromethamine (Toradol 15mg Vial) 15 mg 1X ONCE 09/07/20 17:00 09/07/20 17:01 DC 09/07/20 16:50 15 MG Lidocaine HCl (Buffered Lidocaine 1%) 3 ml 1X ONCE 09/08/20 09:00 09/08/20 09:01 DC 09/08/20 09:00 3 ML Lidocaine/ Epinephrine (LIDOCAINE 2%-EPI 1:100,000 multi-dose) 20 ml STK-MED ONCE 09/07/20 11:36 09/07/20 11:36 DC Methylprednisolone Sodium Succinate (SOLU-Medrol 125MG VIAL) 100 mg Q6HRS 09/07/20 00:00 09/10/20 05:57 100 MG Midazolam HCl (Versed) 2 mg 1X ONCE 09/07/20 11:15 09/07/20 11:20 DC 09/07/20 10:44 2 MG Morphine Sulfate (Morphine Sulfate) 2 mg PRN Q2HR PRN 09/06/20 04:00 09/07/20 03:59 DC Mycophenolate Mofetil (Cellcept) 1,000 mg BID 09/07/20 12:00 09/10/20 08:24 1,000 MG Ondansetron HCl (Zofran) 4 mg PRN Q6HRS PRN 09/06/20 21:30 Sennosides (Senna) 17.2 mg PRN BID PRN 09/06/20 21:30 Sodium Chloride 1,000 ml @ 400 mls/hr Q2H30M PRN 09/09/20 07:30 09/09/20 19:29 DC Sodium Chloride (Normal Saline Flush) 10 ml 1X PRN PRN 09/09/20 07:30 09/10/20 07:29 DC Lab Laboratory Tests Test 09/09/20 22:00 09/10/20 07:50 Urine Collection Type Unknown Urine Color Yellow Urine Clarity Clear Urine pH 8.0 (<5.0-8.0) Urine Specific [place] 1.020 (1.000-1.030) Urine Protein >=300 mg/dL (NEG-TRACE) Urine Glucose (UA) Negative mg/dL (NEG) Urine Ketones (Stick) Negative mg/dL (NEG) Urine Blood Moderate (NEG) Urine Nitrite Negative (NEG) Urine Bilirubin Negative (NEG) Urine Urobilinogen Dipstick 0.2 mg/dL (0.2 mg/dL) Urine Leukocyte Esterase Moderate (NEG) Urine RBC >40 /HPF (0-2) Urine WBC Tntc /HPF (0-4) Urine Squamous Epithelial Cells Occ /LPF Urine Bacteria Few /HPF (0-FEW) Urine Hyaline Casts Few /HPF Urine Mucus Mod /LPF White Blood Count 13.5 x10^3/uL (4.0-11.0) Red Blood Count 2.10 x10^6/uL (3.50-5.40) Hemoglobin 6.4 g/dL (12.0-15.5) Hematocrit 19.7 % (36.0-47.0) Mean Corpuscular Volume 94 fL (79-100) Mean Corpuscular Hemoglobin 30 pg (25-35) Mean Corpuscular Hemoglobin Concent 32 g/dL (31-37) Red Cell Distribution Width 14.0 % (11.5-14.5) Platelet Count 224 x10^3/uL (140-400) Sodium Level 140 mmol/L (136-145) Potassium Level 4.1 mmol/L (3.5-5.1) Chloride Level 105 mmol/L (98-107) Carbon Dioxide Level 28 mmol/L (21-32) Anion Gap 7 (6-14) Blood Urea Nitrogen 56 mg/dL (7-20) Creatinine 3.0 mg/dL (0.6-1.0) Estimated GFR (Cockcroft-Gault) 18.3 Glucose Level 136 mg/dL (70-99) Calcium Level 7.8 mg/dL (8.5-10.1) Phosphorus Level 6.7 mg/dL (2.6-4.7) Albumin 1.1 g/dL (3.4-5.0) Results All relevant outside records, renal labs, imaging studies, telemetry/EKG's were reviewed. Justicifation of Admission Dx: Justifications for Admission: Justification of Admission Dx: Yes Chronic Renal Failure: Renail Failure LIBBY HALL MD Sep 10, 2020 09:07
--- NOTE | 2020-09-10 10:17 | PDOC ---
PULMONARY PROGRESS NOTES DATE: 09/10/20 TIME: 10:15 Subjective anemia again on am labs Remains on R/A, denies SOB, Cough or Chest pain afebrile Vitals Vital Signs Date Time Temp Pulse Resp B/P (MAP) Pulse Ox O2 Delivery O2 Flow Rate FiO2 09/10/20 10:09 100 Room Air 2.0 09/10/20 07:00 97.8 102 19 145/106 (119) 97.8 ROS: No Nausea, No Chest Pain, No Abdominal Pain, No Increase Cough General: Alert, Oriented X4 Lungs: Clear Cardiovascular: S1, S2 Abdomen: Soft, Non-tender Neuro Exam: Alert, Oriented Extremities: Other (BLE edema ) Skin: Warm, Dry Labs Laboratory Tests Test 09/09/20 07:30 09/09/20 07:38 09/09/20 22:00 09/10/20 07:50 Sodium Level 138 mmol/L (136-145) 140 mmol/L (136-145) Potassium Level 4.5 mmol/L (3.5-5.1) 4.1 mmol/L (3.5-5.1) Chloride Level 105 mmol/L (98-107) 105 mmol/L (98-107) Carbon Dioxide Level 21 mmol/L (21-32) 28 mmol/L (21-32) Anion Gap 12 (6-14) 7 (6-14) Blood Urea Nitrogen 74 mg/dL (7-20) 56 mg/dL (7-20) Creatinine 3.5 mg/dL (0.6-1.0) 3.0 mg/dL (0.6-1.0) Estimated GFR (Cockcroft-Gault) 15.3 18.3 Glucose Level 159 mg/dL (70-99) 136 mg/dL (70-99) Calcium Level 7.8 mg/dL (8.5-10.1) 7.8 mg/dL (8.5-10.1) Phosphorus Level 7.8 mg/dL (2.6-4.7) 6.7 mg/dL (2.6-4.7) Albumin 1.1 g/dL (3.4-5.0) 1.1 g/dL (3.4-5.0) White Blood Count 13.5 x10^3/uL (4.0-11.0) 13.5 x10^3/uL (4.0-11.0) Red Blood Count 2.13 x10^6/uL (3.50-5.40) 2.10 x10^6/uL (3.50-5.40) Hemoglobin 6.8 g/dL (12.0-15.5) 6.4 g/dL (12.0-15.5) Hematocrit 20.3 % (36.0-47.0) 19.7 % (36.0-47.0) Mean Corpuscular Volume 95 fL (79-100) 94 fL (79-100) Mean Corpuscular Hemoglobin 32 pg (25-35) 30 pg (25-35) Mean Corpuscular Hemoglobin Concent 33 g/dL (31-37) 32 g/dL (31-37) Red Cell Distribution Width 14.5 % (11.5-14.5) 14.0 % (11.5-14.5) Platelet Count 217 x10^3/uL (140-400) 224 x10^3/uL (140-400) Urine Collection Type Unknown Urine Color Yellow Urine Clarity Clear Urine pH 8.0 (<5.0-8.0) Urine Specific [place] 1.020 (1.000-1.030) Urine Protein >=300 mg/dL (NEG-TRACE) Urine Glucose (UA) Negative mg/dL (NEG) Urine Ketones (Stick) Negative mg/dL (NEG) Urine Blood Moderate (NEG) Urine Nitrite Negative (NEG) Urine Bilirubin Negative (NEG) Urine Urobilinogen Dipstick 0.2 mg/dL (0.2 mg/dL) Urine Leukocyte Esterase Moderate (NEG) Urine RBC >40 /HPF (0-2) Urine WBC Tntc /HPF (0-4) Urine Squamous Epithelial Cells Occ /LPF Urine Bacteria Few /HPF (0-FEW) Urine Hyaline Casts Few /HPF Urine Mucus Mod /LPF Laboratory Tests Test 09/09/20 22:00 09/10/20 07:50 Urine Collection Type Unknown Urine Color Yellow Urine Clarity Clear Urine pH 8.0 (<5.0-8.0) Urine Specific [place] 1.020 (1.000-1.030) Urine Protein >=300 mg/dL (NEG-TRACE) Urine Glucose (UA) Negative mg/dL (NEG) Urine Ketones (Stick) Negative mg/dL (NEG) Urine Blood Moderate (NEG) Urine Nitrite Negative (NEG) Urine Bilirubin Negative (NEG) Urine Urobilinogen Dipstick 0.2 mg/dL (0.2 mg/dL) Urine Leukocyte Esterase Moderate (NEG) Urine RBC >40 /HPF (0-2) Urine WBC Tntc /HPF (0-4) Urine Squamous Epithelial Cells Occ /LPF Urine Bacteria Few /HPF (0-FEW) Urine Hyaline Casts Few /HPF Urine Mucus Mod /LPF White Blood Count 13.5 x10^3/uL (4.0-11.0) Red Blood Count 2.10 x10^6/uL (3.50-5.40) Hemoglobin 6.4 g/dL (12.0-15.5) Hematocrit 19.7 % (36.0-47.0) Mean Corpuscular Volume 94 fL (79-100) Mean Corpuscular Hemoglobin 30 pg (25-35) Mean Corpuscular Hemoglobin Concent 32 g/dL (31-37) Red Cell Distribution Width 14.0 % (11.5-14.5) Platelet Count 224 x10^3/uL (140-400) Sodium Level 140 mmol/L (136-145) Potassium Level 4.1 mmol/L (3.5-5.1) Chloride Level 105 mmol/L (98-107) Carbon Dioxide Level 28 mmol/L (21-32) Anion Gap 7 (6-14) Blood Urea Nitrogen 56 mg/dL (7-20) Creatinine 3.0 mg/dL (0.6-1.0) Estimated GFR (Cockcroft-Gault) 18.3 Glucose Level 136 mg/dL (70-99) Calcium Level 7.8 mg/dL (8.5-10.1) Phosphorus Level 6.7 mg/dL (2.6-4.7) Albumin 1.1 g/dL (3.4-5.0) Medications Active Scripts Medications Dose Route/Sig Max Daily Dose Days Date Category Cellcept (Mycophenolate Mofetil) 250 Mg Capsule 2 Cap PO BID 09/07/20 Reported Plaquenil (Hydroxychloroquine Sulfate) 200 Mg Tablet 200 Mg PO DAILY 09/07/20 Reported Furosemide 40 Mg Tablet 40 Mg PO DAILY 30 04/08/20 Rx Comments CXR IMPRESSION: 1. Small right and moderate left pleural effusions and left lower lobe atelectasis or infiltrate. 2. Prominent cardiac silhouette. Impression . IMPRESSION: 1. Abnormal x-ray revealing pleural effusion, suspect secondary to lupus. 2. Status post pericardial window for pericardial effusion. 3. Cardiomyopathy, ejection fraction 35% repeat EF 55% 4. [id number] kidney failure 2/2 Stage IV Lupus Nephritis 5. Hyperkalemia. 6. Stage 4 lupus nephritis, status post biopsy in 12/2019. 7. Anasarca. 8. Bilateral pleural effusions. 9. Severe protein malnutrition. Plan . PLAN: Stable from respiratory standpoint, remains on room air Monitor HGB, transfuse less than 7.0 --continue to hold A/C Follow cardiology recs-- S/P Pericardiocentesis Follow nephrology recs-- HD, n Patient does not require thoracentesis at this time Continue steroids with slow taper DVT/GI PPX D/W RN Stable from respiratory standpoint we will sign off at this time please call with any questions or concerns NIDIA TUCKER MD Sep 10, 2020 10:17
--- NOTE | 2020-09-10 10:27 | PDOC ---
[employer] PROGRESS NOTE Date of Service DOS: DATE: 09/10/20 TIME: 10:25 Chief Complaint Chief Complaint Assessment/Plan Acute abdominal distention Large pericardial effusion likely chronic Large volume abdominal ascites Anasarca Bilateral pleural effusions Acute on chronic kidney injury concerning for lupus nephritis Severe protein malnutrition Normocytic anemia due to chronic disease SLE - concerning for lupus flare. We will start high-dose IV steroids for 3 days then transition to p.o. prednisone. Continue Plaquenil and cellcept Nephrology consult for concern for lupus nephritis Cardiology consult for pericardial effusion Interventional radiology for pericardiocentesis and paracentesis Heparin for DVT prophylaxis Protonix GI prophylaxis Clear liquid diet Full code Discussed with RN and SW Disposition pending cardiology, nephrology, interventional radiology evaluation Surrogate decision maker is Yehuda Gomez History of Present Illness History of Present Illness Ms Lopez is a 30-year-old female with history of lupus that was diagnosed 1 year ago, hypertension, depression who presents today with increased abdominal bloating tightness and pain which also contributes to her shortness of breath. Also endorses some hemoptysis as well. Patient that she was constipated so she took some laxatives. Patient was also placed on Lasix 40 mg twice daily, however she does not feel this is helping her. This originally was to help her lower extremity edema which originally was doing okay but has gotten worse in the past few weeks. Patient is currently not taking any steroids. She states she is only taking Plaquenil. Denies fevers, rashes, hematuria, diarrhea, nausea vomiting, headaches or vision changes, chest pain. 2: Patient seen and evaluated. Slightly tachycardic, afebrile. Patient's breathing on room air, still with some complaints of shortness of breath. Echocardiogram with pericardial effusion with tamponade physiology. Status post pericardiocentesis 1650 cc. Paracentesis 3.6 L. 2/2: Afebrile. Seen in ICU post pericardiocentesis. Labs reviewed K5.7 BUN 97, CR 4. Plan for dialysis catheter today. Her shortness of breath has improved. No telemetry events. Some fluctuant swelling at both pericardiocentesis and paracentesis sites. No bleeding. 2/3: Afebrile seen in ICU after pericardial drain removed per cardiology. Tolerated dialysis well. Hb down to 6.8. She is much less short of breath. Overall does not feel great. 2: Patient seen and evaluated. Pericardial drain removed yesterday. Status post paracentesis and pericardiocentesis. Hemoglobin 6.8 yesterday, 6.4 today. I do not think this represents an acute bleed, may be secondary to her kidney disease or mycophenolate. Will continue to monitor hemoglobin. Vitals/I&O Vitals/I&O: Vital Signs Date Time Temp Pulse Resp B/P (MAP) Pulse Ox O2 Delivery O2 Flow Rate FiO2 09/10/20 10:09 100 Room Air 2.0 09/10/20 07:00 97.8 102 19 145/106 (119) 97.8 I & O 09/09/20 09/09/20 09/10/20 15:00 23:00 07:00 Intake Total 480 ml 300 ml 440 ml Output Total 0 ml 150 ml Balance 480 ml 150 ml 440 ml Physical Exam General: Alert, Oriented X3, Cooperative, No acute distress Heart: Regular rate (SR/ST), Other (+ JVD) Lungs: Clear Abdomen: Soft, Other (ascites) Extremities: Other (trace LE edea ) Skin: No significant lesion Labs Labs: Laboratory Tests Test 09/09/20 22:00 09/10/20 07:50 Urine Collection Type Unknown Urine Color Yellow Urine Clarity Clear Urine pH 8.0 (<5.0-8.0) Urine Specific [place] 1.020 (1.000-1.030) Urine Protein >=300 mg/dL (NEG-TRACE) Urine Glucose (UA) Negative mg/dL (NEG) Urine Ketones (Stick) Negative mg/dL (NEG) Urine Blood Moderate (NEG) Urine Nitrite Negative (NEG) Urine Bilirubin Negative (NEG) Urine Urobilinogen Dipstick 0.2 mg/dL (0.2 mg/dL) Urine Leukocyte Esterase Moderate (NEG) Urine RBC >40 /HPF (0-2) Urine WBC Tntc /HPF (0-4) Urine Squamous Epithelial Cells Occ /LPF Urine Bacteria Few /HPF (0-FEW) Urine Hyaline Casts Few /HPF Urine Mucus Mod /LPF White Blood Count 13.5 x10^3/uL (4.0-11.0) Red Blood Count 2.10 x10^6/uL (3.50-5.40) Hemoglobin 6.4 g/dL (12.0-15.5) Hematocrit 19.7 % (36.0-47.0) Mean Corpuscular Volume 94 fL (79-100) Mean Corpuscular Hemoglobin 30 pg (25-35) Mean Corpuscular Hemoglobin Concent 32 g/dL (31-37) Red Cell Distribution Width 14.0 % (11.5-14.5) Platelet Count 224 x10^3/uL (140-400) Sodium Level 140 mmol/L (136-145) Potassium Level 4.1 mmol/L (3.5-5.1) Chloride Level 105 mmol/L (98-107) Carbon Dioxide Level 28 mmol/L (21-32) Anion Gap 7 (6-14) Blood Urea Nitrogen 56 mg/dL (7-20) Creatinine 3.0 mg/dL (0.6-1.0) Estimated GFR (Cockcroft-Gault) 18.3 Glucose Level 136 mg/dL (70-99) Calcium Level 7.8 mg/dL (8.5-10.1) Phosphorus Level 6.7 mg/dL (2.6-4.7) Albumin 1.1 g/dL (3.4-5.0) Assessment and Plan Assessmemt and Plan Problems Medical Problems: (1) Acute renal failure Status: Acute (2) Ascites Status: Acute (3) Pericardial effusion Status: Acute (4) Pleural effusion Status: Acute Comment Review of Relevant I have reviewed the following items jennifer (where applicable) has been applied. Medications: Current Medications Medications (Trade) Dose Ordered Sig/Kwesi Route PRN Reason Start Time Stop Time Status Last Admin Dose Admin Famotidine (Pepcid) 20 mg Q48H PO 09/10/20 09:00 09/10/20 08:24 Fentanyl Citrate (Fentanyl 2ml Vial) 50 mcg PRN Q2HR PRN IVP PAIN 09/09/20 21:30 09/10/20 08:24 Justifications for Admission Abdominal Pain Indications Is NPO status required?: Yes Justification for admission: Patient may require to be NPO for greater 24hours making it medically necessary to manage patient as inpatient. Other Justification KYRA MALDONADO MD Sep 10, 2020 10:27
[2020-09-10 11:00] VITALS: BP 138/105
[2020-09-10] MEDS ORDERED: DARBEPOETIN ALFA 60 MCG/0.3 ML DISP.SYRIN. SQ ONE (11:00)
--- NOTE | 2020-09-10 12:09 | NUR ---
SS following up with discharge planning. SS reviewed pt chart and discussed with pt RN. Pt is currently on room air. Self pay. COVID19 negative. Pt has temporary HD at this time. Nephrology following. Possible need for outpatient dialysis. Need is undetermined at this time. SS will continue to follow for discharge planning.
[2020-09-10] MEDS ORDERED: LIDOCAINE 2% TOPICAL JELLY 5GM TUBE. TP ONE (12:45)
--- NOTE | 2020-09-10 13:15 | PDOC ---
JERRY OVIEDO HEALTH SAFETY MANAGER 09/10/20 1315: CARDIO Progress Notes Date and Time Date of Service 09/10/20 Time of Evaluation 1310 Subjective Subjective: No Chest Pain, Other (SOA improved ) Vitals Vitals Vital Signs Date Time Temp Pulse Resp B/P (MAP) Pulse Ox O2 Delivery O2 Flow Rate FiO2 09/10/20 11:00 97.7 101 16 138/105 (116) 99 Room Air 97.7 09/10/20 10:09 2.0 Weight Weight [ ] Input and Output Intake and Output Intake and Output 09/10/20 07:00 Intake Total 1220 ml Output Total 150 ml Balance 1070 ml Intake Oral 1220 ml Output Urine Total 150 ml # Bowel Movements 2 Laboratory Labs Laboratory Tests Test 09/09/20 22:00 09/10/20 07:50 Urine Collection Type Unknown Urine Color Yellow Urine Clarity Clear Urine pH 8.0 (<5.0-8.0) Urine Specific [place] 1.020 (1.000-1.030) Urine Protein >=300 mg/dL (NEG-TRACE) Urine Glucose (UA) Negative mg/dL (NEG) Urine Ketones (Stick) Negative mg/dL (NEG) Urine Blood Moderate (NEG) Urine Nitrite Negative (NEG) Urine Bilirubin Negative (NEG) Urine Urobilinogen Dipstick 0.2 mg/dL (0.2 mg/dL) Urine Leukocyte Esterase Moderate (NEG) Urine RBC >40 /HPF (0-2) Urine WBC Tntc /HPF (0-4) Urine Squamous Epithelial Cells Occ /LPF Urine Bacteria Few /HPF (0-FEW) Urine Hyaline Casts Few /HPF Urine Mucus Mod /LPF White Blood Count 13.5 x10^3/uL (4.0-11.0) Red Blood Count 2.10 x10^6/uL (3.50-5.40) Hemoglobin 6.4 g/dL (12.0-15.5) Hematocrit 19.7 % (36.0-47.0) Mean Corpuscular Volume 94 fL (79-100) Mean Corpuscular Hemoglobin 30 pg (25-35) Mean Corpuscular Hemoglobin Concent 32 g/dL (31-37) Red Cell Distribution Width 14.0 % (11.5-14.5) Platelet Count 224 x10^3/uL (140-400) Sodium Level 140 mmol/L (136-145) Potassium Level 4.1 mmol/L (3.5-5.1) Chloride Level 105 mmol/L (98-107) Carbon Dioxide Level 28 mmol/L (21-32) Anion Gap 7 (6-14) Blood Urea Nitrogen 56 mg/dL (7-20) Creatinine 3.0 mg/dL (0.6-1.0) Estimated GFR (Cockcroft-Gault) 18.3 Glucose Level 136 mg/dL (70-99) Calcium Level 7.8 mg/dL (8.5-10.1) Phosphorus Level 6.7 mg/dL (2.6-4.7) Iron Level 69 ug/dL (50-170) Total Iron Binding Capacity 151 ug/dL (250-450) Iron Saturation 46 % (15-34) Ferritin 339 ng/mL (8-252) Albumin 1.1 g/dL (3.4-5.0) Hepatitis B Core Total Antibody Nonreactive (Nonreactive) Microbiology Micro Microbiology 09/07/20 Gram Stain - Final, Resulted 09/07/20 Aerobic and Anaerobic Culture - Preliminary, Resulted 09/06/20 Urine Culture - Final, Complete Physical Exam HEENT: Neck Supple W Full Motion Chest: Symmetric LUNGS: Other (diminished bases) Heart: RRR (SR/ST) Abdomen: Other (ascites, anasarca ) Extremities: Other (1-2+ bilateral LE edema ) Neurology: alert, oriented, follow commands Assessment Assessment 1. Dyspnea, abdominal distention with large volume ascites and pleural effusion. s/p paracentesis with 3.6L removed 2. Pericardial effusion in the setting of significant hypoalbuminemia; s/p pericardiocentesis with 1650cc out. Echo with preserved LV systolic function. Repeat 2D echo showed trivial effusion; pigtail catheter removed successfully 3. SLE 4. LATONIA on CKD, nephritis; HD initiated. 5. Hyperkalemia; resolved 6. Anemia of chronic disease; hgb drift to 6.4. 7. Protein calorie malnutrition, hypoalbuminemia, anasarca. Supportive care Continue hemodialysis per nephrology team. Transfuse as warranted Repeat 2D echocardiogram in 1 month, as scheduled, to rule out reaccumulation of pericardial effusion. Supportive care Follow up in our office with Dr. Guzman as scheduled Justicifation of Admission Dx: Justifications for Admission: Justification of Admission Dx: Yes Chronic Renal Failure: Renail Failure JUANJO GUZMAN MD 09/10/20 1856: CARDIO Progress Notes Assessment Assessment Patient seen and examined. Agree with ELECTRICAL EQUIPMENT ASSEMBLER's assessment and plan. s/p pericardiocentesis for tamponade with removal of pigtail catheter yesterday after rpt echo showed only trivial PE Continue hemodialysis per nephrology team. Plan for repeat 2D echocardiogram in 1 month to rule out reaccumulation of pericardial effusion. JERRY OVIEDO APRN Sep 10, 2020 13:15 JUANJO GUZMAN MD Sep 10, 2020 18:56
[2020-09-10 15:00] VITALS: BP 130/98
[2020-09-10 19:57] VITALS: BP 140/93
[2020-09-10 22:55] VITALS: BP 142/98
[2020-09-11] MEDS: methylPREDNISolone SOD SUCC PF 125 MG/2 ML VIAL. IV SCH ×3 (00:45→14:22)
[2020-09-11 02:33] VITALS: BP 141/93
[2020-09-11 05:18] LABS: RED BLOOD COUNT 2.13 x10^6/uL (3.50-5.40); RED CELL DISTRIBUTION WIDTH 13.8 % (11.5-14.5); WHITE BLOOD COUNT 14.3 x10^3/uL (4.0-11.0)
[2020-09-11 05:34] LABS: ALBUMIN 1.1 g/dL (3.4-5.0); CALCIUM 8.1 mg/dL (8.5-10.1); CREATININE 3.8 mg/dL (0.6-1.0); GFR 13.9; POTASSIUM 3.9 mmol/L (3.5-5.1)
[2020-09-11 06:45] LABS: HEMATOCRIT 19.7 % (36.0-47.0); HEMOGLOBIN 6.6 g/dL (12.0-15.5)
[2020-09-11 07:00] VITALS: BP 154/117
--- NOTE | 2020-09-11 07:28 | PDOC ---
[facility] PROGRESS NOTE Date of Service DOS: DATE: 09/11/20 TIME: 07:21 Chief Complaint Chief Complaint Assessment/Plan Acute abdominal distention Large pericardial effusion likely chronic Large volume abdominal ascites Anasarca Bilateral pleural effusions Acute on chronic kidney injury concerning for lupus nephritis Severe protein malnutrition Normocytic anemia due to chronic disease SLE - concerning for lupus flare. We will start high-dose IV steroids for 3 days then transition to p.o. prednisone. Continue Plaquenil and cellcept Nephrology consult for concern for lupus nephritis Cardiology consult for pericardial effusion Interventional radiology for pericardiocentesis and paracentesis Heparin for DVT prophylaxis Protonix GI prophylaxis Clear liquid diet Full code Discussed with RN and SW Disposition pending cardiology, nephrology, interventional radiology evaluation Surrogate decision maker is Yehuad Gomez History of Present Illness History of Present Illness Ms Lopez is a 30-year-old female with history of lupus that was diagnosed 1 year ago, hypertension, depression who presents today with increased abdominal bloating tightness and pain which also contributes to her shortness of breath. Also endorses some hemoptysis as well. Patient that she was constipated so she took some laxatives. Patient was also placed on Lasix 40 mg twice daily, however she does not feel this is helping her. This originally was to help her lower extremity edema which originally was doing okay but has gotten worse in the past few weeks. Patient is currently not taking any steroids. She states she is only taking Plaquenil. Denies fevers, rashes, hematuria, diarrhea, nausea vomiting, headaches or vision changes, chest pain. 2/: Patient seen and evaluated. Slightly tachycardic, afebrile. Patient's breathing on room air, still with some complaints of shortness of breath. Echocardiogram with pericardial effusion with tamponade physiology. Status post pericardiocentesis 1650 cc. Paracentesis 3.6 L. 2/2: Afebrile. Seen in ICU post pericardiocentesis. Labs reviewed K5.7 BUN 97, CR 4. Plan for dialysis catheter today. Her shortness of breath has improved. No telemetry events. Some fluctuant swelling at both pericardiocentesis and paracentesis sites. No bleeding. 2/3: Afebrile seen in ICU after pericardial drain removed per cardiology. Tolerated dialysis well. Hb down to 6.8. She is much less short of breath. Overall does not feel great. 2/4: Patient seen and evaluated. Pericardial drain removed yesterday. Status post paracentesis and pericardiocentesis. Hemoglobin 6.8 yesterday, 6.4 today. I do not think this represents an acute bleed, may be secondary to her kidney disease or mycophenolate. Will continue to monitor hemoglobin. 09/11: Patient seen on hemodialysis. Afebrile this morning, breathing room air. Started on darbepoetin, first dose yesterday. Hemoglobin 6.4 yesterday, 6.6 today. No evidence of bleeding. Hold transfusions at this time as to not fluid overload. Plan: Initiated on HD on 09/07. S/P paracentesis and pericardiocentesis. Continue HD, per nephrology. Continue to monitor hemoglobin. Vitals/I&O Vitals/I&O: Vital Signs Date Time Temp Pulse Resp B/P (MAP) Pulse Ox O2 Delivery O2 Flow Rate FiO2 09/11/20 02:33 98.1 92 18 141/93 (109) 97 Room Air 98.1 09/10/20 10:09 2.0 I & O 09/10/20 09/10/20 09/11/20 15:00 23:00 07:00 Intake Total 837 ml 200 ml 440 ml Output Total 50 ml Balance 787 ml 200 ml 440 ml Physical Exam General: Alert, Oriented X3, Cooperative, No acute distress Heart: Regular rate (SR/ST), Other (+ JVD) Lungs: Clear Abdomen: Soft, Other (ascites) Extremities: Other (trace LE edea ) Skin: No significant lesion Labs Labs: Laboratory Tests Test 09/10/20 07:50 09/11/20 05:00 White Blood Count 13.5 x10^3/uL (4.0-11.0) 14.3 x10^3/uL (4.0-11.0) Red Blood Count 2.10 x10^6/uL (3.50-5.40) 2.13 x10^6/uL (3.50-5.40) Hemoglobin 6.4 g/dL (12.0-15.5) 6.6 g/dL (12.0-15.5) Hematocrit 19.7 % (36.0-47.0) 19.7 % (36.0-47.0) Mean Corpuscular Volume 94 fL (79-100) 93 fL (79-100) Mean Corpuscular Hemoglobin 30 pg (25-35) 31 pg (25-35) Mean Corpuscular Hemoglobin Concent 32 g/dL (31-37) 33 g/dL (31-37) Red Cell Distribution Width 14.0 % (11.5-14.5) 13.8 % (11.5-14.5) Platelet Count 224 x10^3/uL (140-400) 277 x10^3/uL (140-400) Sodium Level 140 mmol/L (136-145) 137 mmol/L (136-145) Potassium Level 4.1 mmol/L (3.5-5.1) 3.9 mmol/L (3.5-5.1) Chloride Level 105 mmol/L (98-107) 103 mmol/L (98-107) Carbon Dioxide Level 28 mmol/L (21-32) 24 mmol/L (21-32) Anion Gap 7 (6-14) 10 (6-14) Blood Urea Nitrogen 56 mg/dL (7-20) 71 mg/dL (7-20) Creatinine 3.0 mg/dL (0.6-1.0) 3.8 mg/dL (0.6-1.0) Estimated GFR (Cockcroft-Gault) 18.3 13.9 Glucose Level 136 mg/dL (70-99) 156 mg/dL (70-99) Calcium Level 7.8 mg/dL (8.5-10.1) 8.1 mg/dL (8.5-10.1) Phosphorus Level 6.7 mg/dL (2.6-4.7) 7.0 mg/dL (2.6-4.7) Iron Level 69 ug/dL (50-170) Total Iron Binding Capacity 151 ug/dL (250-450) Iron Saturation 46 % (15-34) Ferritin 339 ng/mL (8-252) Albumin 1.1 g/dL (3.4-5.0) 1.1 g/dL (3.4-5.0) Hepatitis B Core Total Antibody Nonreactive (Nonreactive) Assessment and Plan Assessmemt and Plan Problems Medical Problems: (1) Acute renal failure Status: Acute (2) Ascites Status: Acute (3) Pericardial effusion Status: Acute (4) Pleural effusion Status: Acute Comment Review of Relevant I have reviewed the following items jennifer (where applicable) has been applied. Medications: Current Medications Medications (Trade) Dose Ordered Sig/Kwesi Route PRN Reason Start Time Stop Time Status Last Admin Dose Admin Famotidine (Pepcid) 20 mg Q48H PO 09/10/20 09:00 09/10/20 08:24 Darbepoetin [place] (ARANESP for NON-DIALYSIS PTS) 60 mcg 1X ONCE SQ 09/10/20 11:00 09/10/20 11:01 DC 09/10/20 12:30 Lidocaine HCl (Xylocaine 2% Topical 5gm Tube) 1 aditya 1X ONCE TP 09/10/20 12:45 09/10/20 12:46 DC 09/10/20 15:19 Justifications for Admission Abdominal Pain Indications Is NPO status required?: Yes Justification for admission: Patient may require to be NPO for greater 24hours making it medically necessary to manage patient as inpatient. Other Justification KYRA MALDONADO MD Sep 11, 2020 07:28
[2020-09-11] MEDS: MYCOPHENOLATE MOFETIL 250 MG CAPSULE. PO SCH ×2 (07:51→21:08)
[2020-09-11] MEDS ORDERED: predniSONE 20 MG TABLET PO ONE (08:00)
[2020-09-11] MEDS ORDERED: ALBUMIN HUMAN 25% 200 ML IV PRN (09:00)
[2020-09-11] MEDS ORDERED: IV NORMAL SALINE 1000ML BAG 1,000 ML IV PRN ×2 (09:00)
--- NOTE | 2020-09-11 09:03 | NUR ---
PT LEFT FOR DIALYSIS AT APPROX 0900. SPOKE WITH MOY SANCHEZ THIS MORNING IN REGARDS TO PTS UPDATES BEFORE DIALYSIS.
--- NOTE | 2020-09-11 09:26 | PDOC ---
DATE OF SERVICE DATE: 09/11/20 TIME: 09:22 SUBJECTIVE ROS States feeling much better OBJECTIVE Vital Signs Vital Signs Date Time Temp Pulse Resp B/P (MAP) Pulse Ox O2 Delivery O2 Flow Rate FiO2 09/11/20 07:00 98.2 100 18 154/117 (129) 99 Room Air 98.2 09/10/20 10:09 2.0 I & 0 Intake and Output 09/11/20 07:00 Intake Total 1477 ml Output Total 50 ml Balance 1427 ml Intake Oral 1477 ml Output Urine Total 50 ml # Voids 3 # Bowel Movements 1 PHYSICAL EXAM Physical Exam GEN: NAD HEENT: OM moist NECK: Supple LUNGS: Diminished at bases HEART: RRR ABDOMEN: Soft, Positive bowel sounds, EXTREMITIES:No clubbing, cyanosis, or edema. NEUROLOGIC: Grossly normal PSYCHIATRIC: Normal affect, SKIN: No ulcerations or rashes, No CVA or SP tenderness DIAGNOSIS/ASSESSMENT Assessment & Plan LATONIA- Worsening renal function , initiated on HD on 09/07, 2 nd treatment 09/09 Dialysis today, seen on hd, tolerating well, continue as ordered, Filiberto Yang On Myfortic and IV Steroids , witch to PO prednisone 60 mg pO QD in am , monitor CBC , Strict I/O (Pt has refused Cochran ) avoid nephrotoxins If further drop in Hgb /or and WBC- will have to decrease Myfortic dose Anemia drop in Hgb -Hgb dropped ? Bleed (no obvious) vs Myfortic. Hold off on Transfusion , stable . 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 Bowens, Nephrotic Syndrome 10 gms in the past, leading to Renal bx , recent Pr/Cr 6 gms COMMENT/RELEVANT DATA Meds Current Medications Medications (Trade) Dose Ordered Sig/Kwesi Start Time Stop Time Status Last Admin Dose Admin Acetaminophen (Tylenol) 650 mg PRN Q4HRS PRN 09/06/20 21:30 Albumin Human 200 ml @ 200 mls/hr 1X PRN PRN 09/09/20 07:30 09/09/20 13:29 DC Darbepoetin [place] (ARANESP for NON-DIALYSIS PTS) 60 mcg 1X ONCE 09/10/20 11:00 09/10/20 11:01 DC 09/10/20 12:30 60 MCG Dextrose (Dextrose 50%-Water Syringe) 12.5 gm PRN Q15MIN PRN 09/06/20 21:30 Diphenhydramine HCl (Benadryl) 25 mg 1X PRN PRN 09/08/20 11:00 09/09/20 10:59 DC Docusate Sodium (Colace) 100 mg PRN DAILY PRN 09/06/20 21:30 Famotidine (Pepcid) 20 mg Q48H 09/10/20 09:00 09/10/20 08:24 20 MG Fentanyl Citrate (Fentanyl 2ml Vial) 50 mcg PRN Q2HR PRN 09/09/20 21:30 09/10/20 20:46 50 MCG Furosemide (Lasix) 60 mg 1X ONCE 09/06/20 19:00 09/06/20 19:01 DC 09/06/20 20:30 60 MG Heparin Sodium (Porcine) (Heparin Sodium) 5,000 unit Q12HR 09/08/20 09:00 09/10/20 09:42 DC 09/09/20 22:10 5,000 UNIT Heparin Sodium/ Sodium Chloride (HEPARIN for ARTERIAL LINE FLUSH) 1,000 unit 1X ONCE 09/07/20 11:15 09/07/20 11:20 DC 09/07/20 11:15 1,000 UNIT Info (CONTRAST GIVEN -- Rx MONITORING) 1 each PRN DAILY PRN 09/06/20 16:45 09/08/20 16:44 DC Info (PHARMACY MONITORING -- do not chart) 1 each PRN DAILY PRN 09/09/20 07:30 Iohexol (Omnipaque 300 Mg/ml) 75 ml 1X ONCE 09/06/20 16:45 09/06/20 16:46 DC Ketorolac Tromethamine (Toradol 15mg Vial) 15 mg 1X ONCE 09/07/20 17:00 09/07/20 17:01 DC 09/07/20 16:50 15 MG Lidocaine HCl (Buffered Lidocaine 1%) 3 ml 1X ONCE 09/08/20 09:00 09/08/20 09:01 DC 09/08/20 09:00 3 ML Lidocaine HCl (Xylocaine 2% Topical 5gm Tube) 1 aditya 1X ONCE 09/10/20 12:45 09/10/20 12:46 DC 09/10/20 15:19 1 ADITYA Lidocaine/ Epinephrine (LIDOCAINE 2%-EPI 1:100,000 multi-dose) 20 ml STK-MED ONCE 09/07/20 11:36 09/07/20 11:36 DC Methylprednisolone Sodium Succinate (SOLU-Medrol 125MG VIAL) 100 mg Q6HRS 09/07/20 00:00 09/11/20 05:50 100 MG Midazolam HCl (Versed) 2 mg 1X ONCE 09/07/20 11:15 09/07/20 11:20 DC 09/07/20 10:44 2 MG Morphine Sulfate (Morphine Sulfate) 2 mg PRN Q2HR PRN 09/06/20 04:00 09/07/20 03:59 DC Mycophenolate Mofetil (Cellcept) 1,000 mg BID 09/07/20 12:00 09/11/20 07:51 1,000 MG Ondansetron HCl (Zofran) 4 mg PRN Q6HRS PRN 09/06/20 21:30 Sennosides (Senna) 17.2 mg PRN BID PRN 09/06/20 21:30 Sodium Chloride 1,000 ml @ 400 mls/hr Q2H30M PRN 09/09/20 07:30 09/09/20 19:29 DC Sodium Chloride (Normal Saline Flush) 10 ml 1X PRN PRN 09/09/20 07:30 09/10/20 07:29 DC Lab Laboratory Tests Test 09/11/20 05:00 White Blood Count 14.3 x10^3/uL (4.0-11.0) Red Blood Count 2.13 x10^6/uL (3.50-5.40) Hemoglobin 6.6 g/dL (12.0-15.5) Hematocrit 19.7 % (36.0-47.0) Mean Corpuscular Volume 93 fL (79-100) Mean Corpuscular Hemoglobin 31 pg (25-35) Mean Corpuscular Hemoglobin Concent 33 g/dL (31-37) Red Cell Distribution Width 13.8 % (11.5-14.5) Platelet Count 277 x10^3/uL (140-400) Sodium Level 137 mmol/L (136-145) Potassium Level 3.9 mmol/L (3.5-5.1) Chloride Level 103 mmol/L (98-107) Carbon Dioxide Level 24 mmol/L (21-32) Anion Gap 10 (6-14) Blood Urea Nitrogen 71 mg/dL (7-20) Creatinine 3.8 mg/dL (0.6-1.0) Estimated GFR (Cockcroft-Gault) 13.9 Glucose Level 156 mg/dL (70-99) Calcium Level 8.1 mg/dL (8.5-10.1) Phosphorus Level 7.0 mg/dL (2.6-4.7) Albumin 1.1 g/dL (3.4-5.0) Results All relevant outside records, renal labs, imaging studies, telemetry/EKG's were reviewed. Justicifation of Admission Dx: Justifications for Admission: Justification of Admission Dx: Yes Chronic Renal Failure: Renail Failure LIBBY HALL MD Sep 11, 2020 09:26
[2020-09-11] MEDS ORDERED: DIALYSIS PATIENT. MC PRN ×2 (10:30)
[2020-09-11] MEDS: ONDANSETRON PF 4 MG/2 ML VIAL. IVP PRN (10:33)
[2020-09-11] MEDS: fentaNYL PF VIAL 100 MCG/2 ML VIAL IVP PRN ×2 (14:14→21:12)
[2020-09-11 15:00] VITALS: BP 130/85
[2020-09-11 19:30] VITALS: BP 144/99
[2020-09-11 23:00] VITALS: BP 142/96
[2020-09-12] VITALS (13 sets, daily range): BP systolic 127–152; BP diastolic 82–111
[2020-09-12] MEDS: ONDANSETRON PF 4 MG/2 ML VIAL. IVP PRN (02:58)
[2020-09-12] MEDS: fentaNYL PF VIAL 100 MCG/2 ML VIAL IVP PRN ×2 (05:38→15:15)
[2020-09-12] MEDS ORDERED: predniSONE 20 MG TABLET PO ONE (08:00)
[2020-09-12] MEDS ORDERED: ALBUMIN HUMAN 25% 200 ML IV PRN (08:45)
[2020-09-12] MEDS ORDERED: IV NORMAL SALINE 1000ML BAG 1,000 ML IV PRN ×2 (08:45)
[2020-09-12] MEDS ORDERED: DIALYSIS PATIENT. MC PRN (08:45)
[2020-09-12 09:45] LABS: RED BLOOD COUNT 1.79 x10^6/uL (3.50-5.40); RED CELL DISTRIBUTION WIDTH 13.8 % (11.5-14.5); WHITE BLOOD COUNT 16.3 x10^3/uL (4.0-11.0)
[2020-09-12 09:55] LABS: HEMATOCRIT 16.9 % (36.0-47.0); HEMOGLOBIN 5.5 g/dL (12.0-15.5)
[2020-09-12 10:03] LABS: ALBUMIN 1.5 g/dL (3.4-5.0); CALCIUM 7.9 mg/dL (8.5-10.1); CREATININE 3.7 mg/dL (0.6-1.0); GFR 14.4
[2020-09-12] MEDS: FAMOTIDINE 20 MG TABLET. PO SCH (13:36)
[2020-09-12] MEDS: MYCOPHENOLATE MOFETIL 250 MG CAPSULE. PO SCH ×2 (13:36→21:03)
--- NOTE | 2020-09-12 15:10 | PDOC ---
PROGRESS NOTES Date of Service DATE: 09/12/20 TIME: 15:08 Subjective Subjective SEEN IN FOLLOW UP OF ARF DUE TO SLE NEPHRITIS Objective Objective Vital Signs Date Time Temp Pulse Resp B/P (MAP) Pulse Ox O2 Delivery O2 Flow Rate FiO2 09/12/20 14:01 97.6 103 22 128/85 97.6 09/12/20 08:00 Room Air 09/12/20 07:00 97 09/11/20 14:14 2.0 Intake and Output 09/12/20 07:00 Intake Total 860 ml Output Total 50 ml Balance 810 ml Intake Oral 860 ml Output Urine Total 50 ml Physical Exam Abdomen: Normal bowel sounds, Soft, No tenderness, No hepatosplenomegaly, No masses Heart: Regular rate, Normal S1, Normal S2, No murmurs, Gallops Extremities: No clubbing, No cyanosis, No edema, Normal pulses, No tenderness/swelling General: Alert, Oriented X3, Cooperative, No acute distress, Other (VERY TIRES) Lungs: Clear to auscultation, Normal air movement Psych/Mental Status: Mental status NL, Mood NL Diagnosis RENAL FAILURE: Acute, Other (LUPUS NEPHRITIS) Assessment Assessment Problems Medical Problems: (1) Acute renal failure Status: Acute (2) Ascites Status: Acute (3) Pericardial effusion Status: Acute (4) Pleural effusion Status: Acute Plan Plan of Care DIALYSIS TODAY AND TOLERATED WELL. FOR TRANSFUSION OF 1 UNIT RBC. CONT DIALYSIS Q MWF Comment Review of Relevant I have reviewed the following items jennifer (where applicable) has been applied. Labs Laboratory Tests Test 09/11/20 05:00 09/12/20 08:15 White Blood Count 14.3 x10^3/uL (4.0-11.0) 16.3 x10^3/uL (4.0-11.0) Red Blood Count 2.13 x10^6/uL (3.50-5.40) 1.79 x10^6/uL (3.50-5.40) Hemoglobin 6.6 g/dL (12.0-15.5) 5.5 g/dL (12.0-15.5) Hematocrit 19.7 % (36.0-47.0) 16.9 % (36.0-47.0) Mean Corpuscular Volume 93 fL (79-100) 95 fL (79-100) Mean Corpuscular Hemoglobin 31 pg (25-35) 31 pg (25-35) Mean Corpuscular Hemoglobin Concent 33 g/dL (31-37) 33 g/dL (31-37) Red Cell Distribution Width 13.8 % (11.5-14.5) 13.8 % (11.5-14.5) Platelet Count 277 x10^3/uL (140-400) 261 x10^3/uL (140-400) Sodium Level 137 mmol/L (136-145) 136 mmol/L (136-145) Potassium Level 3.9 mmol/L (3.5-5.1) 4.0 mmol/L (3.5-5.1) Chloride Level 103 mmol/L (98-107) 101 mmol/L (98-107) Carbon Dioxide Level 24 mmol/L (21-32) 26 mmol/L (21-32) Anion Gap 10 (6-14) 9 (6-14) Blood Urea Nitrogen 71 mg/dL (7-20) 67 mg/dL (7-20) Creatinine 3.8 mg/dL (0.6-1.0) 3.7 mg/dL (0.6-1.0) Estimated GFR (Cockcroft-Gault) 13.9 14.4 Glucose Level 156 mg/dL (70-99) 159 mg/dL (70-99) Calcium Level 8.1 mg/dL (8.5-10.1) 7.9 mg/dL (8.5-10.1) Phosphorus Level 7.0 mg/dL (2.6-4.7) 5.0 mg/dL (2.6-4.7) Albumin 1.1 g/dL (3.4-5.0) 1.5 g/dL (3.4-5.0) Laboratory Tests Test 09/12/20 08:15 White Blood Count 16.3 x10^3/uL (4.0-11.0) Red Blood Count 1.79 x10^6/uL (3.50-5.40) Hemoglobin 5.5 g/dL (12.0-15.5) Hematocrit 16.9 % (36.0-47.0) Mean Corpuscular Volume 95 fL (79-100) Mean Corpuscular Hemoglobin 31 pg (25-35) Mean Corpuscular Hemoglobin Concent 33 g/dL (31-37) Red Cell Distribution Width 13.8 % (11.5-14.5) Platelet Count 261 x10^3/uL (140-400) Sodium Level 136 mmol/L (136-145) Potassium Level 4.0 mmol/L (3.5-5.1) Chloride Level 101 mmol/L (98-107) Carbon Dioxide Level 26 mmol/L (21-32) Anion Gap 9 (6-14) Blood Urea Nitrogen 67 mg/dL (7-20) Creatinine 3.7 mg/dL (0.6-1.0) Estimated GFR (Cockcroft-Gault) 14.4 Glucose Level 159 mg/dL (70-99) Calcium Level 7.9 mg/dL (8.5-10.1) Phosphorus Level 5.0 mg/dL (2.6-4.7) Albumin 1.5 g/dL (3.4-5.0) Microbiology 09/07/20 Gram Stain - Final, Complete 09/07/20 Aerobic and Anaerobic Culture - Final, Complete 09/06/20 Urine Culture - Final, Complete Medications Current Medications Fentanyl Citrate (Fentanyl 2ml Vial) 50 mcg 1X ONCE IVP Last administered on 09/06/20at 16:59; Start 09/06/20 at 16:15; Stop 09/06/20 at 16:22; Status DC Ondansetron HCl (Zofran) 4 mg 1X ONCE IVP Last administered on 09/06/20at 16:59; Start 09/06/20 at 16:15; Stop 09/06/20 at 16:22; Status DC Iohexol (Omnipaque 300 Mg/ml) 75 ml 1X ONCE IV ; Start 09/06/20 at 16:45; Stop 09/06/20 at 16:46; Status DC Info (CONTRAST GIVEN -- Rx MONITORING) 1 each PRN DAILY PRN MC SEE COMMENTS; Start 09/06/20 at 16:45; Stop 09/08/20 at 16:44; Status DC Furosemide (Lasix) 60 mg 1X ONCE IVP Last administered on 09/06/20at 20:30; Start 09/06/20 at 19:00; Stop 09/06/20 at 19:01; Status DC Sennosides (Senna) 17.2 mg PRN BID PRN PO CONSTIPATION 1ST CHOICE; Start 09/06/20 at 21:30 Docusate Sodium (Colace) 100 mg PRN DAILY PRN PO HARD STOOLS; Start 09/06/20 at 21:30 Ondansetron HCl (Zofran) 4 mg PRN Q6HRS PRN IVP NAUSEA/VOMITING Last administ ered on 09/12/20at 02:58; Start 09/06/20 at 21:30 Methylprednisolone Sodium Succinate (SOLU-Medrol 125MG VIAL) 100 mg Q6[address] administered on 09/11/20at 14:22; Start 09/07/20 at 00:00; Stop 09/11/20 at 17:00; Status DC Dextrose (Dextrose 50%-Water Syringe) 12.5 gm PRN Q15MIN PRN IV SEE COMMENTS; Start 09/06/20 at 21:30 Acetaminophen (Tylenol) 650 mg PRN Q4HRS PRN PO TEMP OVER 100.4F OR MILD PAIN; Start 09/06/20 at 21:30 Heparin Sodium (Porcine) (Heparin Sodium) 5,000 unit Q12HR SQ ; Start 09/07/20 at 09:00; Stop 09/07/20 at 09:42; Status DC Famotidine (Pepcid) 20 mg DAILY PO Last administered on 09/08/20at 09:36; Start 09/07/20 at 09:00; Stop 09/08/20 at 12:07; Status DC Morphine Sulfate (Morphine Sulfate) 1 mg PRN Q1HR PRN IV MODERATE PAIN 4-6 Last administered on 09/09/20at 12:05; Start 09/06/20 at 21:30; Stop 09/09/20 at 21:18; Status DC Morphine Sulfate (Morphine Sulfate) 2 mg PRN Q2HR PRN IV SEVERE PAIN 7-10; Start 09/06/20 at 04:00; Stop 09/07/20 at 03:59; Status DC Heparin Sodium (Porcine) (Heparin Sodium) 5,000 unit Q12HR SQ Last administered on 09/09/20at 22:10; Start 09/08/20 at 09:00; Stop 09/10/20 at 09:42; Status DC Lidocaine/ Epinephrine (LIDOCAINE 2%-EPI 1:100,000 multi-dose) 20 ml STK-MED ONCE .ROUTE ; Start 09/07/20 at 09:43; Stop 09/07/20 at 09:43; Status DC Fentanyl Citrate (Fentanyl 2ml Vial) 100 mcg STK-MED ONCE .ROUTE ; Start 09/07/20 at 10:23; Stop 09/07/20 at 10:23; Status DC Midazolam HCl (Versed) 2 mg STK-MED ONCE .ROUTE ; Start 09/07/20 at 10:23; Stop 09/07/20 at 10:23; Status DC Heparin Sodium/ Sodium Chloride 500 ml @ As Directed STK-MED ONCE .ROUTE ; Start 09/07/20 at 10:30; Stop 09/07/20 at 10:31; Status DC Diphenhydramine HCl (Benadryl) 50 mg STK-MED ONCE .ROUTE ; Start 09/07/20 at 11:05; Stop 09/07/20 at 11:05; Status DC Heparin Sodium/ Sodium Chloride (HEPARIN for ARTERIAL LINE FLUSH) 1,000 unit 1X ONCE IART Last administered on 09/07/20at 11:15; Start 09/07/20 at 11:15; Stop 09/07/20 at 11:20; Status DC Midazolam HCl (Versed) 2 mg 1X ONCE IV Last administered on 09/07/20at 10:44; Start 09/07/20 at 11:15; Stop 09/07/20 at 11:20; Status DC Fentanyl Citrate (Fentanyl 2ml Vial) 100 mcg 1X ONCE IV Last administered on 09/07/20at 10:44; Start 09/07/20 at 11:15; Stop 09/07/20 at 11:20; Status DC Lidocaine/ Epinephrine (LIDOCAINE 2%-EPI 1:100,000 multi-dose) 20 ml 1X ONCE IJ Last administered on 09/07/20at 11:15; Start 09/07/20 at 11:15; Stop 09/07/20 at 11:20; Status DC Diphenhydramine HCl (Benadryl) 50 mg 1X ONCE IVP Last administered on 09/07/20at 11:15; Start 09/07/20 at 11:15; Stop 09/07/20 at 11:20; Status DC Lidocaine/ Epinephrine (LIDOCAINE 2%-EPI 1:100,000 multi-dose) 20 ml STK-MED ONCE .ROUTE ; Start 09/07/20 at 11:36; Stop 09/07/20 at 11:36; Status DC Mycophenolate Mofetil (Cellcept) 1,000 mg BID PO Last administered on 09/12/20at 13:36; Start 09/07/20 at 12:00 Lidocaine HCl (Buffered Lidocaine 1%) 3 ml STK-MED ONCE .ROUTE ; Start 09/07/20 at 13:19; Stop 09/07/20 at 13:19; Status DC Lidocaine HCl (Buffered Lidocaine 1%) 6 ml 1X ONCE INJ Last administered on 09/07/20at 13:55; Start 09/07/20 at 14:00; Stop 09/07/20 at 14:01; Status DC Ketorolac Tromethamine (Toradol 15mg Vial) 15 mg 1X ONCE IM ; Start 09/07/20 at 16:30; Stop 09/07/20 at 16:31; Status Cancel Ketorolac Tromethamine (Toradol 15mg Vial) 15 mg 1X ONCE IV Last administered on 09/07/20at 16:50; Start 09/07/20 at 17:00; Stop 09/07/20 at 17:01; Status DC Lidocaine HCl (Buffered Lidocaine 1%) 3 ml STK-MED ONCE .ROUTE ; Start 09/08/20 at 08:37; Stop 09/08/20 at 08:38; Status DC Lidocaine HCl (Buffered Lidocaine 1%) 3 ml 1X ONCE INJ Last administered on 09/08/20at 08:59; Start 09/08/20 at 08:45; Stop 09/08/20 at 08:46; Status DC Lidocaine HCl (Buffered Lidocaine 1%) 3 ml 1X ONCE INJ Last administered on 09/08/20at 09:00; Start 09/08/20 at 09:00; Stop 09/08/20 at 09:01; Status DC Sodium Chloride 1,000 ml @ 1,000 mls/hr Q1H PRN IV hypotension; Start 09/08/20 at 11:00; Stop 09/08/20 at 16:59; Status DC Albumin Human 200 ml @ 200 mls/hr 1X PRN PRN IV Hypotension; Start 09/08/20 at 11:00; Stop 09/08/20 at 16:59; Status DC Diphenhydramine HCl (Benadryl) 25 mg 1X PRN PRN IV ITCHING; Start 09/08/20 at 11:00; Stop 09/09/20 at 10:59; Status DC Diphenhydramine HCl (Benadryl) 25 mg 1X PRN PRN IV ITCHING; Start 09/08/20 at 11:00; Stop 09/09/20 at 10:59; Status DC Sodium Chloride (Normal Saline Flush) 10 ml 1X PRN PRN IV AP catheter pack; Start 09/08/20 at 11:00; Stop 09/09/20 at 10:59; Status DC Sodium Chloride (Normal Saline Flush) 10 ml 1X PRN PRN IV [employer] catheter pack; Start 09/08/20 at 11:00; Stop 09/09/20 at 10:59; Status DC Sodium Chloride 1,000 ml @ 400 mls/hr Q2H30M PRN IV PATENCY; Start 09/08/20 at 11:00; Stop 09/08/20 at 22:59; Status DC Info (PHARMACY MONITORING -- do not chart) 1 each PRN DAILY PRN MC SEE COMMENTS; Start 09/08/20 at 11:00; Stop 09/09/20 at 08:51; Status DC Famotidine (Pepcid) 20 mg Q48H PO Last administered on 09/12/20at 13:36; Start 09/10/20 at 09:00 Sodium Chloride 1,000 ml @ 1,000 mls/hr Q1H PRN IV hypotension; Start 09/09/20 at 07:30; Stop 09/09/20 at 13:29; Status DC Albumin Human 200 ml @ 200 mls/hr 1X PRN PRN IV Hypotension; Start 09/09/20 at 07:30; Stop 09/09/20 at 13:29; Status DC Sodium Chloride (Normal Saline Flush) 10 ml 1X PRN PRN IV AP catheter pack; Start 09/09/20 at 07:30; Stop 09/10/20 at 07:29; Status DC Sodium Chloride (Normal Saline Flush) 10 ml 1X PRN PRN IV [employer] catheter pack; Start 09/09/20 at 07:30; Stop 09/10/20 at 07:29; Status DC Sodium Chloride 1,000 ml @ 400 mls/hr Q2H30M PRN IV PATENCY; Start 09/09/20 at 07:30; Stop 09/09/20 at 19:29; Status DC Info (PHARMACY MONITORING -- do not chart) 1 each PRN DAILY PRN MC SEE COMMENTS; Start 09/09/20 at 07:30; Status UNV Info (PHARMACY MONITORING -- do not chart) 1 each PRN DAILY PRN MC SEE COMMENTS ; Start 09/09/20 at 07:30; Stop 09/11/20 at 13:10; Status DC Fentanyl Citrate (Fentanyl 2ml Vial) 50 mcg PRN Q2HR PRN IVP PAIN Last administered on 09/12/20at 05:38; Start 09/09/20 at 21:30 Darbepoetin [place] (ARANESP for NON-DIALYSIS PTS) 60 mcg 1X ONCE SQ Last administered on 09/10/20at 12:30; Start 09/10/20 at 11:00; Stop 09/10/20 at 11:01; Status DC Lidocaine HCl (Xylocaine 2% Topical 5gm Tube) 1 aditya 1X ONCE TP Last administered on 09/10/20at 15:19; Start 09/10/20 at 12:45; Stop 09/10/20 at 12:46; Status DC Sodium Chloride 1,000 ml @ 1,000 mls/hr Q1H PRN IV hypotension; Start 09/11/20 at 09:00; Stop 09/11/20 at 14:59; Status DC Albumin Human 200 ml @ 200 mls/hr 1X PRN PRN IV Hypotension Last administered on 09/11/20at 10:39; Start 09/11/20 at 09:00; Stop 09/11/20 at 14:59; Status DC Sodium Chloride 1,000 ml @ 400 mls/hr Q2H30M PRN IV PATENCY; Start 09/11/20 at 09:00; Stop 09/11/20 at 20:59; Status DC Info (PHARMACY MONITORING -- do not chart) 1 each PRN DAILY PRN MC SEE COMMENTS; Start 09/11/20 at 10:30; Stop 09/11/20 at 13:10; Status DC Info (PHARMACY MONITORING -- do not chart) 1 each PRN DAILY PRN MC SEE COMMENTS; Start 09/11/20 at 10:30; Stop 09/12/20 at 08:44; Status DC Prednisone (Prednisone) 60 mg 1X ONCE PO ; Start 09/11/20 at 08:00; Stop 09/11/20 at 08:01; Status Cancel Prednisone (Prednisone) 60 mg 1X ONCE PO Last administered on 09/12/20at 13:38; Start 09/12/20 at 08:00; Stop 09/12/20 at 08:01; Status DC Sodium Chloride 1,000 ml @ 1,000 mls/hr Q1H PRN IV hypotension; Start 09/12/20 at 08:45; Stop 09/12/20 at 14:44; Status DC Albumin Human 200 ml @ 200 mls/hr 1X PRN PRN IV Hypotension; Start 09/12/20 at 08:45; Stop 09/12/20 at 14:44; Status DC Sodium Chloride 1,000 ml @ 400 mls/hr Q2H30M PRN IV PATENCY; Start 09/12/20 at 08:45; Stop 09/12/20 at 20:44 Info (PHARMACY MONITORING -- do not chart) 1 each PRN DAILY PRN MC SEE COMMENTS; Start 09/12/20 at 08:45 Sertraline HCl (Zoloft) 25 mg DAILY PO ; Start 09/12/20 at 15:00 Alprazolam (Xanax) 0.25 mg PRN Q8HRS PRN PO ANXIETY / AGITATION; Start 09/12/20 at 15:00 Active Scripts Active Furosemide 40 Mg Tablet 40 Mg PO DAILY 30 Days Reported Cellcept (Mycophenolate Mofetil) 250 Mg Capsule 2 Cap PO BID Plaquenil (Hydroxychloroquine Sulfate) 200 Mg Tablet 200 Mg PO DAILY Vitals/I & O Vital Sign - Last 24 Hours 09/11/20 09/11/20 09/11/20 09/11/20 19:30 20:00 21:12 21:42 Temp 98.1 98.1 Pulse 94 Resp 17 B/P (MAP) 144/99 (114) Pulse Ox 98 O2 Delivery Room Air Room Air Room Air Room Air 09/11/20 09/12/20 09/12/20 09/12/20 23:00 02:57 05:38 06:08 Temp 98.7 98.1 98.7 98.1 Pulse 102 104 Resp 20 21 B/P (MAP) 142/96 (111) 134/96 (109) Pulse Ox 97 98 O2 Delivery Room Air Room Air Room Air Room Air 2/6/09/12/20 09/12/20 09/12/20 07:00 08:00 13:00 13:15 Temp 98.1 98.0 97.6 98.1 98.0 97.6 Pulse 102 114 103 Resp 20 18 22 B/P (MAP) 130/93 (105) 141/102 127/82 Pulse Ox 97 O2 Delivery Room Air Room Air 09/12/20 14:01 Temp 97.6 97.6 Pulse 103 Resp 22 B/P (MAP) 128/85 Intake and Output 09/11/20 09/11/20 09/12/20 15:00 23:00 07:00 Intake Total 740 ml 120 ml Output Total 50 ml Balance -50 ml 740 ml 120 ml Justifications for Admission Abdominal Pain Indications Is NPO status required?: Yes Justification for admission: Patient may require to be NPO for greater 24hours making it medically necessary to manage patient as inpatient. Other Justification CARMEN SOSA MD Sep 12, 2020 15:10
[2020-09-12] MEDS: SERTRALINE 25 MG TABLET. PO SCH (15:16)
--- NOTE | 2020-09-12 15:33 | PDOC ---
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 She has a friend at her bedside today. 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 The patient is very distressed about this. Tearful on evaluation today and asking for medication to help her rest because she has had increasing difficulty sleeping. She is agreeable to starting an antidepressant and we will also sparingly use low-dose Xanax to help her symptoms. Appreciate Dr. Bowens's input today she did have severe anemia with a hemoglobin of 5.5 this morning. She has been transfused 2 units and we will transfuse to keep her hemoglobin up over 7 per nephrology orders. We appreciate subspecialty support. Time spent today is 30 minutes with greater than 50% in counseling and coordination of care most of which in discussion with patient and nursing. Problems: (1) Anxiety (2) Lupus nephritis (3) Ascites (4) Pericardial effusion (5) Pleural effusion VITAL SIGNS Vital Signs/I&O: Vital Signs Date Time Temp Pulse Resp B/P (MAP) Pulse Ox O2 Delivery O2 Flow Rate FiO2 09/12/20 15:15 97 Room Air 09/12/20 15:01 98.0 105 20 133/94 98.0 09/11/20 14:14 2.0 I & O 09/11/20 09/11/20 09/12/20 15:00 23:00 07:00 Intake Total 740 ml 120 ml Output Total 50 ml Balance -50 ml 740 ml 120 ml In general the patient is tearful today pleasant alert and oriented x3 otherwise in no acute distress HEENT exam is notable for scarring over her face I did not explore her history with that Neck is soft and supple no adenopathy or thyromegaly noted Chest is clear to auscultation Heart S1-S2 normal regular rate and rhythm no murmurs or gallops are noted Abdomen is distended soft nontender no masses organomegaly noted Extremity exam is notable for tense 2+ bipedal edema ALLERGIES Allergies: Allergies Coded Allergies Type Severity Reaction Last Updated Verified No Known Drug Allergies 04/03/20 No MEDS Medications: Current Medications Medications (Trade) Dose Ordered Sig/Kwesi Start Time Stop Time Status Last Admin Dose Admin Acetaminophen (Tylenol) 650 mg PRN Q4HRS PRN 09/06/20 21:30 Albumin Human 200 ml @ 200 mls/hr 1X PRN PRN 09/12/20 08:45 09/12/20 14:44 DC Alprazolam (Xanax) 0.25 mg PRN Q8HRS PRN 09/12/20 15:00 Darbepoetin [place] (ARANESP for NON-DIALYSIS PTS) 60 mcg 1X ONCE 09/10/20 11:00 09/10/20 11:01 DC 09/10/20 12:30 Dextrose (Dextrose 50%-Water Syringe) 12.5 gm PRN Q15MIN PRN 09/06/20 21:30 Diphenhydramine HCl (Benadryl) 25 mg 1X PRN PRN 09/08/20 11:00 09/09/20 10:59 DC Docusate Sodium (Colace) 100 mg PRN DAILY PRN 09/06/20 21:30 Famotidine (Pepcid) 20 mg Q48H 09/10/20 09:00 09/12/20 13:36 Fentanyl Citrate (Fentanyl 2ml Vial) 50 mcg PRN Q2HR PRN 09/09/20 21:30 09/12/20 15:15 Furosemide (Lasix) 60 mg 1X ONCE 09/06/20 19:00 09/06/20 19:01 DC 09/06/20 20:30 Heparin Sodium (Porcine) (Heparin Sodium) 5,000 unit Q12HR 09/08/20 09:00 09/10/20 09:42 DC 09/09/20 22:10 Heparin Sodium/ Sodium Chloride (HEPARIN for ARTERIAL LINE FLUSH) 1,000 unit 1X ONCE 09/07/20 11:15 09/07/20 11:20 DC 09/07/20 11:15 Info (CONTRAST GIVEN -- Rx MONITORING) 1 each PRN DAILY PRN 09/06/20 16:45 09/08/20 16:44 DC Info (PHARMACY MONITORING -- do not chart) 1 each PRN DAILY PRN 09/12/20 08:45 Iohexol (Omnipaque 300 Mg/ml) 75 ml 1X ONCE 09/06/20 16:45 09/06/20 16:46 DC Ketorolac Tromethamine (Toradol 15mg Vial) 15 mg 1X ONCE 09/07/20 17:00 09/07/20 17:01 DC 09/07/20 16:50 Lidocaine HCl (Buffered Lidocaine 1%) 3 ml 1X ONCE 09/08/20 09:00 09/08/20 09:01 DC 09/08/20 09:00 Lidocaine HCl (Xylocaine 2% Topical 5gm Tube) 1 aditya 1X ONCE 09/10/20 12:45 09/10/20 12:46 DC 09/10/20 15:19 Lidocaine/ Epinephrine (LIDOCAINE 2%-EPI 1:100,000 multi-dose) 20 ml STK-MED ONCE 09/07/20 11:36 09/07/20 11:36 DC Methylprednisolone Sodium Succinate (SOLU-Medrol 125MG VIAL) 100 mg Q6HRS 09/07/20 00:00 09/11/20 17:00 DC 09/11/20 14:22 Midazolam HCl (Versed) 2 mg 1X ONCE 09/07/20 11:15 09/07/20 11:20 DC 09/07/20 10:44 Morphine Sulfate (Morphine Sulfate) 2 mg PRN Q2HR PRN 09/06/20 04:00 09/07/20 03:59 DC Mycophenolate Mofetil (Cellcept) 1,000 mg BID 09/07/20 12:00 09/12/20 13:36 Ondansetron HCl (Zofran) 4 mg PRN Q6HRS PRN 09/06/20 21:30 09/12/20 02:58 Prednisone (Prednisone) 60 mg 1X ONCE 09/12/20 08:00 09/12/20 08:01 DC 09/12/20 13:38 Sennosides (Senna) 17.2 mg PRN BID PRN 09/06/20 21:30 Sertraline HCl (Zoloft) 25 mg DAILY 09/12/20 15:00 09/12/20 15:16 Sodium Chloride 1,000 ml @ 400 mls/hr Q2H30M PRN 09/12/20 08:45 09/12/20 20:44 Sodium Chloride (Normal Saline Flush) 10 ml 1X PRN PRN 09/09/20 07:30 09/10/20 07:29 DC Current Medications Medications (Trade) Dose Ordered Sig/Kwesi Route PRN Reason Start Time Stop Time Status Last Admin Dose Admin Prednisone (Prednisone) 60 mg 1X ONCE PO 09/12/20 08:00 09/12/20 08:01 DC 09/12/20 13:38 Sertraline HCl (Zoloft) 25 mg DAILY PO 09/12/20 15:00 09/12/20 15:16 LAB Lab: Laboratory Tests Test 09/12/20 08:15 White Blood Count 16.3 x10^3/uL (4.0-11.0) H Red Blood Count 1.79 x10^6/uL (3.50-5.40) L Hemoglobin 5.5 g/dL (12.0-15.5) *L Hematocrit 16.9 % (36.0-47.0) *L Mean Corpuscular Volume 95 fL (79-100) Mean Corpuscular Hemoglobin 31 pg (25-35) Mean Corpuscular Hemoglobin Concent 33 g/dL (31-37) Red Cell Distribution Width 13.8 % (11.5-14.5) Platelet Count 261 x10^3/uL (140-400) Sodium Level 136 mmol/L (136-145) Potassium Level 4.0 mmol/L (3.5-5.1) Chloride Level 101 mmol/L (98-107) Carbon Dioxide Level 26 mmol/L (21-32) Anion Gap 9 (6-14) Blood Urea Nitrogen 67 mg/dL (7-20) H Creatinine 3.7 mg/dL (0.6-1.0) H Estimated GFR (Cockcroft-Gault) 14.4 Glucose Level 159 mg/dL (70-99) H Calcium Level 7.9 mg/dL (8.5-10.1) L Phosphorus Level 5.0 mg/dL (2.6-4.7) H Albumin 1.5 g/dL (3.4-5.0) L Laboratory Tests 09/12/20 08:15 Laboratory Tests 09/12/20 08:15 ASSESSMENT & PLAN A&P Plan as noted above This note was created using [employer] and may have omissions and/or errors due to the 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 Justifications for Admission Abdominal Pain Indications Is NPO status required?: Yes Justification for admission: Patient may require to be NPO for greater 24hours making it medically necessary to manage patient as inpatient. Other Justification Problem Qualifiers (1) Ascites: Ascites type: other type Qualified Codes: R18.8 - Other ascites DICKSON SOSA MD Sep 12, 2020 15:33
[2020-09-12] MEDS: ALPRAZolam 0.25 MG TABLET PO PRN ×2 (16:46→22:50)
[2020-09-13 03:25] VITALS: BP 153/112
[2020-09-13] MEDS: fentaNYL PF VIAL 100 MCG/2 ML VIAL IVP PRN ×6 (03:39→22:49)
[2020-09-13 07:00] VITALS: BP 147/105
[2020-09-13] MEDS: MYCOPHENOLATE MOFETIL 250 MG CAPSULE. PO SCH ×2 (08:51→20:04)
[2020-09-13] MEDS: ACETAMINOPHEN 325 MG TABLET. PO PRN (08:51)
[2020-09-13] MEDS: predniSONE 20 MG TABLET PO SCH (08:52)
[2020-09-13] MEDS: SERTRALINE 25 MG TABLET. PO SCH (08:52)
[2020-09-13 09:23] LABS: ALBUMIN 1.9 g/dL (3.4-5.0); ALBUMIN/GLOBULIN RATIO 0.7 (1.0-1.7); CALCIUM 8.4 mg/dL (8.5-10.1); CREATININE 3.9 mg/dL (0.6-1.0); GFR 13.5; PHOSPHORUS 5.6 mg/dL (2.6-4.7); POTASSIUM 4.5 mmol/L (3.5-5.1); TOTAL BILIRUBIN 0.3 mg/dL (0.2-1.0); TOTAL PROTEIN 4.6 g/dL (6.4-8.2)
[2020-09-13 10:50] VITALS: BP 151/120
[2020-09-13 12:43] LABS: BASO % 0 % (0-3); EOS % 0 % (0-3); HEMATOCRIT 29.8 % (36.0-47.0); LYMPH # 1.6 x10^3/uL (1.0-4.8); LYMPH % 7 % (24-48); MEAN CORPUSCULAR HEMOGLOBIN 30 pg (25-35); MEAN CORPUSCULAR HGB CONC 33 g/dL (31-37); MEAN CORPUSCULAR VOLUME 89 fL (79-100); MONO # 0.8 x10^3/uL (0.0-1.1); MONO % 4 % (0-9); NEUT # 19.7 x10^3/uL (1.8-7.7); NEUT % 89 % (31-73); PLATELET COUNT 259 x10^3/uL (140-400); RED BLOOD COUNT 3.34 x10^6/uL (3.50-5.40); WHITE BLOOD COUNT 22.1 x10^3/uL (4.0-11.0)
--- NOTE | 2020-09-13 13:19 | PDOC ---
GENERAL General: Patient examined chart reviewed. Patient is in much better spirits today and looks a lot perkier after her transfusions. Her hemoglobin came up nicely after just 2 units of packed red blood cells she may be hemoconcentrated now but hemoglobin is noted at 10. Patient feels that when her anemia is in a better position she is also feeling better. The addition of the Xanax has helped as well she will use that judiciously as she needs. We appreciate subspecialty support. We will continue current management otherwise. Problems: (1) Lupus nephritis (2) Anemia (3) Acute renal failure (4) Pericardial effusion (5) Pleural effusion (6) Ascites (7) Anxiety VITAL SIGNS Vital Signs/I&O: Vital Signs Date Time Temp Pulse Resp B/P (MAP) Pulse Ox O2 Delivery O2 Flow Rate FiO2 09/13/20 10:50 97.8 110 18 151/120 (130) 95 Room Air 97.8 09/12/20 15:45 2.0 I & O 09/12/20 09/12/20 09/13/20 15:00 23:00 07:00 Intake Total 685 ml 1040 ml 200 ml Balance 685 ml 1040 ml 200 ml Patient is in good spirits today sitting up color is a lot better HEENT exam is unremarkable for acute abnormality Chest is clear to auscultation Heart S1-S2 normal regular rate and rhythm no murmurs or gallops noted Abdomen is distended soft mildly tender right mid abdomen no masses organomegaly noted Extremity exam is unremarkable for acute abnormality. She is in [facility] ALLERGIES Allergies: Allergies Coded Allergies Type Severity Reaction Last Updated Verified No Known Drug Allergies 04/03/20 No MEDS Medications: Current Medications Medications (Trade) Dose Ordered Sig/Kwesi Start Time Stop Time Status Last Admin Dose Admin Acetaminophen (Tylenol) 650 mg PRN Q4HRS PRN 09/06/20 21:30 09/13/20 08:51 Albumin Human 200 ml @ 200 mls/hr 1X PRN PRN 09/12/20 08:45 09/12/20 14:44 DC Alprazolam (Xanax) 0.25 mg PRN Q8HRS PRN 09/12/20 15:00 09/12/20 22:50 Darbepoetin [place] (ARANESP for NON-DIALYSIS PTS) 60 mcg 1X ONCE 09/10/20 11:00 2/4/21 11:01 DC 09/10/20 12:30 Dextrose (Dextrose 50%-Water Syringe) 12.5 gm PRN Q15MIN PRN 09/06/20 21:30 Diphenhydramine HCl (Benadryl) 25 mg 1X PRN PRN 09/08/20 11:00 09/09/20 10:59 DC Docusate Sodium (Colace) 100 mg PRN DAILY PRN 09/06/20 21:30 Famotidine (Pepcid) 20 mg Q48H 09/10/20 09:00 09/12/20 13:36 Fentanyl Citrate (Fentanyl 2ml Vial) 50 mcg PRN Q2HR PRN 09/09/20 21:30 09/13/20 10:11 Furosemide (Lasix) 60 mg 1X ONCE 09/06/20 19:00 09/06/20 19:01 DC 09/06/20 20:30 Heparin Sodium (Porcine) (Heparin Sodium) 5,000 unit Q12HR 09/08/20 09:00 09/10/20 09:42 DC 09/09/20 22:10 Heparin Sodium/ Sodium Chloride (HEPARIN for ARTERIAL LINE FLUSH) 1,000 unit 1X ONCE 09/07/20 11:15 09/07/20 11:20 DC 09/07/20 11:15 Info (CONTRAST GIVEN -- Rx MONITORING) 1 each PRN DAILY PRN 09/06/20 16:45 09/08/20 16:44 DC Info (PHARMACY MONITORING -- do not chart) 1 each PRN DAILY PRN 09/12/20 08:45 Iohexol (Omnipaque 300 Mg/ml) 75 ml 1X ONCE 09/06/20 16:45 09/06/20 16:46 DC Ketorolac Tromethamine (Toradol 15mg Vial) 15 mg 1X ONCE 09/07/20 17:00 09/07/20 17:01 DC 09/07/20 16:50 Lidocaine HCl (Buffered Lidocaine 1%) 3 ml 1X ONCE 09/08/20 09:00 09/08/20 09:01 DC 09/08/20 09:00 Lidocaine HCl (Xylocaine 2% Topical 5gm Tube) 1 aditya 1X ONCE 09/10/20 12:45 09/10/20 12:46 DC 09/10/20 15:19 Lidocaine/ Epinephrine (LIDOCAINE 2%-EPI 1:100,000 multi-dose) 20 ml STK-MED ONCE 09/07/20 11:36 09/07/20 11:36 DC Methylprednisolone Sodium Succinate (SOLU-Medrol 125MG VIAL) 100 mg Q6HRS 09/07/20 00:00 09/11/20 17:00 DC 09/11/20 14:22 Midazolam HCl (Versed) 2 mg 1X ONCE 09/07/20 11:15 09/07/20 11:20 DC 09/07/20 10:44 Morphine Sulfate (Morphine Sulfate) 2 mg PRN Q2HR PRN 09/06/20 04:00 09/07/20 03:59 DC Mycophenolate Mofetil (Cellcept) 500 mg BID 09/13/20 09:00 09/13/20 08:51 Ondansetron HCl (Zofran) 4 mg PRN Q6HRS PRN 09/06/20 21:30 09/12/20 02:58 Prednisone (Prednisone) 60 mg QAM 09/13/20 09:00 09/13/20 08:52 Sennosides (Senna) 17.2 mg PRN BID PRN 09/06/20 21:30 Sertraline HCl (Zoloft) 25 mg DAILY 09/12/20 15:00 09/13/20 08:52 Sodium Chloride 1,000 ml @ 400 mls/hr Q2H30M PRN 09/12/20 08:45 09/12/20 20:44 DC Sodium Chloride (Normal Saline Flush) 10 ml 1X PRN PRN 09/09/20 07:30 09/10/20 07:29 DC Current Medications Medications (Trade) Dose Ordered Sig/Kwesi Route PRN Reason Start Time Stop Time Status Last Admin Dose Admin Sertraline HCl (Zoloft) 25 mg DAILY PO 09/12/20 15:00 09/13/20 08:52 Alprazolam (Xanax) 0.25 mg PRN Q8HRS PRN PO ANXIETY / AGITATION 09/12/20 15:00 09/12/20 22:50 Prednisone (Prednisone) 60 mg QAM PO 09/13/20 09:00 09/13/20 08:52 Mycophenolate Mofetil (Cellcept) 500 mg BID PO 09/13/20 09:00 09/13/20 08:51 LAB Lab: Laboratory Tests Test 09/13/20 08:17 09/13/20 12:10 Sodium Level 134 mmol/L (136-145) L Potassium Level 4.5 mmol/L (3.5-5.1) Chloride Level 101 mmol/L (98-107) Carbon Dioxide Level 23 mmol/L (21-32) Anion Gap 10 (6-14) Blood Urea Nitrogen 68 mg/dL (7-20) H Creatinine 3.9 mg/dL (0.6-1.0) H Estimated GFR (Cockcroft-Gault) 13.5 BUN/Creatinine Ratio 17 (6-20) Glucose Level 123 mg/dL (70-99) H Calcium Level 8.4 mg/dL (8.5-10.1) L Phosphorus Level 5.6 mg/dL (2.6-4.7) H Total Bilirubin 0.3 mg/dL (0.2-1.0) Aspartate Amino Transferase (AST) 30 U/L (15-37) Alanine Aminotransferase (ALT) 62 U/L (14-59) H Alkaline Phosphatase 92 U/L (46-116) Total Protein 4.6 g/dL (6.4-8.2) L Albumin 1.9 g/dL (3.4-5.0) L Albumin/Globulin Ratio 0.7 (1.0-1.7) L White Blood Count 22.1 x10^3/uL (4.0-11.0) H Red Blood Count 3.34 x10^6/uL (3.50-5.40) L Hemoglobin 10.0 g/dL (12.0-15.5) #L Hematocrit 29.8 % (36.0-47.0) L Mean Corpuscular Volume 89 fL (79-100) # Mean Corpuscular Hemoglobin 30 pg (25-35) Mean Corpuscular Hemoglobin Concent 33 g/dL (31-37) Red Cell Distribution Width 16.0 % (11.5-14.5) H Platelet Count 259 x10^3/uL (140-400) Neutrophils (%) (Auto) 89 % (31-73) H Lymphocytes (%) (Auto) 7 % (24-48) L Monocytes (%) (Auto) 4 % (0-9) Eosinophils (%) (Auto) 0 % (0-3) Basophils (%) (Auto) 0 % (0-3) Neutrophils # (Auto) 19.7 x10^3/uL (1.8-7.7) H Lymphocytes # (Auto) 1.6 x10^3/uL (1.0-4.8) Monocytes # (Auto) 0.8 x10^3/uL (0.0-1.1) Eosinophils # (Auto) 0.0 x10^3/uL (0.0-0.7) Basophils # (Auto) 0.0 x10^3/uL (0.0-0.2) Platelet Estimate Pending Laboratory Tests 09/13/20 12:10 Laboratory Tests 09/13/20 08:17 ASSESSMENT & PLAN A&P Plan as noted above This note was created using [employer] and may have omissions and/or errors due to the nature of real-time voice bar manager. Justifications for Admission Abdominal Pain Indications Is NPO status required?: Yes Justification for admission: Patient may require to be NPO for greater 24hours making it medically necessary to manage patient as inpatient. Other Justification Problem Qualifiers (1) Acute renal failure: Acute renal failure type: unspecified Qualified Codes: N17.9 - Acute kidney failure, unspecified (2) Ascites: Ascites type: other type Qualified Codes: R18.8 - Other ascites DICKSON SOSA MD Sep 13, 2020 13:19
[2020-09-13 13:22] LABS: % LYMPHS 5 % (24-48); % MONOS 1 % (0-10); % SEGS 94 % (35-66)
[2020-09-13 13:23] LABS: PLT ESTIMATE ADEQUATE (ADEQUATE)
[2020-09-13 15:01] VITALS: BP 151/115
[2020-09-13] MEDS: ALPRAZolam 0.25 MG TABLET PO PRN (16:34)
[2020-09-13 19:45] VITALS: BP 148/113
[2020-09-13 22:49] VITALS: BP 159/115
[2020-09-14] MEDS: fentaNYL PF VIAL 100 MCG/2 ML VIAL IVP PRN ×4 (01:16→07:14)
[2020-09-14 03:05] VITALS: BP 149/115
[2020-09-14 05:59] LABS: CALCIUM 8.4 mg/dL (8.5-10.1); CREATININE 4.4 mg/dL (0.6-1.0); GFR 11.8; PHOSPHORUS 5.9 mg/dL (2.6-4.7); POTASSIUM 4.7 mmol/L (3.5-5.1)
[2020-09-14 07:00] VITALS: BP 153/114
[2020-09-14] MEDS: FAMOTIDINE 20 MG TABLET. PO SCH (07:13)
[2020-09-14] MEDS: LIDOCAINE (700MG/PATCH) PATCH. TD SCH (08:56)
[2020-09-14] MEDS: ACETAMINOPHEN 325 MG TABLET. PO PRN (08:56)
[2020-09-14] MEDS ORDERED: IV NORMAL SALINE 1000ML BAG 1,000 ML IV PRN ×2 (09:00)
[2020-09-14] MEDS ORDERED: DIALYSIS PATIENT. MC PRN ×2 (09:00)
[2020-09-14] MEDS: MYCOPHENOLATE MOFETIL 250 MG CAPSULE. PO SCH ×2 (09:00→21:23)
--- NOTE | 2020-09-14 09:13 | PDOC ---
PROGRESS NOTES Date of Service: DATE: 09/14/20 TIME: 09:16 Chief Complaint Chief Complaint impression Acute abdominal distention Large pericardial effusion likely chronic The systolic function is severely impaired. The Ejection Fraction is 35%. There is severe global hypokinesis of the left ventricle.on echo Large volume abdominal ascites Anasarca Bilateral pleural effusions Acute on chronic kidney injury concerning for lupus nephritis Severe protein malnutrition Normocytic anemia due to chronic disease SLE - concerning for lupus flare. We will start high-dose IV steroids for 3 days then transition to p.o. prednisone. Continue Plaquenil and cellcept successful ultrasound-guided placement of right internal jugular temporary dialysis catheter 09-08 Nephrology consult for concern for lupus nephritis Cardiology consult for pericardial effusion Interventional radiology for pericardiocentesis and paracentesis Heparin for DVT prophylaxis Protonix GI prophylaxis Clear liquid diet Full code Discussed with RN and SW Disposition pending cardiology, nephrology, interventional radiology evaluation Surrogate decision maker is Yehuda Gomez 39 min pt exam, chart review, > 50% of time spent with exam, chart review, pt care coordination History of Present Illness History of Present Illness Ms Lopez is a 30-year-old female with history of lupus that was diagnosed 1 year ago, hypertension, depression who presents today with increased abdominal bloating tightness and pain which also contributes to her shortness of breath. Also endorses some hemoptysis as well. Patient that she was constipated so she took some laxatives. Patient was also placed on Lasix 40 mg twice daily, however she does not feel this is helping her. This originally was to help her lower extremity edema which originally was doing okay but has gotten worse in the past few weeks. Patient is currently not taking any steroids. She states she is only taking Plaquenil. Denies fevers, rashes, hematuria, diarrhea, nausea vomiting, headaches or vision changes, chest pain. 09/07: Patient seen and evaluated. Slightly tachycardic, afebrile. Patient's breathing on room air, still with some complaints of shortness of breath. Echocardiogram with pericardial effusion with tamponade physiology. Status post pericardiocentesis 1650 cc. Paracentesis 3.6 L. 2: Afebrile. Seen in ICU post pericardiocentesis. Labs reviewed K5.7 BUN 97, CR 4. Plan for dialysis catheter today. Her shortness of breath has improved. No telemetry events. Some fluctuant swelling at both pericardiocentesis and paracentesis sites. No bleeding. 2: Afebrile seen in ICU after pericardial drain removed per cardiology. Tolerated dialysis well. Hb down to 6.8. She is much less short of breath. Overall does not feel great. 09/10: Patient seen and evaluated. Pericardial drain removed yesterday. Status post paracentesis and pericardiocentesis. Hemoglobin 6.8 yesterday, 6.4 today. I do not think this represents an acute bleed, may be secondary to her kidney disease or mycophenolate. Will continue to monitor hemoglobin. 09/11: Patient seen on hemodialysis. Afebrile this morning, breathing room air. Started on darbepoetin, first dose yesterday. Hemoglobin 6.4 yesterday, 6.6 today. No evidence of bleeding. Hold transfusions at this time as to not fluid overload. Plan: Initiated on HD on 09/07. S/P paracentesis and pericardiocentesis. Continue HD, per nephrology. Continue to monitor hemoglobin. Vitals Vitals Vital Signs Date Time Temp Pulse Resp B/P (MAP) Pulse Ox O2 Delivery O2 Flow Rate FiO2 09/14/20 07:44 20 97 Room Air 2.0 09/14/20 07:00 97.5 103 153/114 (127) 97.5 Physical Exam General: Alert, Oriented X3, Cooperative, No acute distress, Other (VERY TIRES) Heart: Regular rate, Normal S1, Normal S2, No murmurs, Gallops Lungs: Clear Abdomen: Normal bowel sounds, Soft, No tenderness, No hepatosplenomegaly, No m asses Extremities: No clubbing, No cyanosis, No edema, Normal pulses, No tenderness/swelling Skin: No significant lesion Labs LABS Procedure: Ultrasound-guided placement of right internal jugular temporary dialysis catheter 09/08/2020 12:12 PM Clinical Indication: Renal failure LATONIA , Lupus Peric effusion Discussion: The risks and benefits of the procedure were discussed the patient and/or their security representative. Informed consent was obtained. A timeout procedure was performed. All elements of maximal sterile barrier technique including the use of a cap, mask, sterile gown, sterile gloves, large sterile sheet, appropriate hand hygiene, and 2% chlorhexidine for cutaneous antisepsis (or acceptable alternative antiseptic per current guidelines) were followed for this procedure. The patient was prepped and draped in the usual sterile fashion. Ultrasound interrogation of the right neck revealed patency and compressibility of the right internal jugular vein. A 21-gauge micropuncture was then used to gain access to this vein under ultrasound guidance. A hard copy ultrasound image was recorded. A guidewire was advanced centrally. 5 Turkmen sheath was placed. Over a wire following dilatation, a temporary dialysis catheter was advanced centrally. Catheter was found to flush and aspirate normally. Follow-up chest radiograph demonstrates tip in acceptable position. The catheter was secured in place and a sterile dressing was applied. No immediate complications were identified. Impression: Successful ultrasound-guided placement of right internal jugular temporary dialysis catheter DICTATED and SIGNED BY: NAKIA SILVA MD DATE: 09/08/20 [id number] APPROVED REPORT EXAM: Two-dimensional and M-mode echocardiogram with Doppler and color Doppler. Other Information Quality : Good HR: 82bpm INDICATION Pericardial Effusion 2D DIMENSIONS RVDd 2.5 (2.9-3.5cm) IVSd 1.6 (0.7-1.1cm) Aortic Root(2D) 2.6 (2.0-3.7cm) LVDd 3.7 (3.9-5.9cm) LVOT Diameter 2.0 (1.8-2.4cm) PWd 1.0 (0.7-1.1cm) LVDs 3.7 (2.5-4.0cm) FS (%) 0.7 % SV 1.0 ml LVEF(%) 1.7 (>50%) LEFT VENTRICLE The left ventricle is normal size. There is normal left ventricular wall thickness. The systolic function is severely impaired. The Ejection Fraction is 35%. There is severe global hypokinesis of the left ventricle. RIGHT VENTRICLE The right ventricle is normal size. There is normal right ventricular wall thickness. The right ventricular systolic function is normal. AORTIC VALVE The aortic valve is normal in structure and function. Doppler and color-flow analysis was not performed. There is no significant aortic valvular stenosis. MITRAL VALVE The mitral valve is normal in structure and function. There is no evidence of mitral valve prolapse. There is no mitral valve stenosis. Doppler and color-flow analysis was not performed. TRICUSPID VALVE The tricuspid valve is normal in structure and function. Doppler and color-flow analysis was not performed. There is no tricuspid valve stenosis. GREAT VESSELS The aortic root is normal in size. The IVC is normal in size and collapses >50% with inspiration. PERICARDIAL EFFUSION Large pleural effusion noted. There is no evidence of significant pericardial effusion. Critical Notification Critical Value: No <Conclusion> The systolic function is severely impaired. The Ejection Fraction is 35%. There is severe global hypokinesis of the left ventricle. There is no evidence of significant pericardial effusion. Large PLEURAL effusion noted. Signed by : Darshan Melgoza, Electronically Approved : 09/09/2020 13:50:41 DICTATED and SIGNED BY: DARSHAN MELGOZA MD DATE: 09/09/20 [id number] 0 Laboratory Tests Test 09/13/20 12:10 09/14/20 05:20 White Blood Count 22.1 x10^3/uL (4.0-11.0) Red Blood Count 3.34 x10^6/uL (3.50-5.40) Hemoglobin 10.0 g/dL (12.0-15.5) Hematocrit 29.8 % (36.0-47.0) Mean Corpuscular Volume 89 fL (79-100) Mean Corpuscular Hemoglobin 30 pg (25-35) Mean Corpuscular Hemoglobin Concent 33 g/dL (31-37) Red Cell Distribution Width 16.0 % (11.5-14.5) Platelet Count 259 x10^3/uL (140-400) Neutrophils (%) (Auto) 89 % (31-73) Lymphocytes (%) (Auto) 7 % (24-48) Monocytes (%) (Auto) 4 % (0-9) Eosinophils (%) (Auto) 0 % (0-3) Basophils (%) (Auto) 0 % (0-3) Neutrophils # (Auto) 19.7 x10^3/uL (1.8-7.7) Lymphocytes # (Auto) 1.6 x10^3/uL (1.0-4.8) Monocytes # (Auto) 0.8 x10^3/uL (0.0-1.1) Eosinophils # (Auto) 0.0 x10^3/uL (0.0-0.7) Basophils # (Auto) 0.0 x10^3/uL (0.0-0.2) Segmented Neutrophils % 94 % (35-66) Lymphocytes % 5 % (24-48) Monocytes % 1 % (0-10) Platelet Estimate Adequate (ADEQUATE) Sodium Level 135 mmol/L (136-145) Potassium Level 4.7 mmol/L (3.5-5.1) Chloride Level 101 mmol/L (98-107) Carbon Dioxide Level 24 mmol/L (21-32) Anion Gap 10 (6-14) Blood Urea Nitrogen 77 mg/dL (7-20) Creatinine 4.4 mg/dL (0.6-1.0) Estimated GFR (Cockcroft-Gault) 11.8 Glucose Level 123 mg/dL (70-99) Calcium Level 8.4 mg/dL (8.5-10.1) Phosphorus Level 5.9 mg/dL (2.6-4.7) Albumin 2.0 g/dL (3.4-5.0) Assessment and Plan Assessmemt and Plan Problems Medical Problems: (1) Acute renal failure Status: Acute (2) Ascites Status: Acute (3) Pericardial effusion Status: Acute (4) Pleural effusion Status: Acute Comment Review of Relevant I have reviewed the following items jennifer (where applicable) has been applied. Labs Laboratory Tests Test 09/13/20 08:17 09/13/20 12:10 09/14/20 05:20 Sodium Level 134 mmol/L (136-145) 135 mmol/L (136-145) Potassium Level 4.5 mmol/L (3.5-5.1) 4.7 mmol/L (3.5-5.1) Chloride Level 101 mmol/L (98-107) 101 mmol/L (98-107) Carbon Dioxide Level 23 mmol/L (21-32) 24 mmol/L (21-32) Anion Gap 10 (6-14) 10 (6-14) Blood Urea Nitrogen 68 mg/dL (7-20) 77 mg/dL (7-20) Creatinine 3.9 mg/dL (0.6-1.0) 4.4 mg/dL (0.6-1.0) Estimated GFR (Cockcroft-Gault) 13.5 11.8 BUN/Creatinine Ratio 17 (6-20) Glucose Level 123 mg/dL (70-99) 123 mg/dL (70-99) Calcium Level 8.4 mg/dL (8.5-10.1) 8.4 mg/dL (8.5-10.1) Phosphorus Level 5.6 mg/dL (2.6-4.7) 5.9 mg/dL (2.6-4.7) Total Bilirubin 0.3 mg/dL (0.2-1.0) Aspartate Amino Transf (AST/SGOT) 30 U/L (15-37) Alanine Aminotransferase (ALT/SGPT) 62 U/L (14-59) Alkaline Phosphatase 92 U/L (46-116) Total Protein 4.6 g/dL (6.4-8.2) Albumin 1.9 g/dL (3.4-5.0) 2.0 g/dL (3.4-5.0) Albumin/Globulin Ratio 0.7 (1.0-1.7) White Blood Count 22.1 x10^3/uL (4.0-11.0) Red Blood Count 3.34 x10^6/uL (3.50-5.40) Hemoglobin 10.0 g/dL (12.0-15.5) Hematocrit 29.8 % (36.0-47.0) Mean Corpuscular Volume 89 fL (79-100) Mean Corpuscular Hemoglobin 30 pg (25-35) Mean Corpuscular Hemoglobin Concent 33 g/dL (31-37) Red Cell Distribution Width 16.0 % (11.5-14.5) Platelet Count 259 x10^3/uL (140-400) Neutrophils (%) (Auto) 89 % (31-73) Lymphocytes (%) (Auto) 7 % (24-48) Monocytes (%) (Auto) 4 % (0-9) Eosinophils (%) (Auto) 0 % (0-3) Basophils (%) (Auto) 0 % (0-3) Neutrophils # (Auto) 19.7 x10^3/uL (1.8-7.7) Lymphocytes # (Auto) 1.6 x10^3/uL (1.0-4.8) Monocytes # (Auto) 0.8 x10^3/uL (0.0-1.1) Eosinophils # (Auto) 0.0 x10^3/uL (0.0-0.7) Basophils # (Auto) 0.0 x10^3/uL (0.0-0.2) Segmented Neutrophils % 94 % (35-66) Lymphocytes % 5 % (24-48) Monocytes % 1 % (0-10) Platelet Estimate Adequate (ADEQUATE) Laboratory Tests Test 09/13/20 12:10 09/14/20 05:20 White Blood Count 22.1 x10^3/uL (4.0-11.0) Red Blood Count 3.34 x10^6/uL (3.50-5.40) Hemoglobin 10.0 g/dL (12.0-15.5) Hematocrit 29.8 % (36.0-47.0) Mean Corpuscular Volume 89 fL (79-100) Mean Corpuscular Hemoglobin 30 pg (25-35) Mean Corpuscular Hemoglobin Concent 33 g/dL (31-37) Red Cell Distribution Width 16.0 % (11.5-14.5) Platelet Count 259 x10^3/uL (140-400) Neutrophils (%) (Auto) 89 % (31-73) Lymphocytes (%) (Auto) 7 % (24-48) Monocytes (%) (Auto) 4 % (0-9) Eosinophils (%) (Auto) 0 % (0-3) Basophils (%) (Auto) 0 % (0-3) Neutrophils # (Auto) 19.7 x10^3/uL (1.8-7.7) Lymphocytes # (Auto) 1.6 x10^3/uL (1.0-4.8) Monocytes # (Auto) 0.8 x10^3/uL (0.0-1.1) Eosinophils # (Auto) 0.0 x10^3/uL (0.0-0.7) Basophils # (Auto) 0.0 x10^3/uL (0.0-0.2) Segmented Neutrophils % 94 % (35-66) Lymphocytes % 5 % (24-48) Monocytes % 1 % (0-10) Platelet Estimate Adequate (ADEQUATE) Sodium Level 135 mmol/L (136-145) Potassium Level 4.7 mmol/L (3.5-5.1) Chloride Level 101 mmol/L (98-107) Carbon Dioxide Level 24 mmol/L (21-32) Anion Gap 10 (6-14) Blood Urea Nitrogen 77 mg/dL (7-20) Creatinine 4.4 mg/dL (0.6-1.0) Estimated GFR (Cockcroft-Gault) 11.8 Glucose Level 123 mg/dL (70-99) Calcium Level 8.4 mg/dL (8.5-10.1) Phosphorus Level 5.9 mg/dL (2.6-4.7) Albumin 2.0 g/dL (3.4-5.0) Microbiology 09/07/20 Gram Stain - Final, Complete 09/07/20 Aerobic and Anaerobic Culture - Final, Complete 09/06/20 Urine Culture - Final, Complete Medications Current Medications Fentanyl Citrate (Fentanyl 2ml Vial) 50 mcg 1X ONCE IVP Last administered on 09/06/20at 16:59; Start 09/06/20 at 16:15; Stop 09/06/20 at 16:22; Status DC Ondansetron HCl (Zofran) 4 mg 1X ONCE IVP Last administered on 09/06/20at 16:59; Start 09/06/20 at 16:15; Stop 09/06/20 at 16:22; Status DC Iohexol (Omnipaque 300 Mg/ml) 75 ml 1X ONCE IV ; Start 09/06/20 at 16:45; Stop 09/06/20 at 16:46; Status DC Info (CONTRAST GIVEN -- Rx MONITORING) 1 each PRN DAILY PRN MC SEE COMMENTS; Start 09/06/20 at 16:45; Stop 09/08/20 at 16:44; Status DC Furosemide (Lasix) 60 mg 1X ONCE IVP Last administered on 09/06/20at 20:30; Start 09/06/20 at 19:00; Stop 09/06/20 at 19:01; Status DC Sennosides (Senna) 17.2 mg PRN BID PRN PO CONSTIPATION 1ST CHOICE; Start 09/06/20 at 21:30 Docusate Sodium (Colace) 100 mg PRN DAILY PRN PO HARD STOOLS; Start 09/06/20 at 21:30 Ondansetron HCl (Zofran) 4 mg PRN Q6HRS PRN IVP NAUSEA/VOMITING Last administered on 09/12/20at 02:58; Start 09/06/20 at 21:30 Methylprednisolone Sodium Succinate (SOLU-Medrol 125MG VIAL) 100 mg Q6HRS IV Last administered on 09/11/20at 14:22; Start 09/07/20 at 00:00; Stop 09/11/20 at 17:00; Status DC Dextrose (Dextrose 50%-Water Syringe) 12.5 gm PRN Q15MIN PRN IV SEE COMMENTS; Start 09/06/20 at 21:30 Acetaminophen (Tylenol) 650 mg PRN Q4HRS PRN PO TEMP OVER 100.4F OR MILD PAIN Last administered on 09/14/20at 08:56; Start 09/06/20 at 21:30 Heparin Sodium (Porcine) (Heparin Sodium) 5,000 unit Q12HR SQ ; Start 09/07/20 at 09:00; Stop 09/07/20 at 09:42; Status DC Famotidine (Pepcid) 20 mg DAILY PO Last administered on 09/08/20at 09:36; Start 09/07/20 at 09:00; Stop 09/08/20 at 12:07; Status DC Morphine Sulfate (Morphine Sulfate) 1 mg PRN Q1HR PRN IV MODERATE PAIN 4-6 Last administered on 09/09/20at 12:05; Start 09/06/20 at 21:30; Stop 09/09/20 at 21:18; Status DC Morphine Sulfate (Morphine Sulfate) 2 mg PRN Q2HR PRN IV SEVERE PAIN 7-10; Start 09/06/20 at 04:00; Stop 09/07/20 at 03:59; Status DC Heparin Sodium (Porcine) (Heparin Sodium) 5,000 unit Q12HR SQ Last administered on 09/09/20at 22:10; Start 09/08/20 at 09:00; Stop 09/10/20 at 09:42; Status DC Lidocaine/ Epinephrine (LIDOCAINE 2%-EPI 1:100,000 multi-dose) 20 ml STK-MED ONCE .ROUTE ; Start 09/07/20 at 09:43; Stop 09/07/20 at 09:43; Status DC Fentanyl Citrate (Fentanyl 2ml Vial) 100 mcg STK-MED ONCE .ROUTE ; Start 09/07/20 at 10:23; Stop 09/07/20 at 10:23; Status DC Midazolam HCl (Versed) 2 mg STK-MED ONCE .ROUTE ; Start 09/07/20 at 10:23; Stop 09/07/20 at 10:23; Status DC Heparin Sodium/ Sodium Chloride 500 ml @ As Directed STK-MED ONCE .ROUTE ; Start 09/07/20 at 10:30; Stop 09/07/20 at 10:31; Status DC Diphenhydramine HCl (Benadryl) 50 mg STK-MED ONCE .ROUTE ; Start 09/07/20 at 11:05; Stop 09/07/20 at 11:05; Status DC Heparin Sodium/ Sodium Chloride (HEPARIN for ARTERIAL LINE FLUSH) 1,000 unit 1X ONCE IART Last administered on 09/07/20at 11:15; Start 09/07/20 at 11:15; Stop 09/07/20 at 11:20; Status DC Midazolam HCl (Versed) 2 mg 1X ONCE IV Last administered on 09/07/20at 10:44; Start 09/07/20 at 11:15; Stop 09/07/20 at 11:20; Status DC Fentanyl Citrate (Fentanyl 2ml Vial) 100 mcg 1X ONCE IV Last administered on 09/07/20at 10:44; Start 09/07/20 at 11:15; Stop 09/07/20 at 11:20; Status DC Lidocaine/ Epinephrine (LIDOCAINE 2%-EPI 1:100,000 multi-dose) 20 ml 1X ONCE IJ Last administered on 09/07/20at 11:15; Start 09/07/20 at 11:15; Stop 09/07/20 at 11:20; Status DC Diphenhydramine HCl (Benadryl) 50 mg 1X ONCE IVP Last administered on 09/07/20at 11:15; Start 09/07/20 at 11:15; Stop 09/07/20 at 11:20; Status DC Lidocaine/ Epinephrine (LIDOCAINE 2%-EPI 1:100,000 multi-dose) 20 ml STK-MED ONCE .ROUTE ; Start 09/07/20 at 11:36; Stop 09/07/20 at 11:36; Status DC Mycophenolate Mofetil (Cellcept) 1,000 mg BID PO Last administered on 09/12/20at 21:03; Start 09/07/20 at 12:00; Stop 09/12/20 at 22:29; Status DC Lidocaine HCl (Buffered Lidocaine 1%) 3 ml STK-MED ONCE .ROUTE ; Start 09/07/20 at 13:19; Stop 09/07/20 at 13:19; Status DC Lidocaine HCl (Buffered Lidocaine 1%) 6 ml 1X ONCE INJ Last administered on 09/07/20at 13:55; Start 09/07/20 at 14:00; Stop 09/07/20 at 14:01; Status DC Ketorolac Tromethamine (Toradol 15mg Vial) 15 mg 1X ONCE IM ; Start 09/07/20 at 16:30; Stop 09/07/20 at 16:31; Status Cancel Ketorolac Tromethamine (Toradol 15mg Vial) 15 mg 1X ONCE IV Last administered on 09/07/20at 16:50; Start 09/07/20 at 17:00; Stop 09/07/20 at 17:01; Status DC Lidocaine HCl (Buffered Lidocaine 1%) 3 ml STK-MED ONCE .ROUTE ; Start 09/08/20 at 08:37; Stop 09/08/20 at 08:38; Status DC Lidocaine HCl (Buffered Lidocaine 1%) 3 ml 1X ONCE INJ Last administered on 09/08/20at 08:59; Start 09/08/20 at 08:45; Stop 09/08/20 at 08:46; Status DC Lidocaine HCl (Buffered Lidocaine 1%) 3 ml 1X ONCE INJ Last administered on 09/08/20at 09:00; Start 09/08/20 at 09:00; Stop 09/08/20 at 09:01; Status DC Sodium Chloride 1,000 ml @ 1,000 mls/hr Q1H PRN IV hypotension; Start 09/08/20 at 11:00; Stop 09/08/20 at 16:59; Status DC Albumin Human 200 ml @ 200 mls/hr 1X PRN PRN IV Hypotension; Start 09/08/20 at 11:00; Stop 09/08/20 at 16:59; Status DC Diphenhydramine HCl (Benadryl) 25 mg 1X PRN PRN IV ITCHING; Start 09/08/20 at 11:00; Stop 09/09/20 at 10:59; Status DC Diphenhydramine HCl (Benadryl) 25 mg 1X PRN PRN IV ITCHING; Start 09/08/20 at 11:00; Stop 09/09/20 at 10:59; Status DC Sodium Chloride (Normal Saline Flush) 10 ml 1X PRN PRN IV AP catheter pack; Start 09/08/20 at 11:00; Stop 09/09/20 at 10:59; Status DC Sodium Chloride (Normal Saline Flush) 10 ml 1X PRN PRN IV REFUSE AND RECYCLING WORKER catheter pack; Start 09/08/20 at 11:00; Stop 09/09/20 at 10:59; Status DC Sodium Chloride 1,000 ml @ 400 mls/hr Q2H30M PRN IV PATENCY; Start 09/08/20 at 11:00; Stop 09/08/20 at 22:59; Status DC Info (PHARMACY MONITORING -- do not chart) 1 each PRN DAILY PRN MC SEE COMMENTS; Start 09/08/20 at 11:00; Stop 09/09/20 at 08:51; Status DC Famotidine (Pepcid) 20 mg Q48H PO Last administered on 09/14/20at 07:13; Start 09/10/20 at 09:00 Sodium Chloride 1,000 ml @ 1,000 mls/hr Q1H PRN IV hypotension; Start 09/09/20 at 07:30; Stop 09/09/20 at 13:29; Status DC Albumin Human 200 ml @ 200 mls/hr 1X PRN PRN IV Hypotension; Start 09/09/20 at 07:30; Stop 09/09/20 at 13:29; Status DC Sodium Chloride (Normal Saline Flush) 10 ml 1X PRN PRN IV AP catheter pack; Start 09/09/20 at 07:30; Stop 09/10/20 at 07:29; Status DC Sodium Chloride (Normal Saline Flush) 10 ml 1X PRN PRN IV REFUSE AND RECYCLING WORKER catheter pack; Start 09/09/20 at 07:30; Stop 09/10/20 at 07:29; Status DC Sodium Chloride 1,000 ml @ 400 mls/hr Q2H30M PRN IV PATENCY; Start 09/09/20 at 07:30; Stop 09/09/20 at 19:29; Status DC Info (PHARMACY MONITORING -- do not chart) 1 each PRN DAILY PRN MC SEE COMMENTS; Start 09/09/20 at 07:30; Status UNV Info (PHARMACY MONITORING -- do not chart) 1 each PRN DAILY PRN MC SEE COMMENTS; Start 09/09/20 at 07:30; Stop 09/11/20 at 13:10; Status DC Fentanyl Citrate (Fentanyl 2ml Vial) 50 mcg PRN Q2HR PRN IVP PAIN Last administered on 09/14/20at 07:14; Start 09/09/20 at 21:30 Darbepoetin [place] (ARANESP for NON-DIALYSIS PTS) 60 mcg 1X ONCE SQ Last administered on 09/10/20at 12:30; Start 09/10/20 at 11:00; Stop 09/10/20 at 11:01; Status DC Lidocaine HCl (Xylocaine 2% Topical 5gm Tube) 1 aditya 1X ONCE TP Last administered on 09/10/20at 15:19; Start 09/10/20 at 12:45; Stop 09/10/20 at 12:46; Status DC Sodium Chloride 1,000 ml @ 1,000 mls/hr Q1H PRN IV hypotension; Start 09/11/20 at 09:00; Stop 09/11/20 at 14:59; Status DC Albumin Human 200 ml @ 200 mls/hr 1X PRN PRN IV Hypotension Last administered on 09/11/20at 10:39; Start 09/11/20 at 09:00; Stop 09/11/20 at 14:59; Status DC Sodium Chloride 1,000 ml @ 400 mls/hr Q2H30M PRN IV PATENCY; Start 09/11/20 at 09:00; Stop 09/11/20 at 20:59; Status DC Info (PHARMACY MONITORING -- do not chart) 1 each PRN DAILY PRN MC SEE COMMENTS; Start 09/11/20 at 10:30; Stop 09/11/20 at 13:10; Status DC Info (PHARMACY MONITORING -- do not chart) 1 each PRN DAILY PRN MC SEE COMMENTS; Start 09/11/20 at 10:30; Stop 09/12/20 at 08:44; Status DC Prednisone (Prednisone) 60 mg 1X ONCE PO ; Start 09/11/20 at 08:00; Stop 09/11/20 at 08:01; Status Cancel Prednisone (Prednisone) 60 mg 1X ONCE PO Last administered on 09/12/20at 13:38; Start 09/12/20 at 08:00; Stop 09/12/20 at 08:01; Status DC Sodium Chloride 1,000 ml @ 1,000 mls/hr Q1H PRN IV hypotension; Start 09/12/20 at 08:45; Stop 09/12/20 at 14:44; Status DC Albumin Human 200 ml @ 200 mls/hr 1X PRN PRN IV Hypotension; Start 09/12/20 at 08:45; Stop 09/12/20 at 14:44; Status DC Sodium Chloride 1,000 ml @ 400 mls/hr Q2H30M PRN IV PATENCY; Start 09/12/20 at 08:45; Stop 09/12/20 at 20:44; Status DC Info (PHARMACY MONITORING -- do not chart) 1 each PRN DAILY PRN MC SEE ADRIANAE NTS; Start 09/12/20 at 08:45; Stop 09/14/20 at 09:01; Status DC Sertraline HCl (Zoloft) 25 mg DAILY PO Last administered on 09/13/20at 08:52; Start 09/12/20 at 15:00 Alprazolam (Xanax) 0.25 mg PRN Q8HRS PRN PO ANXIETY / AGITATION Last administered on 09/13/20at 16:34; Start 09/12/20 at 15:00 Prednisone (Prednisone) 60 mg QAM PO Last administered on 09/13/20at 08:52; Start 09/13/20 at 09:00 Mycophenolate Mofetil (Cellcept) 500 mg BID PO Last administered on 09/13/20at 20:04; Start 09/13/20 at 09:00 Lidocaine (Lidoderm) 1 patch DAILY TD Last administered on 09/14/20at 08:56; Start 09/14/20 at 09:00 Miscellaneous (Lidoderm Patch Removal) 1 ea QHS MC ; Start 09/14/20 at 21:00 Sodium Chloride 1,000 ml @ 1,000 mls/hr Q1H PRN IV hypotension; Start 09/14/20 at 09:00; Stop 09/14/20 at 14:59 Sodium Chloride 1,000 ml @ 400 mls/hr Q2H30M PRN IV PATENCY; Start 09/14/20 at 09:00; Stop 09/14/20 at 20:59 Info (PHARMACY MONITORING -- do not chart) 1 each PRN DAILY PRN MC SEE COMMENTS; Start 09/14/20 at 09:00; Stop 09/14/20 at 08:58; Status DC Info (PHARMACY MONITORING -- do not chart) 1 each PRN DAILY PRN MC SEE COMMENTS; Start 09/14/20 at 09:00 Active Scripts Active Furosemide 40 Mg Tablet 40 Mg PO DAILY 30 Days Reported Cellcept (Mycophenolate Mofetil) 250 Mg Capsule 2 Cap PO BID Plaquenil (Hydroxychloroquine Sulfate) 200 Mg Tablet 200 Mg PO DAILY Vitals/I & O Vital Sign - Last 24 Hours 09/13/20 09/13/20 09/13/20 09/13/20 10:11 10:41 10:50 14:20 Temp 97.8 97.8 Pulse 110 Resp 18 B/P (MAP) 151/120 (130) Pulse Ox 95 95 95 95 O2 Delivery Room Air Room Air Room Air Room Air 09/13/20 09/13/20 09/13/20 09/13/20 14:50 15:01 16:35 17:05 Temp 97.6 97.6 Pulse 104 Resp 16 B/P (MAP) 151/115 (127) Pulse Ox 98 98 98 98 O2 Delivery Room Air Room Air Room Air Room Air O2 Flow Rate 2.0 09/13/20 09/13/20 09/13/20 09/13/20 19:43 19:45 20:04 20:34 Temp 97.9 97.9 Pulse 106 Resp 18 20 20 B/P (MAP) 148/113 (125) Pulse Ox 96 O2 Delivery Room Air Room Air Room Air Room Air 09/13/20 09/13/20 09/13/20 09/14/20 22:49 22:49 23:19 01:16 Temp 97.9 97.9 Pulse 106 Resp 20 18 18 20 B/P (MAP) 159/115 (130) Pulse Ox 95 O2 Delivery Room Air Room Air Room Air 09/14/20 09/14/20 09/14/20 09/14/20 01:46 03:05 03:26 03:56 Temp 98.1 98.1 Pulse 109 Resp 18 18 20 18 B/P (MAP) 149/115 (126) Pulse Ox 97 O2 Delivery Room Air Room Air 09/14/20 09/14/20 09/14/208/21 05:30 06:00 07:00 07:14 Temp 97.5 97.5 Pulse 103 Resp 20 20 18 20 B/P (MAP) 153/114 (127) Pulse Ox 97 97 O2 Delivery Room Air Room Air Room Air O2 Flow Rate 2.0 09/14/20 07:44 Resp 20 Pulse Ox 97 O2 Delivery Room Air O2 Flow Rate 2.0 Intake and Output 09/13/20 09/13/20 09/14/20 14:56 22:56 06:56 Intake Total 480 ml 360 ml 0 ml Balance 480 ml 360 ml 0 ml Justicifation of Admission Dx: Justifications for Admission: Justification of Admission Dx: Yes Chronic Renal Failure: Renail Failure MANISH LANZA MD Sep 14, 2020 09:13
[2020-09-14] MEDS: ONDANSETRON PF 4 MG/2 ML VIAL. IVP PRN ×2 (10:41→10:43)
[2020-09-14] MEDS: predniSONE 20 MG TABLET PO SCH (13:02)
[2020-09-14] MEDS: SERTRALINE 25 MG TABLET. PO SCH (13:03)
--- NOTE | 2020-09-14 13:29 | PDOC ---
DATE OF SERVICE DATE: 09/14/20 TIME: 13:25 SUBJECTIVE ROS No renal recovery, seen on dialysis OBJECTIVE Vital Signs Vital Signs Date Time Temp Pulse Resp B/P (MAP) Pulse Ox O2 Delivery O2 Flow Rate FiO2 09/14/20 08:00 Room Air 2.0 09/14/20 07:44 20 97 09/14/20 07:00 97.5 103 153/114 (127) 97.5 I & 0 Intake and Output 09/14/20 07:00 Intake Total 840 ml Balance 840 ml Intake Oral 840 ml # Voids 2 # Bowel Movements 1 PHYSICAL EXAM Physical Exam GEN: NAD HEENT: OM moist NECK: Supple LUNGS: Diminished at bases HEART: RRR ABDOMEN: Soft, Positive bowel sounds, EXTREMITIES:No clubbing, cyanosis, or edema. NEUROLOGIC: Grossly normal PSYCHIATRIC: Normal affect, SKIN: No ulcerations or rashes, No CVA or SP tenderness DIAGNOSIS/ASSESSMENT Assessment & Plan New Onset ESRD - Worsening renal function , initiated on HD on 09/07, 2 nd treatment 09/09 No renal recovery, will get Tunnelled HDC for OP Dialysis, OP chair time , jenn GOODRICH On Myfortic and IV Steroids , switched to PO prednisone 60 mg pO QD in am , monitor CBC . Over the weekend I reviewed her labs, based on her drop in Hgb decreased Myfortic dose to 500 mg PO BID Seen on HD, tolerating well, continue as ordered, Jenn Yang Anemia drop in Hgb -Hgb dropped ? Bleed (no obvious) vs Myfortic. Hold off on Transfusion , stable . Check Fe studies, Started SHELLY- 1 st dose 2 She received PRBC over the weekend per Dr. 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 Bang, Nephrotic Syndrome 10 gms in the past, leading to Renal bx , recent Pr/Cr 6 gms COMMENT/RELEVANT DATA Meds Current Medications Medications (Trade) Dose Ordered Sig/Kwesi Start Time Stop Time Status Last Admin Dose Admin Acetaminophen (Tylenol) 650 mg PRN Q4HRS PRN 09/06/20 21:30 09/14/20 08:56 650 MG Albumin Human 200 ml @ 200 mls/hr 1X PRN PRN 09/12/20 08:45 09/12/20 14:44 DC Alprazolam (Xanax) 0.25 mg PRN Q8HRS PRN 09/12/20 15:00 09/13/20 16:34 0.25 MG Darbepoetin [place] (ARANESP for NON-DIALYSIS PTS) 60 mcg 1X ONCE 09/10/20 11:00 09/10/20 11:01 DC 09/10/20 12:30 60 MCG Dextrose (Dextrose 50%-Water Syringe) 12.5 gm PRN Q15MIN PRN 09/06/20 21:30 Diphenhydramine HCl (Benadryl) 25 mg 1X PRN PRN 09/08/20 11:00 09/09/20 10:59 DC Docusate Sodium (Colace) 100 mg PRN DAILY PRN 09/06/20 21:30 Famotidine (Pepcid) 20 mg Q48H 09/10/20 09:00 09/14/20 07:13 20 MG Fentanyl Citrate (Fentanyl 2ml Vial) 50 mcg PRN Q2HR PRN 09/09/20 21:30 09/14/20 07:14 50 MCG Furosemide (Lasix) 60 mg 1X ONCE 09/06/20 19:00 09/06/20 19:01 DC 09/06/20 20:30 60 MG Heparin Sodium (Porcine) (Heparin Sodium) 5,000 unit Q12HR 09/08/20 09:00 09/10/20 09:42 DC 09/09/20 22:10 5,000 UNIT Heparin Sodium/ Sodium Chloride (HEPARIN for ARTERIAL LINE FLUSH) 1,000 unit 1X ONCE 09/07/20 11:15 09/07/20 11:20 DC 09/07/20 11:15 1,000 UNIT Info (CONTRAST GIVEN -- Rx MONITORING) 1 each PRN DAILY PRN 09/06/20 16:45 09/08/20 16:44 DC Info (PHARMACY MONITORING -- do not chart) 1 each PRN DAILY PRN 09/14/20 09:00 Iohexol (Omnipaque 300 Mg/ml) 75 ml 1X ONCE 09/06/20 16:45 09/06/20 16:46 DC Ketorolac Tromethamine (Toradol 15mg Vial) 15 mg 1X ONCE 09/07/20 17:00 09/07/20 17:01 DC 09/07/20 16:50 15 MG Lidocaine (Lidoderm) 1 patch DAILY 09/14/20 09:00 09/14/20 08:56 1 PATCH Lidocaine HCl (Buffered Lidocaine 1%) 3 ml 1X ONCE 09/08/20 09:00 09/08/20 09:01 DC 09/08/20 09:00 3 ML Lidocaine HCl (Xylocaine 2% Topical 5gm Tube) 1 aditya 1X ONCE 09/10/20 12:45 09/10/20 12:46 DC 09/10/20 15:19 1 ADITYA Lidocaine/ Epinephrine (LIDOCAINE 2%-EPI 1:100,000 multi-dose) 20 ml STK-MED ONCE 09/07/20 11:36 09/07/20 11:36 DC Methylprednisolone Sodium Succinate (SOLU-Medrol 125MG VIAL) 100 mg Q6HRS 09/07/20 00:00 09/11/20 17:00 DC 09/11/20 14:22 100 MG Midazolam HCl (Versed) 2 mg 1X ONCE 09/07/20 11:15 09/07/20 11:20 DC 09/07/20 10:44 2 MG Miscellaneous (Lidoderm Patch Removal) 1 ea QHS 09/14/20 21:00 Morphine Sulfate (Morphine Sulfate) 2 mg PRN Q2HR PRN 09/06/20 04:00 09/07/20 03:59 DC Mycophenolate Mofetil (Cellcept) 500 mg BID 09/13/20 09:00 09/14/20 09:00 500 MG Ondansetron HCl (Zofran) 4 mg PRN Q6HRS PRN 09/06/20 21:30 09/14/20 10:43 4 MG Prednisone (Prednisone) 60 mg QAM 09/13/20 09:00 09/14/20 13:02 60 MG Sennosides (Senna) 17.2 mg PRN BID PRN 09/06/20 21:30 Sertraline HCl (Zoloft) 25 mg DAILY 09/12/20 15:00 09/14/20 13:03 25 MG Sodium Chloride 1,000 ml @ 400 mls/hr Q2H30M PRN 09/14/20 09:00 09/14/20 20:59 Sodium Chloride (Normal Saline Flush) 10 ml 1X PRN PRN 09/09/20 07:30 09/10/20 07:29 FL Lab Laboratory Tests Test 09/14/20 05:20 Sodium Level 135 mmol/L (136-145) Potassium Level 4.7 mmol/L (3.5-5.1) Chloride Level 101 mmol/L (98-107) Carbon Dioxide Level 24 mmol/L (21-32) Anion Gap 10 (6-14) Blood Urea Nitrogen 77 mg/dL (7-20) Creatinine 4.4 mg/dL (0.6-1.0) Estimated GFR (Cockcroft-Gault) 11.8 Glucose Level 123 mg/dL (70-99) Calcium Level 8.4 mg/dL (8.5-10.1) Phosphorus Level 5.9 mg/dL (2.6-4.7) Albumin 2.0 g/dL (3.4-5.0) Results All relevant outside records, renal labs, imaging studies, telemetry/EKG's were reviewed. Justicifation of Admission Dx: Justifications for Admission: Justification of Admission Dx: Yes Chronic Renal Failure: Renail Failure LIBBY HALL MD Sep 14, 2020 13:29
[2020-09-14] MEDS: HYDROcodone/APAP 5/325MG 1 TAB TABLET PO PRN (14:02)
--- NOTE | 2020-09-14 14:55 | NUR ---
SS following up with discharge planning. SS reviewed pt chart and discussed with pt RN. Pt is currently on room air. COVID19 negative. New onset ESRD. Pt needing dialysis set up. SS phoned and faxed referral for outpatient dialysis to [facility], ; fax [phone]. SS will continue to follow for discharge planning.
[2020-09-14 15:00] VITALS: BP 136/99
[2020-09-14 19:35] VITALS: BP 134/102
[2020-09-14] MEDS: PATCH REMOVAL. MC SCH (21:00)
--- NOTE | 2020-09-14 23:17 | NUR ---
PT BP CONTINUED TO BE ELEVATED DR POOL BERNARD NEW ORDERS RECEIVED WILL CONT TO MONITOR PT STATUS AND SAFETY. PMRN
[2020-09-14] MEDS ORDERED: hydrALAZINE 20 MG/ML VIAL. IVP ONE (23:30)
[2020-09-14 23:51] VITALS: BP 143/109
[2020-09-15] VITALS (15 sets, daily range): BP systolic 127–155; BP diastolic 90–116
[2020-09-15 05:39] LABS: BASO % 0 % (0-3); EOS % 0 % (0-3); HEMATOCRIT 27.1 % (36.0-47.0); HEMOGLOBIN 8.9 g/dL (12.0-15.5); LYMPH # 0.9 x10^3/uL (1.0-4.8); LYMPH % 6 % (24-48); MEAN CORPUSCULAR HEMOGLOBIN 30 pg (25-35); MEAN CORPUSCULAR HGB CONC 33 g/dL (31-37); MEAN CORPUSCULAR VOLUME 90 fL (79-100); MONO # 0.4 x10^3/uL (0.0-1.1); MONO % 3 % (0-9); NEUT # 14.2 x10^3/uL (1.8-7.7); NEUT % 91 % (31-73); PLATELET COUNT 223 x10^3/uL (140-400); RED CELL DISTRIBUTION WIDTH 15.4 % (11.5-14.5); WHITE BLOOD COUNT 15.6 x10^3/uL (4.0-11.0)
[2020-09-15 05:45] LABS: ALBUMIN 1.8 g/dL (3.4-5.0); ALBUMIN/GLOBULIN RATIO 0.6 (1.0-1.7); CALCIUM 8.6 mg/dL (8.5-10.1); CREATININE 4.1 mg/dL (0.6-1.0); GFR 12.8; PHOSPHORUS 5.5 mg/dL (2.6-4.7); POTASSIUM 4.8 mmol/L (3.5-5.1); TOTAL BILIRUBIN 0.4 mg/dL (0.2-1.0); TOTAL PROTEIN 4.8 g/dL (6.4-8.2)
--- NOTE | 2020-09-15 08:22 | PDOC ---
PROGRESS NOTES Date of Service: DATE: 09/15/20 TIME: 08:22 Chief Complaint Chief Complaint impression Acute abdominal distention Large pericardial effusion likely chronic The systolic function is severely impaired. The Ejection Fraction is 35%. There is severe global hypokinesis of the left ventricle.on echo Large volume abdominal ascites Anasarca Bilateral pleural effusions Acute on chronic kidney injury concerning for lupus nephritis Severe protein malnutrition Normocytic anemia due to chronic disease SLE - concerning for lupus flare. We will start high-dose IV steroids for 3 days then transition to p.o. prednisone. Continue Plaquenil and cellcept successful ultrasound-guided placement of right internal jugular temporary dialysis catheter 09-08 Nephrology consult for concern for lupus nephritis Cardiology consult for pericardial effusion Interventional radiology for pericardiocentesis and paracentesis Heparin for DVT prophylaxis Protonix GI prophylaxis Clear liquid diet Full code Discussed with RN and SW Disposition pending cardiology, nephrology, interventional radiology evaluation Surrogate decision maker is Yehuda Gomez 09-15 TO HAVE PERM dialysis cath placed today, no inc SOA, C/O MILD ANXIETY D/W RN CR 4.1 29 min pt exam, chart review, > 50% of time spent with exam, chart review, pt care coordination History of Present Illness History of Present Illness Ms Lopez is a 30-year-old female with history of lupus that was diagnosed 1 year ago, hypertension, depression who presents today with increased abdominal bloating tightness and pain which also contributes to her shortness of breath. Also endorses some hemoptysis as well. Patient that she was constipated so she took some laxatives. Patient was also placed on Lasix 40 mg twice daily, however she does not feel this is helping her. This originally was to help her lower extremity edema which originally was doing okay but has gotten worse in the past few weeks. Patient is currently not taking any steroids. She states she is only taking Plaquenil. Denies fevers, rashes, hematuria, diarrhea, nausea vomiting, headaches or vision changes, chest pain. 09/07: Patient seen and evaluated. Slightly tachycardic, afebrile. Patient's breathing on room air, still with some complaints of shortness of breath. Echocardiogram with pericardial effusion with tamponade physiology. Status post pericardiocentesis 1650 cc. Paracentesis 3.6 L. 2: Afebrile. Seen in ICU post pericardiocentesis. Labs reviewed K5.7 BUN 97, CR 4. Plan for dialysis catheter today. Her shortness of breath has improved. No telemetry events. Some fluctuant swelling at both pericardiocentesis and parac entesis sites. No bleeding. 09/09: Afebrile seen in ICU after pericardial drain removed per cardiology. Tolerated dialysis well. Hb down to 6.8. She is much less short of breath. Overall does not feel great. 09/10: Patient seen and evaluated. Pericardial drain removed yesterday. Status post paracentesis and pericardiocentesis. Hemoglobin 6.8 yesterday, 6.4 today. I do not think this represents an acute bleed, may be secondary to her kidney disease or mycophenolate. Will continue to monitor hemoglobin. 09/11: Patient seen on hemodialysis. Afebrile this morning, breathing room air. Started on darbepoetin, first dose yesterday. Hemoglobin 6.4 yesterday, 6.6 today. No evidence of bleeding. Hold transfusions at this time as to not fluid overload. Plan: Initiated on HD on 09/07. S/P paracentesis and pericardiocentesis. Continue HD, per nephrology. Continue to monitor hemoglobin. Vitals Vitals Vital Signs Date Time Temp Pulse Resp B/P (MAP) Pulse Ox O2 Delivery O2 Flow Rate FiO2 09/15/20 03:32 98.2 99 20 137/101 (113) 95 Room Air 98.2 09/14/20 15:02 2.0 Physical Exam General: Alert, Oriented X3, Cooperative, No acute distress, Other (ANXIOUS) Heart: Regular rate, Normal S1, Normal S2, No murmurs, Gallops Lungs: Clear Abdomen: Normal bowel sounds, Soft, No tenderness, No hepatosplenomegaly, No masses Extremities: No clubbing, No cyanosis, No edema, Normal pulses, No tenderness/swelling Skin: No significant lesion Labs LABS Laboratory Tests Test 09/15/20 05:11 White Blood Count 15.6 x10^3/uL (4.0-11.0) Red Blood Count 3.00 x10^6/uL (3.50-5.40) Hemoglobin 8.9 g/dL (12.0-15.5) Hematocrit 27.1 % (36.0-47.0) Mean Corpuscular Volume 90 fL (79-100) Mean Corpuscular Hemoglobin 30 pg (25-35) Mean Corpuscular Hemoglobin Concent 33 g/dL (31-37) Red Cell Distribution Width 15.4 % (11.5-14.5) Platelet Count 223 x10^3/uL (140-400) Neutrophils (%) (Auto) 91 % (31-73) Lymphocytes (%) (Auto) 6 % (24-48) Monocytes (%) (Auto) 3 % (0-9) Eosinophils (%) (Auto) 0 % (0-3) Basophils (%) (Auto) 0 % (0-3) Neutrophils # (Auto) 14.2 x10^3/uL (1.8-7.7) Lymphocytes # (Auto) 0.9 x10^3/uL (1.0-4.8) Monocytes # (Auto) 0.4 x10^3/uL (0.0-1.1) Eosinophils # (Auto) 0.0 x10^3/uL (0.0-0.7) Basophils # (Auto) 0.0 x10^3/uL (0.0-0.2) Sodium Level 135 mmol/L (136-145) Potassium Level 4.8 mmol/L (3.5-5.1) Chloride Level 99 mmol/L (98-107) Carbon Dioxide Level 26 mmol/L (21-32) Anion Gap 10 (6-14) Blood Urea Nitrogen 56 mg/dL (7-20) Creatinine 4.1 mg/dL (0.6-1.0) Estimated GFR (Cockcroft-Gault) 12.8 BUN/Creatinine Ratio 14 (6-20) Glucose Level 129 mg/dL (70-99) Calcium Level 8.6 mg/dL (8.5-10.1) Phosphorus Level 5.5 mg/dL (2.6-4.7) Total Bilirubin 0.4 mg/dL (0.2-1.0) Aspartate Amino Transf (AST/SGOT) 19 U/L (15-37) Alanine Aminotransferase (ALT/SGPT) 45 U/L (14-59) Alkaline Phosphatase 86 U/L (46-116) Total Protein 4.8 g/dL (6.4-8.2) Albumin 1.8 g/dL (3.4-5.0) Albumin/Globulin Ratio 0.6 (1.0-1.7) Assessment and Plan Assessmemt and Plan Problems Medical Problems: (1) Acute renal failure Status: Acute (2) Ascites Status: Acute (3) Pericardial effusion Status: Acute (4) Pleural effusion Status: Acute Comment Review of Relevant I have reviewed the following items jennifer (where applicable) has been applied. Labs Laboratory Tests Test 09/13/20 12:10 09/14/20 05:20 09/15/20 05:11 White Blood Count 22.1 x10^3/uL (4.0-11.0) 15.6 x10^3/uL (4.0-11.0) Red Blood Count 3.34 x10^6/uL (3.50-5.40) 3.00 x10^6/uL (3.50-5.40) Hemoglobin 10.0 g/dL (12.0-15.5) 8.9 g/dL (12.0-15.5) Hematocrit 29.8 % (36.0-47.0) 27.1 % (36.0-47.0) Mean Corpuscular Volume 89 fL (79-100) 90 fL (79-100) Mean Corpuscular Hemoglobin 30 pg (25-35) 30 pg (25-35) Mean Corpuscular Hemoglobin Concent 33 g/dL (31-37) 33 g/dL (31-37) Red Cell Distribution Width 16.0 % (11.5-14.5) 15.4 % (11.5-14.5) Platelet Count 259 x10^3/uL (140-400) 223 x10^3/uL (140-400) Neutrophils (%) (Auto) 89 % (31-73) 91 % (31-73) Lymphocytes (%) (Auto) 7 % (24-48) 6 % (24-48) Monocytes (%) (Auto) 4 % (0-9) 3 % (0-9) Eosinophils (%) (Auto) 0 % (0-3) 0 % (0-3) Basophils (%) (Auto) 0 % (0-3) 0 % (0-3) Neutrophils # (Auto) 19.7 x10^3/uL (1.8-7.7) 14.2 x10^3/uL (1.8-7.7) Lymphocytes # (Auto) 1.6 x10^3/uL (1.0-4.8) 0.9 x10^3/uL (1.0-4.8) Monocytes # (Auto) 0.8 x10^3/uL (0.0-1.1) 0.4 x10^3/uL (0.0-1.1) Eosinophils # (Auto) 0.0 x10^3/uL (0.0-0.7) 0.0 x10^3/uL (0.0-0.7) Basophils # (Auto) 0.0 x10^3/uL (0.0-0.2) 0.0 x10^3/uL (0.0-0.2) Segmented Neutrophils % 94 % (35-66) Lymphocytes % 5 % (24-48) Monocytes % 1 % (0-10) Platelet Estimate Adequate (ADEQUATE) Sodium Level 135 mmol/L (136-145) 135 mmol/L (136-145) Potassium Level 4.7 mmol/L (3.5-5.1) 4.8 mmol/L (3.5-5.1) Chloride Level 101 mmol/L (98-107) 99 mmol/L (98-107) Carbon Dioxide Level 24 mmol/L (21-32) 26 mmol/L (21-32) Anion Gap 10 (6-14) 10 (6-14) Blood Urea Nitrogen 77 mg/dL (7-20) 56 mg/dL (7-20) Creatinine 4.4 mg/dL (0.6-1.0) 4.1 mg/dL (0.6-1.0) Estimated GFR (Cockcroft-Gault) 11.8 12.8 Glucose Level 123 mg/dL (70-99) 129 mg/dL (70-99) Calcium Level 8.4 mg/dL (8.5-10.1) 8.6 mg/dL (8.5-10.1) Phosphorus Level 5.9 mg/dL (2.6-4.7) 5.5 mg/dL (2.6-4.7) Albumin 2.0 g/dL (3.4-5.0) 1.8 g/dL (3.4-5.0) BUN/Creatinine Ratio 14 (6-20) Total Bilirubin 0.4 mg/dL (0.2-1.0) Aspartate Amino Transf (AST/SGOT) 19 U/L (15-37) Alanine Aminotransferase (ALT/SGPT) 45 U/L (14-59) Alkaline Phosphatase 86 U/L (46-116) Total Protein 4.8 g/dL (6.4-8.2) Albumin/Globulin Ratio 0.6 (1.0-1.7) Laboratory Tests Test 09/15/20 05:11 White Blood Count 15.6 x10^3/uL (4.0-11.0) Red Blood Count 3.00 x10^6/uL (3.50-5.40) Hemoglobin 8.9 g/dL (12.0-15.5) Hematocrit 27.1 % (36.0-47.0) Mean Corpuscular Volume 90 fL (79-100) Mean Corpuscular Hemoglobin 30 pg (25-35) Mean Corpuscular Hemoglobin Concent 33 g/dL (31-37) Red Cell Distribution Width 15.4 % (11.5-14.5) Platelet Count 223 x10^3/uL (140-400) Neutrophils (%) (Auto) 91 % (31-73) Lymphocytes (%) (Auto) 6 % (24-48) Monocytes (%) (Auto) 3 % (0-9) Eosinophils (%) (Auto) 0 % (0-3) Basophils (%) (Auto) 0 % (0-3) Neutrophils # (Auto) 14.2 x10^3/uL (1.8-7.7) Lymphocytes # (Auto) 0.9 x10^3/uL (1.0-4.8) Monocytes # (Auto) 0.4 x10^3/uL (0.0-1.1) Eosinophils # (Auto) 0.0 x10^3/uL (0.0-0.7) Basophils # (Auto) 0.0 x10^3/uL (0.0-0.2) Sodium Level 135 mmol/L (136-145) Potassium Level 4.8 mmol/L (3.5-5.1) Chloride Level 99 mmol/L (98-107) Carbon Dioxide Level 26 mmol/L (21-32) Anion Gap 10 (6-14) Blood Urea Nitrogen 56 mg/dL (7-20) Creatinine 4.1 mg/dL (0.6-1.0) Estimated GFR (Cockcroft-Gault) 12.8 BUN/Creatinine Ratio 14 (6-20) Glucose Level 129 mg/dL (70-99) Calcium Level 8.6 mg/dL (8.5-10.1) Phosphorus Level 5.5 mg/dL (2.6-4.7) Total Bilirubin 0.4 mg/dL (0.2-1.0) Aspartate Amino Transf (AST/SGOT) 19 U/L (15-37) Alanine Aminotransferase (ALT/SGPT) 45 U/L (14-59) Alkaline Phosphatase 86 U/L (46-116) Total Protein 4.8 g/dL (6.4-8.2) Albumin 1.8 g/dL (3.4-5.0) Albumin/Globulin Ratio 0.6 (1.0-1.7) Microbiology 09/07/20 Gram Stain - Final, Complete 09/07/20 Aerobic and Anaerobic Culture - Final, Complete 09/06/20 Urine Culture - Final, Complete Medications Current Medications Fentanyl Citrate (Fentanyl 2ml Vial) 50 mcg 1X ONCE IVP Last administered on 09/06/20at 16:59; Start 09/06/20 at 16:15; Stop 09/06/20 at 16:22; Status DC Ondansetron HCl (Zofran) 4 mg 1X ONCE IVP Last administered on 09/06/20at 16:59; Start 09/06/20 at 16:15; Stop 09/06/20 at 16:22; Status DC Iohexol (Omnipaque 300 Mg/ml) 75 ml 1X ONCE IV ; Start 09/06/20 at 16:45; Stop 09/06/20 at 16:46; Status DC Info (CONTRAST GIVEN -- Rx MONITORING) 1 each PRN DAILY PRN MC SEE COMMENTS; Start 09/06/20 at 16:45; Stop 09/08/20 at 16:44; Status DC Furosemide (Lasix) 60 mg 1X ONCE IVP Last administered on 09/06/20at 20:30; Start 09/06/20 at 19:00; Stop 09/06/20 at 19:01; Status DC Sennosides (Senna) 17.2 mg PRN BID PRN PO CONSTIPATION 1ST CHOICE; Start 09/06/20 at 21:30 Docusate Sodium (Colace) 100 mg PRN DAILY PRN PO HARD STOOLS; Start 09/06/20 at 21:30 Ondansetron HCl (Zofran) 4 mg PRN Q6HRS PRN IVP NAUSEA/VOMITING Last administered on 09/14/20at 10:43; Start 09/06/20 at 21:30 Methylprednisolone Sodium Succinate (SOLU-Medrol 125MG VIAL) 100 mg Q6HRS IV Last administered on 09/11/20at 14:22; Start 09/07/20 at 00:00; Stop 09/11/20 at 17:00; Status DC Dextrose (Dextrose 50%-Water Syringe) 12.5 gm PRN Q15MIN PRN IV SEE COMMENTS; Start 09/06/20 at 21:30 Acetaminophen (Tylenol) 650 mg PRN Q4HRS PRN PO TEMP OVER 100.4F OR MILD PAIN Last administered on 09/14/20at 08:56; Start 09/06/20 at 21:30 Heparin Sodium (Porcine) (Heparin Sodium) 5,000 unit Q12HR SQ ; Start 09/07/20 at 09:00; Stop 09/07/20 at 09:42; Status DC Famotidine (Pepcid) 20 mg DAILY PO Last administered on 09/08/20at 09:36; Start 09/07/20 at 09:00; Stop 09/08/20 at 12:07; Status DC Morphine Sulfate (Morphine Sulfate) 1 mg PRN Q1HR PRN IV MODERATE PAIN 4-6 Last administered on 09/09/20at 12:05; Start 09/06/20 at 21:30; Stop 09/09/20 at 21:18; Status DC Morphine Sulfate (Morphine Sulfate) 2 mg PRN Q2HR PRN IV SEVERE PAIN 7-10; Start 09/06/20 at 04:00; Stop 09/07/20 at 03:59; Status DC Heparin Sodium (Porcine) (Heparin Sodium) 5,000 unit Q12HR SQ Last administered on 09/09/20at 22:10; Start 09/08/20 at 09:00; Stop 09/10/20 at 09:42; Status DC Lidocaine/ Epinephrine (LIDOCAINE 2%-EPI 1:100,000 multi-dose) 20 ml STK-MED ONCE .ROUTE ; Start 09/07/20 at 09:43; Stop 09/07/20 at 09:43; Status DC Fentanyl Citrate (Fentanyl 2ml Vial) 100 mcg STK-MED ONCE .ROUTE ; Start 09/07/20 at 10:23; Stop 09/07/20 at 10:23; Status DC Midazolam HCl (Versed) 2 mg STK-MED ONCE .ROUTE ; Start 09/07/20 at 10:23; Stop 09/07/20 at 10:23; Status DC Heparin Sodium/ Sodium Chloride 500 ml @ As Directed STK-MED ONCE .ROUTE ; Start 09/07/20 at 10:30; Stop 09/07/20 at 10:31; Status DC Diphenhydramine HCl (Benadryl) 50 mg STK-MED ONCE .ROUTE ; Start 09/07/20 at 11:05; Stop 09/07/20 at 11:05; Status DC Heparin Sodium/ Sodium Chloride (HEPARIN for ARTERIAL LINE FLUSH) 1,000 unit 1X ONCE IART Last administered on 09/07/20at 11:15; Start 09/07/20 at 11:15; Stop 09/07/20 at 11:20; Status DC Midazolam HCl (Versed) 2 mg 1X ONCE IV Last administered on 09/07/20at 10:44; Start 09/07/20 at 11:15; Stop 09/07/20 at 11:20; Status DC Fentanyl Citrate (Fentanyl 2ml Vial) 100 mcg 1X ONCE IV Last administered on 09/07/20at 10:44; Start 09/07/20 at 11:15; Stop 09/07/20 at 11:20; Status DC Lidocaine/ Epinephrine (LIDOCAINE 2%-EPI 1:100,000 multi-dose) 20 ml 1X ONCE IJ Last administered on 09/07/20at 11:15; Start 09/07/20 at 11:15; Stop 09/07/20 at 11:20; Status DC Diphenhydramine HCl (Benadryl) 50 mg 1X ONCE IVP Last administered on 09/07/20at 11:15; Start 09/07/20 at 11:15; Stop 09/07/20 at 11:20; Status DC Lidocaine/ Epinephrine (LIDOCAINE 2%-EPI 1:100,000 multi-dose) 20 ml STK-MED ONCE .ROUTE ; Start 09/07/20 at 11:36; Stop 09/07/20 at 11:36; Status DC Mycophenolate Mofetil (Cellcept) 1,000 mg BID PO Last administered on 09/12/20at 21:03; Start 09/07/20 at 12:00; Stop 09/12/20 at 22:29; Status DC Lidocaine HCl (Buffered Lidocaine 1%) 3 ml STK-MED ONCE .ROUTE ; Start 09/07/20 at 13:19; Stop 09/07/20 at 13:19; Status DC Lidocaine HCl (Buffered Lidocaine 1%) 6 ml 1X ONCE INJ Last administered on 09/07/20at 13:55; Start 09/07/20 at 14:00; Stop 09/07/20 at 14:01; Status DC Ketorolac Tromethamine (Toradol 15mg Vial) 15 mg 1X ONCE IM ; Start 09/07/20 at 16:30; Stop 09/07/20 at 16:31; Status Cancel Ketorolac Tromethamine (Toradol 15mg Vial) 15 mg 1X ONCE IV Last administered on 09/07/20at 16:50; Start 09/07/20 at 17:00; Stop 09/07/20 at 17:01; Status DC Lidocaine HCl (Buffered Lidocaine 1%) 3 ml STK-MED ONCE .ROUTE ; Start 09/08/20 at 08:37; Stop 09/08/20 at 08:38; Status DC Lidocaine HCl (Buffered Lidocaine 1%) 3 ml 1X ONCE INJ Last administered on 09/08/20at 08:59; Start 09/08/20 at 08:45; Stop 09/08/20 at 08:46; Status DC Lidocaine HCl (Buffered Lidocaine 1%) 3 ml 1X ONCE INJ Last administered on 09/08/20at 09:00; Start 09/08/20 at 09:00; Stop 09/08/20 at 09:01; Status DC Sodium Chloride 1,000 ml @ 1,000 mls/hr Q1H PRN IV hypotension; Start 09/08/20 at 11:00; Stop 09/08/20 at 16:59; Status DC Albumin Human 200 ml @ 200 mls/hr 1X PRN PRN IV Hypotension; Start 09/08/20 at 11:00; Stop 09/08/20 at 16:59; Status DC Diphenhydramine HCl (Benadryl) 25 mg 1X PRN PRN IV ITCHING; Start 09/08/20 at 11:00; Stop 09/09/20 at 10:59; Status DC Diphenhydramine HCl (Benadryl) 25 mg 1X PRN PRN IV ITCHING; Start 09/08/20 at 11:00; Stop 09/09/20 at 10:59; Status DC Sodium Chloride (Normal Saline Flush) 10 ml 1X PRN PRN IV AP catheter pack; Start 09/08/20 at 11:00; Stop 09/09/20 at 10:59; Status DC Sodium Chloride (Normal Saline Flush) 10 ml 1X PRN PRN IV CHANGE MANAGEMENT ADMINISTRATOR catheter pack; Start 09/08/20 at 11:00; Stop 09/09/20 at 10:59; Status DC Sodium Chloride 1,000 ml @ 400 mls/hr Q2H30M PRN IV PATENCY; Start 09/08/20 at 11:00; Stop 09/08/20 at 22:59; Status DC Info (PHARMACY MONITORING -- do not chart) 1 each PRN DAILY PRN MC SEE COMMENTS; Start 09/08/20 at 11:00; Stop 09/09/20 at 08:51; Status DC Famotidine (Pepcid) 20 mg Q48H PO Last administered on 09/14/20at 07:13; Start 09/10/20 at 09:00 Sodium Chloride 1,000 ml @ 1,000 mls/hr Q1H PRN IV hypotension; Start 09/09/20 at 07:30; Stop 09/09/20 at 13:29; Status DC Albumin Human 200 ml @ 200 mls/hr 1X PRN PRN IV Hypotension; Start 09/09/20 at 07:30; Stop 09/09/20 at 13:29; Status DC Sodium Chloride (Normal Saline Flush) 10 ml 1X PRN PRN IV AP catheter pack; Start 09/09/20 at 07:30; Stop 09/10/20 at 07:29; Status DC Sodium Chloride (Normal Saline Flush) 10 ml 1X PRN PRN IV CHANGE MANAGEMENT ADMINISTRATOR catheter pack; Start 09/09/20 at 07:30; Stop 09/10/20 at 07:29; Status DC Sodium Chloride 1,000 ml @ 400 mls/hr Q2H30M PRN IV PATENCY; Start 09/09/20 at 07:30; Stop 09/09/20 at 19:29; Status DC Info (PHARMACY MONITORING -- do not chart) 1 each PRN DAILY PRN MC SEE COMMENTS; Start 09/09/20 at 07:30; Status UNV Info (PHARMACY MONITORING -- do not chart) 1 each PRN DAILY PRN MC SEE COMMENTS; Start 09/09/20 at 07:30; Stop 09/11/20 at 13:10; Status DC Fentanyl Citrate (Fentanyl 2ml Vial) 50 mcg PRN Q2HR PRN IVP PAIN Last administered on 09/14/20at 07:14; Start 09/09/20 at 21:30 Darbepoetin [place] (ARANESP for NON-DIALYSIS PTS) 60 mcg 1X ONCE SQ Last administered on 09/10/20at 12:30; Start 09/10/20 at 11:00; Stop 09/10/20 at 11:01; Status DC Lidocaine HCl (Xylocaine 2% Topical 5gm Tube) 1 aditya 1X ONCE TP Last administered on 09/10/20at 15:19; Start 09/10/20 at 12:45; Stop 09/10/20 at 12:46; Status DC Sodium Chloride 1,000 ml @ 1,000 mls/hr Q1H PRN IV hypotension; Start 09/11/20 at 09:00; Stop 09/11/20 at 14:59; Status DC Albumin Human 200 ml @ 200 mls/hr 1X PRN PRN IV Hypotension Last administered on 09/11/20at 10:39; Start 09/11/20 at 09:00; Stop 09/11/20 at 14:59; Status DC Sodium Chloride 1,000 ml @ 400 mls/hr Q2H30M PRN IV PATENCY; Start 09/11/20 at 09:00; Stop 09/11/20 at 20:59; Status DC Info (PHARMACY MONITORING -- do not chart) 1 each PRN DAILY PRN MC SEE COMMENTS; Start 09/11/20 at 10:30; Stop 09/11/20 at 13:10; Status DC Info (PHARMACY MONITORING -- do not chart) 1 each PRN DAILY PRN MC SEE SOMMER TS; Start 09/11/20 at 10:30; Stop 09/12/20 at 08:44; Status DC Prednisone (Prednisone) 60 mg 1X ONCE PO ; Start 09/11/20 at 08:00; Stop 09/11/20 at 08:01; Status Cancel Prednisone (Prednisone) 60 mg 1X ONCE PO Last administered on 09/12/20at 13:38; Start 09/12/20 at 08:00; Stop 09/12/20 at 08:01; Status DC Sodium Chloride 1,000 ml @ 1,000 mls/hr Q1H PRN IV hypotension; Start 09/12/20 at 08:45; Stop 09/12/20 at 14:44; Status DC Albumin Human 200 ml @ 200 mls/hr 1X PRN PRN IV Hypotension; Start 09/12/20 at 08:45; Stop 09/12/20 at 14:44; Status DC Sodium Chloride 1,000 ml @ 400 mls/hr Q2H30M PRN IV PATENCY; Start 09/12/20 at 08:45; Stop 09/12/20 at 20:44; Status DC Info (PHARMACY MONITORING -- do not chart) 1 each PRN DAILY PRN MC SEE COMMENTS; Start 09/12/20 at 08:45; Stop 09/14/20 at 09:01; Status DC Sertraline HCl (Zoloft) 25 mg DAILY PO Last administered on 09/14/20at 13:03; Start 09/12/20 at 15:00 Alprazolam (Xanax) 0.25 mg PRN Q8HRS PRN PO ANXIETY / AGITATION Last administered on 09/13/20at 16:34; Start 09/12/20 at 15:00 Prednisone (Prednisone) 60 mg QAM PO Last administered on 09/14/20at 13:02; Start 09/13/20 at 09:00 Mycophenolate Mofetil (Cellcept) 500 mg BID PO Last administered on 09/14/20at 21:23; Start 09/13/20 at 09:00 Lidocaine (Lidoderm) 1 patch DAILY TD Last administered on 09/14/20at 08:56; Start 09/14/20 at 09:00 Miscellaneous (Lidoderm Patch Removal) 1 ea [facility] MC ; Start 09/14/20 at 21:00 Sodium Chloride 1,000 ml @ 1,000 mls/hr Q1H PRN IV hypotension; Start 09/14/20 at 09:00; Stop 09/14/20 at 14:59; Status DC Sodium Chloride 1,000 ml @ 400 mls/hr Q2H30M PRN IV PATENCY; Start 09/14/20 at 09:00; Stop 09/14/20 at 20:59; Status DC Info (PHARMACY MONITORING -- do not chart) 1 each PRN DAILY PRN MC SEE COMMENTS; Start 09/14/20 at 09:00; Stop 09/14/20 at 08:58; Status DC Info (PHARMACY MONITORING -- do not chart) 1 each PRN DAILY PRN MC SEE COMMENTS; Start 09/14/20 at 09:00 Acetaminophen/ Hydrocodone Bitart (Lortab 5/325) 1 tab PRN Q6HRS PRN PO MODERATE PAIN, SEVERE PAIN Last administered on 09/14/20at 14:02; Start 09/14/20 at 13:45 Hydralazine HCl (Apresoline Inj) 10 mg 1X ONCE IVP Last administered on 09/14/20at 23:50; Start 09/14/20 at 23:30; Stop 09/14/20 at 23:33; Status DC Active Scripts Active Furosemide 40 Mg Tablet 40 Mg PO DAILY 30 Days Reported Cellcept (Mycophenolate Mofetil) 250 Mg Capsule 2 Cap PO BID Plaquenil (Hydroxychloroquine Sulfate) 200 Mg Tablet 200 Mg PO DAILY Vitals/I & O Vital Sign - Last 24 Hours 09/14/20 09/14/20 09/14/20 09/14/20 14:02 15:00 15:02 19:35 Temp 98.1 98.9 98.1 98.9 Pulse 110 107 Resp 20 18 20 20 B/P (MAP) 136/99 (111) 134/102 (113) Pulse Ox 97 97 97 O2 Delivery Room Air Room Air Room Air Room Air O2 Flow Rate 2.0 2.0 09/14/20 09/14/20 09/14/20 09/15/20 20:45 23:50 23:51 03:32 Temp 99.0 98.2 99.0 98.2 Pulse 104 99 Resp 20 20 B/P (MAP) 143/109 143/109 (120) 137/101 (113) Pulse Ox 95 95 O2 Delivery Room Air Room Air Room Air Intake and Output 09/14/20 09/14/20 09/15/20 15:00 23:00 07:00 Intake Total 480 ml 100 ml Balance 480 ml 100 ml Justicifation of Admission Dx: Justifications for Admission: Justification of Admission Dx: Yes Chronic Renal Failure: Renail Failure MANISH LANZA MD Sep 15, 2020 08:22
[2020-09-15] MEDS: LIDOCAINE (700MG/PATCH) PATCH. TD SCH (09:00)
[2020-09-15] MEDS ORDERED: LIDOCAINE 2%/EPI 1:100,000 20 ML VIAL. ONE (10:00)
[2020-09-15] MEDS ORDERED: fentaNYL PF VIAL 100 MCG/2 ML VIAL ONE (10:10)
[2020-09-15] MEDS ORDERED: MIDAZOLAM HCL/PF 2 MG/2 ML VIAL. ONE (10:10)
[2020-09-15] MEDS ORDERED: ceFAZolin SODIUM IV Push 1 GM VIAL. IVP ONE ×2 (10:10→10:15)
[2020-09-15] MEDS ORDERED: MIDAZOLAM HCL/PF 2 MG/2 ML VIAL. IV ONE (10:15)
[2020-09-15] MEDS ORDERED: LIDOCAINE 2%/EPI 1:100,000 20 ML VIAL. IJ ONE (10:15)
[2020-09-15] MEDS ORDERED: fentaNYL PF VIAL 100 MCG/2 ML VIAL IV ONE (10:15)
[2020-09-15] MEDS: SERTRALINE 25 MG TABLET. PO SCH (11:14)
[2020-09-15] MEDS: HYDROcodone/APAP 5/325MG 1 TAB TABLET PO PRN ×2 (11:14→17:44)
[2020-09-15] MEDS: MYCOPHENOLATE MOFETIL 250 MG CAPSULE. PO SCH (11:14)
[2020-09-15] MEDS: predniSONE 20 MG TABLET PO SCH (11:15)
--- NOTE | 2020-09-15 11:24 | PDOC ---
DATE OF SERVICE DATE: 09/15/20 TIME: 11:20 SUBJECTIVE ROS Propped up, states feeling good. No SOB.No N/V OBJECTIVE Vital Signs Vital Signs Date Time Temp Pulse Resp B/P (MAP) Pulse Ox O2 Delivery O2 Flow Rate FiO2 09/15/20 10:47 108 20 100 Nasal Cannula 2.0 09/15/20 07:00 98.1 130/90 (103) 98.1 I & 0 Intake and Output 09/15/20 07:00 Intake Total 580 ml Balance 580 ml Intake Oral 580 ml # Voids 3 PHYSICAL EXAM Physical Exam GEN: NAD HEENT: OM moist NECK: Supple LUNGS: Diminished at bases HEART: RRR ABDOMEN: Soft, Positive bowel sounds, EXTREMITIES:No clubbing, cyanosis, or edema. NEUROLOGIC: Grossly normal PSYCHIATRIC: Normal affect, SKIN: No ulcerations or rashes, No CVA or SP tenderness DIAGNOSIS/ASSESSMENT Assessment & Plan New Onset ESRD - Worsening renal function , initiated on HD on 09/07, No renal recovery, getting Tunnelled HDC , OP chair time , dw SW On Myfortic and IV Steroids , switched to PO prednisone 60 mg pO QD , will need to be titrated as OP . Over the weekend I reviewed her labs, based on her drop in Hgb decreased Myfortic dose to 500 mg PO BID . Anemia drop in Hgb -Hgb dropped ? Bleed (no obvious) vs Myfortic. Started SHELLY- 1 st dose 09/10 She received PRBC over the weekend per Dr. bang (Avoid Transfusions if possible as she is a likely candidate for renal Tx in the future) . 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 Bang, Nephrotic Syndrome 10 gms in the past, leading to Renal bx , recent Pr/Cr 6 gms COMMENT/RELEVANT DATA Meds Current Medications Medications (Trade) Dose Ordered Sig/Kw[place] Start Time Stop Time Status Last Admin Dose Admin Acetaminophen (Tylenol) 650 mg PRN Q4HRS PRN 09/06/20 21:30 09/14/20 08:56 650 MG Acetaminophen/ Hydrocodone Bitart (Lortab 5/325) 1 tab PRN Q6HRS PRN 09/14/20 13:45 09/14/20 14:02 1 TAB Albumin Human 200 ml @ 200 mls/hr 1X PRN PRN 09/12/20 08:45 09/12/20 14:44 DC Alprazolam (Xanax) 0.25 mg PRN Q8HRS PRN 09/12/20 15:00 09/13/20 16:34 0.25 MG Cefazolin Sodium (Ancef) 1 gm STK-MED ONCE 09/15/20 10:10 09/15/20 10:10 DC Darbepoetin [place] (ARANESP for NON-DIALYSIS PTS) 60 mcg 1X ONCE 09/10/20 11:00 09/10/20 11:01 DC 09/10/20 12:30 60 MCG Dextrose (Dextrose 50%-Water Syringe) 12.5 gm PRN Q15MIN PRN 09/06/20 21:30 Diphenhydramine HCl (Benadryl) 25 mg 1X PRN PRN 09/08/20 11:00 09/09/20 10:59 DC Docusate Sodium (Colace) 100 mg PRN DAILY PRN 09/06/20 21:30 Famotidine (Pepcid) 20 mg Q48H 09/10/20 09:00 09/14/20 07:13 20 MG Fentanyl Citrate (Fentanyl 2ml Vial) 100 mcg STK-MED ONCE 09/15/20 10:10 09/15/20 10:11 DC Furosemide (Lasix) 60 mg 1X ONCE 09/06/20 19:00 09/06/20 19:01 DC 09/06/20 20:30 60 MG Heparin Sodium (Porcine) (Heparin Sodium) 2,600 unit 1X ONCE 09/15/20 10:15 09/15/20 10:16 Cancel Heparin Sodium/ Sodium Chloride (HEPARIN for ARTERIAL LINE FLUSH) 1,000 unit 1X ONCE 09/07/20 11:15 09/07/20 11:20 DC 09/07/20 11:15 1,000 UNIT Hydralazine HCl (Apresoline Inj) 10 mg 1X ONCE 09/14/20 23:30 09/14/20 23:33 DC 09/14/20 23:50 10 MG Info (CONTRAST GIVEN -- Rx MONITORING) 1 each PRN DAILY PRN 09/06/20 16:45 09/08/20 16:44 DC Info (PHARMACY MONITORING -- do not chart) 1 each PRN DAILY PRN 09/14/20 09:00 Iohexol (Omnipaque 300 Mg/ml) 75 ml 1X ONCE 09/06/20 16:45 09/06/20 16:46 DC Ketorolac Tromethamine (Toradol 15mg Vial) 15 mg 1X ONCE 09/07/20 17:00 09/07/20 17:01 DC 09/07/20 16:50 15 MG Lidocaine (Lidoderm) 1 patch DAILY 09/14/20 09:00 09/14/20 08:56 1 PATCH Lidocaine HCl (Buffered Lidocaine 1%) 3 ml 1X ONCE 09/08/20 09:00 09/08/20 09:01 DC 09/08/20 09:00 3 ML Lidocaine HCl (Xylocaine 2% Topical 5gm Tube) 1 aditya 1X ONCE 09/10/20 12:45 09/10/20 12:46 DC 09/10/20 15:19 1 ADITYA Lidocaine/ Epinephrine (LIDOCAINE 2%-EPI 1:100,000 multi-dose) 20 ml 1X ONCE 09/15/20 10:15 09/15/20 10:16 DC 09/15/20 10:39 10 ML Methylprednisolone Sodium Succinate (SOLU-Medrol 125MG VIAL) 100 mg Q6HRS 09/07/20 00:00 09/11/20 17:00 DC 09/11/20 14:22 100 MG Midazolam HCl (Versed) 2 mg STK-MED ONCE 09/15/20 10:10 09/15/20 10:11 DC Miscellaneous (Lidoderm Patch Removal) 1 ea QHS 09/14/20 21:00 Morphine Sulfate (Morphine Sulfate) 2 mg PRN Q2HR PRN 09/06/20 04:00 09/07/20 03:59 DC Mycophenolate Mofetil (Cellcept) 500 mg BID 09/13/20 09:00 09/14/20 21:23 500 MG Ondansetron HCl (Zofran) 4 mg PRN Q6HRS PRN 09/06/20 21:30 09/14/20 10:43 4 MG Prednisone (Prednisone) 60 mg QAM 09/13/20 09:00 09/14/20 13:02 60 MG Sennosides (Senna) 17.2 mg PRN BID PRN 09/06/20 21:30 Sertraline HCl (Zoloft) 25 mg DAILY 09/12/20 15:00 2/8/21 13:03 25 MG Sodium Chloride 1,000 ml @ 400 mls/hr Q2H30M PRN 09/14/20 09:00 09/14/20 20:59 DC Sodium Chloride (Normal Saline Flush) 10 ml 1X PRN PRN 09/09/20 07:30 09/10/20 07:29 DC Lab Laboratory Tests Test 09/15/20 05:11 White Blood Count 15.6 x10^3/uL (4.0-11.0) Red Blood Count 3.00 x10^6/uL (3.50-5.40) Hemoglobin 8.9 g/dL (12.0-15.5) Hematocrit 27.1 % (36.0-47.0) Mean Corpuscular Volume 90 fL (79-100) Mean Corpuscular Hemoglobin 30 pg (25-35) Mean Corpuscular Hemoglobin Concent 33 g/dL (31-37) Red Cell Distribution Width 15.4 % (11.5-14.5) Platelet Count 223 x10^3/uL (140-400) Neutrophils (%) (Auto) 91 % (31-73) Lymphocytes (%) (Auto) 6 % (24-48) Monocytes (%) (Auto) 3 % (0-9) Eosinophils (%) (Auto) 0 % (0-3) Basophils (%) (Auto) 0 % (0-3) Neutrophils # (Auto) 14.2 x10^3/uL (1.8-7.7) Lymphocytes # (Auto) 0.9 x10^3/uL (1.0-4.8) Monocytes # (Auto) 0.4 x10^3/uL (0.0-1.1) Eosinophils # (Auto) 0.0 x10^3/uL (0.0-0.7) Basophils # (Auto) 0.0 x10^3/uL (0.0-0.2) Sodium Level 135 mmol/L (136-145) Potassium Level 4.8 mmol/L (3.5-5.1) Chloride Level 99 mmol/L (98-107) Carbon Dioxide Level 26 mmol/L (21-32) Anion Gap 10 (6-14) Blood Urea Nitrogen 56 mg/dL (7-20) Creatinine 4.1 mg/dL (0.6-1.0) Estimated GFR (Cockcroft-Gault) 12.8 BUN/Creatinine Ratio 14 (6-20) Glucose Level 129 mg/dL (70-99) Calcium Level 8.6 mg/dL (8.5-10.1) Phosphorus Level 5.5 mg/dL (2.6-4.7) Total Bilirubin 0.4 mg/dL (0.2-1.0) Aspartate Amino Transf (AST/SGOT) 19 U/L (15-37) Alanine Aminotransferase (ALT/SGPT) 45 U/L (14-59) Alkaline Phosphatase 86 U/L (46-116) Total Protein 4.8 g/dL (6.4-8.2) Albumin 1.8 g/dL (3.4-5.0) Albumin/Globulin Ratio 0.6 (1.0-1.7) Results All relevant outside records, renal labs, imaging studies, telemetry/EKG's were reviewed. Justicifation of Admission Dx: Justifications for Admission: Justification of Admission Dx: Yes Chronic Renal Failure: Renail Failure LIBBY HALL MD Sep 15, 2020 11:24
--- NOTE | 2020-09-15 11:24 | NUR ---
SS following up with discharge planning. SS reviewed pt chart and discussed with pt RN. Pt is currently on room air. COVID19 negative. New onset ESRD. Referral for outpatient dialysis was sent to [facility], ; fax [phone], on 09/14/2020. SS met with pt this morning and completed insurability assessment with pt and faxed document to [facility]. Pt having cath placement today at 1100. SS awaiting confirmed chair time from [facility]. SS will continue to follow for discharge planning.
[2020-09-15] MEDS: fentaNYL PF VIAL 100 MCG/2 ML VIAL IVP PRN (15:43)
--- NOTE | 2020-09-15 15:51 | RAD ---
Conversion of right internal jugular temporary dialysis catheter to a tunneled hemodialysis catheter Indication: Longer term dialysis access needed Procedure: The procedure was explained in its entirety to the patient or the patients designated manufacturers service representative by a member of the treatment team, including a discussion of the risks, benefits and commonly accepted alternatives to the procedure, as well as the expected consequences of no therapy whatsoever. Discussion of the risks included, but was not limited to, those that are most frequent and those that are rare but possibly severe or life-threatening, as well as the possibility of unforeseen complications. All elements of maximal sterile barrier technique including the use of a cap, mask, sterile gown, sterile gloves, large sterile sheet, appropriate hand hygiene, and 2% chlorhexidine for cutaneous antisepsis (or acceptable alternative antiseptic per current guidelines) were followed for this procedure. The pre-existing catheter was evaluated under fluoroscopy and found to be normal in position. A guidewire was advanced into the IVC. A 23 cm tip to cuff tunneled hemodialysis catheter was advanced from small dermatotomy, several centimeters inferior to the pre-existing catheter entry site, to the venotomy site. The pre-existing catheter was removed over the guidewire and a peel-away sheath placed. The new tunneled catheter was advanced through the peel-away sheath such that its tip was positioned in the proximal right atrium with the patient supine. The sheath was removed. The new catheter was found to flush and aspirate normally. Catheter was flushed, and secured in place. Sterile dressings were applied. No immediate complications were identified. Total fluoroscopy time: 19 min Dose area product: 1.6 Gycm2 The procedure was performed under conscious sedation including continuous cardiopulmonary monitoring via dedicated sedation nurse. [id number] sedation time: 19 minutes Impression: Conversion of a right internal jugular temporary dialysis catheter to a tunneled dialysis catheter
[2020-09-15] MEDS: PATCH REMOVAL. MC SCH (21:00)
[2020-09-15] MEDS ORDERED: TEMAZEPAM 15 MG CAPSULE PO PRN (22:45)
[2020-09-16 02:55] VITALS: BP 147/104
[2020-09-16 07:00] VITALS: BP 143/116
[2020-09-16] MEDS ORDERED: IV NORMAL SALINE 1000ML BAG 1,000 ML IV PRN ×2 (08:00)
[2020-09-16] MEDS ORDERED: ALBUMIN HUMAN 25% 200 ML IV PRN (08:00)
[2020-09-16 08:17] LABS: CALCIUM 8.6 mg/dL (8.5-10.1); CREATININE 5.2 mg/dL (0.6-1.0); GFR 9.7; POTASSIUM 5.3 mmol/L (3.5-5.1)
[2020-09-16] MEDS: predniSONE 20 MG TABLET PO SCH (08:37)
[2020-09-16] MEDS: FAMOTIDINE 20 MG TABLET. PO SCH (08:37)
[2020-09-16] MEDS: LIDOCAINE (700MG/PATCH) PATCH. TD SCH (08:37)
[2020-09-16] MEDS: SERTRALINE 25 MG TABLET. PO SCH (08:37)
--- NOTE | 2020-09-16 08:44 | PDOC ---
PROGRESS NOTES Date of Service: DATE: 09/16/20 TIME: 08:44 Chief Complaint Chief Complaint impression Acute abdominal distention Large pericardial effusion likely chronic The systolic function is severely impaired. The Ejection Fraction is 35%. There is severe global hypokinesis of the left ventricle.on echo Large volume abdominal ascites Anasarca Bilateral pleural effusions Acute on chronic kidney injury concerning for lupus nephritis Severe protein malnutrition Normocytic anemia due to chronic disease SLE - concerning for lupus flare. We will start high-dose IV steroids for 3 days then transition to p.o. prednisone. Continue Plaquenil and cellcept successful ultrasound-guided placement of right internal jugular temporary dialysis catheter 09-08 nephrotic Syndrome 10 gms in the past, leading to Renal bx , recent Pr/Cr 6 gms Nephrology consult for concern for lupus nephritis Cardiology consult for pericardial effusion Interventional radiology for pericardiocentesis and paracentesis Heparin for DVT prophylaxis Protonix GI prophylaxis Clear liquid diet Full code Discussed with RN and SW Disposition pending cardiology, nephrology, interventional radiology evaluation Surrogate decision maker is Yehuda Gomez 09-15 TO HAVE PERM dialysis cath placed today, no inc SOA, C/O MILD ANXIETY D/W RN CR 4.1 09-16 nephrotic Syndrome 10 gms in the past, leading to Renal bx , recent Pr/Cr 6 gms 27 min pt exam, chart review, > 50% of time spent with exam, chart review, pt care coordination History of Present Illness History of Present Illness Ms Lopez is a 30-year-old female with history of lupus that was diagnosed 1 year ago, hypertension, depression who presents today with increased abdominal bloating tightness and pain which also contributes to her shortness of breath. Also endorses some hemoptysis as well. Patient that she was constipated so she took some laxatives. Patient was also placed on Lasix 40 mg twice daily, however she does not feel this is helping her. This originally was to help her lower extremity edema which originally was doing okay but has gotten worse in the past few weeks. Patient is currently not taking any steroids. She states she is only taking Plaquenil. Denies fevers, rashes, hematuria, diarrhea, nausea vomiting, headaches or vision changes, chest pain. 09/07: Patient seen and evaluated. Slightly tachycardic, afebrile. Patient's breathing on room air, still with some complaints of shortness of breath. Echocardiogram with pericardial effusion with tamponade physiology. Status post pericardiocentesis 1650 cc. Paracentesis 3.6 L. 2: Afebrile. Seen in ICU post pericardiocentesis. Labs reviewed K5.7 BUN 97, CR 4. Plan for dialysis catheter today. Her shortness of breath has improved. No telemetry events. Some fluctuant swelling at both pericardiocentesis and paracentesis sites. No bleeding. 09/09: Afebrile seen in ICU after pericardial drain removed per cardiology. Tolerated dialysis well. Hb down to 6.8. She is much less short of breath. Overall does not feel great. 09/10: Patient seen and evaluated. Pericardial drain removed yesterday. Status post paracentesis and pericardiocentesis. Hemoglobin 6.8 yesterday, 6.4 today. I do not think this represents an acute bleed, may be secondary to her kidney disease or mycophenolate. Will continue to monitor hemoglobin. 09/11: Patient seen on hemodialysis. Afebrile this morning, breathing room air. Started on darbepoetin, first dose yesterday. Hemoglobin 6.4 yesterday, 6.6 today. No evidence of bleeding. Hold transfusions at this time as to not fluid overload. Plan: Initiated on HD on 09/07. S/P paracentesis and pericardiocentesis. Continue HD, per nephrology. Continue to monitor hemoglobin. Vitals Vitals Vital Signs Date Time Temp Pulse Resp B/P (MAP) Pulse Ox O2 Delivery O2 Flow Rate FiO2 09/16/20 07:00 98.0 109 20 143/116 (125) 97 Room Air 98.0 09/15/20 10:47 2.0 Physical Exam General: Alert, Oriented X3, Cooperative, No acute distress, Other (ANXIOUS) Heart: Regular rate, Normal S1, Normal S2, No murmurs, Gallops Lungs: Clear Abdomen: Normal bowel sounds, Soft, No tenderness, No hepatosplenomegaly, No masses Extremities: No clubbing, No cyanosis, No edema, Normal pulses, No tenderness/swelling Skin: No significant lesion Labs LABS Laboratory Tests Test 09/16/20 06:45 Sodium Level 132 mmol/L (136-145) Potassium Level 5.3 mmol/L (3.5-5.1) Chloride Level 99 mmol/L (98-107) Carbon Dioxide Level 25 mmol/L (21-32) Anion Gap 8 (6-14) Blood Urea Nitrogen 72 mg/dL (7-20) Creatinine 5.2 mg/dL (0.6-1.0) Estimated GFR (Cockcroft-Gault) 9.7 Glucose Level 137 mg/dL (70-99) Calcium Level 8.6 mg/dL (8.5-10.1) Assessment and Plan Assessmemt and Plan Problems Medical Problems: (1) Acute renal failure Status: Acute (2) Ascites Status: Acute (3) Pericardial effusion Status: Acute (4) Pleural effusion Status: Acute Comment Review of Relevant I have reviewed the following items jennifer (where applicable) has been applied. Labs Laboratory Tests Test 09/15/20 05:11 09/16/20 06:45 White Blood Count 15.6 x10^3/uL (4.0-11.0) Red Blood Count 3.00 x10^6/uL (3.50-5.40) Hemoglobin 8.9 g/dL (12.0-15.5) Hematocrit 27.1 % (36.0-47.0) Mean Corpuscular Volume 90 fL (79-100) Mean Corpuscular Hemoglobin 30 pg (25-35) Mean Corpuscular Hemoglobin Concent 33 g/dL (31-37) Red Cell Distribution Width 15.4 % (11.5-14.5) Platelet Count 223 x10^3/uL (140-400) Neutrophils (%) (Auto) 91 % (31-73) Lymphocytes (%) (Auto) 6 % (24-48) Monocytes (%) (Auto) 3 % (0-9) Eosinophils (%) (Auto) 0 % (0-3) Basophils (%) (Auto) 0 % (0-3) Neutrophils # (Auto) 14.2 x10^3/uL (1.8-7.7) Lymphocytes # (Auto) 0.9 x10^3/uL (1.0-4.8) Monocytes # (Auto) 0.4 x10^3/uL (0.0-1.1) Eosinophils # (Auto) 0.0 x10^3/uL (0.0-0.7) Basophils # (Auto) 0.0 x10^3/uL (0.0-0.2) Sodium Level 135 mmol/L (136-145) 132 mmol/L (136-145) Potassium Level 4.8 mmol/L (3.5-5.1) 5.3 mmol/L (3.5-5.1) Chloride Level 99 mmol/L (98-107) 99 mmol/L (98-107) Carbon Dioxide Level 26 mmol/L (21-32) 25 mmol/L (21-32) Anion Gap 10 (6-14) 8 (6-14) Blood Urea Nitrogen 56 mg/dL (7-20) 72 mg/dL (7-20) Creatinine 4.1 mg/dL (0.6-1.0) 5.2 mg/dL (0.6-1.0) Estimated GFR (Cockcroft-Gault) 12.8 9.7 BUN/Creatinine Ratio 14 (6-20) Glucose Level 129 mg/dL (70-99) 137 mg/dL (70-99) Calcium Level 8.6 mg/dL (8.5-10.1) 8.6 mg/dL (8.5-10.1) Phosphorus Level 5.5 mg/dL (2.6-4.7) Total Bilirubin 0.4 mg/dL (0.2-1.0) Aspartate Amino Transf (AST/SGOT) 19 U/L (15-37) Alanine Aminotransferase (ALT/SGPT) 45 U/L (14-59) Alkaline Phosphatase 86 U/L (46-116) Total Protein 4.8 g/dL (6.4-8.2) Albumin 1.8 g/dL (3.4-5.0) Albumin/Globulin Ratio 0.6 (1.0-1.7) Laboratory Tests Test 09/16/20 06:45 Sodium Level 132 mmol/L (136-145) Potassium Level 5.3 mmol/L (3.5-5.1) Chloride Level 99 mmol/L (98-107) Carbon Dioxide Level 25 mmol/L (21-32) Anion Gap 8 (6-14) Blood Urea Nitrogen 72 mg/dL (7-20) Creatinine 5.2 mg/dL (0.6-1.0) Estimated GFR (Cockcroft-Gault) 9.7 Glucose Level 137 mg/dL (70-99) Calcium Level 8.6 mg/dL (8.5-10.1) Microbiology 09/07/20 Gram Stain - Final, Complete 09/07/20 Aerobic and Anaerobic Culture - Final, Complete 09/06/20 Urine Culture - Final, Complete Medications Current Medications Fentanyl Citrate (Fentanyl 2ml Vial) 50 mcg 1X ONCE IVP Last administered on 09/06/20at 16:59; Start 09/06/20 at 16:15; Stop 09/06/20 at 16:22; Status DC Ondansetron HCl (Zofran) 4 mg 1X ONCE IVP Last administered on 09/06/20at 16:59; Start 09/06/20 at 16:15; Stop 09/06/20 at 16:22; Status DC Iohexol (Omnipaque 300 Mg/ml) 75 ml 1X ONCE IV ; Start 09/06/20 at 16:45; Stop 09/06/20 at 16:46; Status DC Info (CONTRAST GIVEN -- Rx MONITORING) 1 each PRN DAILY PRN MC SEE COMMENTS; Start 09/06/20 at 16:45; Stop 09/08/20 at 16:44; Status DC Furosemide (Lasix) 60 mg 1X ONCE IVP Last administered on 09/06/20at 20:30; Start 09/06/20 at 19:00; Stop 09/06/20 at 19:01; Status DC Sennosides (Senna) 17.2 mg PRN BID PRN PO CONSTIPATION 1ST CHOICE; Start 09/06/20 at 21:30 Docusate Sodium (Colace) 100 mg PRN DAILY PRN PO HARD STOOLS; Start 09/06/20 at 21:30 Ondansetron HCl (Zofran) 4 mg PRN Q6HRS PRN IVP NAUSEA/VOMITING Last administered on 09/14/20at 10:43; Start 09/06/20 at 21:30 Methylprednisolone Sodium Succinate (SOLU-Medrol 125MG VIAL) 100 mg Q6HRS IV Last administered on 09/11/20at 14:22; Start 09/07/20 at 00:00; Stop 09/11/20 at 17:00; Status DC Dextrose (Dextrose 50%-Water Syringe) 12.5 gm PRN Q15MIN PRN IV SEE COMMENTS; Start 09/06/20 at 21:30 Acetaminophen (Tylenol) 650 mg PRN Q4HRS PRN PO TEMP OVER 100.4F OR MILD PAIN Last administered on 09/14/20at 08:56; Start 09/06/20 at 21:30 Heparin Sodium (Porcine) (Heparin Sodium) 5,000 unit Q12HR SQ ; Start 09/07/20 at 09:00; Stop 09/07/20 at 09:42; Status DC Famotidine (Pepcid) 20 mg DAILY PO Last administered on 09/08/20at 09:36; Start 09/07/20 at 09:00; Stop 09/08/20 at 12:07; Status DC Morphine Sulfate (Morphine Sulfate) 1 mg PRN Q1HR PRN IV MODERATE PAIN 4-6 Last administered on 09/09/20at 12:05; Start 09/06/20 at 21:30; Stop 09/09/20 at 21:18; Status DC Morphine Sulfate (Morphine Sulfate) 2 mg PRN Q2HR PRN IV SEVERE PAIN 7-10; Start 09/06/20 at 04:00; Stop 09/07/20 at 03:59; Status DC Heparin Sodium (Porcine) (Heparin Sodium) 5,000 unit Q12HR SQ Last administered on 09/09/20at 22:10; Start 09/08/20 at 09:00; Stop 09/10/20 at 09:42; Status DC Lidocaine/ Epinephrine (LIDOCAINE 2%-EPI 1:100,000 multi-dose) 20 ml STK-MED ONCE .ROUTE ; Start 09/07/20 at 09:43; Stop 09/07/20 at 09:43; Status DC Fentanyl Citrate (Fentanyl 2ml Vial) 100 mcg STK-MED ONCE .ROUTE ; Start 09/07/20 at 10:23; Stop 09/07/20 at 10:23; Status DC Midazolam HCl (Versed) 2 mg STK-MED ONCE .ROUTE ; Start 09/07/20 at 10:23; Stop 09/07/20 at 10:23; Status DC Heparin Sodium/ Sodium Chloride 500 ml @ As Directed STK-MED ONCE .ROUTE ; Start 09/07/20 at 10:30; Stop 09/07/20 at 10:31; Status DC Diphenhydramine HCl (Benadryl) 50 mg STK-MED ONCE .ROUTE ; Start 09/07/20 at 11:05; Stop 09/07/20 at 11:05; Status DC Heparin Sodium/ Sodium Chloride (HEPARIN for ARTERIAL LINE FLUSH) 1,000 unit 1X ONCE IART Last administered on 09/07/20at 11:15; Start 09/07/20 at 11:15; Stop 09/07/20 at 11:20; Status DC Midazolam HCl (Versed) 2 mg 1X ONCE IV Last administered on 09/07/20at 10:44; Start 09/07/20 at 11:15; Stop 09/07/20 at 11:20; Status DC Fentanyl Citrate (Fentanyl 2ml Vial) 100 mcg 1X ONCE IV Last administered on 09/07/20at 10:44; Start 09/07/20 at 11:15; Stop 09/07/20 at 11:20; Status DC Lidocaine/ Epinephrine (LIDOCAINE 2%-EPI 1:100,000 multi-dose) 20 ml 1X ONCE IJ Last administered on 09/07/20at 11:15; Start 09/07/20 at 11:15; Stop 09/07/20 at 11:20; Status DC Diphenhydramine HCl (Benadryl) 50 mg 1X ONCE IVP Last administered on 09/07/20at 11:15; Start 09/07/20 at 11:15; Stop 09/07/20 at 11:20; Status DC Lidocaine/ Epinephrine (LIDOCAINE 2%-EPI 1:100,000 multi-dose) 20 ml STK-MED ONCE .ROUTE ; Start 09/07/20 at 11:36; Stop 09/07/20 at 11:36; Status DC Mycophenolate Mofetil (Cellcept) 1,000 mg BID PO Last administered on 09/12/20at 21:03; Start 09/07/20 at 12:00; Stop 09/12/20 at 22:29; Status DC Lidocaine HCl (Buffered Lidocaine 1%) 3 ml STK-MED ONCE .ROUTE ; Start 09/07/20 at 13:19; Stop 09/07/20 at 13:19; Status DC Lidocaine HCl (Buffered Lidocaine 1%) 6 ml 1X ONCE INJ Last administered on 09/07/20at 13:55; Start 09/07/20 at 14:00; Stop 09/07/20 at 14:01; Status DC Ketorolac Tromethamine (Toradol 15mg Vial) 15 mg 1X ONCE IM ; Start 09/07/20 at 16:30; Stop 09/07/20 at 16:31; Status Cancel Ketorolac Tromethamine (Toradol 15mg Vial) 15 mg 1X ONCE IV Last administered on 09/07/20at 16:50; Start 09/07/20 at 17:00; Stop 09/07/20 at 17:01; Status DC Lidocaine HCl (Buffered Lidocaine 1%) 3 ml STK-MED ONCE .ROUTE ; Start 09/08/20 at 08:37; Stop 09/08/20 at 08:38; Status DC Lidocaine HCl (Buffered Lidocaine 1%) 3 ml 1X ONCE INJ Last administered on 09/08/20at 08:59; Start 09/08/20 at 08:45; Stop 09/08/20 at 08:46; Status DC Lidocaine HCl (Buffered Lidocaine 1%) 3 ml 1X ONCE INJ Last administered on 09/08/20at 09:00; Start 09/08/20 at 09:00; Stop 09/08/20 at 09:01; Status DC Sodium Chloride 1,000 ml @ 1,000 mls/hr Q1H PRN IV hypotension; Start 09/08/20 at 11:00; Stop 09/08/20 at 16:59; Status DC Albumin Human 200 ml @ 200 mls/hr 1X PRN PRN IV Hypotension; Start 09/08/20 at 11:00; Stop 09/08/20 at 16:59; Status DC Diphenhydramine HCl (Benadryl) 25 mg 1X PRN PRN IV ITCHING; Start 09/08/20 at 11:00; Stop 09/09/20 at 10:59; Status DC Diphenhydramine HCl (Benadryl) 25 mg 1X PRN PRN IV ITCHING; Start 09/08/20 at 11:00; Stop 09/09/20 at 10:59; Status DC Sodium Chloride (Normal Saline Flush) 10 ml 1X PRN PRN IV AP catheter pack; Start 09/08/20 at 11:00; Stop 09/09/20 at 10:59; Status DC Sodium Chloride (Normal Saline Flush) 10 ml 1X PRN PRN IV RELIGION INSTRUCTOR catheter pack; Start 09/08/20 at 11:00; Stop 09/09/20 at 10:59; Status DC Sodium Chloride 1,000 ml @ 400 mls/hr Q2H30M PRN IV PATENCY; Start 09/08/20 at 11:00; Stop 09/08/20 at 22:59; Status DC Info (PHARMACY MONITORING -- do not chart) 1 each PRN DAILY PRN MC SEE COMMENTS; Start 09/08/20 at 11:00; Stop 09/09/20 at 08:51; Status DC Famotidine (Pepcid) 20 mg Q48H PO Last administered on 09/16/20at 08:37; Start 09/10/20 at 09:00 Sodium Chloride 1,000 ml @ 1,000 mls/hr Q1H PRN IV hypotension; Start 09/09/20 at 07:30; Stop 09/09/20 at 13:29; Status DC Albumin Human 200 ml @ 200 mls/hr 1X PRN PRN IV Hypotension; Start 09/09/20 at 07:30; Stop 09/09/20 at 13:29; Status DC Sodium Chloride (Normal Saline Flush) 10 ml 1X PRN PRN IV AP catheter pack; Start 09/09/20 at 07:30; Stop 09/10/20 at 07:29; Status DC Sodium Chloride (Normal Saline Flush) 10 ml 1X PRN PRN IV RELIGION INSTRUCTOR catheter pack; Start 09/09/20 at 07:30; Stop 09/10/20 at 07:29; Status DC Sodium Chloride 1,000 ml @ 400 mls/hr Q2H30M PRN IV PATENCY; Start 09/09/20 at 07:30; Stop 09/09/20 at 19:29; Status DC Info (PHARMACY MONITORING -- do not chart) 1 each PRN DAILY PRN MC SEE COMMENTS; Start 09/09/20 at 07:30; Status UNV Info (PHARMACY MONITORING -- do not chart) 1 each PRN DAILY PRN MC SEE COMMENTS; Start 09/09/20 at 07:30; Stop 09/11/20 at 13:10; Status DC Fentanyl Citrate (Fentanyl 2ml Vial) 50 mcg PRN Q2HR PRN IVP PAIN Last administered on 09/15/20at 15:43; Start 09/09/20 at 21:30 Darbepoetin [place] (ARANESP for NON-DIALYSIS PTS) 60 mcg 1X ONCE SQ Last administered on 09/10/20at 12:30; Start 09/10/20 at 11:00; Stop 09/10/20 at 11:01; Status DC Lidocaine HCl (Xylocaine 2% Topical 5gm Tube) 1 aditya 1X ONCE TP Last adminis tered on 09/10/20at 15:19; Start 09/10/20 at 12:45; Stop 09/10/20 at 12:46; Status DC Sodium Chloride 1,000 ml @ 1,000 mls/hr Q1H PRN IV hypotension; Start 09/11/20 at 09:00; Stop 09/11/20 at 14:59; Status DC Albumin Human 200 ml @ 200 mls/hr 1X PRN PRN IV Hypotension Last administered on 09/11/20at 10:39; Start 09/11/20 at 09:00; Stop 09/11/20 at 14:59; Status DC Sodium Chloride 1,000 ml @ 400 mls/hr Q2H30M PRN IV PATENCY; Start 09/11/20 at 09:00; Stop 09/11/20 at 20:59; Status DC Info (PHARMACY MONITORING -- do not chart) 1 each PRN DAILY PRN MC SEE COMMENTS; Start 09/11/20 at 10:30; Stop 09/11/20 at 13:10; Status DC Info (PHARMACY MONITORING -- do not chart) 1 each PRN DAILY PRN MC SEE COMMENTS; Start 09/11/20 at 10:30; Stop 09/12/20 at 08:44; Status DC Prednisone (Prednisone) 60 mg 1X ONCE PO ; Start 09/11/20 at 08:00; Stop 09/11/20 at 08:01; Status Cancel Prednisone (Prednisone) 60 mg 1X ONCE PO Last administered on 09/12/20at 13:38; Start 09/12/20 at 08:00; Stop 09/12/20 at 08:01; Status DC Sodium Chloride 1,000 ml @ 1,000 mls/hr Q1H PRN IV hypotension; Start 09/12/20 at 08:45; Stop 09/12/20 at 14:44; Status DC Albumin Human 200 ml @ 200 mls/hr 1X PRN PRN IV Hypotension; Start 09/12/20 at 08:45; Stop 09/12/20 at 14:44; Status DC Sodium Chloride 1,000 ml @ 400 mls/hr Q2H30M PRN IV PATENCY; Start 09/12/20 at 08:45; Stop 09/12/20 at 20:44; Status DC Info (PHARMACY MONITORING -- do not chart) 1 each PRN DAILY PRN MC SEE COMMENTS; Start 09/12/20 at 08:45; Stop 09/14/20 at 09:01; Status DC Sertraline HCl (Zoloft) 25 mg DAILY PO Last administered on 09/16/20at 08:37; Start 09/12/20 at 15:00 Alprazolam (Xanax) 0.25 mg PRN Q8HRS PRN PO ANXIETY / AGITATION Last administered on 09/13/20at 16:34; Start 09/12/20 at 15:00 Prednisone (Prednisone) 60 mg QAM PO Last administered on 09/16/20at 08:37; Start 09/13/20 at 09:00 Mycophenolate Mofetil (Cellcept) 500 mg BID PO Last administered on 09/15/20at 11:14; Start 09/13/20 at 09:00; Stop 09/15/20 at 11:26; Status DC Lidocaine (Lidoderm) 1 patch DAILY TD Last administered on 09/16/20at 08:37; Start 09/14/20 at 09:00 Miscellaneous (Lidoderm Patch Removal) 1 ea QHS MC ; Start 09/14/20 at 21:00 Sodium Chloride 1,000 ml @ 1,000 mls/hr Q1H PRN IV hypotension; Start 09/14/20 at 09:00; Stop 09/14/20 at 14:59; Status DC Sodium Chloride 1,000 ml @ 400 mls/hr Q2H30M PRN IV PATENCY; Start 09/14/20 at 09:00; Stop 09/14/20 at 20:59; Status DC Info (PHARMACY MONITORING -- do not chart) 1 each PRN DAILY PRN MC SEE COMMENTS; Start 09/14/20 at 09:00; Stop 09/14/20 at 08:58; Status DC Info (PHARMACY MONITORING -- do not chart) 1 each PRN DAILY PRN MC SEE COMMENTS; Start 09/14/20 at 09:00 Acetaminophen/ Hydrocodone Bitart (Lortab 5/325) 1 tab PRN Q6HRS PRN PO MODERATE PAIN, SEVERE PAIN Last administered on 09/15/20at 17:44; Start 09/14/20 at 13:45 Hydralazine HCl (Apresoline Inj) 10 mg 1X ONCE IVP Last administered on 09/14/20at 23:50; Start 09/14/20 at 23:30; Stop 09/14/20 at 23:33; Status DC Lidocaine/ Epinephrine (LIDOCAINE 2%-EPI 1:100,000 multi-dose) 20 ml STK-MED ONCE .ROUTE ; Start 09/15/20 at 10:00; Stop 09/15/20 at 10:00; Status DC Midazolam HCl (Versed) 2 mg 1X ONCE IV Last administered on 09/15/20at 10:39; Start 09/15/20 at 10:15; Stop 09/15/20 at 10:16; Status DC Fentanyl Citrate (Fentanyl 2ml Vial) 100 mcg 1X ONCE IV Last administered on 09/15/20at 10:40; Start 09/15/20 at 10:15; Stop 09/15/20 at 10:16; Status DC Lidocaine/ Epinephrine (LIDOCAINE 2%-EPI 1:100,000 multi-dose) 20 ml 1X ONCE IJ Last administered on 09/15/20at 10:39; Start 09/15/20 at 10:15; Stop 09/15/20 at 10:16; Status DC Cefazolin Sodium (Ancef) 1 gm 1X ONCE IVP Last administered on 09/15/20at 10:39; Start 09/15/20 at 10:15; Stop 09/15/20 at 10:16; Status DC Heparin Sodium (Porcine) (Heparin Sodium) 2,600 unit 1X ONCE INT CAT ; Start 09/15/20 at 10:15; Stop 09/15/20 at 10:16; Status Cancel Cefazolin Sodium (Ancef) 1 gm STK-MED ONCE IVP ; Start 09/15/20 at 10:10; Stop 09/15/20 at 10:10; Status DC Midazolam HCl (Versed) 2 mg STK-MED ONCE .ROUTE ; Start 09/15/20 at 10:10; Stop 09/15/20 at 10:11; Status DC Fentanyl Citrate (Fentanyl 2ml Vial) 100 mcg STK-MED ONCE .ROUTE ; Start 09/15/20 at 10:10; Stop 09/15/20 at 10:11; Status DC Temazepam (Restoril) 15 mg PRN QHS PRN PO INSOMNIA Last administered on 09/15/20at 23:13; Start 09/15/20 at 22:45 Active Scripts Active Furosemide 40 Mg Tablet 40 Mg PO DAILY 30 Days Reported Cellcept (Mycophenolate Mofetil) 250 Mg Capsule 2 Cap PO BID Plaquenil (Hydroxychloroquine Sulfate) 200 Mg Tablet 200 Mg PO DAILY Vitals/I & O Vital Sign - Last 24 Hours 09/15/20 09/15/20 09/15/20 09/15/20 10:40 10:47 11:00 11:14 Pulse 108 106 Resp 20 20 B/P (MAP) 137/100 (112) Pulse Ox 100 100 O2 Delivery Nasal Cannula Nasal Cannula Room Air O2 Flow Rate 2.0 2.0 09/15/20 09/15/20 09/15/20 09/15/20 11:15 11:30 11:45 12:00 Pulse 104 110 110 110 B/P (MAP) 148/105 (119) 143/106 (118) 147/106 (120) 141/101 (114) 09/15/20 09/15/20 09/15/20 09/15/20 12:12 12:17 12:45 13:15 Temp 98.3 98.3 Pulse 118 112 110 Resp 18 B/P (MAP) 145/93 (110) 127/104 (112) 140/108 (119) Pulse Ox 97 O2 Delivery Room Air Room Air 09/15/20 09/15/20 09/15/20 09/15/20 14:00 15:00 15:00 15:43 Temp 97.6 97.6 Pulse 114 111 108 Resp 18 B/P (MAP) 140/111 (121) 136/107 (117) 136/107 (117) Pulse Ox 98 O2 Delivery Room Air Room Air 09/15/20 09/15/20 09/15/20 09/15/20 16:25 17:44 19:00 19:56 Temp 97.8 97.8 Pulse 104 Resp 19 B/P (MAP) 155/114 (128) Pulse Ox 96 O2 Delivery Room Air Room Air Room Air Room Air 09/15/20 09/15/20 09/16/20 09/16/20 20:01 22:49 02:55 07:00 Temp 97.8 98.7 98.0 97.8 98.7 98.0 Pulse 103 100 109 Resp 18 19 20 B/P (MAP) 147/116 (126) 147/104 (118) 143/116 (125) Pulse Ox 97 97 97 O2 Delivery Room Air Room Air Room Air Room Air Intake and Output 09/15/20 09/15/20 09/16/20 15:00 23:00 07:00 Intake Total 350 ml 500 ml 230 ml Balance 350 ml 500 ml 230 ml Justicifation of Admission Dx: Justifications for Admission: Justification of Admission Dx: Yes Chronic Renal Failure: Renail Failure MANISH LANZA MD Sep 16, 2020 08:44
[2020-09-16] MEDS ORDERED: DIALYSIS PATIENT. MC PRN ×2 (09:45)
--- NOTE | 2020-09-16 10:04 | PDOC ---
DATE OF SERVICE DATE: 09/16/20 TIME: 10:04 SUBJECTIVE ROS seen on HD, states she is feeling real good OBJECTIVE Vital Signs Vital Signs Date Time Temp Pulse Resp B/P (MAP) Pulse Ox O2 Delivery O2 Flow Rate FiO2 09/16/20 07:00 98.0 109 20 143/116 (125) 97 Room Air 98.0 09/15/20 10:47 2.0 I & 0 Intake and Output 09/16/20 07:00 Intake Total 1080 ml Balance 1080 ml Intake Oral 1080 ml # Voids 1 # Bowel Movements 1 PHYSICAL EXAM Physical Exam GEN: NAD HEENT: OM moist NECK: Supple LUNGS: Diminished at bases HEART: RRR ABDOMEN: Soft, Positive bowel sounds, EXTREMITIES:No clubbing, cyanosis, or edema. NEUROLOGIC: Grossly normal PSYCHIATRIC: Normal affect, SKIN: No ulcerations or rashes, No CVA or SP tenderness DIAGNOSIS/ASSESSMENT Assessment & Plan New Onset ESRD - Worsening renal function , initiated on HD on 09/07, treatment 09/09 No renal recovery, Tunnelled HDC on 09/15/2020 . Per Pt OP chair time arranged Anemia drop in Hgb -Hgb dropped ? Bleed (no obvious) vs Myfortic. 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 S/P IV solumedrol at presentation, switched to PO .Also started on Myfortic, titrated down and dced due to decreasing Hgb . Follows with Dr. Bowens,Further management per him as OP Nephrotic Syndrome 10 gms in the past, leading to Renal bx , recent Pr/Cr 6 gms COMMENT/RELEVANT DATA Meds Current Medications Medications (Trade) Dose Ordered Sig/[place] Start Time Stop Time Status Last Admin Dose Admin Acetaminophen (Tylenol) 650 mg PRN Q4HRS PRN 09/06/20 21:30 09/14/20 08:56 650 MG Acetaminophen/ Hydrocodone Bitart (Lortab 5/325) 1 tab PRN Q6HRS PRN 09/14/20 13:45 09/15/20 17:44 1 TAB Albumin Human 200 ml @ 200 mls/hr 1X PRN PRN 09/16/20 08:00 09/16/20 13:59 Alprazolam (Xanax) 0.25 mg PRN Q8HRS PRN 09/12/20 15:00 09/13/20 16:34 0.25 MG Cefazolin Sodium (Ancef) 1 gm STK-MED ONCE 09/15/20 10:10 09/15/20 10:10 DC Darbepoetin [place] (ARANESP for NON-DIALYSIS PTS) 60 mcg 1X ONCE 09/10/20 11:00 09/10/20 11:01 DC 09/10/20 12:30 60 MCG Dextrose (Dextrose 50%-Water Syringe) 12.5 gm PRN Q15MIN PRN 09/06/20 21:30 Diphenhydramine HCl (Benadryl) 25 mg 1X PRN PRN 09/08/20 11:00 09/09/20 10:59 DC Docusate Sodium (Colace) 100 mg PRN DAILY PRN 09/06/20 21:30 Famotidine (Pepcid) 20 mg Q48H 09/10/20 09:00 09/16/20 08:37 20 MG Fentanyl Citrate (Fentanyl 2ml Vial) 100 mcg STK-MED ONCE 09/15/20 10:10 09/15/20 10:11 DC Furosemide (Lasix) 60 mg 1X ONCE 09/06/20 19:00 09/06/20 19:01 DC 09/06/20 20:30 60 MG Heparin Sodium (Porcine) (Heparin Sodium) 2,600 unit 1X ONCE 09/15/20 10:15 09/15/20 10:16 Cancel Heparin Sodium/ Sodium Chloride (HEPARIN for ARTERIAL LINE FLUSH) 1,000 unit 1X ONCE 09/07/20 11:15 09/07/20 11:20 DC 09/07/20 11:15 1,000 UNIT Hydralazine HCl (Apresoline Inj) 10 mg 1X ONCE 09/14/20 23:30 09/14/20 23:33 DC 09/14/20 23:50 10 MG Info (CONTRAST GIVEN -- Rx MONITORING) 1 each PRN DAILY PRN 09/06/20 16:45 09/08/20 16:44 DC Info (PHARMACY MONITORING -- do not chart) 1 each PRN DAILY PRN 09/16/20 09:45 Iohexol (Omnipaque 300 Mg/ml) 75 ml 1X ONCE 09/06/20 16:45 09/06/20 16:46 DC Ketorolac Tromethamine (Toradol 15mg Vial) 15 mg 1X ONCE 09/07/20 17:00 09/07/20 17:01 DC 09/07/20 16:50 15 MG Lidocaine (Lidoderm) 1 patch DAILY 09/14/20 09:00 09/16/20 08:37 1 PATCH Lidocaine HCl (Buffered Lidocaine 1%) 3 ml 1X ONCE 09/08/20 09:00 09/08/20 09:01 DC 09/08/20 09:00 3 ML Lidocaine HCl (Xylocaine 2% Topical 5gm Tube) 1 aditya 1X ONCE 09/10/20 12:45 09/10/20 12:46 DC 09/10/20 15:19 1 ADITYA Lidocaine/ Epinephrine (LIDOCAINE 2%-EPI 1:100,000 multi-dose) 20 ml 1X ONCE 09/15/20 10:15 09/15/20 10:16 DC 09/15/20 10:39 10 ML Methylprednisolone Sodium Succinate (SOLU-Medrol 125MG VIAL) 100 mg Q6HRS 09/07/20 00:00 09/11/20 17:00 DC 09/11/20 14:22 100 MG Midazolam HCl (Versed) 2 mg STK-MED ONCE 09/15/20 10:10 09/15/20 10:11 DC Miscellaneous (Lidoderm Patch Removal) 1 ea QHS 09/14/20 21:00 Morphine Sulfate (Morphine Sulfate) 2 mg PRN Q2HR PRN 09/06/20 04:00 09/07/20 03:59 DC Mycophenolate Mofetil (Cellcept) 500 mg BID 09/13/20 09:00 09/15/20 11:26 DC 09/15/20 11:14 500 MG Ondansetron HCl (Zofran) 4 mg PRN Q6HRS PRN 09/06/20 21:30 09/14/20 10:43 4 MG Prednisone (Prednisone) 60 mg QAM 09/13/20 09:00 09/16/20 08:37 60 MG Sennosides (Senna) 17.2 mg PRN BID PRN 09/06/20 21:30 Sertraline HCl (Zoloft) 25 mg DAILY 09/12/20 15:00 09/16/20 08:37 25 MG Sodium Chloride 1,000 ml @ 400 mls/hr Q2H30M PRN 09/16/20 08:00 09/16/20 19:59 Sodium Chloride (Normal Saline Flush) 10 ml 1X PRN PRN 09/09/20 07:30 09/10/20 07:29 DC Temazepam (Restoril) 15 mg PRN QHS PRN 09/15/20 22:45 09/15/20 23:13 15 MG Lab Laboratory Tests Test 09/16/20 06:45 Sodium Level 132 mmol/L (136-145) Potassium Level 5.3 mmol/L (3.5-5.1) Chloride Level 99 mmol/L (98-107) Carbon Dioxide Level 25 mmol/L (21-32) Anion Gap 8 (6-14) Blood Urea Nitrogen 72 mg/dL (7-20) Creatinine 5.2 mg/dL (0.6-1.0) Estimated GFR (Cockcroft-Gault) 9.7 Glucose Level 137 mg/dL (70-99) Calcium Level 8.6 mg/dL (8.5-10.1) Results All relevant outside records, renal labs, imaging studies, telemetry/EKG's were reviewed. Justicifation of Admission Dx: Justifications for Admission: Justification of Admission Dx: Yes Chronic Renal Failure: Renail Failure LIBBY HALL MD Sep 16, 2020 10:04
[2020-09-16] MEDS: fentaNYL PF VIAL 100 MCG/2 ML VIAL IVP PRN (12:21)
--- NOTE | 2020-09-16 13:20 | NUR ---
SS following up with discharge planning. SS received confirmed chair time from [facility], ; fax [phone]. SS notified that pt will go to [facility], [address] [place] [address], [place] [address], ; fax [phone], Monday, Monday, and Monday at 1545. SS was notified that pt needs to arrive at facility for first treatment on 09/18/2020 at 1500. Pt's RN notified. Pt is currently on room air. Discharge plan is to home when medically ready. SS will continue to follow for discharge planning.
--- NOTE | 2020-09-16 14:17 | PDOC3 ---
Discharge Summary Date of Admission: Sep 06, 2020 Date of Discharge: Sep 16, 2020 Follow-Up: 1-2 days Admitting Diagnosis comment: DISCHARGE DX Chief Complaint impression Acute abdominal distention Large pericardial effusion likely chronic The systolic function is severely impaired. The Ejection Fraction is 35%. There is severe global hypokinesis of the left ventricle.on echo Large volume abdominal ascites Anasarca Bilateral pleural effusions Acute on chronic kidney injury concerning for lupus nephritis Severe protein malnutrition Normocytic anemia due to chronic disease SLE - concerning for lupus flare. We will start high-dose IV steroids for 3 days then transition to p.o. prednisone. Continue Plaquenil and cellcept successful ultrasound-guided placement of right internal jugular temporary dialysis catheter 09-08 nephrotic Syndrome 10 gms in the past, leading to Renal bx , recent Pr/Cr 6 gms Nephrology consult for concern for lupus nephritis Cardiology consult for pericardial effusion Interventional radiology for pericardiocentesis and paracentesis Heparin for DVT prophylaxis Protonix GI prophylaxis Clear liquid diet Full code Discussed with RN and SW Disposition pending cardiology, nephrology, interventional radiology evaluation Surrogate decision maker is Yehuda Gomez 2-09 TO HAVE PERM dialysis cath placed today, no inc SOA, C/O MILD ANXIETY D/W RN CR 4.1 09-16 nephrotic Syndrome 10 gms in the past, leading to Renal bx , recent Pr/Cr 6 gms HAS CHAIR TIME D/C TODAY TO HOME D/C PLANNING 36 MIN 27 min pt exam, chart review, > 50% of time spent with exam, chart review, pt care coordination History of Present Illness History of Present Illness Ms Lopez is a 30-year-old female with history of lupus that was diagnosed 1 year ago, hypertension, depression who presents today with increased abdominal bloating tightness and pain which also contributes to her shortness of breath. Also endorses some hemoptysis as well. Patient that she was constipated so she took some laxatives. Patient was also placed on Lasix 40 mg twice daily, however she does not feel this is helping her. This originally was to help her lower extremity edema which originally was doing okay but has gotten worse in the past few weeks. Patient is currently not taking any steroids. She states she is only taking Plaquenil. Denies fevers, rashes, hematuria, diarrhea, nausea vomiting, headaches or vision changes, chest pain. 09/07: Patient seen and evaluated. Slightly tachycardic, afebrile. Patient's breathing on room air, still with some complaints of shortness of breath. Echocardiogram with pericardial effusion with tamponade physiology. Status post pericardiocentesis 1650 cc. Paracentesis 3.6 L. 2: Afebrile. Seen in ICU post pericardiocentesis. Labs reviewed K5.7 BUN 97, CR 4. Plan for dialysis catheter today. Her shortness of breath has improved. No telemetry events. Some fluctuant swelling at both pericardiocentesis and paracentesis sites. No bleeding. 09/09: Afebrile seen in ICU after pericardial drain removed per cardiology. To lerated dialysis well. Hb down to 6.8. She is much less short of breath. Overall does not feel great. 09/10: Patient seen and evaluated. Pericardial drain removed yesterday. Status post paracentesis and pericardiocentesis. Hemoglobin 6.8 yesterday, 6.4 today. I do not think this represents an acute bleed, may be secondary to her kidney disease or mycophenolate. Will continue to monitor hemoglobin. 09/11: Patient seen on hemodialysis. Afebrile this morning, breathing room air. Started on darbepoetin, first dose yesterday. Hemoglobin 6.4 yesterday, 6.6 today. No evidence of bleeding. Hold transfusions at this time as to not fluid overload. Plan: Initiated on HD on 09/07. S/P paracentesis and pericardiocentesis. Continue HD, per nephrology. Continue to monitor hemoglobin. Vitals Vitals Vital Signs Date Time Temp Pulse Resp B/P (MAP) Pulse Ox O2 Delivery O2 Flow Rate FiO2 09/16/20 07:00 98.0 109 20 143/116 (125) 97 Room Air 98.0 09/15/20 10:47 2.0 Physical Exam General: Alert, Oriented X3, Cooperative, No acute distress, Other (ANXIOUS) Heart: Regular rate, Normal S1, Normal S2, No murmurs, Gallops Lungs: Clear Abdomen: Normal bowel sounds, Soft, No tenderness, No hepatosplenomegaly, No masses Extremities: No clubbing, No cyanosis, No edema, Normal pulses, No tenderness/swelling Skin: No significant lesion Labs LABS Laboratory Tests Test 09/16/20 06:45 Sodium Level 132 mmol/L (136-145) Potassium Level 5.3 mmol/L (3.5-5.1) Chloride Level 99 mmol/L (98-107) Carbon Dioxide Level 25 mmol/L (21-32) Anion Gap 8 (6-14) Blood Urea Nitrogen 72 mg/dL (7-20) Creatinine 5.2 mg/dL (0.6-1.0) Estimated GFR (Cockcroft-Gault) 9.7 Glucose Level 137 mg/dL (70-99) Calcium Level 8.6 mg/dL (8.5-10.1) Assessment and Plan Assessmemt and Plan Problems Medical Problems: (1) Acute renal failure Status: Acute (2) Ascites Status: Acute (3) Pericardial effusion Status: Acute (4) Pleural effusion Status: Acute FINAL DIAGNOSIS Problems Medical Problems: (1) Acute renal failure Status: Acute (2) Ascites Status: Acute (3) Pericardial effusion Status: Acute (4) Pleural effusion Status: Acute Brief Hospital Course Ms. Lopez is a 30 old [sex] who presented with [ACUTE RENAL FAILURE ] CONDITION AT DISCHARGE: Improved Discharge Medications Current Medications Fentanyl Citrate (Fentanyl 2ml Vial) 50 mcg 1X ONCE IVP Last administered on 09/06/20at 16:59; Start 09/06/20 at 16:15; Stop 09/06/20 at 16:22; Status DC Ondansetron HCl (Zofran) 4 mg 1X ONCE IVP Last administered on 09/06/20at 16:59; Start 09/06/20 at 16:15; Stop 09/06/20 at 16:22; Status DC Iohexol (Omnipaque 300 Mg/ml) 75 ml 1X ONCE IV ; Start 09/06/20 at 16:45; Stop 09/06/20 at 16:46; Status DC Info (CONTRAST GIVEN -- Rx MONITORING) 1 each PRN DAILY PRN MC SEE COMMENTS; Start 09/06/20 at 16:45; Stop 09/08/20 at 16:44; Status DC Furosemide (Lasix) 60 mg 1X ONCE IVP Last administered on 09/06/20at 20:30; Start 09/06/20 at 19:00; Stop 09/06/20 at 19:01; Status DC Sennosides (Senna) 17.2 mg PRN BID PRN PO CONSTIPATION 1ST CHOICE; Start 09/06/20 at 21:30 Docusate Sodium (Colace) 100 mg PRN DAILY PRN PO HARD STOOLS; Start 09/06/20 at 21:30 Ondansetron HCl (Zofran) 4 mg PRN Q6HRS PRN IVP NAUSEA/VOMITING Last administered on 09/14/20at 10:43; Start 09/06/20 at 21:30 Methylprednisolone Sodium Succinate (SOLU-Medrol 125MG VIAL) 100 mg Q6HRS IV Last administered on 09/11/20at 14:22; Start 09/07/20 at 00:00; Stop 09/11/20 at 17:00; Status DC Dextrose (Dextrose 50%-Water Syringe) 12.5 gm PRN Q15MIN PRN IV SEE COMMENTS; Start 09/06/20 at 21:30 Acetaminophen (Tylenol) 650 mg PRN Q4HRS PRN PO TEMP OVER 100.4F OR MILD PAIN Last administered on 09/14/20at 08:56; Start 09/06/20 at 21:30 Heparin Sodium (Porcine) (Heparin Sodium) 5,000 unit Q12HR SQ ; Start 09/07/20 at 09:00; Stop 09/07/20 at 09:42; Status DC Famotidine (Pepcid) 20 mg DAILY PO Last administered on 09/08/20at 09:36; Start 09/07/20 at 09:00; Stop 09/08/20 at 12:07; Status DC Morphine Sulfate (Morphine Sulfate) 1 mg PRN Q1HR PRN IV MODERATE PAIN 4-6 Last administered on 09/09/20at 12:05; Start 09/06/20 at 21:30; Stop 09/09/20 at 21:18; Status DC Morphine Sulfate (Morphine Sulfate) 2 mg PRN Q2HR PRN IV SEVERE PAIN 7-10; Start 09/06/20 at 04:00; Stop 09/07/20 at 03:59; Status DC Heparin Sodium (Porcine) (Heparin Sodium) 5,000 unit Q12HR SQ Last administered on 09/09/20at 22:10; Start 09/08/20 at 09:00; Stop 09/10/20 at 09:42; Status DC Lidocaine/ Epinephrine (LIDOCAINE 2%-EPI 1:100,000 multi-dose) 20 ml STK-MED ONCE .ROUTE ; Start 09/07/20 at 09:43; Stop 09/07/20 at 09:43; Status DC Fentanyl Citrate (Fentanyl 2ml Vial) 100 mcg STK-MED ONCE .ROUTE ; Start 09/07/20 at 10:23; Stop 09/07/20 at 10:23; Status DC Midazolam HCl (Versed) 2 mg STK-MED ONCE .ROUTE ; Start 09/07/20 at 10:23; Stop 09/07/20 at 10:23; Status DC Heparin Sodium/ Sodium Chloride 500 ml @ As Directed STK-MED ONCE .ROUTE ; Start 09/07/20 at 10:30; Stop 09/07/20 at 10:31; Status DC Diphenhydramine HCl (Benadryl) 50 mg STK-MED ONCE .ROUTE ; Start 09/07/20 at 11:05; Stop 09/07/20 at 11:05; Status DC Heparin Sodium/ Sodium Chloride (HEPARIN for ARTERIAL LINE FLUSH) 1,000 unit 1X ONCE IART Last administered on 09/07/20at 11:15; Start 09/07/20 at 11:15; Stop 09/07/20 at 11:20; Status DC Midazolam HCl (Versed) 2 mg 1X ONCE IV Last administered on 09/07/20at 10:44; Start 09/07/20 at 11:15; Stop 09/07/20 at 11:20; Status DC Fentanyl Citrate (Fentanyl 2ml Vial) 100 mcg 1X ONCE IV Last administered on 09/07/20at 10:44; Start 09/07/20 at 11:15; Stop 09/07/20 at 11:20; Status DC Lidocaine/ Epinephrine (LIDOCAINE 2%-EPI 1:100,000 multi-dose) 20 ml 1X ONCE IJ Last administered on 09/07/20at 11:15; Start 09/07/20 at 11:15; Stop 09/07/20 at 11:20; Status DC Diphenhydramine HCl (Benadryl) 50 mg 1X ONCE IVP Last administered on 09/07/20at 11:15; Start 09/07/20 at 11:15; Stop 09/07/20 at 11:20; Status DC Lidocaine/ Epinephrine (LIDOCAINE 2%-EPI 1:100,000 multi-dose) 20 ml STK-MED ONCE .ROUTE ; Start 09/07/20 at 11:36; Stop 09/07/20 at 11:36; Status DC Mycophenolate Mofetil (Cellcept) 1,000 mg BID PO Last administered on 09/12/20at 21:03; Start 09/07/20 at 12:00; Stop 09/12/20 at 22:29; Status DC Lidocaine HCl (Buffered Lidocaine 1%) 3 ml STK-MED ONCE .ROUTE ; Start 09/07/20 at 13:19; Stop 09/07/20 at 13:19; Status DC Lidocaine HCl (Buffered Lidocaine 1%) 6 ml 1X ONCE INJ Last administered on 09/07/20at 13:55; Start 09/07/20 at 14:00; Stop 09/07/20 at 14:01; Status DC Ketorolac Tromethamine (Toradol 15mg Vial) 15 mg 1X ONCE IM ; Start 09/07/20 at 16:30; Stop 09/07/20 at 16:31; Status Cancel Ketorolac Tromethamine (Toradol 15mg Vial) 15 mg 1X ONCE IV Last administered on 09/07/20at 16:50; Start 09/07/20 at 17:00; Stop 09/07/20 at 17:01; Status DC Lidocaine HCl (Buffered Lidocaine 1%) 3 ml STK-MED ONCE .ROUTE ; Start 09/08/20 at 08:37; Stop 09/08/20 at 08:38; Status DC Lidocaine HCl (Buffered Lidocaine 1%) 3 ml 1X ONCE INJ Last administered on 09/08/20at 08:59; Start 09/08/20 at 08:45; Stop 09/08/20 at 08:46; Status DC Lidocaine HCl (Buffered Lidocaine 1%) 3 ml 1X ONCE INJ Last administered on 09/08/20at 09:00; Start 09/08/20 at 09:00; Stop 09/08/20 at 09:01; Status DC Sodium Chloride 1,000 ml @ 1,000 mls/hr Q1H PRN IV hypotension; Start 09/08/20 at 11:00; Stop 09/08/20 at 16:59; Status DC Albumin Human 200 ml @ 200 mls/hr 1X PRN PRN IV Hypotension; Start 09/08/20 at 11:00; Stop 09/08/20 at 16:59; Status DC Diphenhydramine HCl (Benadryl) 25 mg 1X PRN PRN IV ITCHING; Start 09/08/20 at 11:00; Stop 09/09/20 at 10:59; Status DC Diphenhydramine HCl (Benadryl) 25 mg 1X PRN PRN IV ITCHING; Start 09/08/20 at 11:00; Stop 09/09/20 at 10:59; Status DC Sodium Chloride (Normal Saline Flush) 10 ml 1X PRN PRN IV AP catheter pack; Start 09/08/20 at 11:00; Stop 09/09/20 at 10:59; Status DC Sodium Chloride (Normal Saline Flush) 10 ml 1X PRN PRN IV TOURIST ESCORT catheter pack; Start 09/08/20 at 11:00; Stop 09/09/20 at 10:59; Status DC Sodium Chloride 1,000 ml @ 400 mls/hr Q2H30M PRN IV PATENCY; Start 09/08/20 at 11:00; Stop 09/08/20 at 22:59; Status DC Info (PHARMACY MONITORING -- do not chart) 1 each PRN DAILY PRN MC SEE COMMENTS; Start 09/08/20 at 11:00; Stop 09/09/20 at 08:51; Status DC Famotidine (Pepcid) 20 mg Q48H PO Last administered on 09/16/20at 08:37; Start 09/10/20 at 09:00 Sodium Chloride 1,000 ml @ 1,000 mls/hr Q1H PRN IV hypotension; Start 09/09/20 at 07:30; Stop 09/09/20 at 13:29; Status DC Albumin Human 200 ml @ 200 mls/hr 1X PRN PRN IV Hypotension; Start 09/09/20 at 07:30; Stop 09/09/20 at 13:29; Status DC Sodium Chloride (Normal Saline Flush) 10 ml 1X PRN PRN IV AP catheter pack; Start 09/09/20 at 07:30; Stop 09/10/20 at 07:29; Status DC Sodium Chloride (Normal Saline Flush) 10 ml 1X PRN PRN IV TOURIST ESCORT catheter pack; Start 09/09/20 at 07:30; Stop 09/10/20 at 07:29; Status DC Sodium Chloride 1,000 ml @ 400 mls/hr Q2H30M PRN IV PATENCY; Start 09/09/20 at 07:30; Stop 09/09/20 at 19:29; Status DC Info (PHARMACY MONITORING -- do not chart) 1 each PRN DAILY PRN MC SEE COMMENTS; Start 09/09/20 at 07:30; Status UNV Info (PHARMACY MONITORING -- do not chart) 1 each PRN DAILY PRN MC SEE COMMENTS; Start 09/09/20 at 07:30; Stop 09/11/20 at 13:10; Status DC Fentanyl Citrate (Fentanyl 2ml Vial) 50 mcg PRN Q2HR PRN IVP PAIN Last administered on 09/16/20at 12:21; Start 09/09/20 at 21:30 Darbepoetin [place] (ARANESP for NON-DIALYSIS PTS) 60 mcg 1X ONCE SQ Last administered on 09/10/20at 12:30; Start 09/10/20 at 11:00; Stop 09/10/20 at 11:01; Status DC Lidocaine HCl (Xylocaine 2% Topical 5gm Tube) 1 aditya 1X ONCE TP Last administered on 09/10/20at 15:19; Start 09/10/20 at 12:45; Stop 09/10/20 at 12:46; Status DC Sodium Chloride 1,000 ml @ 1,000 mls/hr Q1H PRN IV hypotension; Start 09/11/20 at 09:00; Stop 09/11/20 at 14:59; Status DC Albumin Human 200 ml @ 200 mls/hr 1X PRN PRN IV Hypotension Last administered on 09/11/20at 10:39; Start 09/11/20 at 09:00; Stop 09/11/20 at 14:59; Status DC Sodium Chloride 1,000 ml @ 400 mls/hr Q2H30M PRN IV PATENCY; Start 09/11/20 at 09:00; Stop 09/11/20 at 20:59; Status DC Info (PHARMACY MONITORING -- do not chart) 1 each PRN DAILY PRN MC SEE COMMENTS; Start 09/11/20 at 10:30; Stop 09/11/20 at 13:10; Status DC Info (PHARMACY MONITORING -- do not chart) 1 each PRN DAILY PRN MC SEE COMMENTS; Start 09/11/20 at 10:30; Stop 09/12/20 at 08:44; Status DC Prednisone (Prednisone) 60 mg 1X ONCE PO ; Start 09/11/20 at 08:00; Stop 09/11/20 at 08:01; Status Cancel Prednisone (Prednisone) 60 mg 1X ONCE PO Last administered on 09/12/20at 13:38; Start 09/12/20 at 08:00; Stop 09/12/20 at 08:01; Status DC Sodium Chloride 1,000 ml @ 1,000 mls/hr Q1H PRN IV hypotension; Start 09/12/20 at 08:45; Stop 09/12/20 at 14:44; Status DC Albumin Human 200 ml @ 200 mls/hr 1X PRN PRN IV Hypotension; Start 09/12/20 at 08:45; Stop 09/12/20 at 14:44; Status DC Sodium Chloride 1,000 ml @ 400 mls/hr Q2H30M PRN IV PATENCY; Start 09/12/20 at 08:45; Stop 09/12/20 at 20:44; Status DC Info (PHARMACY MONITORING -- do not chart) 1 each PRN DAILY PRN MC SEE COMMENTS; Start 09/12/20 at 08:45; Stop 09/14/20 at 09:01; Status DC Sertraline HCl (Zoloft) 25 mg DAILY PO Last administered on 09/16/20at 08:37; Start 09/12/20 at 15:00 Alprazolam (Xanax) 0.25 mg PRN Q8HRS PRN PO ANXIETY / AGITATION Last administered on 09/13/20at 16:34; Start 09/12/20 at 15:00 Prednisone (Prednisone) 60 mg QAM PO Last administered on 09/16/20at 08:37; Start 09/13/20 at 09:00 Mycophenolate Mofetil (Cellcept) 500 mg BID PO Last administered on 09/15/20at 11:14; Start 09/13/20 at 09:00; Stop 09/15/20 at 11:26; Status DC Lidocaine (Lidoderm) 1 patch DAILY TD Last administered on 09/16/20at 08:37; Start 09/14/20 at 09:00 Miscellaneous (Lidoderm Patch Removal) 1 ea QHS MC ; Start 09/14/20 at 21:00 Sodium Chloride 1,000 ml @ 1,000 mls/hr Q1H PRN IV hypotension; Start 09/14/20 at 09:00; Stop 09/14/20 at 14:59; Status DC Sodium Chloride 1,000 ml @ 400 mls/hr Q2H30M PRN IV PATENCY; Start 09/14/20 at 09:00; Stop 09/14/20 at 20:59; Status DC Info (PHARMACY MONITORING -- do not chart) 1 each PRN DAILY PRN MC SEE COMMENTS; Start 09/14/20 at 09:00; Stop 09/14/20 at 08:58; Status DC Info (PHARMACY MONITORING -- do not chart) 1 each PRN DAILY PRN MC SEE COMMENTS; Start 09/14/20 at 09:00 Acetaminophen/ Hydrocodone Bitart (Lortab 5/325) 1 tab PRN Q6HRS PRN PO MODERATE PAIN, SEVERE PAIN Last administered on 09/15/20at 17:44; Start 09/14/20 at 13:45 Hydralazine HCl (Apresoline Inj) 10 mg 1X ONCE IVP Last administered on 09/14/20at 23:50; Start 09/14/20 at 23:30; Stop 09/14/20 at 23:33; Status DC Lidocaine/ Epinephrine (LIDOCAINE 2%-EPI 1:100,000 multi-dose) 20 ml STK-MED ONCE .ROUTE ; Start 09/15/20 at 10:00; Stop 09/15/20 at 10:00; Status DC Midazolam HCl (Versed) 2 mg 1X ONCE IV Last administered on 09/15/20at 10:39; Start 09/15/20 at 10:15; Stop 09/15/20 at 10:16; Status DC Fentanyl Citrate (Fentanyl 2ml Vial) 100 mcg 1X ONCE IV Last administered on 09/15/20at 10:40; Start 09/15/20 at 10:15; Stop 09/15/20 at 10:16; Status DC Lidocaine/ Epinephrine (LIDOCAINE 2%-EPI 1:100,000 multi-dose) 20 ml 1X ONCE IJ Last administered on 09/15/20at 10:39; Start 09/15/20 at 10:15; Stop 09/15/20 at 10:16; Status DC Cefazolin Sodium (Ancef) 1 gm 1X ONCE IVP Last administered on 09/15/20at 10:39; Start 09/15/20 at 10:15; Stop 09/15/20 at 10:16; Status DC Heparin Sodium (Porcine) (Heparin Sodium) 2,600 unit 1X ONCE INT CAT ; Start 09/15/20 at 10:15; Stop 09/15/20 at 10:16; Status Cancel Cefazolin Sodium (Ancef) 1 gm STK-MED ONCE IVP ; Start 09/15/20 at 10:10; Stop 09/15/20 at 10:10; Status DC Midazolam HCl (Versed) 2 mg STK-MED ONCE .ROUTE ; Start 09/15/20 at 10:10; Stop 09/15/20 at 10:11; Status DC Fentanyl Citrate (Fentanyl 2ml Vial) 100 mcg STK-MED ONCE .ROUTE ; Start 09/15/20 at 10:10; Stop 09/15/20 at 10:11; Status DC Temazepam (Restoril) 15 mg PRN QHS PRN PO INSOMNIA Last administered on 09/15/20at 23:13; Start 09/15/20 at 22:45 Sodium Chloride 1,000 ml @ 1,000 mls/hr Q1H PRN IV hypotension; Start 09/16/20 at 08:00; Stop 09/16/20 at 13:59; Status DC Albumin Human 200 ml @ 200 mls/hr 1X PRN PRN IV Hypotension; Start 09/16/20 at 08:00; Stop 09/16/20 at 13:59; Status DC Sodium Chloride 1,000 ml @ 400 mls/hr Q2H30M PRN IV PATENCY; Start 09/16/20 at 08:00; Stop 09/16/20 at 19:59 Info (PHARMACY MONITORING -- do not chart) 1 each PRN DAILY PRN MC SEE COMMENTS; Start 09/16/20 at 09:45 Info (PHARMACY MONITORING -- do not chart) 1 each PRN DAILY PRN MC SEE COMMENTS; Start 09/16/20 at 09:45 Active Scripts Active Furosemide 40 Mg Tablet 40 Mg PO DAILY 30 Days Reported Cellcept (Mycophenolate Mofetil) 250 Mg Capsule 2 Cap PO BID Plaquenil (Hydroxychloroquine Sulfate) 200 Mg Tablet 200 Mg PO DAILY Vital Signs Vital Signs Date Time Temp Pulse Resp B/P (MAP) Pulse Ox O2 Delivery O2 Flow Rate FiO2 09/16/20 12:21 16 Room Air 09/16/20 07:00 98.0 109 143/116 (125) 97 98.0 09/15/20 10:47 2.0 Labs Laboratory Tests Test 09/15/20 05:11 09/16/20 06:45 White Blood Count 15.6 x10^3/uL (4.0-11.0) Red Blood Count 3.00 x10^6/uL (3.50-5.40) Hemoglobin 8.9 g/dL (12.0-15.5) Hematocrit 27.1 % (36.0-47.0) Mean Corpuscular Volume 90 fL (79-100) Mean Corpuscular Hemoglobin 30 pg (25-35) Mean Corpuscular Hemoglobin Concent 33 g/dL (31-37) Red Cell Distribution Width 15.4 % (11.5-14.5) Platelet Count 223 x10^3/uL (140-400) Neutrophils (%) (Auto) 91 % (31-73) Lymphocytes (%) (Auto) 6 % (24-48) Monocytes (%) (Auto) 3 % (0-9) Eosinophils (%) (Auto) 0 % (0-3) Basophils (%) (Auto) 0 % (0-3) Neutrophils # (Auto) 14.2 x10^3/uL (1.8-7.7) Lymphocytes # (Auto) 0.9 x10^3/uL (1.0-4.8) Monocytes # (Auto) 0.4 x10^3/uL (0.0-1.1) Eosinophils # (Auto) 0.0 x10^3/uL (0.0-0.7) Basophils # (Auto) 0.0 x10^3/uL (0.0-0.2) Sodium Level 135 mmol/L (136-145) 132 mmol/L (136-145) Potassium Level 4.8 mmol/L (3.5-5.1) 5.3 mmol/L (3.5-5.1) Chloride Level 99 mmol/L (98-107) 99 mmol/L (98-107) Carbon Dioxide Level 26 mmol/L (21-32) 25 mmol/L (21-32) Anion Gap 10 (6-14) 8 (6-14) Blood Urea Nitrogen 56 mg/dL (7-20) 72 mg/dL (7-20) Creatinine 4.1 mg/dL (0.6-1.0) 5.2 mg/dL (0.6-1.0) Estimated GFR (Cockcroft-Gault) 12.8 9.7 BUN/Creatinine Ratio 14 (6-20) Glucose Level 129 mg/dL (70-99) 137 mg/dL (70-99) Calcium Level 8.6 mg/dL (8.5-10.1) 8.6 mg/dL (8.5-10.1) Phosphorus Level 5.5 mg/dL (2.6-4.7) Total Bilirubin 0.4 mg/dL (0.2-1.0) Aspartate Amino Transf (AST/SGOT) 19 U/L (15-37) Alanine Aminotransferase (ALT/SGPT) 45 U/L (14-59) Alkaline Phosphatase 86 U/L (46-116) Total Protein 4.8 g/dL (6.4-8.2) Albumin 1.8 g/dL (3.4-5.0) Albumin/Globulin Ratio 0.6 (1.0-1.7) Laboratory Tests Test 09/16/20 06:45 Sodium Level 132 mmol/L (136-145) Potassium Level 5.3 mmol/L (3.5-5.1) Chloride Level 99 mmol/L (98-107) Carbon Dioxide Level 25 mmol/L (21-32) Anion Gap 8 (6-14) Blood Urea Nitrogen 72 mg/dL (7-20) Creatinine 5.2 mg/dL (0.6-1.0) Estimated GFR (Cockcroft-Gault) 9.7 Glucose Level 137 mg/dL (70-99) Calcium Level 8.6 mg/dL (8.5-10.1) Allergies Allergies Coded Allergies Type Severity Reaction Last Updated Verified No Known Drug Allergies 04/03/20 No Disposition/Orders: D/C to Home Justicifation of Admission Dx: Justifications for Admission: Justification of Admission Dx: Yes Chronic Renal Failure: Renail Failure MANISH LANZA MD Sep 16, 2020 14:16
[2020-09-16] MEDS ORDERED: PRED20TA PO (14:19)
[2020-09-16] MEDS ORDERED: DOCU-153 PO (14:19)
[2020-09-16] MEDS ORDERED: FAMO20TA5 PO (14:19)
[2020-09-16] MEDS ORDERED: LIDO700A21 TD (14:19)
[2020-09-16] MEDS ORDERED: SERT-266 PO (14:19)
[2020-09-16] MEDS ORDERED: ACET325T9 PO (14:19)
--- NOTE | 2020-09-16 14:21 | DISCH ---
DISCHARGE INSTRUCTIONS Condition on Discharge Condition on Discharge: Stable Activity After Discharge Activity Instructions for Disc: Resume previous activity Bathing Instructions: Shower-keep dressing dry Lifting Instructions after Dis: No heavy lifting, No pulling or pushing Driving Instructions after Dis: Do not drive today Diet after Discharge Diet after Discharge: Renal Dialysis Liquid Texture: Thin Liquid Follow-Up Follow up with: NEPHROLOGY FOR DIALYSIS DIRECTED Treatment/Equipment after DC Adaptive Equipment Issued: None Comment: Pericardial Drain MANISH LANZA MD Sep 16, 2020 14:21
--- NOTE | 2020-09-16 14:53 | NUR ---
Verbal RD consult from nursing for new HD diet education prior to pt discharge. Visited w/pt in her room. Provided pt w/handouts listing potassium, phosphorus, and protein content of foods. Discussed importance of choosing low p otassium and low phosphorus foods and high protein foods; reviewed specific foods recommended and specific foods to avoid. Encouraged pt to consult w/dietitian at dialysis center as well. Provided pt w/copy of this RDs card w/contact information and encouraged pt to reach out w/additional diet education questions. Pt engaged, asked appropriate questions, anticipate moderate to good compliance at this time. All diet education questions answered at this time. RD available [phone] as needed
--- NOTE | 2020-09-16 16:20 | NUR ---
Discharge Note: YOANA ROJO Discharge instructions and discharge home medications reviewed with Patient and a copy given. All questions have been answered and understanding verbalized. Information about outpatient dialysis given to patient. The following instructions and handouts were given: renal diet, kidney disease, and hypertension. Discontinued iv line and catheter intact. Patient discharged to home with self-care. Picked up by dad and .
== END 2020-09-16 15:19 | disposition home or self-care (01) | DRG 673 ==
LOC: ER 15:51 → 2 SOUTH 18:00 → 1 WEST ICU 09-07 11:39 → 2 SOUTH 09-09 19:16
PROVIDERS: ADMIT Internal Medicine; ATTEND Internal Medicine
PROC: 0W9G3ZZ Drainage of Peritoneal Cavity, Percutaneous Approach (ICD-10-PCS; 2020-09-06)
PROC: 0W9D30Z Drainage of Pericardial Cavity with Drainage Device, Percutaneous Approach (ICD-10-PCS; 2020-09-07)
PROC: 02H633Z Insertion of Infusion Device into Right Atrium, Percutaneous Approach (ICD-10-PCS; 2020-09-08)
PROC: B548ZZA Ultrasonography of Superior Vena Cava, Guidance (ICD-10-PCS; 2020-09-08)
PROC: 5A1D70Z Performance of Urinary Filtration, Intermittent, Less than 6 Hours Per Day (ICD-10-PCS; 2020-09-08)
PROC: 5A1D70Z Performance of Urinary Filtration, Intermittent, Less than 6 Hours Per Day (ICD-10-PCS; 2020-09-09)
PROC: 5A1D70Z Performance of Urinary Filtration, Intermittent, Less than 6 Hours Per Day (ICD-10-PCS; 2020-09-11)
PROC: 5A1D70Z Performance of Urinary Filtration, Intermittent, Less than 6 Hours Per Day (ICD-10-PCS; 2020-09-12)
PROC: 30233N1 Transfusion of Nonautologous Red Blood Cells into Peripheral Vein, Percutaneous Approach (ICD-10-PCS; 2020-09-12)
PROC: 5A1D70Z Performance of Urinary Filtration, Intermittent, Less than 6 Hours Per Day (ICD-10-PCS; 2020-09-14)
PROC: 0JH63XZ Insertion of Tunneled Vascular Access Device into Chest Subcutaneous Tissue and Fascia, Percutaneous Approach (ICD-10-PCS; principal; 2020-09-15)
PROC: 02H633Z Insertion of Infusion Device into Right Atrium, Percutaneous Approach (ICD-10-PCS; 2020-09-15)
PROC: B5181ZA Fluoroscopy of Superior Vena Cava using Low Osmolar Contrast, Guidance (ICD-10-PCS; 2020-09-15)
PROC: 5A1D70Z Performance of Urinary Filtration, Intermittent, Less than 6 Hours Per Day (ICD-10-PCS; 2020-09-16)
DX: N17.9 Acute kidney failure, unspecified (principal); E43 Unspecified severe protein-calorie malnutrition; I31.3 Pericardial effusion (noninflammatory); J90 Pleural effusion, not elsewhere classified; R18.8 Other ascites; I42.9 Cardiomyopathy, unspecified; J98.11 Atelectasis; I12.9 Hypertensive chronic kidney disease with stage 1 through stage 4 chronic kidney disease, or unspecified chronic kidney disease; Z20.822 Contact with and (suspected) exposure to COVID-19; N18.9 Chronic kidney disease, unspecified; M32.14 Glomerular disease in systemic lupus erythematosus; D63.8 Anemia in other chronic diseases classified elsewhere; Z87.441 Personal history of nephrotic syndrome; M32.9 Systemic lupus erythematosus, unspecified; R14.0 Abdominal distension (gaseous); E87.5 Hyperkalemia; Z79.899 Other long term (current) drug therapy; Q63.1 Lobulated, fused and horseshoe kidney; Z68.28 Body mass index [BMI] 28.0-28.9, adult; M54.2 Cervicalgia; F41.9 Anxiety disorder, unspecified
CPT/HCPCS: 33016; 36415; 36556; 36581; 49083; 71045; 74176; 76937; 77001; 80048; 80053; 80069; 80307; 81001; 81025; 82570; 82728; 83540; 83550; 83615; 83690; 83735; 84100; 84156; 84157; 84484; 85007; 85025; 85027; 85610; 86140; 86160; 86255; 86317; 86704; 86850; 86900; 86901; 86920; 87071; 87075; 87086; 87340; 87426; 88112; 88305; 89050; 93005; 93308; 93320; 96374; 96375; 99152; 99153; 99285; C1750; C1769; C1892; J0360; J0690; J0881; J1200; J1644; J1885; J1940; J2250; J2270; J2405; J2930; J3010; J3490; J7512; J7517; P9016; P9046; U0003; G0378